=== PATIENT | female | born 1995 | race Caucasian/White ===

== ENCOUNTER 2023-04-23 14:54 | Outpatient (CLI) | payer OTHER, SELFPAY ==
--- NOTE | ~2023-04-23 | XR_ITS ---
EXAMINATION: XR sacroiliac joints min 3V INDICATION: Dorsalgia, unspecified TECHNIQUE: Three views of the sacroiliac joints are obtained. COMPARISON: None available FINDINGS: Bone alignment is normal. There is no fracture. No abnormal sclerosis or erosion of the sac roiliac joints are identified. IMPRESSION: 1. No acute osseous abnormality. Reviewed, dictated and finalized at location L. TER TUMBLING BARREL
--- NOTE | ~2023-04-23 | XR_ITS ---
EXAMINATION: XR lumbar spine 6V w bending DATE: 04/23/2023 15:22 INDICATION: Chronic pain syndrome TECHNIQUE: Anteroposterior, lateral in neutral, flexion and extension, and bilateral oblique views of the lumbar spine, and cone-down lateral view of the lumbosacral junction were obtained. COMPARISON: None. FINDINGS: Bone alignment is normal. There is no hypermobility with flexion or extension. The vertebra l body heights are maintained. There is mild loss of intervertebral disc space height at L5-S1. There is no fracture. Surgical clips in the right upper quadrant are likely from prior cholecystectomy. Th ere is mild facet joint osteoarthritis at L5-S1. IMPRESSION: 1. Mild lumbar spondylosis without acute findings. Reviewed, dictated and finalized at location L. DIRECTOR
--- NOTE | ~2023-04-23 | XR_ITS ---
AP and lateral views of the bilateral hips Clinical history: Pain Findings: No acute fracture or dislocation is seen. Osseous alignment is anatomic. Bilateral hip and SI joint spaces are preserved. Soft tissues are unremarkable. Impression: No significant abnormality is seen. Reviewed, dictated and finalized at location M. LATOR CONSTRUCTOR Impression: No significant abnormality is seen.
== END 2023-04-23 14:55 | disposition home or self-care (01) ==
PROVIDERS: Visit Provider Anesthesiology Pain Medicine
DX: M25.551 Pain in right hip (principal); M25.552 Pain in left hip; M47.896 Other spondylosis, lumbar region
CPT/HCPCS: 72114; 72202; 73521

== ENCOUNTER 2023-05-09 10:47 | Outpatient (CLI) | payer OTHER, SELFPAY ==
--- NOTE | ~2023-05-09 | MR_ITS ---
EXAMINATION: MR lumbar spine wo con DATE: 05/09/2023 12:00 INDICATION: Dorsalgia TECHNIQUE: Magnetic resonance imaging (MRI) of the lumbar spine was performed without intravenous con trast. Sequences included sagittal T2-weighted FSE, sagittal T2-weighted FS FSE, sagittal T1-weighted FSE, and axial T2-weighted FSE. COMPARISON: None FINDINGS: For degree lumbar levocurvature. 6 mm retrolisthesis L5 on S1. There is straightening of the normal l ordosis in the mid to upper lumbar spine. Vertebral body heights are normal. T1 hyperintense hemangio ma at L3. Marrow signal is otherwise normal. Disc desiccation and mild disc height loss at L5-S1. The conus medullaris terminates at L1-L2. There is normal signal in the caudal spinal cord. Paravertebra l soft tissues are unremarkable. The following disc levels are specifically discussed: T12-L1: The disc does not extend beyond the endplate margin. There is mild right and moderate left fa cet joint osteoarthritis. There is no neural foraminal stenosis. There is no central canal stenosis. L1-L2: Disc is minimally bulging. There is mild left and mild to moderate right facet joint osteoarth ritis. There is no neural foraminal stenosis. There is no central canal stenosis. L2-L3: Disc is minimally bulging. There is moderate bilateral facet joint osteoarthritis. There is no neural foraminal stenosis. There is no central canal stenosis. L3-L4: Disc is minimally bulging. There is mild bilateral facet joint osteoarthritis. There is minima l bilateral neural foraminal stenosis. There is no central canal stenosis. L4-L5: The disc does not extend beyond the endplate margin. There is mild bilateral facet joint osteo arthritis. There is mild bilateral neural foraminal stenosis. There is no central canal stenosis. L5-S1: The disc does not extend beyond the more posterior L5 endplate margin. There is mild bilateral facet joint osteoarthritis. There is mild to moderate bilateral neural foraminal stenosis. There is no central canal stenosis. IMPRESSION: 1. Minimal to mild lumbar spondylosis. Reviewed, dictated and finalized at location A. E RACE STARTER
== END 2023-05-09 10:48 | disposition home or self-care (01) ==
PROVIDERS: PCP Nurse Practitioner; Visit Provider Anesthesiology Pain Medicine
DX: M43.06 Spondylolysis, lumbar region (principal); M47.817 Spondylosis without myelopathy or radiculopathy, lumbosacral region; M54.17 Radiculopathy, lumbosacral region; G89.4 Chronic pain syndrome
CPT/HCPCS: 72148

== ENCOUNTER 2024-01-14 01:00 | Day surgery (SDC) | payer OTHER, SELFPAY ==
[2024-01-11 14:33] VITALS: BMI 50.3
--- NOTE | 2024-01-11 14:41 | PC.NURSE ---
Report to the Outpatient Waiting Room, entrance under the green pavilion located off [facility], at time _145pm_ on date _[id number]_. Planned Procedure Time: _245pm_. Time changes happen often and if your time is changed the preop area will call you the afternoon before. - You and your visitor will be asked to self-screen and do not enter if you have any COVID symptoms. - A mask is optional within the hospital at this time. Eat breakfast and a light lunch. Nothing to eat or drink after 1245pm. Take the following medications with a SIP of water the morning of surgery: ____Take all medications DO NOT STOP ANY OF YOUR OTHER PRESCRIPTION MEDICATIONS PRIOR TO SURGERY ?EXCEPT THE FOLLOWING Medications to discontinue per physician None Date to take last dose Please no make-up, nail cape verdean, hairspray, perfume, deodorant, or body powder the day of surgery. No jewelry (including any body piercings) or valuables the day of surgery, leave them at home. Please take a shower or bath the night before, or the morning of, surgery with an antibacterial soap. Wear comfortable, loose fitting clothing. - Jewelry must be removed prior to entering the operating room. Rings and piercings that are not removed may be cut off. - The hospital will not accept responsibility for valuables. - Please leave all valuables, including medications, at home the day of surgery. If you are going home after surgery, a licensed show horse driver must drive you home. - NO public transportation without another adult if you receive anesthesia. - We recommend that an adult stay with you for 24 hours following discharge. - We also recommend that you do not drive, make important decision, drink alcoholic beverages, or take any drugs that were not prescribed by your health care provider for at least 24 hours after your discharge time. Follow any additional instructions given to you from your surgeon. If you or anyone in your household have experienced Covid symptoms in the past week, please notify your surgeon or the nurse liaison at the phone number below for possible testing. Telephone instructions given to __Hali___and asked if any additional questions and then verbalized understanding. Patient advised to call surgeon office or pre surgery nurse liaison [phone] if any additional questions.
--- NOTE | ~2024-01-14 | XR_ITS ---
EXAMINATION: XR fluoroscopy no charge DATE: 01/14/2024 14:31 INDICATION: Bilateral sacroiliac joint injections TECHNIQUE: 6 fluoroscopic images of the was were obtained during procedure performed by Dr. Lamar. Rad iologist was not present for the imaging or procedure. The amount of fluoroscopy time used during thi s procedure was 0.7 minutes. COMPARISON: None. FINDINGS IMPRESSION: Images demonstrate needle tips and injected contrast in the bilateral sacroiliac joints. See procedur e note for further detail. Reviewed, dictated and finalized at location A.
--- NOTE | 2024-01-14 10:38 | PM.HPGS ---
History of Present Illness History of Present Illness Consent: Risks, benefits, and alternatives have been discussed and questions answered. Patient agrees to proceed with procedure. Chief complaint: sacroiliitis, chronic low back pain Narrative: Hali Garcia is a 28 year old female with chronic, recalcitrant and disabling bilateral lumbosacral back pain secondary to degenerative sacroiliac joint arthropathy with failure to respond to aggressive conservative measures including PT, oral and topical analgesics, opioid and nonopioid analgesics, rest, time and activity/behavioral modification over the past 1-2 years who presents for bilateral intra-articular SI joint steroid injection under fluoroscopic guidance and with contrast control. Review of Systems Review of Systems: Patient denies any new infectious, allergic, cardiopulmonary, neurologic or constitutional symptoms or changes in activity tolerance or exercise capacity including new or progressive SOB/SALAS, peripheral edema, productive cough, dysuria, nausea/vomiting, diarrhea, weight change, fevers/chills/night sweats, new or progressive neurologic deficit, cognitive or mood changes since last seen, except as documented in the HPI. All systems reviewed & are unremarkable except as noted in HPI and below PMFSH Social History Social History Smoking packs per day: 1 Smoking cigarettes per day: 20.0 Years smoked: 16 Smoking pack-years: 16.00 Smoking status: Current every day smoker Tobacco type: cigarettes and e-cigarettes/vaping Alcohol intake: current Substance use type: marijuana Other substance usage details: every 2 or 3 months Living arrangements: alone Spiritual care concerns: No Meds Home Medications and Allergies Home Medications Medication Instructions Recorded Confirmed Type pregabalin 300 mg capsule 300 mg PO BID 30 days #60 caps 01/01/24 01/11/24 Rx atomoxetine 40 mg capsule 80 mg PO QAM 01/11/24 01/11/24 History (Strattera) benztropine 0.5 mg tablet 0.5 mg PO BID 01/11/24 01/11/24 History cetirizine 10 mg tablet (Zyrtec) 10 mg PO DAILY PRN Allergy Symptoms 01/11/24 01/11/24 History cholecalciferol (vitamin D3) 50 50 mcg PO DAILY 01/11/24 01/11/24 History mcg (2,000 unit) capsule (Vitamin D3) desvenlafaxine succinate 50 mg 50 mg PO DAILY 01/11/24 01/11/24 History tablet,extended release 24 hr ibuprofen 800 mg tablet 800 mg PO Q6H PRN Pain 01/11/24 01/11/24 History lidocaine 5 % topical patch 1 patch topical DAILY PRN Pain 01/11/24 01/11/24 History lithium carbonate 300 mg 600 mg PO BID 01/11/24 01/11/24 History tablet,extended release norethindrone 1 mg-ethinyl 1 tablet PO DAILY 01/11/24 01/11/24 History estradiol 10 mcg (24)-iron 10 mcg(2) tablet (Lo Loestrin Fe) paliperidone palmitate 156 mg/mL 156 mg IM MONTHLY 01/11/24 01/11/24 History intramuscular syringe (Invega Sustenna) prazosin 1 mg capsule 1 mg PO BID 01/11/24 01/11/24 History prazosin 2 mg capsule 2 mg PO BID 01/11/24 01/11/24 History Allergies Allergy/AdvReac Type Severity Reaction Status Date / Time Sulfa (Sulfonamide Allergy Mild Hives Verified 01/11/24 11:08 Antibiotics) escitalopram [From Lexapro] AdvReac Mild Blurry Verified 01/11/24 11:08 Vision Exam Narrative: The patient's physical exam is essentially unchanged from prior examination on 10/23/2023. Specifically, patient demonstrates normal lung capacity, tidal volume and respiratory rate without wheezes, crackles, rales or rubs. Heart rate and rhythm are regular without murmurs, gallops or rubs. No JVD. Pulses 2+ globally without increasing peripheral edema. AAOx3, NC/AT without acute distress or altered consciousness. Speech, cognition, mood and judgment at baseline and within normal limits. Const: General: cooperative Orientation/consciousness: patient oriented x3 Assessment and Plan Assessment and plan (1) Bilateral sacroiliitis:
--- NOTE | 2024-01-14 10:40 | WPDHPUPDATE1 ---
History and Physical Update Update Date/Time: 01/14/24 10:40 History and Physical has been reviewed, including an updated exam of the patient. There are NO changes in the patient's condition. Risks, benefits, and alternatives have been discussed and questions answered. Patient agrees to proceed with procedure.
--- NOTE | 2024-01-14 10:41 | W.PM.PROC2 ---
Procedure Note - Detailed Date of Procedure 01/14/24 Pre-op Diagnosis sacroiliitis, chronic low back pain Post-op Diagnosis Same Procedure Performed Bilateral Sacroiliac Joint Steroid Injection under Fluoroscopic Guidance and with Contrast Control. Surgeon Yobani Lamar MD Anesthesia Local Description of Procedure INFORMED CONSENT: Risks, benefits and alternatives to the procedure were discussed in detail with the patient who expressed explicit understanding and consent to proceed. Patient was informed verbally and in written form regarding the risks associated with the procedure including the low risk of serious infection, bleeding/bruising, allergic reaction, nerve or organ injury, paralysis, procedural site pain or discomfort, worsening pain and/or mobility, failure to treat and/or disfigurement. The patient expressed explicit understanding and consent to proceed. All materials required for the procedure were available prior to procedure start. Site and side were marked prior to procedure and confirmed in the presence of the patient. PROCEDURE IN DETAIL: The patient was brought to the procedural suite and placed in the prone position. Patient was made comfortable with use of pillows under the head/chest, hips and ankles. Skin overlying the injection site on the affected side(s) was prepared broadly with ChloraPrep applicator and draped in a sterile manner. Aseptic technique was used throughout. The right SI joint was identified in the AP view and contralateral oblique angulation with caudal tilt was utilized to optimize visualization of the inferior and medial joint line representing the posterior portion of the joint. Local anesthesia was established by infiltration with approximately 5 mL of 2% lidocaine via a 1-1/2 inch 27-gauge needle. A 22-gauge 3.5 inch Quincke spinal needle was advanced until the needle entered the inferior third of the joint space approximately 1cm cephalad from its most inferior point. In the AP view, 0.5 mL of Omnipaque 300 contrast medium was injected after negative aspiration for CSF, blood or other bodily fluid, showing appropriate intra-articular spread of contrast without evidence of intravascular, perineural or intrathecal placement. A 1.5 mL solution containing 3 mg of betamethasone in 0.5% PF bupivacaine was injected after repeat negative aspiration. Appropriate spread of the injectate was confirmed with washout of previous injected contrast. No parasthesias were elicited. Needle was removed completely intact without difficulty. The same exact procedure was repeated for all remaining levels on the contralateral side, left SI joint, modified as necessary to accommodate for the new target location with identical findings/results and no evidence of complication. Images were saved and documented in the patient chart. Patient's skin was cleansed and sterile bandage applied. The patient tolerated the procedure well. The patient was transported to the recovery area in stable condition where they were observed for an appropriate amount of time prior to discharge, without evidence of complication. The patient was instructed to avoid excessive activity for the next 48 hours, including climbing and frequent use of stairs. Showers only for 48 hours. They were instructed not to drive or operate heavy machinery for 24 hours. They are to monitor for severe headaches, fevers, chills, night sweats, erythema/swelling at the site or any other signs of infection, bleeding/bruising, bowel or bladder changes as well as new pain, weakness or numbness in the upper or lower extremity. Should they notice these changes, they are instructed to call our office immediately or report directly to the nearest Emergency Department if no answer or if after posted office hours. COMPLICATIONS: None COMMENTS: None CONTRAST WASTED: 29mL Omnipaque 300. Complications No immediate complications Condition Stable Disposition Same day [facility] Billing
[2024-01-14 13:18] VITALS: BP 111/75; PULSE 103; RESP 16; TEMP 36.2; O2SAT 100
[2024-01-14 14:09] VITALS: BP 109/69; PULSE 100; RESP 16; O2SAT 97
[2024-01-14] MEDS: BUPivacaine HCL 0.5% PF 30 ML VIAL 5 ML INFILTRATE (14:17)
[2024-01-14] MEDS: BETAMETHASONE SODIUM PHOSPHATE PF INJ 6 MG/ML VIAL INFILTRATE (14:17)
[2024-01-14 14:19] VITALS: BP 116/73; PULSE 95; RESP 16; O2SAT 97
[2024-01-14 14:23] VITALS: BP 122/81; PULSE 93; RESP 16; O2SAT 99
[2024-01-14 14:49] VITALS: BP 117/69; PULSE 99; RESP 16; O2SAT 100
== END 2024-01-14 14:52 | disposition home or self-care (01) ==
PROVIDERS: PCP Nurse Practitioner; Visit Provider Anesthesiology Pain Medicine
PROC: (CPT 64451; principal; 2024-01-14 14:15)
DX: M46.1 Sacroiliitis, not elsewhere classified (principal); F17.210 Nicotine dependence, cigarettes, uncomplicated; F12.90 Cannabis use, unspecified, uncomplicated; Z79.1 Long term (current) use of non-steroidal anti-inflammatories (NSAID); G89.29 Other chronic pain; M54.50 Low back pain, unspecified
CPT/HCPCS: 64451; 99199; Q9965

== ENCOUNTER 2024-03-04 07:38 | Day surgery (SDC) | payer OTHER, SELFPAY ==
[2024-02-22 12:24] VITALS: BMI 50.8
--- NOTE | ~2024-03-04 | XR_ITS ---
EXAMINATION: XR fluoroscopy no charge DATE: 03/04/2024 10:03 INDICATION: Lumbosacral spondylosis. TECHNIQUE: 60 intraoperative fluoroscopic views of the lumbar spine were obtained. I was not present. Fluoroscopy exposure time was 26 seconds. COMPARISON: Lumbar spine MRI 05/09/2023 FINDINGS: There is mild lumbar spondylosis. Multiple needles are seen for bilateral lumbar medial bra nch/dorsal ramus blocks at L3, L4, and L5. IMPRESSION: 1. Mild lumbar spondylosis. Reviewed, dictated and finalized at location A. IMPRESSION: 1. Mild lumbar spondylosis.
--- NOTE | 2024-03-04 06:49 | WPDHPUPDATE1 ---
History and Physical Update Update Date/Time: 03/04/24 06:49 History and Physical has been reviewed, including an updated exam of the patient. There are NO changes in the patient's condition. Risks, benefits, and alternatives have been discussed and questions answered. Patient agrees to proceed with procedure.
--- NOTE | 2024-03-04 06:50 | W.PM.PROC2 ---
Procedure Note - Detailed Date of Procedure 03/04/24 Pre-op Diagnosis Lumbosacral Spondylosis, chronic low back pain Post-op Diagnosis Same Procedure Performed Diagnostic Bilateral Lumbar Medial Branch/Dorsal Ramus Blocks at L3, L4, L5 Treating the Bilateral L4-5, L5-S1 Facet Joints Under Fluoroscopic Guidance and with Contrast Control. (4 levels blocked). Surgeon Yobani Lamar MD Education Program Coordinator None. Anesthesia Local Description of Procedure INFORMED CONSENT: Risks, benefits and alternatives to the procedure were discussed in detail with the patient who expressed explicit understanding and consent to proceed. Patient was informed verbally and in written form regarding the risks associated with the procedure including the low risk of serious infection, bleeding/bruising, allergic reaction, nerve or organ injury, paralysis, procedural site pain or discomfort, worsening pain and/or mobility, failure to treat and/or disfigurement. The patient expressed explicit understanding and consent to proceed. All materials required for the procedure were available prior to procedure start. Site and side were marked prior to procedure and confirmed in the presence of the patient. PROCEDURE IN DETAIL: The patient was brought to the procedural suite and placed in the prone position. Patient was made comfortable with use of pillows under the head/chest, hips and ankles. Skin overlying the injection site on the affected side(s) was prepared broadly with ChloraPrep applicator and draped in a sterile manner. Aseptic technique was used throughout. The endplates of the vertebral bodies at the site(s) of interest were aligned in the AP view. Ipsilateral oblique angulation was utilized to optimize visualization of the intersection between the superior articulating process and transverse process at each target site. Local anesthesia was established by infiltration with approximately 5 mL of 1% lidocaine via a 1-1/2 inch 27-gauge needle. A 22-gauge 7.0 inch Quincke spinal needle was advanced until the needle tip contacted periosteum at the target site, right L3. Lateral view was utilized to confirm the appropriate placement of the needle tip just anterior to the facet line and superior to the pedicle. In the Lateral view, 0.25 mL of Omnipaque 300 contrast medium was injected after negative aspiration for CSF, blood or other bodily fluid, showing appropriate extra-articular spread of contrast without evidence of intravascular, foraminal or intrathecal placement. A 0.5 mL solution of 0.5% PF bupivacaine was injected after negative repeat aspiration. Appropriate spread of the injectate was confirmed with washout of previously injected contrast. No parasthesias were elicited. Needle was removed completely intact without difficulty. The same exact procedure was repeated for all remaining levels on the ipsilateral side, right L4, L5 medial branches/dorsal ramus, modified as necessary to accommodate for the new target location with identical findings and results and no evidence of complication. The same exact procedure was repeated for all remaining levels on the contralateral side, left L3, L4, L5 medial branches/dorsal ramus, modified as necessary to accommodate for the new target location with identical findings and results and no evidence of complication. Images were saved and documented in the patient chart. Patient's skin was cleaned and sterile bandage applied. The patient tolerated the procedure well. The patient was transported to the recovery area in stable condition where they were observed for an appropriate amount of time prior to discharge, without evidence of complication. Patient was instructed on the appropriate completion of a pain diary over the next 12-24 hours. The patient was instructed to avoid excessive activity for the next 48 hours, including climbing and frequent use of stairs. Showers only for 48 hours. They were instructed not to drive or operate heavy machinery for 2
[2024-03-04 09:18] VITALS: BP 154/92; PULSE 100; RESP 16; TEMP 37.1; O2SAT 99
[2024-03-04 09:42] VITALS: BP 109/58; PULSE 93; RESP 16; O2SAT 96
[2024-03-04 09:48] VITALS: BP 106/58; PULSE 91; RESP 16; O2SAT 98
[2024-03-04] MEDS: LIDOCAINE HCL 1% PF INJ 5 ML VIAL 4 ML XX (09:50)
[2024-03-04] MEDS: BUPivacaine HCL 0.5% PF 30 ML VIAL INFILTRATE (09:50)
[2024-03-04 09:52] VITALS: BP 116/55; PULSE 91; RESP 16; O2SAT 98
[2024-03-04 09:57] VITALS: BP 113/64; PULSE 90; RESP 16; O2SAT 98
[2024-03-04 10:05] VITALS: BP 112/57; PULSE 90; RESP 16; O2SAT 99
== END 2024-03-04 10:23 | disposition home or self-care (01) ==
PROVIDERS: PCP Nurse Practitioner; Visit Provider Anesthesiology Pain Medicine
PROC: (CPT 64493; principal; 2024-03-04 10:00)
DX: M47.817 Spondylosis without myelopathy or radiculopathy, lumbosacral region (principal); M54.59 Other low back pain
CPT/HCPCS: 64493 ×2; 64494 ×2; 99199

== ENCOUNTER 2024-04-15 09:54 | Day surgery (SDC) | payer OTHER, SELFPAY ==
[2024-04-02 13:51] VITALS: BMI 51.5
--- NOTE | ~2024-04-15 | XR_ITS ---
EXAMINATION: XR fluoroscopy no charge DATE: 04/15/2024 11:00 CDT INDICATION: ANANDA L3, L4,L5 NERVE BLK . TECHNIQUE: 10 fluoroscopic images and 5 cine clips of the lumbar spine were obtained during bilateral L3, L4, and L5 nerve block, performed by Yobani Lamar MD. I was not present during the procedure . Fluoroscopy exposure time was 24.5 seconds. Air Kerma 36.27 mGy. COMPARISON: None FINDINGS/IMPRESSION: Fluoroscopic documentation of bilateral L3, L4, and L5 nerve block. Please refer to the operative not e for complete procedural details . Reviewed, dictated and finalized at location K.
--- NOTE | 2024-04-15 05:05 | WPDHPUPDATE1 ---
History and Physical Update Update Date/Time: 04/15/24 05:05 History and Physical has been reviewed, including an updated exam of the patient. There are NO changes in the patient's condition. Risks, benefits, and alternatives have been discussed and questions answered. Patient agrees to proceed with procedure.
--- NOTE | 2024-04-15 05:06 | P.OP_ITS ---
Procedure Note - Detailed Date of Procedure 04/15/24 Pre-op Diagnosis Lumbosacral Spondylosis, chronic low back pain Post-op Diagnosis Same Procedure Performed Diagnostic bilateral Lumbar Medial Branch/Dorsal Ramus Blocks at L3, L4, L5 Treating the bilateral L4-5, L5-S1 Facet Joints Under Fluoroscopic Guidance and with Contrast Control. ( 4 levels blocked). Surgeon Yobani Lamar MD Communications Lead None. Anesthesia Local Description of Procedure INFORMED CONSENT: Risks, benefits and alternatives to the procedure were discussed in detail with the patient who expressed explicit understanding and consent to proceed. Patient was informed verbally and in written form regarding the risks associated with the procedure including the low risk of serious infection, bleeding/bruising, allergic reaction, nerve or organ injury, paralysis, procedural site pain or discomfort, worsening pain and/or mobility, failure to treat and/or disfigurement. The patient expressed explicit understanding and consent to proceed. All materials required for the procedure were available prior to procedure start. Site and side were marked prior to procedure and confirmed in the presence of the patient. PROCEDURE IN DETAIL: The patient was brought to the procedural suite and placed in the prone position. Patient was made comfortable with use of pillows under the head/chest, hips and ankles. Skin overlying the injection site on the affected side(s) was prepared broadly with ChloraPrep applicator and draped in a sterile manner. Aseptic technique was used throughout. The endplates of the vertebral bodies at the site(s) of interest were aligned in the AP view. I psilateral oblique angulation was utilized to optimize visualization of the intersection between the superior articulating process and transverse process at each target site. Local anesthesia was established by infiltration with approximately 5 mL of 1% lidocaine via a 1-1/2 inch 27-gauge needle. A 25-gauge 5.0 inch Quincke spinal needle was advanced until the needle tip contacted periosteum at the target site, right L3. Lateral view was utilized to confirm the appropriate placement of the needle tip just anterior to the facet line and superior to the pedicle. In the Lateral view, 0.25 mL of Omnipaque 300 contrast medium was injected after negative aspiration for CSF, blood or other bodily fluid, showing appropriate extra-articular spread of contrast without evidence of intravascular, foraminal or intrathecal placement. A 0.5 mL solution of 2.0% PF lidocaine was injected after negative repeat aspiration. Appropriate spread of the injectate was confirmed with washout of previously injected contrast. No parasthesias were elicited. Needle was removed completely intact without difficulty. The same exact procedure was repeated for all remaining levels on the ipsilateral side, right L4, L5 medial branches/dorsal ramus, modified as necessary to accommodate for the new target location with identical findings and results and no evidence of complication. The same exact procedure was repeated for all remaining levels on the contralateral side, left L3, L4, L5 medial branches/dorsal ramus, modified as necessary to accommodate for the new target location with identical findings and results and no evidence of complication. Images were saved and documented in the patient chart. Patient's skin was cleaned and sterile bandage applied. The patient tolerated the procedure well. The patient was transported to the recovery area in stable condition where they were observed for an appropriate amount of time prior to discharge, without evidence of complication. Patient was instructed on the appropriate completion of a pain diary over the next 12-24 hours. The patient was instructed to avoid excessive activity for the next 48 hours, including climbing and frequent use of stairs. Showers only for 48 hours. They were instructed not to drive or operate heavy machinery for 24 hours. They are to monitor for severe headaches, fevers, chills, night sweats, erythema/swelling at the site or any other signs of infection, bleeding/bruising, bowel or bladder changes as well as new pain, weakness or numbness in the upper or lower extremity. Should they notice these changes, they are instructed to call our office immediately or report directly to the nearest Emergency Department if no answer or if after posted office hours. COMPLICATIONS: None COMMENTS: None CONTRAST WASTED: 28.5mL Omnipaque 300. Complications No immediate complications Condition Stable Disposition Same day [facility] Billing Surgery - Charge Forward: Surgery Billing
[2024-04-15 10:58] VITALS: BMI 54.8
[2024-04-15 11:02] VITALS: BP 139/76; PULSE 88; RESP 20; TEMP 36; O2SAT 99
[2024-04-15 11:10] VITALS: BP 141/60; PULSE 81; RESP 14; O2SAT 94
[2024-04-15 11:17] VITALS: BP 141/60; PULSE 82; RESP 12; O2SAT 97
[2024-04-15] MEDS: LIDOCAINE HCL 2% PF INJ 5 ML VIAL 3 ML INFILTRATE (11:21)
[2024-04-15 11:22] VITALS: BP 147/77; PULSE 80; RESP 16; O2SAT 97
[2024-04-15] MEDS: LIDOCAINE HCL 1% PF INJ 5 ML VIAL 3 ML XX (11:23)
== END 2024-04-15 11:38 | disposition home or self-care (01) ==
PROVIDERS: PCP Nurse Practitioner; Visit Provider Anesthesiology Pain Medicine
PROC: (CPT 64493; principal; 2024-04-15 11:15)
DX: M47.817 Spondylosis without myelopathy or radiculopathy, lumbosacral region (principal); M54.59 Other low back pain
CPT/HCPCS: 64493 ×2; 64494 ×2; 99199

== ENCOUNTER → 2024-07-01 00:57 | Day surgery (SDC) | payer OTHER, SELFPAY ==
[2024-06-23 14:54] VITALS: BMI 54.9
--- NOTE | 2024-06-23 14:55 | PC.NURSE ---
Addendum entered by Byron Enamorado RN 06/24/24 12:24: Called patient and informed she was to eat or drink nothing after midnight except water with medications day of surgery. Original Note: Report to the Outpatient Waiting Room, entrance under the green pavilion located off [facility], at time _1030_ on date _[id number]_. Planned Procedure Time: _1230_.? Time changes happen often and if your time is changed the preop area will call you the afternoon before. - You and your visitor will be asked to self-screen and do not enter if you have any COVID symptoms. Please call surgeon if you need to reschedule. - A mask is optional within the hospital at this time. Patients may have clear liquids (water, carbonated beverages, clear teas, apple juice) until 3 hours prior to surgery with a maximum of 20 ounces. - No food from midnight until time of surgery and no smoking. This includes no chewing gum, candy or mints. Take only the following medications with a SIP of water on the morning of surgery: __Benztropine, Dezvenlafaxine, Lo Lestrin Fe, [place], Aripiprazole, and if needed Lorazepam. DO NOT STOP ANY OF YOUR OTHER PRESCRIPTION MEDICATIONS PRIOR TO SURGERY EXCEPT THE FOLLOWING Medications to discontinue per physician Please check with Dr Lamar's office if Ok to continue taking Ibuprofen. Date to take last dose Please no make-up, nail [place], hairspray, perfume, deodorant, or body powder the day of surgery.? No jewelry (including any body piercings) or valuables the day of surgery, leave them at home.? Please take a shower or bath the night before, or the morning of, surgery with an antibacterial soap.? Wear comfortable, loose fitting clothing.? - Jewelry must be removed prior to entering the operating room.? Rings and piercings that are not removed may be cut off. - The hospital will not accept responsibility for valuables.? - Please leave all valuables, including medications, at home the day of surgery. If you are going home after surgery, a licensed taxi truck driver must drive you home.? - NO public transportation without another adult if you receive anesthesia. - We recommend that an adult stay with you for 24 hours following discharge. - We also recommend that you do not drive, make important decision, drink alcoholic beverages, or take any drugs that were not prescribed by your health care provider for at least 24 hours after your discharge time. Follow any additional instructions given to you from your surgeon. Telephone instructions given to __Qamarte_and asked if any additional questions and then verbalized understanding. Patient advised to call surgeon office or pre surgery nurse liaison [phone] if any additional questions.
--- NOTE | 2024-07-01 06:40 | PM.HPGS ---
History of Present Illness History of Present Illness Consent: Risks, benefits, and alternatives have been discussed and questions answered. Patient agrees to proceed with procedure. Chief complaint: lumbosacral spondylosis, chronic low back pain Narrative: Hali Garcia is a 29 year old female with chronic, recalcitrant and disabling bilateral lumbosacral back pain secondary to degenerative spondylosis with failure to respond to aggressive conservative measures including PT, oral and topical analgesics, opioid and nonopioid analgesics, rest, time and activity/behavioral modification over the past 1-2 years but with concordant in response to a series of 2 diagnostic/prognostic medial branch blocks and a prior RFA with 80% relief for 6 months or longer, who presents for thermal radiofrequency ablation of the bilateral L3, L4, L5 medial branches/dorsal ramus addressing the bilateral L4-5, L5-S1 facet joints under fluoroscopic guidance. Review of Systems Review of Systems: Patient denies any new infectious, allergic, cardiopulmonary, neurologic or constitutional symptoms or changes in activity tolerance or exercise capacity including new or progressive SOB/SALAS, peripheral edema, productive cough, dysuria, nausea/vomiting, diarrhea, weight change, fevers/chills/night sweats, new or progressive neurologic deficit, cognitive or mood changes since last seen, except as documented in the HPI. All systems reviewed & are unremarkable except as noted in HPI and below PMFSH Past Medical History Medical History Asthma Surgical History Surgical History History of cholecystectomy History of tonsillectomy Social History Social History Smoking packs per day: 1 Smoking cigarettes per day: 20.0 Years smoked: 15 Smoking pack-years: 15.00 Smoking status: Current every day smoker Tobacco type: cigarettes Alcohol intake: never Substance use: never Substance use type: marijuana Other substance usage details: small amounts for sleep as needed. Do You Feel Safe in your Home?: Yes Lack of Transportation: No Lack of Food: Sometimes True Current Housing: I Have Housing Concerned About Future Housing: No Difficulty Paying Gas/Electric Bills: YES Difficulty Paying for Meds: No Currently Unemployed: YES Education: High School Diploma/GED Difficulty w/ Childcare or Family Care: No Living arrangements: alone Spiritual care concerns: No Meds Home Medications and Allergies Home Medications ?Medication ?Instructions ?Recorded ?Confirmed ?Type benztropine 0.5 mg tablet 0.5 mg PO BID 01/11/24 06/23/24 History cetirizine 10 mg tablet (Zyrtec) 10 mg PO DAILY PRN Allergy Symptoms 01/11/24 06/23/24 History cholecalciferol (vitamin D3) 50 50 mcg PO DAILY 01/11/24 06/23/24 History mcg (2,000 unit) capsule (Vitamin D3) desvenlafaxine succinate 50 mg 50 mg PO DAILY 01/11/24 06/23/24 History tablet,extended release 24 hr ibuprofen 800 mg tablet 800 mg PO Q6H PRN Pain 01/11/24 06/23/24 History lidocaine 5 % topical patch 1 patch topical DAILY PRN Pain 01/11/24 06/23/24 History lithium carbonate 300 mg 600 mg PO BID 01/11/24 06/23/24 History tablet,extended release norethindrone 1 mg-ethinyl 1 tablet PO DAILY 01/11/24 06/23/24 History estradiol 10 mcg (24)-iron 10 mcg(2) tablet (Lo Loestrin Fe) prazosin 2 mg capsule 2 mg PO BID 01/11/24 06/23/24 History aripiprazole 10 mg tablet 10 mg PO DAILY 02/22/24 06/23/24 History paliperidone 9 mg tablet,extended 9 mg PO HS 02/22/24 06/23/24 History release 24 hr (Invega) lisdexamfetamine 30 mg capsule 30 mg PO DAILY 03/04/24 06/23/24 History (Vyvanse) pregabalin 300 mg capsule 300 mg PO BID 30 days #60 caps 04/04/24 06/23/24 Rx lisdexamfetamine 20 mg capsule 20 mg PO DAILY 06/23/24 06/23/24 History (Vyvanse) lorazepam 0.5 mg tablet (Ativan) 0.5 mg PO BID PRN anxiety 06/23/24 06/23/24 History prazosin 5 mg capsule 5 mg PO Q12H 06/23/24 06/23/24 History Allergies Allergy/AdvReac Type Severity Reaction Status Date / Time Sulfa (Sulfonamide Allergy Mild Hives Verified 06/23/24 14:44 Antibiotics) lactose Allergy Unknown Diarrhea Verified 06/23/24 14:44 escitalopram (From Lexapro) AdvReac Mild Blurry Verified 06/23/24 14:44 Vision Exam Narrative: The patient's physical exam is essentially unchanged from prior examination on 04/28/2024. Specifically, patient demonstrates normal lung capacity, tidal volume and respiratory rate without wheezes, crackles, rales or rubs. Heart rate and rhythm are regular without murmurs, gallops or rubs. No JVD. Pulses 2+ globally without increasing peripheral edema. AAOx3 with no evidence of confusion, intoxication or altered mental state, NC/AT without acute distress or altered consciousness. Speech, cognition, mood, insight and judgment at baseline and within normal limits. Assessment and Plan Assessment and plan (1) Lumbosacral spondylosis: Code(s): M47.817 - Spondylosis without myelopathy or radiculopathy, lumbosacral region Status: Acute (2) Chronic pain associated with significant psychosocial dysfunction: Code(s): G89.4 - Chronic pain syndrome Status: Acute (3) Dorsalgia: Code(s): M54.9 - Dorsalgia, unspecified Status: Acute Plan proceed as planned with thermal radiofrequency ablation of the bilateral L3, L4, L5 medial branch/ dorsal rami Addressing the bilateral L4-5, L5-S1 facet joints under fluoroscopic guidance.
--- NOTE | 2024-07-01 06:43 | WPDHPUPDATE1 ---
History and Physical Update Update Date/Time: 07/01/24 06:43 History and Physical has been reviewed, including an updated exam of the patient. There are NO changes in the patient's condition. Risks, benefits, and alternatives have been discussed and questions answered. Patient agrees to proceed with procedure.
--- NOTE | 2024-07-01 06:44 | P.OP_ITS ---
Procedure Note - Detailed Date of Procedure 07/01/24 Pre-op Diagnosis lumbosacral spondylosis, chronic low back pain Post-op Diagnosis Same Procedure Performed Thermal Radiofrequency Ablation of the bilateral Lumbar Medial Branches/Dorsal Ramus at the L3, L4, L5 Levels Treating the bilateral L4-5, L5-S1 Facet Joints Under Fluoroscopic Guidance ( 4 Levels Treated). Surgeon Yobani Lamar MD Truck Rental Service Attendant None. Anesthesia Local (w/ MAC) Description of Procedure INFORMED CONSENT: Risks, benefits and alternatives to the procedure were discussed in detail with the patient who expressed explicit understanding and consent to proceed. Patient was informed verbally and in written form regarding the risks associated with the procedure including the low risk of serious infection, bleeding/bruising, allergic reaction, nerve or organ injury, paralysis, procedural site pain or discomfort, worsening pain and/or mobility, failure to treat and/or disfigurement. The patient expressed explicit understanding and consent to proceed. All materials required for the procedure were available prior to procedure start. Site and side were marked prior to procedure and confirmed in the presence of the patient. PROCEDURE IN DETAIL: The patient was brought to the procedural suite and placed in the prone position. Patient was made comfortable with use of pillows under the head/chest, hips and ankles. ASA standard monitors were applied and used throughout the procedure. Skin overlying the injection site on the affected side(s) was prepared broadly with ChloraPrep applicator and draped in a sterile manner. Aseptic technique was used throughout. The endplates of the vertebral bodies at the site(s) of interest were aligned in the AP view. Ipsilateral oblique angulation was utilized to optimize visualization of the intersection between the superior articulating process and transverse process at each target site. Local anesthesia was established by infiltration with approximately 5 mL of 1% lidocaine via a 1-1/2 inch 27-gauge needle divided over each site treated. A 16-gauge 150mm [employer] RF needle with curved 10mm active tip was advanced in the AP view until the needle tip contacted the periosteum at the target site, the right L3 medial branch. Lateral view was utilized to adjust and confirm the appropriate placement of the needle tip just anterior to the facet line, superior to the pedicle and posterior to the foramen. Grounding electrode was in place and functioning. The appropriately-sized RF cannula was inserted into the RF needle and motor stimulation was performed with no subjective or objective evidence of recruited muscle activity with stimulation up to 2.0 volts at a frequency of 2Hz. 1.5 mL of 2.0% PF lidocaine was injected after negative aspiration. After a 90s pause, lesioning was performed to 90 degrees centigrade for 90s ensuring lack of symptoms in the extremity throughout. Needle was rotated 180 degrees and lesioning repeated in a similar manner. Patient tolerated this well. No parasthesias were elicited. Needle was removed completely intact without difficulty. The same procedure was repeated for all intended levels/ structures on the ipsilateral side, right L4, L5 medial branch/dorsal ramus with identical methodology, modified to compensate for new location, with similar results and no evidence of complication. The same exact procedure was repeated for all remaining levels on the contralate ral side, left L3, L4, L5 medial branches/dorsal ramus, modified as necessary to accommodate for the new target location with identical findings/results and no evidence of complication. Images were saved and documented in the patient chart. Patient's skin was cleansed and sterile bandage applied. The patient tolerated the procedure well. The patient was transported to the recovery area in stable condition where they were observed for an appropriate amount of time prior to discharge, without evidence of complication. The patient was instructed to avoid excessive activity for the next 48 hours, including climbing and frequent use of stairs. Showers only for 48 hours. They were instructed not to drive or operate heavy machinery for 24 hours. They are to monitor for severe headaches, fevers, chills, night sweats, erythema/swelling at the site or any other signs of infection, bleeding/bruising, bowel or bladder changes as well as new pain, weakness or numbness in the upper or lower extrem ity. Should they notice these changes, they are instructed to call our office immediately or report directly to the nearest Emergency Department if no answer or if after posted office hours. COMPLICATIONS: None COMMENTS: None Complications No immediate complications Condition Stable Disposition PACU [facility] Billing Surgery - Charge Forward: Surgery Billing
[2024-07-01 12:30] VITALS: BP 118/87; PULSE 88; RESP 16; TEMP 37.1; O2SAT 100
[2024-07-01] MEDS: LACTATED RINGERS 1,000 ML 30 ML IV CONT (12:30)
[2024-07-01 13:29] LABS: Lithium 0.5 mmol/L (0.6-1.2)
--- NOTE | 2024-07-01 13:36 | WPDANESEPPF ---
Anes - Initial Pre Proc Eval Procedure: Operation Date: 07/01/24 13:30 Proposed Procedures p Thermal Radiofrequency Ablation Bilateral L3, L4, L5, Medial Branches/ Dorsal Rami Supplying Bilateral L4-5, L5-S1, Facet Joints Under Fluoroscopic Guidance - Yobani Lamar MD Date/Time: 07/01/24 13:36 Surgeon: Yobani Lamar MD Pre Op Diagnosis: lumbosacral spondylosis, chronic low back pain Patient Data Age: 29 Gender: F Height: 1.68 m Weight: 154.5 kg Allergies Allergy/AdvReac Type Severity Reaction Status Date / Time Sulfa (Sulfonamide Allergy Mild Hives Verified 06/23/24 14:44 Antibiotics) lactose Allergy Unknown Diarrhea Verified 06/23/24 14:44 escitalopram (From Lexapro) AdvReac Mild Blurry Verified 06/23/24 14:44 Vision Home Medications ?Medication ?Instructions ?Recorded ?Confirmed ?Type benztropine 0.5 mg tablet 0.5 mg PO BID 01/11/24 06/23/24 History cetirizine 10 mg tablet (Zyrtec) 10 mg PO DAILY PRN Allergy Symptoms 01/11/24 06/23/24 History cholecalciferol (vitamin D3) 50 50 mcg PO DAILY 01/11/24 06/23/24 History mcg (2,000 unit) capsule (Vitamin D3) desvenlafaxine succinate 50 mg 50 mg PO DAILY 01/11/24 06/23/24 History tablet,extended release 24 hr ibuprofen 800 mg tablet 800 mg PO Q6H PRN Pain 01/11/24 06/23/24 History lidocaine 5 % topical patch 1 patch topical DAILY PRN Pain 01/11/24 06/23/24 History lithium carbonate 300 mg 600 mg PO BID 01/11/24 06/23/24 History tablet,extended release norethindrone 1 mg-ethinyl 1 tablet PO DAILY 01/11/24 06/23/24 History estradiol 10 mcg (24)-iron 10 mcg(2) tablet (Lo Loestrin Fe) prazosin 2 mg capsule 2 mg PO BID 01/11/24 06/23/24 History aripiprazole 10 mg tablet 10 mg PO DAILY 02/22/24 06/23/24 History paliperidone 9 mg tablet,extended 9 mg PO HS 02/22/24 06/23/24 History release 24 hr (Invega) lisdexamfetamine 30 mg capsule 30 mg PO DAILY 03/04/24 06/23/24 History (Vyvanse) pregabalin 300 mg capsule 300 mg PO BID 30 days #60 caps 04/04/24 06/23/24 Rx lisdexamfetamine 20 mg capsule 20 mg PO DAILY 06/23/24 06/23/24 History (Vyvanse) lorazepam 0.5 mg tablet (Ativan) 0.5 mg PO BID PRN anxiety 06/23/24 06/23/24 History prazosin 5 mg capsule 5 mg PO Q12H 06/23/24 06/23/24 History Laboratory Tests 07/01/24 12:52 [place] 0.5 L mmol/L (0.6-1.2) Results Review: All pre-operative results and documents have been reviewed as part of the pre-operative evaluation. [facility] Past Medical History Medical History Asthma Surgical History Surgical History History of cholecystectomy History of tonsillectomy Social History Social History Smoking packs per day: 1 Smoking cigarettes per day: 20.0 Years smoked: 15 Smoking pack-years: 15.00 Smoking status: Current every day smoker Tobacco type: cigarettes Alcohol intake: never Substance use: never Substance use type: marijuana Other substance usage details: small amounts for sleep as needed. Do You Feel Safe in your Home?: Yes Lack of Transportation: No Lack of Food: Sometimes True Current Housing: I Have Housing Concerned About Future Housing: No Difficulty Paying Gas/Electric Bills: YES Difficulty Paying for Meds: No Currently Unemployed: YES Education: High School Diploma/GED Difficulty w/ Childcare or Family Care: No Living arrangements: alone Spiritual care concerns: No Anes - Eval Final PreProcedure Day of Procedure 07/01/24 13:36 Patient weight: normal Heart: regular rate and rhythm Lungs: clear to auscultation Neurological: alert and oriented Last oral intake: >/= 8 hours Emergent: no Anesthetic plan: proceed Results Review: All pre-operative results and documents have been reviewed as part of the pre-operative evaluation. Informed Consent: The patient's anesthetic plan and its attendant risks and benefits were discussed with the patient/family/POA. Questions were solicited and answers provided to the satisfaction of the patient/family/POA.
[2024-07-01 14:29] LABS: BEDSIDEPREGUCG Negative (Negative)
--- OUTSIDE RECORDS SUMMARY | 2024-07-08 04:32 | XMS_ITS | Clinical Summary ---
Author Organization [facility] Address [address] [place] [address] Care Team Providers Care Cold Press Loader Name Role Phone Unavailable Primary Care Provider Unavailabl e Source Comments [facility],non-owned Affiliates and Associated Physician Practices is amultiple site organization consisting of ambulatory clinics and hospital sitesin [place], [place], [place] and [place]. This disclosure is being madepursuant to the Care Everywhere program and may not contain all information available regarding this patient. Last updated 18.[facility] Allergies Active Allergy Reactions Criticality Noted Date Comments Sulfamethoxazole W-Trimethoprim Unknown 12/17 Escitalopram Unknown 01/04/2022 Sulfa Drugs Unknown 01/04/2022 Medications * Be aware that medications may not be up to date on this document. Alwaysverify current medications with the patient. Medication Sig Dispensed Refills Start Date End Date Status FLUoxetine (PROZAC) 20 MG capsuleIndications: Depression,Major Depressive Disorder,TRD Take 1 (one) capsule by mouth once daily Reasons: Depression, Major Depressive Disorder, TRD 30 capsule 1 01/12/2022 Active OLANZapine (ZYPREXA) 2.5 MG tabletIndications:M ixed Bipolar Affective Disorder,Brief Psychotic Disorder Take 1 (one) tablet by mouth at bedtime Reasons: MIXED BIPOLAR AFFECTIVE DISORDER, Brief Psychotic Disorder 30 tablet 1 01/11/2022 Active nicotine polacrilex (NICORETTE) 2 MG gumIndications:Americo nidia Dependence Take 1 (one) Each by mouth every 2 hours as needed for Smoking Cessation Reasons: Nicotine Addiction 20 Each 01/11/2022 Active nicotine polacrilex (NICORETTE) 2 MG gumIndications:Americo nidia Dependence Take 1 (one) Each by mouth as needed for Smoking Cessation - Gum should be slowly chewed until a peppery taste emerges, then parked between cheek and gum to facilitate nicotine absorption. - Avoid eating or drinking for 15 minutes before and during chewing gum. 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 Patient declined 01/04/2022 Q2: How many drinks containi ng alcohol do you have on a typical day when you are drinking? Patient declined 01/04/2022 Q3: How often do you have si x or more drinks on one occasion? Patient declined 01/04/2022 Sex and Gender Information Value Date Recorded Sex Assigned at Not on file Gender Identity Not on file Sexual Orientation Not on file Last Filed Vital Signs Vital Sign Reading Time Taken Comments Blood Pressure 137/85 01/12/2022 7:06 AM CDT Pulse 91 01/12/2022 7:06 AM CDT Temperature 37 ??C (98.6 ??F) 01/12/2022 7:06 AM CDT Respiratory Rate 18 01/12/2022 7:06 AM CDT Oxygen Saturation 98% 01/12/2022 7:06 AM CDT Inhaled Oxygen Concentration - - Weight 134.3 kg (296 lb) 01/04/2022 6:20 PM CDT Height 167.6 cm (5' 6 ) 01/04/2022 6:20 PM CDT Body Mass Index 47.78 01/04/2022 6:20 PM CDT Plan of Treatment Health Maintenance Due Date Last Done Comments PAP SMEAR 1993 HIV SCREENING 02/08/2008 HEPATITIS C SCREENING 02/03/2011 DTAP/TDAP/TD VACCINES (1 - Tdap) 02/08/2012 HEPATITIS B VACCINE (1 of 3 - 19+ 3-dose series) 02/08/2012 PNEUMOCOCCAL VACCINE (1 of 2 - PCV) 02/08/2012 COVID-19 VACCINE (1 - 2023-2 5 season) 2024 INFLUENZA VACCINE (#1) 2024 DEPRESSION SCREENING 06/18/2024 ZOSTER VACCINE (1 of 2) 2043 HIB VACCINE Aged Out No longer eligi ble based on patient's age to complete this topic HPV VACCINE Aged Out No longer eligi ble based on patient's age to complete this topic MENINGOCOCCAL (Group B) VACCINE Aged Out No longer eligible based on patient's age to complete this topic MENINGOCOCCAL VACCINE Aged Out No buster alma delia eligible based on patient's age to complete this topic Advance Directives * Full Code (Latest Code Status on File) Date Activated Date Inactivated Comments 01/04/2022 6:21 PM 01/12/2022 9:45 AM
--- OUTSIDE RECORDS SUMMARY | 2024-07-08 04:32 | XMS_ITS | Continuity of Care Document ---
Author Name [facility] Organization [facility] Care Team Providers Care Cost Analyst Name Role Phone [facility] Unavailable Unavailable Social History Combined list of available smoking, tobacco, and other social history from Department of Defense and Veterans Affairs facilities. Social History Type Response Date Comment Sourc e This section is an empty social history section. [facility]
--- OUTSIDE RECORDS SUMMARY | 2024-07-08 04:33 | XMS_ITS | Encounter Summary ---
Author Organization [facility] Address [address] [place] [address] Care Team Providers Care Master Esthetician Name Role Phone Unavailable Primary Care Provider Unavailabl e Reason for Visit * Reason Comments Future Appointment referral rcvd: 3rd a ttempt to contact pt Encounter Details Date Type Department Care Team (Late st Contact Info) Description 06/19/2018 Telephone [facility] - [address] [place] [id number] Chantel Zee Future Appointment (referral rcvd: 3rd attempt to contact pt) Social History Tobacco Use Types Packs/Day Years Used Date Smoking Tobacco: Never Assessed Sex and Gender Information Value Date Recorded Sex Assigned at Not on file Gender Identity Not on file Sexual Orientation Not on file documented as of this encounter Miscellaneous Notes * Telephone Encounter - Chantel Zee - 06/19/2018 9:01 AM CST Referral rcvd & scanned: 3rd attempt to contact pt w/no response. Contacted referring provider to advise. NIA REFRIGERATION TECHNICIAN documented in this encounter Plan of Treatment Not on file documented as of this encounter Visit Diagnoses Not on filedocumented in this encounter
--- OUTSIDE RECORDS SUMMARY | 2024-07-08 04:33 | XMS_ITS | Encounter Summary ---
Author Organization [facility] Address [address] [place] [address] Care Team Providers Care Compliance Vice President Name Role Phone Unavailable Primary Care Provider Unavailabl e Reason for Visit * Reason Onset Date Comments Psychiatric Problem 01/04/2022 Encounter Details Date Type Department Care Team (Late st Contact Info) Description 01/04/2022 Telephone [facility] [address] [place] [address] Kathryn Worrell Psychiatric Problem Social History Tobacco Use Types Packs/Day Years Used Date Smoking Tobacco: Every Day Cigarettes 1.5 10 Smokeless Tobacco: Never Alcohol Use Standard Drinks/Week Comments Not Currently [...] on file documented as of this encounter Progress Notes * Marie Charles RN - 01/04/2022 1:49 PM CDT Central Intake Note: Informants: Received a call from Kathryn @ [employer]. 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 No Time and date: 01/04/22 1404 Admitting physician: Dr. Sy Hospital / Unit: [facility] Room: 105-1 Phone # for nurse report: [phone] Patient's current location: [facility] in [place] ED Guardian/POA name/relationship, if applicable (Parent /DFS/DJO/Foster): none Guardian/POA contact #: none Admission status: Patient voluntary? Yes Patient Involuntary: No If Yes, was the patient's Rights Read: No What Time did the Involuntary started No Who read & Filled Out the paperwork? No Was this a [address] Order: No Did the patient need to be SASSED [phone] RIN #? (18,19, and 20 yr. olds with Medicaid) No PRESENTING PROBLEM: The patient is a 26 year old female presenting to the Emergency Department via POV with a complaintof SI and psychosis. The precipitating event is medications not working. Per [employer] from [facility]: patient called her grandmother stating she can't deal with her mental health symptoms and has a plan to kill herself by overdose. Has a history of 4 suicide attempts and self injurious behaviors by c utting and burning herself. Has been hospitalized at [facility] twice in the past 6 months and was at [facility] last year. UDS was positive for meth and THC. Covid is negative. SUICIDAL SCREEN: (SI, Plan, Intent, Past Attempts, Self-injury, Unsafe Behaviors, history of suicide threats, history of running away) Describe: SI plan to overdose When did the symptoms start? Past week HOMICIDAL SCREEN: (HI, Plan, Intent, Aggressive Ideation or Behaviors, history of Assaultive Behavior, Past History) Describe: threatening family SYMPTOMS OF PSYCHOSIS: auditory and visual hallucinations PSYCHIATRIC TREATMENT HISTORY: Have you had any prior Psychiatric Admissions?: Yes Do you have any current Providers: Dr. Bach ROSEGLEN Medications: Intellectual disability/autism/DD: No IQ (60 and above) Infected/Isolation Patient? No Last date/type Patient Affect: labile Orientation ( Alert & Oriented X4 Self-Care: Decrease ADL's No Need assistance w/ ADL's? No History of Falls? No Problems ambulating? No Adaptive or Medical devices No Breathing problems/oxygen No Sleep ( # of hours) not sleeping Cognitive: (Alert, oriented, paranoid, hallucinations, delusions, suspicious, flight of ideas, obsessions, insight deficit, confusion, loose associations, blocking, racing thoughts, ideas of reference, grandiosity, flashbacks, impaired memory, poor concentration, ruminating): Describe Behavior: cooperative Appearance: ( dishelved, body odor, non kept, groomed) unknown Has the patient been aggressive while in the Emergency Department, home, alf? No SUBSTANCE ABUSE: What is the current Substance Abuse: Meth and THC Past History of Substance Abuse: unknown Recent Vitals Signs Last Lab Values ( Urine drug screen, BAL, , and routine labs) Labs faxed? Yes Patient has been medically cleared Yes By what physician? Dr. Razo [facility] Referral Source Completed: Yes DISPOSITION: Called and discussed case with Dr. Sy (Psychiatrist) who agrees that patient meetscriteria for inpatient behavioral health services. Pt accepted Dr Sy(Psychiatrist) . Patient noy admitted to the care of Dr. Sy (Psychiatrist). documented in this encounter Plan of Treatment Not on file documented as of this encounter Visit Diagnoses Not on filedocumented in this encounter
--- OUTSIDE RECORDS SUMMARY | 2024-07-08 04:33 | XMS_ITS | Encounter Summary ---
Author Organization [facility] Address [address] [place] [address] Phone Care Team Providers Care Social Work Faculty Member Name Role Phone Eulalio Hillman MD Unavailable [phone] Akilah Fox ORACLE ENGINEER, COAL GRADER Primary Care Provider Reason for Visit * Reason Comments Anxiety Encounter Details Date Type Department Care Team (Late st Contact Info) Description 06/26/2022 11:56 AM RECORD PRESS TENDER - 06/26/2022 1:00 PM RECORD PRESS TENDER Emergency [facility] Emergency [address] [place] [id number] Irene Hackett, ORACLE ENGINEER, COAL GRADER [address] [place] [address] Discharge Disposition: LWBS Social History Tobacco Use Types Packs/Day Years Used Date Smoking Tobacco: Every Day Cigarettes 1 7 Smokeless Tobacco: Never Alcohol Use Standard Drinks/Week Comments Yes 0 (1 standard drink = 0.6 oz pur e alcohol) social Comments No Sex and Gender Information Value Date Recorded Sex Assigned at Not on file Legal Sex Female 9:48 PM CDT Gender Identity Not on file Sexual Orientation Not on file COVID-19 Exposure Response Date Recorded In the last 10 days, have yo u been in contact with someone who was confirmed or suspected to have Coronavirus/COVID-19? No / Unsure 06/26/2022 11:53 AM RECORD PRESS TENDER documented as of this encounter Last Filed Vital Signs Vital Sign Reading Time Taken Comments Blood Pressure 145/75 06/26/2022 11:54 AM RECORD PRESS TENDER Pulse 89 06/26/2022 11:54 AM RECORD PRESS TENDER Temperature 36.9 ??C (98.5 ??F) 06/26/2022 11:[address] Respiratory Rate 20 06/26/2022 11:54 AM RECORD PRESS TENDER Oxygen Saturation 99% 06/26/2022 11:54 AM RECORD PRESS TENDER Inhaled Oxygen Concentration - - Weight 136.1 kg (300 lb) 06/26/2022 11:54 AM RECORD PRESS TENDER Height 167.6 cm (5' 6 ) 06/26/2022 11:54 AM RECORD PRESS TENDER Body Mass Index 48.42 06/26/2022 11:54 AM RECORD PRESS TENDER documented in this encounter Medications at Time of Discharge cyclobenzaprine (FLEXERIL) 5 MG Tablet Take 1 Tablet by mouth 3 times daily. 15 Tablet 10/10/2021 FLUoxetine (PROZAC) 10 MG Capsule Take 10 mg by mouth daily. gabapentin (NEURONTIN) 400 MG Capsule Take 400 mg by mouth 3 times daily. HYDROcodone-aceta minophen (NORCO) 5-325 MG Tablet Take 1-2 Tabs by mouth every 4 hours as needed for Moderate or more severe pain. 20 Tab 10/19/2018 hydrOXYzine Pamoate (VISTARIL PO) Take 50 mg by mouth as needed. lamoTRIgine (LAMICTAL) 25 MG Tablet Take 25 mg by mouth 2 times daily. 25 mg in the morning, 50 mg in the evening meloxicam (MOBIC) 15 MG Tablet Take 15 mg by mouth daily. 08/26/2021 methylPREDNISolon e (MEDROL DOSPACK) 4 MG Tablet Therapy Pack See product package insert for dosing schedule 21 Tablet 10/10/2021 pregabalin (Lyrica) 150 MG Capsule Take 150 mg by mouth 3 times daily. 08/30/2017 traZODone (DESYREL) 100 MG Tablet Take 1 Tab by mouth nightly. 30 Tab 09/25/2018 ziprasidone (GEODON) 20 MG Capsule Take 20 mg by mouth 2 times daily (with meals). zolpidem (AMBIEN) 10 MG Tablet Take 10 mg by mouth nightly as needed. documented as of this encounter ED Notes * Jamila Porras RN - 06/26/2022 12:59 PM CST Attempted to call pt back a room x 3 without response; LWBS. RD PRESS TENDER RD PRESS TENDER * Rosina Rodriguez RN - 06/26/2022 11:50 AM CST Patient to triage with c/o tactile hallucinations and panic. States she knows it's a panic attack, and reports hallucinations are due to her bipolar and schizoaffective disorders. States they're just really bad today. States her meds aren't helping. RD PRESS TENDER documented in this encounter Plan of Treatment Not on file documented as of this encounter Visit Diagnoses Not on filedocumented in this encounter Care Teams Social Work Faculty Member Relationship Specialty Start Date End Date Akilah Fox APRN, COAL GRADER [address] [place] [address] PCP - General Advanced Practice Nurse 09/16/21 Eulalio Hillman MD [address] [place] [address] [place] [address] Psychiatrist Psychiatry 11/28/18 documented as of this encounter
--- OUTSIDE RECORDS SUMMARY | 2024-07-08 04:33 | XMS_ITS | Encounter Summary ---
Author Organization [facility] Address [address] [place] [address] Phone Care Team Providers Care Professional Skateboarder Name Role Phone Eulalio Hillman MD Unavailable Akilah Fox APRN, BELLMAN Primary Care Provider Reason for Visit * Reason Comments Back Pain Encounter Details Date Type Department Care Team (Late st Contact Info) Description 10/10/2021 2:10 PM CDT - 10/10/2021 4:35 PM CDT Emergency [facility] Emergency [address] [place] [id number] Tessie Pacheco, PAC [address] [place] [address] Chronic lumbar pain Discharge Disposition: Discharged to home or Selfcare Social History Tobacco Use Types Packs/Day Years [...] suspected to have Coronavirus/COVID-19? No / Unsure 10/10/2021 2:08 PM CDT documented as of this encounter Last Filed Vital Signs Vital Sign Reading Time Taken Comments Blood Pressure 116/80 10/10/2021 4:34 PM CDT Pulse 85 10/10/2021 4:34 PM CDT Temperature 36.6 ??C (97.9 ??F) 10/10/2021 2:08 PM CD T Respiratory Rate 17 10/10/2021 4:34 PM CDT Oxygen Saturation 99% 10/10/2021 4:34 PM CDT Inhaled Oxygen Concentration - - Weight 149.7 kg (330 lb) 10/10/2021 2:08 PM CDT Height 167.6 cm (5' 6 ) 10/10/2021 2:08 PM CDT Body Mass Index 53.26 10/10/2021 2:08 PM CDT documented in this encounter Discharge Instructions * Discharge Instructions* Tessie Pacheco PAC - 10/10/2021 4:19 PM CDT Please follow up with your pain management physician. Return for reevaluation if your symptoms change or worsen. * Attachments The following attachments cannot be sent through Care Everywhere. * Chronic Back Pain (Kiswahili) documented in this encounter Medications at Time [...] as of this encounter ED Notes * María Tamayo RN - 10/10/2021 4:35 PM CDT Patient discharged. Discharge instructions and patient educational material reviewed with patient; questions and concerns addressed; patient verbalizes understanding, using teach back. Patient was given 2 prescriptions. Patient was informed no drinking alcohol, driving or operating heavy machinery while taking narcotics or muscle relaxants. Patient ambulatory with steady gait; no distress noted. * Tessie Pacheco, EPIFANIO - 10/10/2021 2:46 PM CDT Chief Complaint Patient presents with ??? Back Pain HPI Hali Garcia is a 26 y.o. female who presents due to chronic low back pain. She states she has been having pain for years. Her pain worsened in June and became even more worse the past few days. She states it is painful to sit down. She reports improvement in pain when she lays down. She has had chronic numbness to her L thigh. She states the pain radiates down bilateral legs to her posterior thighs. She has also had urinary frequency. She sees pain management and states she isscheduled to get injections next month. She is taking lyrica, tylenol, and ibuprofen without reliefof symptoms. No current facility-administered medications for this encounter. Current Outpatient Medications Medication Sig Dispense Refill ??? cyclobenzaprine (FLEXERIL) 5 MG Tablet Take 1 Tablet by mouth 3 times daily. 15 Tablet 0 ??? FLUoxetine (PROZAC) 10 MG Capsule Take 10 mg by mouth daily. ??? gabapentin (NEURONTIN) 400 MG Capsule Take 400 mg by mouth 3 times daily. ??? HYDROcodone-acetaminophen (NORCO) 5-325 MG Tablet Take 1-2 Tabs by mouth every 4 hours as needed for Moderate or more severe pain. (Patient not taking: Reported on 11/28/2018) 20 Tab 0 ??? hydrOXYzine Pamoate (VISTARIL PO) Take 50 mg by mouth as needed. ??? lamoTRIgine (LAMICTAL) 25 MG Tablet Take 25 mg by mouth 2 times daily. 25 mg in the morning, 50mg in the evening ??? meloxicam (MOBIC) 15 MG Tablet Take 15 mg by mouth daily. ??? methylPREDNISolone (MEDROL DOSPACK) 4 MG Tablet Therapy Pack See product package insert for dosing schedule 21 Tablet 0 ??? pregabalin (Lyrica) 150 MG Capsule Take 150 mg by mouth 3 times daily. ??? traZODone (DESYREL) 100 MG Tablet Take 1 Tab by mouth nightly. (Patient not taking: Reported on11/28/2018) 30 Tab 0 ??? ziprasidone (GEODON) 20 MG Capsule Take 20 mg by mouth 2 times daily (with meals). ??? zolpidem (AMBIEN) 10 MG Tablet Take 10 mg by mouth nightly as needed. Allergies Allergen Reactions ??? Sulfa Antibiotics Rash and Hives Reaction: Hives, ??? Bactrim [Sulfamethoxazole-Trimethoprim] Rash ??? Escitalopram Other (see Comments) Mood swings, agitation Other reaction(s): AGITATION, Other (See comments) Light trails Past Medical History Positives Diagnosis Date ??? Anxiety ??? Anxiety ??? Asthma ??? Bipolar 1 disorder (HCC) ??? Borderline personality disorder (HCC) ??? Depression ??? Fibromyalgia ??? Schizoaffective disorder (HCC) Past Surgical History: Procedure Laterality Date ??? LAP,CHOLECYSTECTOMY ??? TONSILLECTOMY Social History Socioeconomic History ??? Marital status: Single Spouse name: Not on file ??? Number of children: Not on file ??? Years of education: Not on file ??? Highest education level: Not on file Occupational History ??? Not on file Tobacco Use ??? Smoking status: Current Every Day Smoker Packs/day: 1.00 Years: 7.00 Pack years: 7.00 Types: Cigarettes ??? Smokeless tobacco: Never Used Vaping Use ??? Vaping Use: Every day Substance and Sexual Activity ??? Alcohol use: Yes Comment: social ??? Drug use: Not Currently Comment: has medical card, opiate use ??? Sexual activity: Not on file Other Topics Concern ??? Not on file Social History Narrative ??? Not on file BP 109/71 Pulse 99 Temp 97.9 ??F (36.6 ??C) (Tympanic) Resp 20 Ht 5' 6 (1.676 m) Wt 330lb (149.7 kg) LMP 09/16/2021 (Exact Date) SpO2 100% BMI 53.26 kg/m?? Review of Systems Constitutional: Negative for chills and fever. HENT: Negative for congestion, ear pain, rhinorrhea and sore throat. Eyes: Negative for discharge. Respiratory: Negative for cough, chest tightness, shortness of breath and wheezing. Cardiovascular: Negative for chest pain and palpitations. Gastrointestinal: Negative for abdominal pain, diarrhea, nausea and vomiting. Genitourinary: Positive for frequency. Negative for difficulty urinating and menstrual problem. Musculoskeletal: Positive for back pain. Negative for arthralgias and myalgias. Skin: Negative for rash and wound. Neurological: Negative for dizziness, syncope and headaches. All other systems reviewed and are negative. Physical Exam Vitals and nursing note reviewed. Constitutional: General: She is not in acute distress. Appearance: She is well-developed. She is not diaphoretic. HENT: Head: Normocephalic and atraumatic. Right Ear: External ear normal. Left Ear: External ear normal. Eyes: Conjunctiva/sclera: Conjunctivae normal. Pupils: Pupils are equal, round, and reactive to light. Neck: Trachea: No tracheal deviation. Cardiovascular: Rate and Rhythm: Normal rate and regular rhythm. Heart sounds: Normal heart sounds. No murmur heard. Pulmonary: Effort: Pulmonary effort is normal. No respiratory distress. Breath sounds: Normal breath sounds. No wheezing or rales. Abdominal: General: Bowel sounds are normal. There is no distension. Palpations: Abdomen is soft. Tenderness: There is no abdominal tenderness. There is no guarding or rebound. Musculoskeletal: General: Tenderness (to lower lumbar spine ) present. Normal range of motion. Cervical back: Normal range of motion. Skin: General: Skin is warm and dry. Neurological: Mental Status: She is alert and oriented to person, place, and time. Cranial Nerves: No cranial nerve deficit. Labs Reviewed URINALYSIS REFLEX IF INDICATED BY ABNORMAL RESULTS - Abnormal; Notable for the following components: Result Value WBC ESTERASE 25 /uL (*) WBC (Urine) 6-10 (*) All other components within normal limits CULTURE, URINE POCT URINE HCG () XR LUMBAR SPINE 2 OR 3 VIEWS Final Result IMPRESSION: 1. No acute radiographic abnormality of the lumbar spine. URINALYSIS REFLEX IF INDICATED BY ABNORMAL RESULTS Final Result Procedures Imaging Results XR LUMBAR SPINE 2 OR 3 VIEWS (Final result) Result time 10/10/21 15:53:26 Final result by Moiz Ceballos MD (10/10/21 15:53:26) Impression: IMPRESSION: 1. No acute radiographic abnormality of the lumbar spine. Narrative: EXAM DESCRIPTION: XR LUMBAR SPINE 2 OR 3 VIEWS REASON FOR STUDY: Chronic low back pain worsening past few months. No known injury. TECHNIQUE: AP, lateral, and L5-S1 radiographic views acquired of the lumbar spine. COMPARISON: None available FINDINGS: SEGMENTATION: Normal. No transitional anatomy. ALIGNMENT: Normal. VERTEBRAE: Well-maintained height. No fracture or worrisome bone lesion. DISCS: Well-maintained disc heights. OTHER: Surgical clips in the right upper abdomen. The partially included ribs and pelvis are intact. THIS IS AN ELECTRONICALLY VERIFIED FINAL REPORT 10/10/2021 3:50 PM - Electronically signed by Moiz Ceballos M.D. LB: SONIA Report ID: [id number] Reading Location: [place] [address] Labs Reviewed URINALYSIS REFLEX IF INDICATED BY ABNORMAL RESULTS - Abnormal; Notable for the following components: Result Value WBC ESTERASE 25 /uL (*) WBC (Urine) 6-10 (*) All other components within normal limits CULTURE, URINE POCT URINE HCG () MDM Coding Clinical Impression 1. Chronic lumbar pain Patient was given toradol and norflex with improvement in symptoms. She was prescribed a medrol dose osman and flexeril for home. Encouraged close f/u with her pmd and pain management and to return forreevaluation if sx change or worsen. Cosigned by Jose F Kumar MD at 10/11/2021 5:43 PM CDT * Gardenia Malcolm, RN - 10/10/2021 2:08 PM CDT Pt ambulatory to triage with c/o back pain that radiates into bilateral legs. Reports she's supposed to see pain management, but hasn't gotten around to it yet. Denies any other complaints. documented in this encounter Plan of Treatment Not on file documented as of this encounter Procedures Procedure Name Priority Date/Time Associated Diagnosis Comments XR LUMBAR SPINE 2 OR 3 VIEWS STAT 10/10/2021 3:44 PM CDT URINALYSIS REFLEX IF INDICATED BY ABNORMAL RESULTS STAT 10/10/2021 2:55 PM CDT CULTURE, URINE STAT 10/10/2021 2:55 PM CDT POCT URINE HCG () STAT 10/10/2021 2:55 PM CDT documented in this encounter Results * XR LUMBAR SPINE 2 OR 3 VIEWS (10/10/2021 3:44 PM CDT) Anatomical Region Laterality Modality Spine, L-spine N/A Digital Radiogra phy 10/10/2021 3:50 PM CDT Impressions 10/10/2021 3:53 PM CDT IMPRESSION: ?? 1. ?? No acute radiographic abnormality of the lumbar spine. Narrative 10/10/2021 3:53 PM CDT EXAM DESCRIPTION: ?? XR LUMBAR SPINE 2 OR 3 VIEWS REASON FOR STUDY: ?? Chronic low back pain worsening past few months. No known injury. TECHNIQUE: ?? AP, lateral, and L5-S1 ??radiographic views acquired of the lumbar spine. COMPARISON: ?? None available FINDINGS: SEGMENTATION: ?? Normal. ??No transitional anatomy. ALIGNMENT: ?? Normal. VERTEBRAE: ?? Well-maintained height. ??No fracture or worrisome bone lesion. ?? DISCS: ?? Well-maintained disc heights. OTHER: ?? Surgical clips in the right upper abdomen. ??The partially included ribs and pelvis are intact. THIS IS AN ELECTRONICALLY VERIFIED FINAL REPORT 10/10/2021 3:50 PM - Electronically signed by ??Moiz Ceballos M.D. LB: LB D: ??10/10/2021 3:50 PM T: ??10/10/2021 3:50 PM Report ID: [id number] Reading Location: ??[id number] Procedure Note Moiz Ceballos MD - 10/10/2021 EXAM DESCRIPTION: XR LUMBAR SPINE 2 OR 3 VIEWS REASON FOR STUDY: Chronic low back pain worsening past few months. No known injury. TECHNIQUE: AP, lateral, and L5-S1 radiographic views acquired of the lumbar spine. COMPARISON: None available FINDINGS: SEGMENTATION: Normal. No transitional anatomy. ALIGNMENT: Normal. VERTEBRAE: Well-maintained height. No fracture or worrisome bone lesion. DISCS: Well-maintained disc heights. OTHER: Surgical clips in the right upper abdomen. The partially included ribs and pelvis are intact. THIS IS AN ELECTRONICALLY VERIFIED FINAL REPORT 10/10/2021 3:50 PM - Electronically signed by Moiz Ceballos M.D. LB: LB Report ID: [id number] Reading Location: [id number] IMPRESSION: 1. No acute radiographic abnormality of the lumbar spine. us Tessie Palacios Page PAC IMG DIAGNOSTIC ORDERABLES Fi nal Result * Culture, Urine (10/10/2021 2:55 PM CDT) CULTURE RESULTS MIXED GROWTH OF ONE OR MORE DISTAL URETHRAL CONTAMINANTS 10/11/2021 7:39 PM CDT [facility] Urine URINE SPECIMEN COLLECTION, CLEAN CATCH / Unknown Non-Phlebotomy Collection / Unknown 10/10/2021 2:55 PM CDT 10/10/2021 3:20 PM CDT us Tessie Palacios Page PAC MICROBIOLOGY - GENERAL ORDER SHONDA Final Result [facility] [address] [place] [address], [place] * (ABNORMAL) URINALYSIS REFLEX IF INDICATED BY ABNORMAL RESULTS (10/10/2021 2:55 PM CDT) SPECIFIC GRAVITY 1.010 1.003 - 1.030 10/10/2021 3:50 PM CDT [facility] URINE PH 6.0 5.0 - 9.0 10/10/2021 3:50 PM CDT [facility] WBC ESTERASE 25 /uL(A) Negative 10/10/2021 3:50 PM CDT [facility] NITRITE Negative Negative 10/10/2021 3:50 PM CDT [facility] PROTEIN, RANDOM URINE Negative Negative 10/10/2021 3:50 PM CDT [facility] URINE GLUCOSE, QUAL Negative Negative 10/10/2021 3:50 PM CDT [facility] URINE KETONES Negative Negative 10/10/2021 3:50 PM CDT [facility] UROBILINOGEN Normal Normal mg/dL 10/10/2021 3:50 PM CDT [facility] URINE BLOOD Negative Negative tad/ul 10/10/2021 3:50 PM CDT [facility] URINALYSIS COLOR Yellow 10/11/19 3:50 PM CDT [facility] URINALYSIS CLARITY Slightly Cloudy 10/10/2021 3:50 PM CDT [facility] WBC (Urine) 6-10(A) Negative, 0-5 /hpf 10/10/2021 3:50 PM CDT [facility] URINE RBC'S 0-2 Negative, 0-2 /hpf 10/10/2021 3:50 PM CDT [facility] EPITHELIAL CELLS Negative /lpf 10/11/19 3:50 PM CDT [facility] BACTERIA, URINE Negative Negative /hpf 10/10/2021 3:50 PM CDT [facility] Urine URINE SPECIMEN COLLECTION, CLEAN CATCH / Unknown Non-Phlebotomy Collection / Unknown 10/10/2021 2:55 PM CDT 10/10/2021 3:20 PM CDT Tessie Palacios Page PAC URINE ORDERABLES Final Resul t [facility] [address] [place] [address] * POCT Urine HCG () (10/10/2021 2:55 PM CDT) POC URINE Negative POC URINE CONTROL Plasterer Apprentice Pass Urine 10/10/2021 2:55 PM CDT Tessie Palacios Page PAC POINT OF CARE TESTING (RIVKA Delcid) Final Result documented in this encounter Visit Diagnoses Diagnosis Chronic lumbar pain- Primary Lumbago documented in this encounter Administered Medications Inactive Administered Medications - up to 3 most recent administrations Medication Order MAR Action Action Date Dose Rate Site ketorolac (TORADOL) injection 60 mg 60 mg, Intramuscular, ONCE, 1 dose, On Sun10/10/21 at 1500 Given 10/10/2021 2:59 PM CDT 60 mg Right Deltoid orphenadrine (NORFLEX) injection 60 mg 60 mg, Intramuscular, ONCE, 1 dose, On Sun10/10/21 at 1500, Contact provider if able to take enteral medications for conversion to enteral alternative. For IV administration, administer medication over 5 minutes and have the patient in a supine position. Given 10/10/2021 2:58 PM CDT 60 mg Left Deltoid documented in this encounter Active and Recently Administered Medications Times are shown in CDT. Scheduled Medication Order 10/08/2021 10/09/2021 10/10/2021 ketorolac (TORADOL) injection 60 mg (COMPLETED) 60 mg, Intramuscular, ONCE, 1 dose, On Sun10/10/21 at 1500 1459 (Given - Provid er: Martha Balderrama RN) orphenadrine (NORFLEX) injection 60 mg (COMPLETED) 60 mg, Intramuscular, ONCE, 1 dose, On Sun10/10/21 at 1500, Contact provider if able to take enteral medications for conversion to enteral alternative. For IV administration, administer medication over 5 minutes and have the patient in a supine position. 1458 (Given - Provid er: Martha Balderrama RN) documented in this encounter Care Teams Professional Skateboarder Relationship Specialty Start Date End Date Akilah Fox APRN, BELLMAN [address] [place] [address] PCP - General Advanced Practice Nurse 09/16/21 Eulalio Hillman MD [address] [place] [address] [address] [place] [address] Psychiatrist Psychiatry 11/28/18 documented as of this encounter
--- OUTSIDE RECORDS SUMMARY | 2024-07-08 04:33 | XMS_ITS | Referral Summary ---
Author Organization [facility] Address [address] [place] [address] Care Team Providers Care As400 Programmer Name Role Phone Unavailable Primary Care Provider Unavailabl e Source Comments [facility],non-owned Affiliates and Associated Physician Practices is amultiple site organization consisting of ambulatory clinics and hospital sitesin [place], [place], [place]. This disclosure is being madepursuant to the Care Everywhere program and may not contain all information available regarding this patient. Last updated 18.[facility] Allergies Active Allergy Reactions Criticality Noted Date [...] 01/04/2022 Overview (01/04/2022): pt takes clondine 0.1mg [id number] stated she took all routine medications before [...] Mass Index 47.78 01/04/2022 6:20 PM CDT Functional Status Functional Status Response Date of Assess ment Is person deaf or have serious hearing difficult y? No 01/12/2022 Is person blind or have serious difficulty seein g? No 01/12/2022 Does person have serious dif ficulty walking/climbing stairs? No 01/12/2022 Does person have difficulty dressing/bathing? No 01/12/2022 Does person have difficulty doing errands alone? No 01/12/2022 Cognitive Status Response Date of Assessm ent Does person have difficulty concentrating/remembering/making decisions? Yes 01/12/2022 Plan of Treatment Not on file Advance Directives * Full Code (Latest Code Status on File) Date Activated Date Inactivated Comments 01/04/2022 6:21 PM 01/12/2022 9:45 AM
--- OUTSIDE RECORDS SUMMARY | 2024-07-08 04:33 | XMS_ITS | Encounter Summary ---
Author Organization [employer] [facility] [employer] Care Team Providers Care Pivot End Polisher Name Role Phone Eulalio Hillman MD Unavailable [phone] Akilah Fox APRN, CNP Primary Care Provider Encounter Details Date Type Department Care Team (Latest Contact Info) Description 06/26/2022 Travel Social History Tobacco Use Types Packs/Day Years [...] Coronavirus/COVID-19? No / Unsure 06/26/2022 11:53 AM BEATER LEAD documented as of this encounter Plan of Treatment Not on file documented as of this encounter Visit Diagnoses Not on filedocumented in this encounter Care Teams Pivot End Polisher Relationship Specialty Start Date End Date Akilah Fox APRN, CNP [address] [place], [place] [id number] PCP - General Advanced Practice Nurse 09/16/21 Eulalio Hillman MD [address] [place] [address] [address] [place], [place] [id number] Psychiatrist Psychiatry 11/28/18 documented as of this encounter
--- OUTSIDE RECORDS SUMMARY | 2024-07-08 04:33 | XMS_ITS | Encounter Summary ---
Author Organization [facility] Care Team Providers Care Kettle Cleaner Name Role Phone Eulalio Hillman MD Unavailable [phone] Provider, None Primary Care Provider Unavailabl e Encounter Details Date Type Department Care Team (Latest Contact Info) Description 06/09/2020 Travel Social History Tobacco Use Types Packs/Day [...] Exposure Response Date Recorded In the last month, have you been in contact with someone who was confirmed or suspected to have Coronavirus / COVID-19? No / Unsure 06/09/2020 2:02 PM TELETYPEWRITER INSTALLER documented as of this encounter Plan of Treatment Not on file documented as of this encounter Visit Diagnoses Not on filedocumented in this encounter Care Teams Kettle Cleaner Relationship Specialty Start Date End Date Provider, None [place] PCP - General 06/09/20 09/15/21 Eulalio Hillman MD [address] [place] [address] Psychiatrist Psychiatry 11/28/18 documented as of this encounter
--- OUTSIDE RECORDS SUMMARY | 2024-07-08 04:33 | XMS_ITS | Encounter Summary ---
Author Organization [employer] Care Team Providers Care Inbound Sales Manager Name Role Phone Eulalio Hillman MD Unavailable [phone] Jc Garcia APRN, REPAIRER RESISTANCE WELDING MACHINES Primary Care Provid er Encounter Details Date Type Department Care Team (Latest Contact Info) Description 03/17/2024 Travel Social History Tobacco Use Types Packs/Day [...] on file documented as of this encounter Plan of Treatment Not on file documented as of this encounter Visit Diagnoses Not on filedocumented in this encounter Additional Health Concerns Infection Onset Date Last Indicated Resolved Time COVID - 19 03/17/2024 03/17/2024 03/17/2024 1:49 PM CDT documented as of this encounter Care Teams Inbound Sales Manager Relationship Specialty Start Date End Date Jc Garcia APRN, REPAIRER RESISTANCE WELDING MACHINES [address] [place] [address] PCP - General Advanced Practice Nurse 03/17/24 Eulalio Hillman MD [address] [place] [address] Psychiatrist Psychiatry 11/28/18 documented as of this encounter
--- OUTSIDE RECORDS SUMMARY | 2024-07-08 04:33 | XMS_ITS | Encounter Summary ---
Author Organization [facility] Care Team Providers Care Clinical Informatics Educator Name Role Phone Eulalio Hillman MD Unavailable [phone] Akilah Fox APRN, CNP Primary Care Provider Encounter Details Date Type Department Care Team (Latest Contact Info) Description 10/10/2021 Travel Social History Tobacco Use Types Packs/Day [...] PM CDT documented as of this encounter Plan of Treatment Not on file documented as of this encounter Visit Diagnoses Not on filedocumented in this encounter Care Teams Clinical Informatics Educator Relationship Specialty Start Date End Date Akilah Fox APRN, CNP [address] [place], [place] [id number] PCP - General Advanced Practice Nurse 09/16/21 Eulalio Hillman MD [address] [place] [address] [address] [place] [address] Psychiatrist Psychiatry 11/28/18 documented as of this encounter
--- OUTSIDE RECORDS SUMMARY | 2024-07-08 04:33 | XMS_ITS | Encounter Summary ---
Author Organization [facility] Address [address] [place] [address]. [place] [address] [place] [address] Care Team Providers Care Carding Utility Tender Name Role Phone None, Provider Primary Care Provider Unavaila ble Reason for Visit * Reason Comments Shortness Of Breath Encounter Details Date Type Department Care Team (Late st Contact Info) Description 02/01/2022 11:38 AM CDT - 02/01/2022 4:51 PM CDT Emergency [facility] Emergency [address] [place] [address] Irais Butler, [employer] SCHOOL [employer]IVER [address] [place] [address] Shortness Of Breath Discharge Disposition: Home or Self Care (Routine Discharge) Social History Tobacco Use Types Packs/Day Years Used Date Smoking Tobacco: Never Assessed Comments No Sex and Gender Information Value Date Recorded Sex Assigned at Not on file Legal Sex Female 11:06 AM CDT Gender Identity Not on file Sexual Orientation Not on file COVID-19 Exposure Response Date Recorded In the last 10 days, have meghna u been in contact with someone who was confirmed or suspected to have Coronavirus/COVID-19? No / Unsure 02/01/2022 11:08 AM CDT documented as of this encounter Last Filed Vital Signs Vital Sign Reading Time Taken Comments Blood Pressure 130/101 02/01/2022 1:39 PM CDT Pulse 70 02/01/2022 1:39 PM CDT Temperature 36.9 ??C (98.4 ??F) 02/01/2022 1 1:12 AM CDT Respiratory Rate 20 02/01/2022 1:39 PM CDT Oxygen Saturation 97% 02/01/2022 1:39 PM CDT Inhaled Oxygen Concentration - - Weight 134.9 kg (297 lb 6.4 oz) 022 11:12 AM CDT Height 167.6 cm (5' 6 ) 02/01/2022 11:1 2 AM CDT Body Mass Index 48 02/01/2022 11:12 AM CDT documented in this encounter Discharge Instructions * Discharge Instructions* Irais Butler APRN - 02/01/2022 3:52 PM CDT [facility] [place]: [phone] ext [phone] [facility] [address], [place] [facility] [address] [facility] [address] [facility] [address] [facility] * Attachments The following attachments cannot be sent through Care Everywhere. * Anxiety Discharge Instructions, Adult (Tunisian) * Tips to Help You Evangeline in Uncertain Times (Tunisian) documented in this encounter Medications at Time of Discharge atomoxetine (STRATTERA) 40 MG capsule 01/23/2022 cloNIDine (CATAPRES) 0.1 MG tablet 01/23/2022 cyclobenzaprine (FLEXERIL) 10 MG tablet Take 5-10 mg by mouth 2 (two) times daily as needed. 10/05/2021 cyclobenzaprine (FLEXERIL) 5 MG tablet Take 5 mg by mouth 3 (three) times daily. 10/10/2021 diclofenac EC (VOLTAREN) 75 MG tablet TAKE 1 TABLET BY MOUTH DIRECTED TWICE DAILY NEEDED 01/23/2022 FLUoxetine (PROZAC) 20 MG capsule Take 20 mg by mouth daily. 01/11/2022 levonorgestrel-et hinyl estradiol (AVIANE) 0.1-20 MG-MCG tablet daily. 06/25/2021 meloxicam (MOBIC) 15 MG tablet Take 15 mg by mouth daily. 09/22/2021 mirtazapine (REMERON) 30 MG tablet 01/23/2022 OXcarbazepine (TRILEPTAL) 300 MG tablet Take 300 mg by mouth 2 (two) times daily. 01/24/2022 pregabalin (LYRICA) 75 MG capsule Take 75 mg by mouth 2 (two) times daily. 01/23/2022 documented as of this encounter ED Notes * Kimberli Navarrete RN - 02/01/2022 4:38 PM CDT This RN spoke with TYSON fisher who is Dr. Bach's ([facility] primary doctor) nurse. Medication list is upto date for the patient as the patient requested to be done for her to be accepted into the [facility]. Pt has been given her medication list in her discharge papers to hand to the [facility] when she gets to that location. Mother of the patient is to speak with the patient about places to stay for the night as she was already given a list of homeless shelters to stay if she can not find a place to reside for the night until she can meet with [facility] in the morning. Pt given discharge papers and information sheet. * Irais Butler, ALEKSANDR - 02/01/2022 3:48 PM CDT Chief Complaint Chief Complaint Patient presents with ??? Shortness Of Breath History of Present Illness Hali Garcia is a 26-year-old female presenting to the ER via EMS from [facility] with complaints of feeling anxious, lightheadedness and pain with deep inspiration. Patient states she is here based upon the recommendation of her Rober caser for mental health evaluation while she is waiting to get into a the [facility] program. Patient states he shortness of breath, and chest pain is brought on with anxiety, does not occur with activity or at rest. She denies any radiation of the pain to her arms, neck, or back. No cardiac history, no history of blood clots. She denies any fever, chills, cough, shortness of breath, body aches, nausea, vomiting, diarrhea, dysuria, hematuria Medical History ALLERGIES: Allergies Allergen Reactions ??? Sulfa Antibiotics Rash MEDICATIONS: Prior to Admission medications Medication Sig Start Date End Date Taking? Authorizing Provider levonorgestrel-ethinyl estradiol (AVIANE) 0.1-20 MG-MCG tablet daily. 06/25/21 Yes Doc Abstract atomoxetine (STRATTERA) 40 MG capsule 01/23/22 Doc Abstract cloNIDine (CATAPRES) 0.1 MG tablet 01/23/22 Doc Abstract cyclobenzaprine (FLEXERIL) 10 MG tablet Take 5-10 mg by mouth 2 (two) times daily as needed. 10/05/21 Doc Abstract cyclobenzaprine (FLEXERIL) 5 MG tablet Take 5 mg by mouth 3 (three) times daily. 10/10/21 Doc Abstract diclofenac EC (VOLTAREN) 75 MG tablet TAKE 1 TABLET BY MOUTH DIRECTED TWICE DAILY NEEDED 01/23/22 Doc Abstract FLUoxetine (PROZAC) 20 MG capsule Take 20 mg by mouth daily. 01/11/22 Doc Abstract meloxicam (MOBIC) 15 MG tablet Take 15 mg by mouth daily. 09/22/21 Doc Abstract mirtazapine (REMERON) 30 MG tablet 01/23/22 Doc Abstract OXcarbazepine (TRILEPTAL) 300 MG tablet Take 300 mg by mouth 2 (two) times daily. 01/24/22 Doc Abstract pregabalin (LYRICA) 75 MG capsule Take 75 mg by mouth 2 (two) times daily. 01/23/22 Doc Abstract PAST MEDICAL HISTORY: No past medical history on file. PAST SURGICAL HISTORY: No past surgical history on file. FAMILY HISTORY: No family history on file. SOCIAL HISTORY: Review of Systems Review of Systems A 12 point review of systems was performed, all negative except as noted in the HPI Physical Exam Filed Vitals: 02/01/22 1112 02/01/22 1339 BP: 116/62 (!) 130/101 Pulse: 93 70 Resp: 22 20 Temp: 98.4 ??F (36.9 ??C) TempSrc: Oral SpO2: 98% 97% Weight: 134.9 kg (297 lb 6.4 oz) Height: 5' 6 (1.676 m) Physical Exam Vitals and nursing note reviewed. Constitutional: General: She is not in acute distress. Appearance: Normal appearance. She is not ill-appearing, toxic-appearing or diaphoretic. HENT: Head: Normocephalic. Nose: Nose normal. No congestion or rhinorrhea. Mouth/Throat: Mouth: Mucous membranes are moist. Pharynx: No oropharyngeal exudate or posterior oropharyngeal erythema. Eyes: Extraocular Movements: Extraocular movements intact. Conjunctiva/sclera: Conjunctivae normal. Pupils: Pupils are equal, round, and reactive to light. Neck: Vascular: No carotid bruit. Cardiovascular: Rate and Rhythm: Normal rate and regular rhythm. Pulses: Normal pulses. Radial pulses are 2+ on the right side and 2+ on the left side. Dorsalis pedis pulses are 2+ on the right side and 2+ on the left side. Heart sounds: Normal heart sounds, S1 normal and S2 normal. No murmur heard. No friction rub. No gallop. Pulmonary: Effort: Pulmonary effort is normal. No respiratory distress. Breath sounds: Normal breath sounds. No stridor. No wheezing, rhonchi or rales. Chest: Chest wall: No tenderness. Abdominal: General: There is no distension. Palpations: Abdomen is soft. There is no mass. Tenderness: There is no abdominal tenderness. There is no right CVA tenderness, left CVA tenderness, guarding or rebound. Hernia: No hernia is present. Musculoskeletal: General: No swelling or deformity. Normal range of motion. Cervical back: Normal range of motion and neck supple. No rigidity or tenderness. Right lower leg: No edema. Left lower leg: No edema. Lymphadenopathy: Cervical: No cervical adenopathy. Skin: General: Skin is warm and dry. Capillary Refill: Capillary refill takes less than 2 seconds. Coloration: Skin is not jaundiced or pale. Findings: No erythema or rash. Neurological: General: No focal deficit present. Mental Status: She is alert and oriented to person, place, and time. Psychiatric: Mood and Affect: Mood is anxious. Thought Content: Thought content is not paranoid or delusional. Thought content does not include homicidal or suicidal ideation. Thought content does not include homicidal or suicidal plan. Cognition and Memory: Cognition and memory normal. Judgment: Judgment normal. Diagnostic Studies / Procedures ELECTROCARDIOGRAMS: No results found for this visit on 02/01/22. LABORATORY STUDIES: Results for orders placed or performed during the hospital encounter of 02/01/22 CBC W/DIFF AUTOMATED Result Value Ref Range WBC 7.9 4.0 - 10.8 x10'3/uL RBC 4.52 4.10 - 5.40 x10'6/uL HGB 13.3 12.0 - 16.0 G/DL HCT 41.5 36.0 - 47.0 % MCV 91.8 78.0 - 100.0 FL MCH 29.4 27.0 - 31.0 PG MCHC 32.0 (L) 33.0 - 36.0 G/DL RDW 14.1 11.5 - 14.5 % PLT 307 150 - 350 x10'3/uL MPV 10.6 (H) 7.4 - 10.4 FL ABS. NEUTROPHILS 5.87 1.60 - 8.30 x10'3/uL ABS. LYMPHOCYTES 1.28 0.80 - 4.70 x10'3/uL ABS. MONOCYTES 0.57 0.00 - 1.50 x10'3/uL ABS. EOSINOPHILS 0.13 0.00 - 0.40 x10'3/uL ABS. BASOPHILS 0.04 0.00 - 0.20 x10'3/uL ABS. IMMATURE GRANULOCYTES 0.04 (H) 0.00 - 0.03 x10'3/uL ABS. NUCLEATED RBC'S 0.00 0.0 x10'3/uL BASIC METABOLIC PANEL Result Value Ref Range SODIUM 136 136 - 145 MMOL/L POTASSIUM 4.9 3.5 - 5.1 MMOL/L CHLORIDE S/P/B 105 98 - 107 MMOL/L CO2 23.7 21.0 - 32.0 MMOL/L GLUCOSE 97 74 - 106 MG/DL BUN 11 7 - 18 MG/DL CREATININE S/P/B 0.75 0.55 - 1.02 MG/DL CALCIUM 8.9 8.5 - 10.1 MG/DL ANION GAP 7.3 5.0 - 15.0 MMOL/L OSMOLALITY (CALC) 281 MOSM/KG GFR ESTIMATE >90 >90 ML/MIN/1.73 M2 GFR NOTES GFR REFERENCES: HEPATIC FUNCTION PANEL Result Value Ref Range BILIRUBIN TOTAL S/P/B 0.5 0.2 - 1.0 MG/DL BILIRUBIN DIRECT S/P/B 0.1 0.0 - 0.2 MG/DL ALKALINE PHOSPHATASE S/P/B 98 37 - 98 U/L AST 27 15 - 37 U/L ALT 54 13 - 56 U/L TOTAL PROTEIN S/P/B 6.7 6.4 - 8.2 G/DL ALBUMIN S/P/B 3.2 (L) 3.4 - 5.0 G/DL LIPASE Result Value Ref Range LIPASE 66 (L) 73 - 393 UNITS/L HCG QUANT (SERUM)-CHORIONIC GONADOTROPIN Result Value Ref Range HCG, QUANTITATIVE <1 MIU/ML URINALYSIS Result Value Ref Range COLOR (U) YELLOW TRANSPARENCY SLIGHTLY CLOUDY Specific [place] (U) 1.015 1.002 - 1.035 U PH 5.5 5 - 8 PROTEIN (U) NEGATIVE NEGATIVE URINE GLUCOSE NEGATIVE NEGATIVE MG/DL U KETONES NEGATIVE NEGATIVE BILIRUBIN (U) NEGATIVE NEGATIVE BLOOD NEGATIVE NEGATIVE NITRITES NEGATIVE NEGATIVE UROBILINOGEN NORMAL 0 - 1 EU/DL LEUKOCYTE ESTERASE 2+ (A) NEGATIVE RBC/HPF 2 0 - 3 /HPF WBC/HPF 12 (H) 0 - 6 /HPF BACTERIA (URINE) PRESENT /HPF SQUAMOUS EPITHELIALS 8 DRUG SCREEN RAPID Result Value Ref Range PHENCYCLIDINE PCP (U) NEGATIVE NEGATIVE BENZODIAZEPINES SCREEN (U) NEGATIVE NEGATIVE COCAINE METABOLITES (U) NEGATIVE NEGATIVE AMPHETAMINE (U) NEGATIVE NEGATIVE CANNABINOIDS SCREEN (U) (A) NEGATIVE POSITIVE SCREEN RESULT, IF CONFIRMATION DESIRED PLEASE CONTACT LAB WITHIN ONE WEEK. OPIATE SCREEN (U) NEGATIVE NEGATIVE BARBITURATES SCREEN (U) NEGATIVE NEGATIVE URINE TOX COMMENT Unconfirmed screening results are to be used only for medical purposes. CUTOFF CONCENTRATION Cut-off Concentration for a positive result ETHANOL Result Value Ref Range Alcohol ZERO 0 G/DL CULTURE URINE Specimen: URINE, VOIDED Result Value Ref Range Spec. Description URINE VOIDED Special Requests: NO SPECIAL REQUEST Culture Result: FEW CONTAMINANTS IMAGING STUDIES No orders to display ED Course / Medical Decision Making MDM Number of Diagnoses or Management Options Anxiety: new and requires workup Homelessness: new and requires workup Amount and/or Complexity of Data Reviewed Clinical lab tests: ordered and reviewed Tests in the radiology section of CPT??: ordered and reviewed Obtain history from someone other than the patient: yes (Mother, Rober caser) ED Course as of 02/26/22 0809 SunFeb 01, 2022 1209 LEUKOCYTE ESTERASE(!): 2+ [AP] 1210 WBC/HPF(!): 12 [AP] 1210 BACTERIA (URINE): PRESENT [AP] 1215 HCG, QUANTITATIVE: <1 [AP] 1230 CANNABINOIDS SCREEN (U)(!): POSITIVE SCREEN RESULT, IF CONFIRMATION DESIRED PLEASE CONTACT LAB WITHIN ONE WEEK. [AP] 1550 Patient denies any suicidal or homicidal ideations. Screened for PRT. Patient states that if she has to say that she is thinking of killing herself in order to be admitted, then I want to kill myself then I asked her again if he was being serious, she said, well no, but if that's what I have to say [AP] 1610 Discussed resources available with patient for mental health. Discussed with patient that [facility] walk-in is only open until 4:00, suggested she go to the long-term and then go to [facility] when they open tomorrow. Patient began crying hysterically saying that she can't go stay at [facility]term. [AP] 1640 Alcohol: ZERO [AP] 1650 Spoke with patient's mother and caser. Mother knows Hali is being discharged from this ED as there is no medical/psych reason to keep her here at this time. Discussed Hali will be in the waiting room pending transportation arrangement. Mother and Hali verbalized understanding. I provided definitive care for this patient. Discussed all results and incidental findings with patient. Supportive measures discussed. Signs and symptoms to monitor for, reasons to return the emergency department, discharge, and follow-up instructions given to the patient. Patient verbalized unders tanding, denies further questions, and agrees with plan. Vital signs normal at discharge, cosigner will be Dr. Lane [AP] ED Course User Index [AP] Irais Butler APRN Clinical Impression Anxiety (Primary) Homelessness Disposition: Discharge Irais uBtler APRN 02/26/22 0810 [address] by Rickie Lane MD at 02/28/2022 6:23 AM CDT * Radha Kern NP - 02/01/2022 11:10 AM CDT Medical Screening Exam Patient: Hali Garcia : 1995 Encounter Date: 02/01/2022 Chief Complaint: Chief Complaint Patient presents with ??? Shortness Of Breath History of Present Illness: HPI 26 year old female who presents to the ER with complaints of feeling anxious, lightheadedness and pain with deep inspiration. Vitals: Filed Vitals: 02/01/22 1112 BP: 116/62 Pulse: 93 Resp: 22 Temp: 98.4 ??F (36.9 ??C) TempSrc: Oral SpO2: 98% Weight: 134.9 kg (297 lb 6.4 oz) Height: 5' 6 (1.676 m) Brief Physical Exam: Generalized Appearance: No apparent distress. Skin: Warm and dry. Head: Normocephalic. Chest and Respiratory: Airway patent. Breath sounds equal. Lungs clear with auscultation. Cardiovascular: Regular rate and rhythm. Neurologic: Alert and oriented x 3. Mental Status: Normal affect. Hali Garcia was assessed while in the waiting room. Appropriate orders were entered based on assessment pending placement in ED room. Radha Kern NP 02/01/2022 11:14 AM Radha Kern NP 02/01/22 1114 Cosigned by Carlos Doherty MD at 02/01/2022 2:40 PM CDT * Shaunna Shirley RN - 02/01/2022 11:07 AM CDT Pt arrives per ems with c/o lightheaded and anxious. Pt states that she is from [facility] and that she also feels like she isn't able to take a deep breath. documented in this encounter Plan of Treatment Not on file documented as of this encounter Procedures Procedure Name Priority Date/Time Associated Diagnosis Comments ETHANOL STAT 02/01/2022 3:26 PM CDT BASIC METABOLIC PANEL STAT 02/01/2022 12:07 PM CDT HEPATIC FUNCTION PANEL STAT 02/01/2022 12:07 PM CDT HCG QUANT (SERUM)-CHORIONIC GONADOTROPIN STAT 02/01/2022 12:07 PM CDT CBC W/DIFF AUTOMATED STAT 02/01/2022 12:07 PM CDT LIPASE STAT 02/01/2022 12:07 PM CDT DRUG SCREEN RAPID Nurse Collected Priority 02/01/2022 11:47 AM CDT HC URINALYSIS AUTO W/MICRO Nurse Collected Priority 02/01/2022 11:41 AM CDT URINE BACTERIA CULTURE Nurse Collected Priority 02/01/2022 11:41 AM CDT documented in this encounter Results * ETHANOL (02/01/2022 3:26 PM CDT) Pathologist [facility] ALCOHOL S/P/B ZERO 0 G/DL 02/01/2022 4:[address] [facility] 02/01/2022 3:26 PM CDT us Irais Butelr AFTER S[employer] DRIVER LABORATORY Final R esult [facility] [address] [place] [address], [id number] * HCG QUANT (SERUM)-CHORIONIC GONADOTROPIN (02/01/2022 12:07 PM CDT) Pathologist [facility] HCG QUANTITATIVE <1 MIU/ML 02/02/20 1:[address] [facility] Comment: <5 IS NEGATIVE 5-25 IS BORDERLINE >25 IS POSITIVE ASSAY PERFORMED BY CHEMILUMINESCENCE METHODOLOGY USING SIEMENS DIMENSION VISTA REAGENT. PATIENT RESULTS DETERMINED BY ASSAYS USING DIFFERENT MANUFACTURERS FOR METHODS MAY NOT BE COMPARABLE. 02/01/2022 12:0 7 PM CDT Radha Kern DOWNSTAIRS MAID LABORATORY Final R esult Performing Organization Address [facility] de Phone Number [facility] [address] [place] [address], [place] [phone] [id number] * (ABNORMAL) LIPASE (02/01/2022 12:07 PM CDT) LIPASE 66(L) 73 - 393 UNITS/L 02/01/2022 1:[address] [facility] 02/01/2022 12:0 7 PM CDT Radha Kern DOWNSTA[employer] MAID LABORATORY Final R esult Performing Organization Address [facility] de Phone Number [facility] [address] [place] [address], [place] [phone] [id number] * (ABNORMAL) HEPATIC FUNCTION PANEL (02/01/2022 12:07 PM CDT) BILIRUBIN TOTAL S/P/B 0.5 0.2 - 1.0 MG/DL 02/01/2022 1:[address] [facility] BILIRUBIN DIRECT S/P/B 0.1 0.0 - 0.2 MG/DL 02/01/2022 1:[address] [facility] ALKALINE PHOSPHATASE S/P/B 98 37 - 98 U/L 02/01/2022 1:[address] [facility] AST 27 15 - 37 U/L 02/01/2022 1:[address] [facility] ALT 54 13 - 56 U/L 02/01/2022 1:[address] [facility] TOTAL PROTEIN S/P/B 6.7 6.4 - 8.2 G/DL 02/01/2022 1:[address] [facility] ALBUMIN S/P/B 3.2(L) 3.4 - 5.0 G/DL 02/01/2022 1:[address] [facility] 02/01/2022 12:0 7 PM CDT Radha Kern NP LABORATORY Final R esult [facility] [address] [place] [address], [id number] * BASIC METABOLIC PANEL (02/01/2022 12:07 PM CDT) SODIUM S/P/B 136 136 - 145 MMOL/L 02/01/2022 1:[address] [facility] POTASSIUM S/P/B 4.9 3.5 - 5.1 MMOL/L 02/01/2022 1:[address] [facility] CHLORIDE S/P/B 105 98 - 107 MMOL/L 02/01/2022 1:[address] [facility] CO2 23.7 21.0 - 32.0 MMOL/L 02/01/2022 1:[address] [facility] GLUCOSE 97 74 - 106 MG/DL 02/01/2022 1:[address] [facility] BUN 11 7 - 18 MG/DL 02/01/2022 1:[address] [facility] CREATININE S/P/B 0.75 0.55 - 1.02 MG/DL 02/01/2022 1:[address] [facility] CALCIUM S/P/B 8.9 8.5 - 10.1 MG/DL 02/01/2022 1:[address] [facility] ANION GAP 7.3 5.0 - 15.0 MMOL/L 02/01/2022 1:[address] [facility] OSMOLALITY (CALC) 281 MOSM/KG 022 1:[address] [facility] Comment:REFERENCE RANGE NOT ESTABLISHED GFR ESTIMATE >90 >90 ML/MIN/1. 73 M2 02/01/2022 1:[address] [facility] GFR NOTES GFR REFERENCE S: 02/01/2022 1:[address] [facility] Comment: THE ESTIMATED GFR IS CALCULATED USING THE 2020 CKD-EPI EQUATION. THE FOLLOWING CATEGORIES FOR GRADING RENAL FUNCTION ARE RECOMMENDED BY THE INTERNATIONAL SOCIETY OF NEPHROLOGY (KDIGO 2012 CLINICAL PRACTICE GUIDELINE). G1,NORMAL OR HIGH: >89 ml/min/1.73 m2 G2,MILDLY DECREASED: 60-89 ml/min/1.73 m2 G3A,MILDLY TO MODERATELY DECREASED: 45-59 ml/min/1.73 m2 G3B,MODERATELY TO SEVERELY DECREASED: 30-44 ml/min/1.73 m2 G4,SEVERELY DECREASED: 15-29 ml/min/1.73 m2 G5,KIDNEY FAILURE: <15 ml/min/1.73 m2 02/01/2022 12:0 7 PM CDT Radha Kern NP LABORATORY Final R esult [facility] [address] [place] [address], [id number] * (ABNORMAL) CBC W/DIFF AUTOMATED (02/01/2022 12:07 PM CDT) WBC 7.9 4.0 - 10.8 x10'3/uL 02/01/2022 12:[address] [facility] RBC 4.52 4.10 - 5.40 x10'6/uL 02/01/2022 12:[address] [facility] HGB 13.3 12.0 - 16.0 G/DL 02/01/2022 12:[address] [facility] HCT 41.5 36.0 - 47.0 % 02/01/2022 12:[address] [facility] MCV 91.8 78.0 - 100.0 FL 02/01/2022 12:[address] [facility] MCH 29.4 27.0 - 31.0 PG 02/01/2022 12:[address] [facility] MCHC 32.0(L) 33.0 - 36.0 G/DL 02/01/2022 12:[address] [facility] RDW 14.1 11.5 - 14.5 % 02/01/2022 12:[address] [facility] PLT 307 150 - 350 x10'3/uL 02/01/2022 12:[address] [facility] MPV 10.6(H) 7.4 - 10.4 FL 02/01/2022 12:[address] [facility] ABS. NEUTROPHILS 5.87 1.60 - 8.30 x10'3/uL 02/01/2022 12:[address] [facility] ABS. LYMPHOCYTES 1.28 0.80 - 4.70 x10'3/uL 02/01/2022 12:[address] [facility] ABS. MONOCYTES 0.57 0.00 - 1.50 x10'3/uL 02/01/2022 12:[address] [facility] ABS. EOSINOPHILS 0.13 0.00 - 0.40 x10'3/uL 02/01/2022 12:[address] [facility] ABS. BASOPHILS 0.04 0.00 - 0.20 x10'3/uL 02/01/2022 12:[address] [facility] ABS. IMMATURE GRANULOCYTES 0.04(H) 0.00 - 0.03 x10'3/uL 02/01/2022 12:[address] [facility] ABS. NUCLEATED RBC'S 0.00 0.0 x10'3/uL 02/01/2022 12:[address] [facility] 02/01/2022 12:0 7 PM CDT Radha Kern DOWNSTAIRS MAID LABORATORY Final R esult [facility] [address] [place] [address], [id number] * (ABNORMAL) DRUG SCREEN RAPID (02/01/2022 11:47 AM CDT) Pathologist [facility] PHENCYCLIDINE PCP (U) NEGATIVE NEGATIVE 02/01/2022 4:[address] [facility] BENZODIAZEPINES SCREEN (U) NEGATIVE NEGATIVE 02/01/2022 4:[address] [facility] COCAINE METABOLITES (U) NEGATIVE NEGATIVE 02/01/2022 4:[address] [facility] AMPHETAMINE (U) NEGATIVE NEGATIVE 4:[address] [facility] CANNABINOIDS SCREEN (U) POSITIVE SCREEN RESULT, IF CONFIRMATION DESIRED PLEASE CONTACT LAB WITHIN ONE WEEK. (A) NEGATIVE 02/01/2022 4:[address] [facility] OPIATE SCREEN (U) NEGATIVE NEGATIVE 022 4:[address] [facility] BARBITURATES SCREEN (U) NEGATIVE NEGATIVE 02/01/2022 4:[address] [facility] URINE TOX COMMENT Unconfirmed screening results are to be used only for medical purposes. 02/01/2022 3:[address] [facility] CUTOFF CONCENTRATION (U) Cut-off Concentration for a positive result 02/01/2022 3:[address] [facility] Comment: Phencyclidine ? 25 ng/mL Benzodiazepines ? 200 ng/mL Cocaine ? 300 ng/mL Amphetamine ? 1000 ng/mL Cannabinoids ?50 ng/mL Opiates ? 300 ng/mL Barbiturates ?200 ng/mL URINE SPECIMEN / Unknown 02/01/2022 11:47 AM CDT Irais Butler APRN URINE ORDERABLES Final Result Performing Organization Address [facility] de Phone Number [facility] [address] [place] [address], [id number] * CULTURE URINE (02/01/2022 11:41 AM CDT) SPEC DESCRIPTION URINE VOIDED 02/01/2022 11:[address] [facility] SPECIAL REQUESTS NO SPECIAL REQUEST 02/01/2022 11:[address] [facility] CULTURE RESULT FEW CONTAMINANTS 01/16 10:[address] [facility] URINE SPECIMEN FROM URETHRA / Unknown 02/01/2022 11:41 AM CDT 02/01/2022 11:49 AM CDT Radha Kern NP MICROBIOLOGY - GENERAL ORDERABLES Final Result Performing Organization Address [facility] de Phone Number [facility] [address] [place] [address], [id number] * (ABNORMAL) URINALYSIS (02/01/2022 11:41 AM CDT) COLOR (U) YELLOW 02/01/2022 11:[address] [facility] TRANSPARENCY SLIGHTLY CLOUDY 02/01/2022 11:[address] [facility] SPECIFIC GRAVITY (U) 1.015 1.002 - 1.035 02/01/2022 11:[address] [facility] U PH 5.5 5 - 8 02/01/2022 11:[address] [facility] PROTEIN (U) NEGATIVE NEGATIVE 02/01/2022 11:[address] [facility] URINE GLUCOSE NEGATIVE NEGATIVE MG/DL 02/01/2022 11:[address] [facility] KETONES MG/DL (U) NEGATIVE NEGATIVE 02/01/2022 11:[address] [facility] BILIRUBIN (U) NEGATIVE NEGATIVE 02/01/2022 11:[address] [facility] BLOOD (U) NEGATIVE NEGATIVE 02/01/2022 11:[address] [facility] NITRITES NEGATIVE NEGATIVE 02/01/2022 11:[address] [facility] UROBILINOGEN NORMAL 0 - 1 EU/DL 02/01/2022 11:[address] [facility] LEUKOCYTES (U) 2+(A) NEGATIVE 02/01/2022 11:[address] [facility] RBC/HPF 2 0 - 3 /HPF 02/01/2022 11:[address] [facility] WBC/HPF 12(H) 0 - 6 /HPF 02/01/2022 11:[address] [facility] BACTERIA (U) PRESENT /HPF 02/01/2022 11:[address] [facility] SQUAMOUS EPITHELIALS 8 02/01/2022 11:[address] [facility] URINE SPECIMEN FROM URETHRA / Unknown 02/01/2022 11:41 AM CDT Radha Kern NP URINE ORDERABLES Final Result [facility] [address] [place] [address], [id number] documented in this encounter Visit Diagnoses Diagnosis Anxiety- Primary Anxiety state, unspecified Homelessness Lack of housing documented in this encounter Administered Medications Inactive Administered Medications - up to 3 most recent administrations Medication Order MAR Action Action Date Dose Rate Site diazePAM (VALIUM) injection 5 mg 5 mg, Intravenous, Once, 1 dose, On Sun02/01/22 at 1315, Maximum rate 5 mg/min in adults. Given 02/01/2022 1:40 PM CDT 5 mg normal saline 0.9 % flush 3-10 mL 3-10 mL, Intravenous, Every 8 hours, First dose on Sun02/01/22 at 1315, Until Discontinued Given 02/01/2022 1:37 PM CDT 10 mLs normal saline 0.9 % flush 3-10 mL 3-10 mL, Intravenous, As needed, Line care, Starting on Sun02/01/22 at 1312, Until Sun02/01/22 at 1851 sodium chloride 0.9% bolus infusion 1,000 mL 1,000 mL, Intravenous, Administer over 60 Minutes, Once, 1 dose, On Sun02/01/22 at 1315 New Bag 02/01/2022 1:37 PM CDT 1,000 mLs documented in this encounter Active and Recently Administered Medications Times are shown in CDT. Scheduled Medication Order 01/30/2022 01/31/2022 02/01/2022 diazePAM (VALIUM) injection 5 mg (COMPLETED) 5 mg, Intravenous, Once, 1 dose, On Sun02/01/22 at 1315, Maximum rate 5 mg/min in adults. 1340 (Given - Provid er: More Adorno RN) normal saline 0.9 % flush 3-10 mL 3-10 mL, Intravenous, Every 8 hours, First dose on Sun02/01/22 at 1315, Until Discontinued 1337 (Given - Provid er: More Adorno RN) sodium chloride 0.9% bolus infusion 1,000 mL (COMPLETED) 1,000 mL, Intravenous, Administer over 60 Minutes, Once, 1 dose, On Sun02/01/22 at 1315 1337 (New Bag - Prov ider: More Adorno RN)[id number] (Infusion Stop Time - Provider: Kimberli Navarrete RN) PRN Medication Order 01/30/2022 01/31/2022 02/01/2022 normal saline 0.9 % flush 3-10 mL 3-10 mL, Intravenous, As needed, Line care, Starting on Sun02/01/22 at 1312, Until Sun02/01/22 at 1851 documented in this encounter Care Teams Carding Utility Tender Relationship Specialty Start Date End Date None, Provider, PCP - General 02/01/22 documented as of this encounter
--- OUTSIDE RECORDS SUMMARY | 2024-07-08 04:33 | XMS_ITS | Encounter Summary ---
Author Organization [facility] Address [address] [place] [address] Phone Care Team Providers Care Metal Weather Stripper Name Role Phone Eulalio Hillman MD Unavailable [phone] Jc Garcia APRN, NEWSPAPER PUBLISHER Primary Care Provid er Reason for Visit * Reason Comments Cough Encounter Details Date Type Department Care Team (Late st Contact Info) Description 03/17/2024 12:54 PM CDT - 03/17/2024 2:30 PM CDT Emergency [facility] Emergency [address] [place] [id number] Irene Hackett, [place] MACHINE OPERATOR, NEWSPAPER PUBLISHER [address] [place] [address] Acute viral bronchitis Discharge Disposition: Discharged to home or Selfcare [...] on file documented as of this encounter Last Filed Vital Signs Vital Sign Reading Time Taken Comments Blood Pressure 135/75 03/17/2024 2:27 PM CDT Pulse 95 03/17/2024 2:27 PM CDT Temperature 36.3 ??C (97.4 ??F) 03/17/2024 12:52 PM C DT Respiratory Rate 17 03/17/2024 2:27 PM CDT Oxygen Saturation 100% 03/17/2024 2:27 PM CDT Inhaled Oxygen Concentration - - Weight 149.7 kg (330 lb) 03/17/2024 12:52 PM CDT Height 167.6 cm (5' 6 ) 03/17/2024 12:52 PM CDT Body Mass Index 53.26 03/17/2024 12:52 PM CDT documented in this encounter Discharge Instructions * Discharge Instructions* Irene Hackett APRN, CNP - 03/17/2024 2:20 PM CDT Rest and push fluids. Return to ED with difficulty breathing or shortness of breath. Please follow-up with primary care physician. documented in this encounter Medications at Time of Discharge albuterol 108 (90 Base) MCG/ACT Aerosol SolutionIndicatio ns:Asthma take 2 Puffs by inhalation every 6 hours as needed for Wheezing. Indications: Asthma 8 g 03/17/2024 cyclobenzaprine (FLEXERIL) 5 MG Tablet Take 1 Tablet by mouth 3 times daily as needed for Muscle spasms. 15 Tablet 10/06/2022 cyclobenzaprine (FLEXERIL) 5 MG Tablet Take 1 [...] Take 50 mg by mouth as needed. ketorolac (TORADOL) 10 MG Tablet Take 1 Tablet by mouth every 6 hours as needed for Mild or more severe pain. 15 Tablet 10/06/2022 lamoTRIgine (LAMICTAL) 25 MG Tablet Take 25 mg by mouth 2 times daily. 25 mg in the morning, 50 mg in the evening meloxicam (MOBIC) 15 MG Tablet Take 15 mg by mouth daily. 08/26/2021 methylPREDNISolon e (MEDROL DOSPACK) 4 MG Tablet Therapy Pack See product package insert for dosing schedule 21 Tablet 10/10/2021 ondansetron (ZOFRAN-ODT) 4 MG TABLET DISPERSIBLE Take 1 Tablet by mouth every 8 hours as needed for Nausea - 1st line. 10 Tablet 04/22/2023 pregabalin (Lyrica) 150 MG Capsule Take 150 mg by mouth 3 times daily. 08/30/2017 traZODone (DESYREL) 100 MG Tablet Take 1 Tab by mouth nightly. 30 Tab 09/25/2018 ziprasidone (GEODON) 20 MG Capsule Take 20 mg by mouth 2 times daily (with meals). zolpidem (AMBIEN) 10 MG Tablet Take 10 mg by mouth nightly as needed. predniSONE (DELTASONE) 50 MG TabletIndications :Asthma Take 1 Tablet by mouth daily for 5 days. Indications: Asthma 5 Tablet 03/18/2024 4 documented as of this encounter ED Notes * Belen Boyd RN - 03/17/2024 2:29 PM CDT Patient discharged. Discharge instructions and patient educational material reviewed with patient; questions and concerns addressed; patient verbalizes understanding, using teach back. Patient was given 2 prescriptions. Patient was informed no drinking alcohol, driving or operating heavy machinery while taking narcotics or muscle relaxants. Patient discharged per ambulatory mode with self as responsible democrat. * Belen Boyd RN - 03/17/2024 1:52 PM CDT Pt medicated per provider orders. Pt educated on intended effects and side effects of medication and verbalized understanding, able to provide teach back of education. * Irene Hackett APRN, NEWSPAPER PUBLISHER - 03/17/2024 1:39 PM CDT Chief Complaint Patient presents with Cough Hali Garcia is a 29 y.o. female who presents to the ED c/o cough and congestion that hasbeen ongoing since yesterday. Patient reports nasal and chest congestion. States that she has had afrequent productive cough with green sputum. She states that she will have coughing fits caused herto become short breath. She denies chest pain. Patient denies known fevers, sweats, chills. States that she has a history of asthma and has been using her home inhaler and nebulizer treatments with some relief. She is unsure of any known sick contacts. Past Medical History Positives No date: Anxiety No date: Anxiety No date: Asthma No date: Bipolar 1 disorder (HCC) No date: Borderline personality disorder ([facility]) No date: Depression No date: Fibromyalgia No date: Schizoaffective disorder ([facility]) No current facility-administered medications for this encounter. Current Outpatient Medications Medication Sig Dispense Refill albuterol 108 (90 Base) MCG/ACT Aerosol Solution take 2 Puffs by inhalation every 6 hours as neededfor Wheezing. Indications: Asthma 8 g 0 cyclobenzaprine (FLEXERIL) 5 MG Tablet Take 1 Tablet by mouth 3 times daily as needed for Muscle spasms. 15 Tablet 0 cyclobenzaprine (FLEXERIL) 5 MG Tablet Take 1 Tablet by mouth 3 times daily. 15 Tablet 0 FLUoxetine (PROZAC) 10 MG Capsule Take 10 mg by mouth daily. gabapentin (NEURONTIN) 400 MG Capsule Take 400 mg by mouth 3 times daily. HYDROcodone-acetaminophen (NORCO) 5-325 MG Tablet Take 1-2 Tabs by mouth every 4 hours as needed for Moderate or more severe pain. (Patient not taking: Reported on 11/28/2018) 20 Tab 0 hydrOXYzine Pamoate (VISTARIL PO) Take 50 mg by mouth as needed. ketorolac (TORADOL) 10 MG Tablet Take 1 Tablet by mouth every 6 hours as needed for Mild or more severe pain. 15 Tablet 0 lamoTRIgine (LAMICTAL) 25 MG Tablet Take 25 mg by mouth 2 times daily. 25 mg in the morning, 50 mg in the evening meloxicam (MOBIC) 15 MG Tablet Take 15 mg by mouth daily. methylPREDNISolone (MEDROL DOSPACK) 4 MG Tablet Therapy Pack See product package insert for dosing schedule 21 Tablet 0 ondansetron (ZOFRAN-ODT) 4 MG TABLET DISPERSIBLE Take 1 Tablet by mouth every 8 hours as needed forNausea - 1st line. 10 Tablet 0 [START ON 03/18/2024] predniSONE (DELTASONE) 50 MG Tablet Take 1 Tablet by mouth daily for 5 days. Indications: Asthma 5 Tablet 0 pregabalin (Lyrica) 150 MG Capsule Take 150 mg by mouth 3 times daily. traZODone (DESYREL) 100 MG Tablet Take 1 Tab by mouth nightly. (Patient not taking: Reported on 11/28/2018) 30 Tab 0 ziprasidone (GEODON) 20 MG Capsule Take 20 mg by mouth 2 times daily (with meals). zolpidem (AMBIEN) 10 MG Tablet Take 10 mg by mouth nightly as needed. Allergies Allergen Reactions Sulfa Antibiotics Rash and Hives Reaction: Hives, Bactrim [Sulfamethoxazole-Trimethoprim] Rash Escitalopram Other (see Comments) Mood swings, agitation Other reaction(s): AGITATION, Other (See comments) Light trails Past Medical History Positives Diagnosis Date Anxiety Anxiety Asthma Bipolar 1 disorder (HCC) Borderline personality disorder (HCC) Depression Fibromyalgia Schizoaffective disorder (HCC) Past Surgical History: Procedure Laterality Date LAP,CHOLECYSTECTOMY TONSILLECTOMY Social History Socioeconomic History Marital status: Single Spouse name: Not on file Number of children: Not on file Years of education: Not on file Highest education level: Not on file Occupational History Not on file Tobacco Use Smoking status: Every Day Current packs/day: 1.00 Average packs/day: 1 pack/day for 7.0 years (7.0 ttl pk-yrs) Types: Cigarettes Smokeless tobacco: Never Vaping Use Vaping status: Every Day Substance and Sexual Activity Alcohol use: Yes Comment: social Drug use: Yes Types: Marijuana Sexual activity: Not on file Other Topics Concern Not on file Social History Narrative Not on file Social Determinants of Health Financial Resource Needs: Not on file Food Insecurity Needs: Not on file Transportation Needs: Not on file Physical Activity: Not on file Stress: Not on file Social Integration: Not on file Intimate Partner Violence: Not on file Housing Stability: Not on file BP 136/74 Pulse 93 Temp 97.4 ??F (36.3 ??C) (Tympanic) Resp 16 Ht 5' 6 (1.676 m) Wt 330 lb (149.7 kg) LMP 12/18/2022 (Approximate) SpO2 100% BMI 53.26 kg/m?? Review of Systems Constitutional: Negative for chills and fever. HENT: Positive for congestion and rhinorrhea. Negative for ear pain and sore throat. Eyes: Negative for discharge. Respiratory: Positive for cough and shortness of breath. Negative for chest tightness and wheezing. Cardiovascular: Negative for chest pain and palpitations. Gastrointestinal: Negative for abdominal pain, diarrhea, nausea and vomiting. Genitourinary: Negative for difficulty urinating and menstrual problem. Musculoskeletal: Negative for arthralgias and myalgias. Skin: Negative for rash and wound. Neurological: Negative for dizziness, syncope, weakness, numbness and headaches. All other systems reviewed and are negative. Physical Exam Vitals and nursing note reviewed. Constitutional: General: She is not in acute distress. Appearance: She is well-developed. She is not diaphoretic. HENT: Head: Normocephalic and atraumatic. Right Ear: External ear normal. Left Ear: External ear normal. Nose: Congestion present. Eyes: Conjunctiva/sclera: Conjunctivae normal. Pupils: Pupils are equal, round, and reactive to light. Neck: Trachea: No tracheal deviation. Cardiovascular: Rate and Rhythm: Normal rate and regular rhythm. Pulses: Normal pulses. Heart sounds: Normal heart sounds. No murmur heard. Pulmonary: Effort: Pulmonary effort is normal. No respiratory distress. Breath sounds: Normal breath sounds. No wheezing or rales. Abdominal: General: Bowel sounds are normal. There is no distension. Palpations: Abdomen is soft. Tenderness: There is no abdominal tenderness. There is no guarding or rebound. Musculoskeletal: General: Normal range of motion. Cervical back: Normal range of motion. Skin: General: Skin is warm and dry. Capillary Refill: Capillary refill takes less than 2 seconds. Neurological: Mental Status: She is alert and oriented to person, place, and time. Cranial Nerves: No cranial nerve deficit. Procedures Recent Results (from the past 24 hour(s)) RSV,SARS-COV-2,INFLUENZA A&B BY PCR Specimen: Nasopharyngeal; Swab Result Value Ref Range FLU A Negative Negative, Error FLU B Negative Negative RESP SYNC VIRUS Negative Negative SARSCOV2 NOT DETECTED (Reference Range for this test is Not Detected) Imaging Results XR CHEST 2 VIEWS (Final result) Result time 03/17/24 13:39:41 Final result by René Lincoln MD (03/17/24 13:39:41) Impression: IMPRESSION: No acute cardiopulmonary findings. Narrative: EXAM DESCRIPTION: XR CHEST 2 VIEWS REASON FOR STUDY: cough fever, congestion x 2 days TECHNIQUE: 2 radiographic view(s) of the chest. COMPARISON: 04/22/2023 FINDINGS: LUNGS: No consolidation or pulmonary edema is seen. No pleural effusion or pneumothorax identified. HEART/MEDIASTINUM: Normal cardiomediastinal contours and heart size. LINES/TUBES: None. BONES: No acute osseous abnormality. THIS IS AN ELECTRONICALLY VERIFIED FINAL REPORT 03/17/2024 1:37 PM - Electronically signed by René Lincoln M.D. MZ: MZ Report ID: [id number] Reading Location: [place] [address] Labs Reviewed RSV,SARS-COV-2,INFLUENZA A&B BY PCR - Normal Narrative: This test has not been FDA cleared or approved; the test has been authorized by FDA under an Emergency Use Authorization (EUA) for use by laboratories certified under the CLIA that meet the requirements to perform moderate, high or waived complexity tests. Authorized Fact Sheets about this test for providers and patients are available at: https://www.fda. gov/medical-devices/poxumzleo-upjujabuub-wzwbqls-devices/tzrxtfrkv-uza-dhyhojiku tions XR CHEST 2 VIEWS Final Result IMPRESSION: No acute cardiopulmonary findings. Medical Decision Making Amount and/or Complexity of Data Reviewed External Data Reviewed: labs and radiology. Labs: ordered. Radiology: ordered. Clinical Impression 1. Acute viral bronchitis Disposition: Discharge Chest x-ray is unremarkable. COVID, flu, RSV are negative. Lungs clear to auscultation, no tachypnea, no distress. Patient has been advised if she becomes short of breath again to immediately return to the ED. she displays understanding and is alert and oriented. Patient's symptoms and exam consistent with viral bronchitis likely exacerbating patient's asthma. The patient remained stable throughout their ED stay. My clinical impression was discussed with thepatient/family. Labs and radiology results were reviewed with them. I gave them the opportunity to ask questions, and addressed them as completely as possible given the information available at present. The therapeutic plan was discussed, advised to take medications as instructed, instructions weregiven and the importance of primary care follow up was stressed and encouraged. The patient/family voiced understanding of the plan, indications to return, and the need for follow up. Cosigned by Armond Hart MD at 03/17/2024 3:21 PM CDT * Belen Boyd RN - 03/17/2024 1:18 PM CDT Patient presents to ED room 11-1. No change in patients condition since being seen in triage. See triage note. Assessment as noted. Call light within reach. Will continue to monitor. * Beatriz Arias RN - 03/17/2024 12:53 PM CDT Pt arrives to triage with mother complaining of a cough and congestion that has been going on sinceyesterday. Pt reports her cough has been productive with thick green mucus and is causing her to have some SOB. Pt has a history of asthma and has been using her home inhaler and neb treatments with some relief. documented in this encounter Miscellaneous Notes * Patient[employer] Patient Instructions - Irene Hackett APRN, CNP - 03/17/2024 2:20 PM CDT Images from the original note were not included. Patient Education Table of Contents Acute Bronchitis, Adult To view videos and all your education online visit, [email or web address] or scan this QR code with your smartphone. Access to this content will in one year. Acute Bronchitis, Adult Acute bronchitis is when air tubes in the lungs (bronchi) suddenly get swollen. The condition can make it hard for you to breathe. In adults, acute bronchitis usually goes away within 2 weeks. A cough caused by bronchitis may last up to 3 weeks. Smoking, allergies, and asthma can make the conditionworse. What are the causes? Germs that cause cold and flu (viruses). The most common cause of this condition is the virus that causes the common cold. Bacteria. Substances that bother (irritate) the lungs, including: ? Smoke from cigarettes and other types of tobacco. ? Dust and pollen. ? Fumes from chemicals, gases, or burned fuel. ? Indoor or outdoor air pollution. What increases the risk? A weak body's defense system. This is also called the immune system. Any condition that affects your lungs and breathing, such as asthma. What are the signs or symptoms? A cough. Coughing up clear, yellow, or green mucus. Making high-pitched whistling sounds when you breathe, most often when you breathe out (wheezing). Runny or stuffy nose. Having too much mucus in your lungs (chest congestion). Shortness of breath. Body aches. A sore throat. How is this treated? Acute bronchitis may go away over time without treatment. Your doctor may tell you to: Drink more fluids. This will help thin your mucus so it is easier to cough up. Use a device that gets medicine into your lungs (inhaler). Use a vaporizer or a humidifier. These are machines that add water to the air. This helps with coughing and poor breathing. Take a medicine that thins mucus and helps clear it from your lungs. Take a medicine that prevents or stops coughing. It is not common to take an antibiotic medicine for this condition. Follow these instructions at home: Take jwny-hnj-ghzxrlf and prescription medicines only as told by your doctor. Use an inhaler, vaporizer, or humidifier as told by your doctor. Take two teaspoons (10 mL) of honey at bedtime. This helps lessen your coughing at night. Drink enough fluid to keep your pee (urine) pale yellow. Do not smoke or use any products that contain nicotine or tobacco. If you need help quitting, ask your doctor. Get a lot of rest. Return to your normal activities when your doctor says that it is safe. Keep all follow-up visits. How is this prevented? Wash your hands often with soap and water for at least 20 seconds. If you cannot use soap and water, use hand project management engineer. Avoid contact with people who have cold symptoms. Try not to touch your mouth, nose, or eyes with your hands. Avoid breathing in smoke or chemical fumes. Make sure to get the flu shot every year. Contact a doctor if: Your symptoms do not get better in 2 weeks. You have trouble coughing up the mucus. Your cough keeps you awake at night. You have a fever. Get help right away if: You cough up blood. You have chest pain. You have very bad shortness of breath. You faint or keep feeling like you are going to faint. You have a very bad headache. Your fever or chills get worse. These symptoms may be an emergency. Get help right away. Call your local emergency services (911 int [place] Do not wait to see if the symptoms will go away. Do not drive yourself to the hospital. Summary Acute bronchitis is when air tubes in the lungs (bronchi) suddenly get swollen. In adults, acute bronchitis usually goes away within 2 weeks. Drink more fluids. This will help thin your mucus so it is easier to cough up. Take dpim-qio-blqcdfw and prescription medicines only as told by your doctor. Contact a doctor if your symptoms do not improve after 2 weeks of treatment. This information is not intended to replace advice given to you by your health care provider. Make sure you discuss any questions you have with your health care provider. Document Released: 2008-11-20 Document Updated: 2021-10-05 Document Reviewed: 2021-10-05 [employer] Patient Education ? 2023 [employer]. documented in this encounter Plan of Treatment Not on file documented as of this encounter Procedures Procedure Name Priority Date/Time Associated Diagnosis Comments XR CHEST 2 VIEWS STAT 03/17/2024 1:12 PM CDT RSV,SARS-COV-2,INFL UENZA A&B BY PCR STAT 03/17/2024 12:55 PM CDT documented in this encounter Results * XR CHEST 2 VIEWS (03/17/2024 1:12 PM CDT) Anatomical Region Laterality Modality Chest N/A Digital Radiogra phy 03/17/2024 1:37 PM CDT Impressions 03/17/2024 1:39 PM CDT IMPRESSION: No acute cardiopulmonary findings. Narrative 03/17/2024 1:39 PM CDT EXAM DESCRIPTION: XR CHEST 2 VIEWS REASON FOR STUDY: cough fever, congestion x 2 days ?? TECHNIQUE: 2 ??radiographic view(s) of the chest. COMPARISON: 04/22/2023 FINDINGS: LUNGS: ??No consolidation or pulmonary edema is seen. ??No pleural effusion or pneumothorax identified. ?? HEART/MEDIASTINUM: ??Normal cardiomediastinal contours and heart size. LINES/TUBES: ??None. BONES: ??No acute osseous abnormality. THIS IS AN ELECTRONICALLY VERIFIED FINAL REPORT 03/17/2024 1:37 PM - Electronically signed by ??René Lincoln M.D. MZ: MZ D: ??03/17/2024 1:37 PM T: ??03/17/2024 1:37 PM Report ID: [id number] Reading Location: ??[id number] Procedure Note René Lincoln MD - 03/17/2024 EXAM DESCRIPTION: XR CHEST 2 VIEWS REASON FOR STUDY: cough fever, congestion x 2 days TECHNIQUE: 2 radiographic view(s) of the chest. COMPARISON: 04/22/2023 FINDINGS: LUNGS: No consolidation or pulmonary edema is seen. No pleural effusion or pneumothorax identified. HEART/MEDIASTINUM: Normal cardiomediastinal contours and heart size. LINES/TUBES: None. BONES: No acute osseous abnormality. THIS IS AN ELECTRONICALLY VERIFIED FINAL REPORT 03/17/2024 1:37 PM - Electronically signed by René Lincoln M.D. MZ: MZ Report ID: [id number] Reading Location: [id number] IMPRESSION: No acute cardiopulmonary findings. Irene Hackett APRN, [place] [facility] ORDERA BLES Final Result * RSV,SARS-COV-2,INFLUENZA A&B BY PCR (03/17/2024 12:55 PM CDT) FLU A Negative Negative, Error 03/17/2024 1:49 PM CDT [facility] FLU B Negative Negative 03/17/2024 1:49 PM CDT [facility] RESP SYNC VIRUS Negative Negative 1:49 PM CDT [facility] SARSCOV2 NOT DETECTED (Reference Range for this test is Not Detected) 03/17/2024 1:49 PM CDT [facility] Comment:This test was perfor med by a [employer] PCR Method. Swab NASOPHARYNGEAL SWAB / Unknown Non-Phlebotomy Collection / Unknown 03/17/2024 12:55 PM CDT 03/17/2024 1:03 PM CDT Narrative [facility] - 03/17/2024 1:49 PM CDT This test has not been FDA cleared or approved; the test has been authorized by FDA under an Emergency Use Authorization (EUA) for use by laboratories certified under the CLIA that meet the requirements to perform moderate, high or waived complexity tests. Authorized Fact Sheets about this test for providers and patients are available at: https://www.fda.gov/medical-devices/ebymetdia-dibtbakrkw-cfomonj-devices/emergen -us e-authorizations Irene Hackett APRN, CNP MICROBIOLOGY - GENERA L ORDERABLES Final Result [facility] [address] [place] [address] documented in this encounter Visit Diagnoses Diagnosis Acute viral bronchitis- Primary Acute bronchitis documented in this encounter Administered Medications Inactive Administered Medications - up to 3 most recent administrations Medication Order MAR Action Action Date Dose Rate Site predniSONE (DELTASONE) tablet 40 mg 40 mg, Oral, ONCE, 1 dose, On 03/17/24 at 1400 Given 03/17/2024 1:51 PM CDT 40 mg documented in this encounter Active and Recently Administered Medications Times are shown in CDT. Scheduled Medication Order 03/15/2024 03/16/2024 03/17/2024 predniSONE (DELTASONE) tablet 40 mg (COMPLETED) 40 mg, Oral, ONCE, 1 dose, On 03/17/24 at 1400 1351 (Given - Provid er: Belen Boyd RN) documented in this encounter Additional Health Concerns Infection Onset Date Last Indicated Resolved Time COVID - 19 03/17/2024 03/17/2024 03/17/2024 1:49 PM CDT documented as of this encounter Care Teams Metal Weather Stripper Relationship Specialty Start Date End Date Jc Garcia APRN, NEWSPAPER PUBLISHER [address] [facility] [place] [address] PCP - General Advanced Practice Nurse 03/17/24 Eulalio Hillman MD [address] [place] [address] [place] [address] Psychiatrist Psychiatry 11/28/18 documented as of this encounter
--- OUTSIDE RECORDS SUMMARY | 2024-07-08 04:33 | XMS_ITS | Encounter Summary ---
Author Organization [facility] Address [address] [place] [address] Phone Care Team Providers Care Pneumatic Tube Operator Name Role Phone Eulalio Hillman MD Unavailable [phone] Akilah Fox APRN, HOSIERY KNITTER Primary Care Provider Reason for Visit * Reason Comments Back Pain Encounter Details Date Type Department Care Team (Late st Contact Info) Description 10/06/2022 3:46 PM CDT - 10/06/2022 5:57 PM CDT Emergency [facility] Emergency [address] [place] [id number] Tessie Pacheco, PAC [address] [place] [address] Acute exacerbation of chronic low back pain Discharge Disposition: Discharged to home or Selfcare Social History Tobacco Use Types Packs/Day Years Used Date Smoking Tobacco: Every Day Cigarettes 1 7 Smokeless Tobacco: Never Tobacco Cessation:Ready to Q uit: Not Asked; Counseling Given: Not Answered Alcohol Use Standard Drinks/Week Comments Yes 0 [...] suspected to have Coronavirus/COVID-19? No / Unsure 10/06/2022 3:40 PM CDT documented as of this encounter Last Filed Vital Signs Vital Sign Reading Time Taken Comments Blood Pressure 153/68 10/06/2022 3:42 PM CDT Pulse 106 10/06/2022 3:42 PM CDT Temperature 36.7 ??C (98 ??F) 10/06/2022 3:42 PM CDT Respiratory Rate 18 10/06/2022 3:42 PM CDT Oxygen Saturation 98% 10/06/2022 3:42 PM CDT Inhaled Oxygen Concentration - - Weight 130.6 kg (288 lb) 10/06/2022 3:42 PM CDT Height 167.6 cm (5' 6 ) 10/06/2022 3:42 PM CDT Body Mass Index 46.48 10/06/2022 3:42 PM CDT documented in this encounter Discharge Instructions * Discharge Instructions* Tessie Pacheco PAC - 10/06/2022 5:40 PM CDT Please follow up with your primary care provider. Push clear fluids and decrease caffeine. Return for reevaluation if your symptoms change or worsen. * Attachments The following attachments cannot be sent through Care Everywhere. * Chronic Back Pain (Sinhala) documented in this encounter Medications at Time [...] as of this encounter ED Notes * Rosina Rodriguez RN - 10/06/2022 5:56 PM CDT Patient refused discharge vitals; patient discharged. Discharge instructions and patient educational material reviewed with patient; questions and concerns addressed; patient verbalizes understanding, using teach back. Patient was given two prescriptions. Patient was informed no drinking alcohol, driving or operating heavy machinery while taking narcotics or muscle relaxants. Patient discharged per ambulatory mode with mother as responsible green party. * Tessie Pacheco PAC - 10/06/2022 4:39 PM CDT Chief Complaint Patient presents with ??? Back Pain HPI Hali Garcia is a 27 y.o. female who presents due to low back pain which has been offand on for months but has has gotten worse the past few days. Patient reports that the pain radiated to her R groin intermittently but denies any current pain. Patient has also had some urinary frequency and urgency. She reports a hx of a herniated lumbar disc. She denies any bowel/bladder incontine nce, numbness, vomiting, diarrhea, or a fever. PMH includes asthma, fibromyalgia, schizoaffective disorder, borderline personality disorder, anxiety. She is a smoker. Her provider is Akilah Fox. No current facility-administered medications for this encounter. Current Outpatient Medications Medication Sig Dispense Refill ??? cyclobenzaprine (FLEXERIL) 5 MG Tablet Take 1 Tablet by mouth 3 times daily as needed for Muscle spasms. 15 Tablet 0 ??? cyclobenzaprine (FLEXERIL) 5 MG Tablet Take [...] 50 mg by mouth as needed. ??? ketorolac (TORADOL) 10 MG Tablet Take 1 Tablet by mouth every 6 hours as needed for Mild or more severe pain. 15 Tablet 0 ??? lamoTRIgine (LAMICTAL) 25 MG Tablet Take [...] on file Tobacco Use ??? Smoking status: Every Day Packs/day: 1.00 Years: 7.00 Pack years: 7.00 Types: Cigarettes ??? Smokeless tobacco: Never Vaping Use ??? Vaping Use: Every day Substance and Sexual Activity ??? Alcohol use: Yes Comment: social ??? Drug use: Yes Types: Marijuana ??? Sexual activity: Not on file Other Topics Concern ??? Not on file Social History Narrative ??? Not on file BP 153/68 Pulse 106 Temp 98 ??F (36.7 ??C) (Tympanic) Resp 18 Ht 5' 6 (1.676 m) Wt 288 lb (130.6 kg) LMP 06/23/2022 (Approximate) SpO2 98% BMI 46.48 kg/m?? Review of Systems Constitutional: Negative for chills and fever. HENT: Negative for congestion, ear pain and sore throat. Eyes: Negative for pain and discharge. Respiratory: Negative for cough, chest tightness and shortness of breath. Cardiovascular: Negative for chest pain, palpitations and leg swelling. Gastrointestinal: Negative for abdominal distention, abdominal pain, blood in stool, constipation, diarrhea, nausea and vomiting. Genitourinary: Positive for frequency and urgency. Negative for dysuria and vaginal discharge. Musculoskeletal: Positive for back pain. Negative for arthralgias. Skin: Negative for color change and rash. Neurological: Negative for dizziness, weakness, light-headedness and headaches. Psychiatric/Behavioral: Negative for suicidal ideas. All other systems reviewed and are negative. [...] no guarding or rebound. Musculoskeletal: General: Tenderness (lumbar spine ) present. Normal range of motion. Cervical back: Normal range of motion. Skin: General: Skin is warm and dry. Neurological: Mental Status: She is alert and oriented to person, place, and time. Cranial Nerves: No cranial nerve deficit. Labs Reviewed URINALYSIS REFLEX IF INDICATED BY ABNORMAL RESULTS - Abnormal; Notable for the following components: Result Value PROTEIN, RANDOM URINE 15 mg/dL (*) All other components within normal limits POCT URINE HCG () URINALYSIS REFLEX IF INDICATED BY ABNORMAL RESULTS Final Result Procedures Imaging Results None Labs Reviewed URINALYSIS REFLEX IF INDICATED BY ABNORMAL RESULTS - Abnormal; Notable for the following components: Result Value PROTEIN, RANDOM URINE 15 mg/dL (*) All other components within normal limits POCT URINE HCG () MDM Clinical Impression 1. Acute exacerbation of chronic low back pain Disposition: Discharged Patient was given toradol and norflex while in the ED. She was prescribed toradol and flexeril for home. Encouraged close f/u with her pmd and to return for reevaluation if sx change or worsen. Patient expressed understanding and agreement to the tx plan. Cosigned by Jose F Kumar MD at 10/12/2022 4:08 PM CDT * Beatriz Arias RN - 10/06/2022 4:39 PM CDT Pt resting in bed with mother at bedside. Pt denies needing anything at this time. Call light remains within reach. * Beatriz Arias RN - 10/06/2022 4:36 PM CDT Pt medicated per provider orders. Pt educated on intended effects and side effects of medication and verbalized understanding, able to provide teach back of education. * Beatrzi Arias RN - 10/06/2022 3:43 PM CDT Pt arrives to triage complaining of lower back pain that sometimes radiates into her right groin, but is not today. Pt also reports urinary frequency and urgency. Pt states she has a herniate disc inher back and has been trying to get into a pain clinic with no success. documented in this encounter Plan of Treatment Not on file documented as of this encounter Procedures Procedure Name Priority Date/Time Associated Diagnosis Comments URINALYSIS REFLEX IF INDICATED BY ABNORMAL RESULTS STAT 10/06/2022 4:20 PM CDT POCT URINE HCG () STAT 10/06/2022 4:19 PM CDT documented in this encounter Results * (ABNORMAL) URINALYSIS REFLEX IF INDICATED BY ABNORMAL RESULTS (10/06/2022 4:20 PM CDT) SPECIFIC GRAVITY 1.015 1.003 - 1.030 10/06/2022 4:43 PM CDT [facility] URINE PH 6.5 5.0 - 9.0 10/06/2022 4:43 PM CDT [facility] WBC ESTERASE Negative Negative 10/06/2022 4:43 PM CDT [facility] NITRITE Negative Negative 10/06/2022 4:43 PM CDT [facility] PROTEIN, RANDOM URINE 15 mg/dL(A) Negative 10/06/2022 4:43 PM CDT [facility] URINE GLUCOSE, QUAL Negative Negative 10/06/2022 4:43 PM CDT [facility] URINE KETONES Negative Negative 10/06/2022 4:43 PM CDT [facility] UROBILINOGEN Normal Normal mg/dL 10/06/2022 4:43 PM CDT [facility] URINE BLOOD Negative Negative tad/ul 10/06/2022 4:43 PM CDT [facility] URINALYSIS COLOR Yellow 10/07/19 4:43 PM CDT [facility] URINALYSIS CLARITY Clear 10/06/2022 4:43 PM CDT [facility] Urine URINE SPECIMEN COLLECTION, CLEAN CATCH / Unknown Non-Phlebotomy Collection / Unknown 10/06/2022 4:20 PM CDT 10/06/2022 4:32 PM CDT Tessie Palacios Page PAC URINE ORDERABLES Final Resul t [facility] [address] [place] [address] * POCT Urine HCG () (10/06/2022 4:19 PM CDT) POC URINE Negative POC URINE CONTROL Squeezer Operator Pass Urine 10/06/2022 4:19 PM CDT Tessie Palacios Page PAC POINT OF CARE TESTING (MANUA L) Final Result documented in this encounter Visit Diagnoses Diagnosis Acute exacerbation of chronic low back pain- Primary documented in this encounter Administered Medications Inactive Administered Medications - up to 3 most recent administrations Medication Order MAR Action Action Date Dose Rate Site ketorolac (TORADOL) injection 60 mg 60 mg, Intramuscular, ONCE, 1 dose, On Sun10/06/22 at 1700 Given 10/06/2022 4:37 PM CDT 60 mg Right Deltoid orphenadrine (NORFLEX) injection 60 mg 60 mg, Intramuscular, Once, 1 dose, On Sun10/06/22 at 1700, Contact provider if able to take enteral medications for conversion to enteral alternative. For IV administration, administer medication over 5 minutes and have the patient in a supine position. Given 10/06/2022 4:37 PM CDT 60 mg Right Ventrogluteal documented in this encounter Active and Recently Administered Medications Times are shown in CDT. Scheduled Medication Order 10/04/2022 10/05/2022 10/06/2022 ketorolac (TORADOL) injection 60 mg (COMPLETED) 60 mg, Intramuscular, ONCE, 1 dose, On Sun10/06/22 at 1700 1637 (Given - Provid er: Beatriz Arias RN) orphenadrine (NORFLEX) injection 60 mg (COMPLETED) 60 mg, Intramuscular, Once, 1 dose, On Sun10/06/22 at 1700, Contact provider if able to take enteral medications for conversion to enteral alternative. For IV administration, administer medication over 5 minutes and have the patient in a supine position. 1637 (Given - Provid er: Beatriz Arias RN) documented in this encounter Care Teams Pneumatic Tube Operator Relationship Specialty Start Date End Date Akilah Fox APRN, HOSIERY KNITTER [address] [place] [address] PCP - General Advanced Practice Nurse 09/16/21 Eulalio Hillman MD [address] [place] [address] [address]RI[address] [place] [address] Psychiatrist Psychiatry 11/28/18 documented as of this encounter
--- OUTSIDE RECORDS SUMMARY | 2024-07-08 04:33 | XMS_ITS | Encounter Summary ---
Author Organization [facility] Care Team Providers Care Nut Former Name Role Phone Eulalio Hillman MD Unavailable [phone] Provider, Unknown Primary Care Provider Unavaila ble Encounter Details Date Type Department Care Team (Latest Contact Info) Description 04/22/2023 Travel Social History Tobacco Use Types Packs/Day [...] suspected to have Coronavirus/COVID-19? No / Unsure 04/22/2023 3:46 PM TRAUMA DOCTOR documented as of this encounter Plan of Treatment Not on file documented as of this encounter Visit Diagnoses Not on filedocumented in this encounter Care Teams Nut Former Relationship Specialty Start Date End Date Provider, Unknown UNKNOWN PCP - General 04/22/23 03/16/24 Eulalio Hillman MD [address] [facility] [address] [place] [address] Psychiatrist Psychiatry 11/28/18 documented as of this encounter
--- OUTSIDE RECORDS SUMMARY | 2024-07-08 04:33 | XMS_ITS | Encounter Summary ---
Author Organization [facility] Address [address] [place] [address] Phone Care Team Providers Care Insole Channeler Name Role Phone Eulalio Hillman MD Unavailable [phone] Provider, Unknown Primary Care Provider Unavaila ble Reason for Visit * Reason Comments Flank Pain Encounter Details Date Type Department Care Team (Late st Contact Info) Description 04/22/2023 3:39 PM COMPUTER SOFTWARE ENGINEER - 04/22/2023 6:42 PM COMPUTER SOFTWARE ENGINEER Emergency [facility] Emergency [address] [place] [address] Tessie Pacheco, PAC [address] [place] [address] Urinary tract infection Discharge Disposition: Discharged to home or Selfcare [...] Coronavirus/COVID-19? No / Unsure 04/22/2023 3:46 PM COMPUTER SOFTWARE ENGINEER documented as of this encounter Last Filed Vital Signs Vital Sign Reading Time Taken Comments Blood Pressure 151/86 04/22/2023 3:46 PM COMPUTER SOFTWARE ENGINEER Pulse 80 04/22/2023 3:46 PM COMPUTER SOFTWARE ENGINEER Temperature 36 ??C (96.8 ??F) 04/22/2023 3:46 PM COMPUTER SOFTWARE ENGINEER Respiratory Rate 17 04/22/2023 3:46 PM COMPUTER SOFTWARE ENGINEER Oxygen Saturation 100% 04/22/2023 3:46 PM COMPUTER SOFTWARE ENGINEER Inhaled Oxygen Concentration - - Weight 124.7 kg (275 lb) 04/22/2023 3:46 PM COMPUTER SOFTWARE ENGINEER Height 167.6 cm (5' 6 ) 04/22/2023 3:46 PM COMPUTER SOFTWARE ENGINEER Body Mass Index 44.39 04/22/2023 3:46 PM COMPUTER SOFTWARE ENGINEER documented in this encounter Discharge Instructions * Discharge Instructions* Tessie Pacheco PAC - 04/22/2023 6:18 PM COMPUTER SOFTWARE ENGINEER Please push fluids and avoid caffeine. Follow up with your primary care provider. Return for reevaluation if your symptoms change or worsen. UTER SOFTWARE ENGINEER * Attachments The following attachments cannot be sent through Care Everywhere. * Urinary Tract Infection Adult (Tamazight) documented in this encounter Medications at Time [...] 10 mg by mouth nightly as needed. nitrofurantoin, monohydrate-macro crystal, (Macrobid) 100 MG CapsuleIndication s:urinary tract infection Take 1 Capsule by mouth 2 times daily for 7 days. Indications: urinary tract infection 14 Capsule 04/22/2023 3 documented as of this encounter ED Notes * Nelson Gusman RN - 04/22/2023 6:42 PM CST explained purpose and common side effects of medications ordered. she understands to complete antibiotic as directed. no new questions or c/o's. pt ambulatory out of er with steady gait after eating dinner tray. UTER SOFTWARE ENGINEER * Nelson Gusman RN - 04/22/2023 5:53 PM CST pt tolerated ct well. she is aware of time frame for results. she states her nausea and pain have improved. tv turned on per request. no new questions. UTER SOFTWARE ENGINEER * Nelson Gusman RN - 04/22/2023 5:10 PM CST pt reports hx cholecystectomy. her pain worsens with abd palpation. estimated time frame on test results. UTER SOFTWARE ENGINEER * Page, Tessie Suzanne, PAC - 04/22/2023 4:48 PM CST Chief Complaint Patient presents with ??? Flank Pain HPI Hali Garcia is a 28 y.o. female who presents from home due to bilateral upper abdominal pain which started yesterday. She states she has also felt nauseous and had a few episodes of diarrhea. She denies any vomiting, blood in her stool, dysuria, or a fever. She has been taking tylenol and naprosyn without relief. Patient is a smoker. PMH includes asthma, fibromyalgia, schizoaffective disorder, borderline personality disorder. She is a smoker. No current facility-administered medications for this encounter. [...] for dosing schedule 21 Tablet 0 ??? nitrofurantoin, monohydrate-macrocrystal, (Macrobid) 100 MG Capsule Take 1 Capsule by mouth 2 times daily for 7 days. Indications: urinary tract infection 14 Capsule 0 ??? ondansetron (ZOFRAN-ODT) 4 MG TABLET DISPERSIBLE Take 1 Tablet by mouth every 8 hours as neededfor Nausea - 1st line. 10 Tablet 0 ??? pregabalin (Lyrica) 150 MG [...] History Narrative ??? Not on file BP 151/86 Pulse 80 Temp 96.8 ??F (36 ??C) (Tympanic) Resp 17 Ht 5' 6 (1.676 m) Wt 275 lb(124.7 kg) LMP 12/18/2022 (Approximate) SpO2 100% BMI 44.39 kg/m?? Review of Systems Constitutional: Negative for chills and fever. HENT: Negative for congestion, ear pain, rhinorrhea and sore throat. Eyes: Negative for discharge. Respiratory: Negative for cough, chest tightness, shortness of breath and wheezing. Cardiovascular: Negative for chest pain and palpitations. Gastrointestinal: Positive for abdominal pain and nausea. Negative for diarrhea and vomiting. Genitourinary: Negative for difficulty urinating [...] Palpations: Abdomen is soft. Tenderness: There is abdominal tenderness (mild tenderness across upper abdomen ). There is no guarding or rebound. Musculoskeletal: General: Normal range of motion. Cervical back: Normal range of motion. Skin: General: Skin is warm and dry. Neurological: Mental Status: She is alert and oriented to person, place, and time. Cranial Nerves: No cranial nerve deficit. Labs Reviewed CMP (COMPREHENSIVE METABOLIC PANEL) - Abnormal; Notable for the following components: Result Value GLUCOSE 105 (*) BUN/CREATININE RATIO 10 (*) All other components within normal limits URINALYSIS REFLEX IF INDICATED BY ABNORMAL RESULTS - Abnormal; Notable for the following components: WBC ESTERASE 100 /uL (*) WBC (Urine) 21-50 (*) BACTERIA, URINE Few (*) All other components within normal limits CBC WITH AUTO DIFFERENTIAL - Abnormal; Notable for the following components: WBC 13.71 (*) LYMPHOCYTES 15.1 (*) ABSOLUTE NEUTROPHILS 10.01 (*) ABSOLUTE MONOCYTES 1.16 (*) All other components within normal limits LIPASE - Normal CULTURE, URINE COMPLETE BLOOD COUNT (CBC) WITH DIFF Narrative: The following orders were created for panel order CBC with Diff [id number]. Procedure Abnormality Status --------- ------ CBC with Auto Differential[[id number]] Abnormal Final result Please view results for these tests on the individual orders. EXTRA TUBES Narrative: The following orders were created for panel order Extra Tubes. Procedure Abnormality Status --------- ------ Blue Top Tube[[id number]] Final result Gold Top Tube[[id number]] Final result Please view results for these tests on the individual orders. POCT URINE HCG () BLUE TOP TUBE GOLD TOP TUBE CT ABDOMEN PELVIS W/ CONTRAST Final Result IMPRESSION: No bowel inflammation or other abnormality identified to account for patient presentation. Cholecystectomy. XR CHEST 2 VIEWS Final Result IMPRESSION: No acute cardiopulmonary abnormality. URINALYSIS REFLEX IF INDICATED BY ABNORMAL RESULTS Final Result CMP (Comprehensive Metabolic Panel) Final Result CBC with Diff [id number] Final Result Lipase [id number] Final Result Extra Tubes Final Result Procedures Recent Results (from the past 24 hour(s)) CMP (Comprehensive Metabolic Panel) Result Value Ref Range SODIUM 140 136 - 145 mmol/L POTASSIUM 3.5 3.5 - 5.1 mmol/L CHLORIDE 105 98 - 107 mmol/L CO2, VENOUS 24 22 - 30 mmol/L ANION GAP 14.5 <18.0 mmol/L GLUCOSE 105 (H) 70 - 99 mg/dL BUN 8 5 - 18 mg/dL CREATININE, BLOOD 0.79 0.60 - 1.00 mg/dL BUN/CREATININE RATIO 10 (L) 12 - 20 ratio TOTAL PROTEIN 7.0 6.3 - 8.2 g/dL ALBUMIN 4.0 3.5 - 5.0 g/dL A/G RATIO 1.3 1.0 - 2.2 CALCIUM 9.4 8.7 - 10.5 mg/dL T BILI 0.3 0.2 - 1.2 mg/dL SGOT (AST) 12 5 - 34 U/L SGPT (ALT) 14 0 - 55 U/L ALKALINE PHOSPHATASE 75 40 - 150 U/L GFR, ESTIMATED >60 >=60 GFR, EST. >60 >=60 GFR, EST. NONAFRICAN >60 >=60 Lipase [id number] Result Value Ref Range LIPASE 20 8 - 78 U/L CBC with Auto Differential Result Value Ref Range WBC 13.71 (H) 4.00 - 12.00 10(3)/mcL RBC 4.33 3.80 - 5.30 10(6)/mcL HEMOGLOBIN (HGB) 12.3 12.0 - 15.8 g/dL HEMATOCRIT (HCT) 39.1 36.0 - 47.0 % MCV 90.3 82.0 - 96.0 fL MCH 28.4 26.0 - 34.0 pg MCHC 31.5 31.0 - 36.0 g/dL PLATELET COUNT 351 140 - 440 10(3)/mcL RDW 12.7 11.8 - 15.5 % MPV 10.1 9.7 - 12.4 fL NEUTROPHILS 73.0 47.0 - 73.0 % LYMPHOCYTES 15.1 (L) 18.0 - 42.0 % MONOCYTES 8.5 4.0 - 12.0 % EOSINOPHILS 2.9 0.0 - 5.0 % BASOPHILS 0.5 0.0 - 1.0 % ABSOLUTE NEUTROPHILS 10.01 (H) 1.60 - 7.70 10(3)/mcL ABSOLUTE LYMPHOCYTES 2.07 1.30 - 3.20 10(3)/mcL ABSOLUTE MONOCYTES 1.16 (H) 0.20 - 1.00 10(3)/mcL ABSOLUTE EOSINOPHIL 0.40 0.00 - 0.40 10(3)/mcL ABSOLUTE BASOPHILS 0.07 0.00 - 0.10 10(3)/mcL NRBC PER 100 WBC 0 URINALYSIS REFLEX IF INDICATED BY ABNORMAL RESULTS Result Value Ref Range SPECIFIC GRAVITY 1.020 1.003 - 1.030 URINE PH 8.0 5.0 - 9.0 WBC ESTERASE 100 /uL (A) Negative NITRITE Negative Negative PROTEIN, RANDOM URINE Negative Negative URINE GLUCOSE, QUAL Negative Negative URINE KETONES Negative Negative UROBILINOGEN Normal Normal mg/dL URINE BLOOD Negative Negative tad/ul URINALYSIS COLOR Yellow URINALYSIS CLARITY Slightly Cloudy WBC (Urine) 21-50 (A) Negative, 0-5 /hpf URINE RBC'S 0-2 Negative, 0-2 /hpf EPITHELIAL CELLS Small amount /lpf BACTERIA, URINE Few (A) Negative /hpf POCT Urine HCG () Result Value Ref Range POC URINE Negative POC URINE CONTROL Mechanic Welder Truck Driver Pass Imaging Results CT ABDOMEN PELVIS W/ CONTRAST (Final result) Result time 04/22/23 17:58:59 Final result by Abebe Rodríguez MD (04/22/23 17:58:59) Impression: IMPRESSION: No bowel inflammation or other abnormality identified to account for patient presentation. Cholecystectomy. Narrative: EXAM DESCRIPTION: CT ABDOMEN PELVIS W/ CONTRAST REASON FOR STUDY: c/o flank pain that starts under upper abdomen and radiates to her back that has been ongoing for the past two days. pt states she also been having diarrhea x 2 days. no hx of surgery TECHNIQUE: CT scan of the abdomen and pelvis performed with intravenous and without oral contrast using helical scanning technique with dynamic intravenous contrast injection. Reconstructed coronal and sagittal MPR images reviewed. All images stored on PACS. Automated exposure control was used as a dose optimization technique for this examination. CONTRAST TYPE/DOSE: 100mL of IOPAMIDOL 76 % IV SOLN injected via Intravenous COMPARISON: None REFERENCE: Per ACR white paper recommendations, unless otherwise specified no follow-up imaging is recommended for incidental renal and adrenal lesions per consensus recommendations based on imaging criteria. Further lab evaluation could be pursued based on clinical findings. FINDINGS: LOWER CHEST: Lung bases are clear. Heart size normal. No effusion. LIVER/BILIARY: Liver unremarkable. Biliary tree normal in caliber. GALLBLADDER: Absent. SPLEEN: Normal. PANCREAS: Normal. ADRENAL GLANDS: Normal. KIDNEYS/URINARY TRACT: Unremarkable kidneys and ureters. Bladder collapsed. GI: Stomach and small bowel appear normal. Colon and appendix unremarkable. OTHER ABDOMINAL/PELVIS: Major vascular structures are grossly patent and normal in caliber. No enlarged lymph node or free fluid. Pelvic structures unremarkable. MSK: Normal. BODY WALL: Unremarkable. THIS IS AN ELECTRONICALLY VERIFIED FINAL REPORT 04/22/2023 5:56 PM - Electronically signed by Abebe Rodríguez M.D. AR: EFRAIN Report ID: [id number] Reading Location: [place] [address] XR CHEST 2 VIEWS (Final result) Result time 04/22/23 17:37:52 Final result by Live Huff MD (04/22/23 17:37:52) Impression: IMPRESSION: No acute cardiopulmonary abnormality. Narrative: EXAM DESCRIPTION: XR CHEST 2 VIEWS REASON FOR STUDY: Leukocytosis TECHNIQUE: 2 radiographic view(s) of the chest. COMPARISON: None available FINDINGS: LUNGS: No focal opacity, pleural effusion, or pneumothorax. HEART/MEDIASTINUM: Cardiac silhouette normal in size. Mediastinal and hilar contours appear normal. LINES/TUBES: None. BONES: No acute osseous abnormality. THIS IS AN ELECTRONICALLY VERIFIED FINAL REPORT 04/22/2023 5:35 PM - Electronically signed by Live Huff M.D. MM: MM Report ID: [id number] Reading Location: [id number] XR ABDOMINAL SERIES WITH CHEST VIEW (Canceled) MDM Clinical Impression 1. Urinary tract infection Disposition: Discharged Patient was started on macrobid for a UTI. She was also given zofran. Encouraged close f/u with herpmd an to return for reevaluation if sx change or worsen. Patient expressed understanding and agreement to the tx plan. Cosigned by Fei Kerr MD at 04/27/2023 5:59 PM COMPUTER SOFTWARE ENGINEER UTER SOFTWARE ENGINEER UTER SOFTWARE ENGINEER * Charlie Grant RN - 04/22/2023 4:26 PM CST Pt medicated per ERP. Pt educated on intended effects of medication and verbalized understanding. Will re-evaluate shortly. UTER SOFTWARE ENGINEER * Charlie Grant RN - 04/22/2023 3:58 PM CST Pt states that she has been rotating tylenol and ibuprofen with no relief. UTER SOFTWARE ENGINEER * Charlie Grant RN - 04/22/2023 3:48 PM CST Pt to triage with c/o flank pain that starts under upper abdomen and radiates to her back that has been ongoing for the past two days. States nausea without emesis and diarrhea x 2 days. UTER SOFTWARE ENGINEER documented in this encounter Plan of Treatment Not on file documented as of this encounter Procedures Procedure Name Priority Date/Time Associated Diagnosis Comments CT ABDOMEN PELVIS W/ CONTRAST Stat with Interpretation 04/22/2023 5:49 PM COMPUTER SOFTWARE ENGINEER XR CHEST 2 VIEWS STAT 04/22/2023 5:16 PM COMPUTER SOFTWARE ENGINEER POCT URINE HCG () STAT 04/22/2023 4:45 PM COMPUTER SOFTWARE ENGINEER URINALYSIS REFLEX IF INDICATED BY ABNORMAL RESULTS STAT 04/22/2023 4:44 PM COMPUTER SOFTWARE ENGINEER CULTURE, URINE STAT 04/22/2023 4:44 PM COMPUTER SOFTWARE ENGINEER EXTRA TUBES STAT 04/22/2023 3:55 PM COMPUTER SOFTWARE ENGINEER GOLD TOP TUBE STAT 04/22/2023 3:55 PM COMPUTER SOFTWARE ENGINEER BLUE TOP TUBE STAT 04/22/2023 3:55 PM COMPUTER SOFTWARE ENGINEER CBC WITH AUTO DIFFERENTIAL STAT 04/22/2023 3:55 PM COMPUTER SOFTWARE ENGINEER LIPASE STAT 04/22/2023 3:55 PM COMPUTER SOFTWARE ENGINEER CMP (COMPREHENSIVE METABOLIC PANEL) STAT 04/22/2023 3:55 PM COMPUTER SOFTWARE ENGINEER COMPLETE BLOOD COUNT (CBC) WITH DIFF STAT 04/22/2023 3:55 PM COMPUTER SOFTWARE ENGINEER documented in this encounter Results * CT ABDOMEN PELVIS W/ CONTRAST (04/22/2023 5:49 PM COMPUTER SOFTWARE ENGINEER) Anatomical Region Laterality Modality Abdomen N/A Computed Tomogra phy 04/22/2023 5:56 PM COMPUTER SOFTWARE ENGINEER Impressions 04/22/2023 5:58 PM COMPUTER SOFTWARE ENGINEER IMPRESSION: No bowel inflammation or other abnormality identified to account for patient presentation. ??Cholecystectomy. ?? Narrative 04/22/2023 5:58 PM COMPUTER SOFTWARE ENGINEER EXAM DESCRIPTION: ?? CT ABDOMEN PELVIS W/ CONTRAST REASON FOR STUDY: ?? c/o flank pain that starts under upper abdomen and radiates to her back that has been ongoing for the past two days. pt states she also been having diarrhea x 2 days. no hx of surgery ?? TECHNIQUE: CT scan of the abdomen and pelvis performed with intravenous and ??without ??oral contrast using helical scanning technique with dynamic intravenous contrast injection. Reconstructed coronal and sagittal MPR images reviewed. All images stored on PACS. Automated exposure control was used as a dose optimization technique for this examination. CONTRAST TYPE/DOSE: ?? 100mL of IOPAMIDOL 76 % IV SOLN ??injected via ?? Intravenous COMPARISON: ?? None REFERENCE: Per ACR white paper recommendations, unless otherwise specified no follow-up imaging is recommended for incidental renal and adrenal lesions per consensus recommendations based on imaging criteria. Further lab evaluation could be pursued based on clinical findings. FINDINGS: ??LOWER CHEST: ??Lung bases are clear. ??Heart size normal. ?? No effusion. LIVER/BILIARY: ??Liver unremarkable. ?? Biliary tree normal in caliber. GALLBLADDER: ??Absent. SPLEEN: ??Normal. PANCREAS: ??Normal. ADRENAL GLANDS: ??Normal. KIDNEYS/URINARY TRACT: ??Unremarkable kidneys and ureters. ??Bladder collapsed. ?? GI: ??Stomach and small bowel appear normal. ??Colon and appendix unremarkable. ?? OTHER ABDOMINAL/PELVIS: ??Major vascular structures are grossly patent and normal in caliber. ??No enlarged lymph node or free fluid. Pelvic structures unremarkable. MSK: ??Normal. ?? BODY WALL: ??Unremarkable. ?? THIS IS AN ELECTRONICALLY VERIFIED FINAL REPORT 04/22/2023 5:56 PM - Electronically signed by ??Abebe Rodríguez M.D. AR: EFRAIN D: ??04/22/2023 5:56 PM T: ??04/22/2023 5:56 PM Report ID: [id number] Reading Location: ??[id number] Procedure Note Abebe Rodríguez MD - 04/22/2023 EXAM DESCRIPTION: CT ABDOMEN PELVIS W/ CONTRAST REASON FOR STUDY: c/o flank pain that starts under upper abdomen and radiates to her back that has been ongoing for the past two days. pt states she also been having diarrhea x 2 days. no hx of surgery TECHNIQUE: CT scan of the abdomen and pelvis performed with intravenous and without oral contrast using helical scanning technique with dynamic intravenous contrast injection. Reconstructed coronal and sagittal MPR images reviewed. All images stored on PACS. Automated exposure control was used as a dose optimization technique for this examination. CONTRAST TYPE/DOSE: 100mL of IOPAMIDOL 76 % IV SOLN injected via Intravenous COMPARISON: None REFERENCE: Per ACR white paper recommendations, unless otherwise specified no follow-up imaging is recommended for incidental renal and adrenal lesions per consensus recommendations based on imaging criteria. Further lab evaluation could be pursued based on clinical findings. FINDINGS: LOWER CHEST: Lung bases are clear. Heart size normal. No effusion. LIVER/BILIARY: Liver unremarkable. Biliary tree normal in caliber. GALLBLADDER: Absent. SPLEEN: Normal. PANCREAS: Normal. ADRENAL GLANDS: Normal. KIDNEYS/URINARY TRACT: Unremarkable kidneys and ureters. Bladder collapsed. GI: Stomach and small bowel appear normal. Colon and appendix unremarkable. OTHER ABDOMINAL/PELVIS: Major vascular structures are grossly patent and normal in caliber. No enlarged lymph node or free fluid. Pelvic structures unremarkable. MSK: Normal. BODY WALL: Unremarkable. THIS IS AN ELECTRONICALLY VERIFIED FINAL REPORT 04/22/2023 5:56 PM - Electronically signed by Abebe Rodríguez M.D. AR: EFRAIN Report ID: [id number] Reading Location: [id number] IMPRESSION: No bowel inflammation or other abnormality identified to account for patient presentation. Cholecystectomy. us Tessie [place] Page PAC IMG CT ORDERABLES Final Resu lt * XR CHEST 2 VIEWS (04/22/2023 5:16 PM COMPUTER SOFTWARE ENGINEER) Anatomical Region Laterality Modality Chest N/A Digital Radiogra phy 04/22/2023 5:35 PM COMPUTER SOFTWARE ENGINEER Impressions 04/22/2023 5:37 PM COMPUTER SOFTWARE ENGINEER IMPRESSION: No acute cardiopulmonary abnormality. Narrative 04/22/2023 5:37 PM COMPUTER SOFTWARE ENGINEER EXAM DESCRIPTION: XR CHEST 2 VIEWS REASON FOR STUDY: Leukocytosis TECHNIQUE: 2 ??radiographic view(s) of the chest. COMPARISON: None available FINDINGS: LUNGS: ??No focal opacity, pleural effusion, or pneumothorax. ?? HEART/MEDIASTINUM: ??Cardiac silhouette normal in size. Mediastinal and hilar contours appear normal. LINES/TUBES: ??None. BONES: ??No acute osseous abnormality. THIS IS AN ELECTRONICALLY VERIFIED FINAL REPORT 04/22/2023 5:35 PM - Electronically signed by ??Live Huff M.D. MM: MM D: ??04/22/2023 5:35 PM T: ??04/22/2023 5:35 PM Report ID: [id number] Reading Location: ??[id number] Procedure Note Live Huff MD - 04/22/2023 EXAM DESCRIPTION: XR CHEST 2 VIEWS REASON FOR STUDY: Leukocytosis TECHNIQUE: 2 radiographic view(s) of the chest. COMPARISON: None available FINDINGS: LUNGS: No focal opacity, pleural effusion, or pneumothorax. HEART/MEDIASTINUM: Cardiac silhouette normal in size. Mediastinal and hilar contours appear normal. LINES/TUBES: None. BONES: No acute osseous abnormality. THIS IS AN ELECTRONICALLY VERIFIED FINAL REPORT 04/22/2023 5:35 PM - Electronically signed by Live Huff M.D. MM: MM Report ID: [id number] Reading Location: [id number] IMPRESSION: No acute cardiopulmonary abnormality. us Tessie [place]ac[place] Page PAC IMG DIAGNOSTIC ORDERABLES Fi nal Result * POCT Urine HCG () (04/22/2023 4:45 PM COMPUTER SOFTWARE ENGINEER) POC URINE Negative POC URINE CONTROL Mechanic Welder Truck Driver Pass Urine 04/22/2023 4:45 PM COMPUTER SOFTWARE ENGINEER us Tessie Suzanne Page PAC POINT OF CARE TESTING (RIVKA Delcid) Final Result * Culture, Urine (04/22/2023 4:44 PM COMPUTER SOFTWARE ENGINEER) CULTURE RESULTS 12,000 CFU/ML Staphylococcus Coagulase Negative not Staphylococcus saprophyticus 04/24/2023 12:28 PM COMPUTER SOFTWARE ENGINEER [facility] Comment:NO FURTHER WORKUP PE RFORMED Urine URINE SPECIMEN COLLECTION, CLEAN CATCH / Unknown Non-Phlebotomy Collection / Unknown 04/22/2023 4:44 PM COMPUTER SOFTWARE ENGINEER 04/22/2023 4:44 PM COMPUTER SOFTWARE ENGINEER us Tessie Pacheco PAC MICROBIOLOGY - GENERAL ORDER SHONDA Final Result [facility] [address] [place] [address], [place] * (ABNORMAL) URINALYSIS REFLEX IF INDICATED BY ABNORMAL RESULTS (04/22/2023 4:44 PM COMPUTER SOFTWARE ENGINEER) SPECIFIC GRAVITY 1.020 1.003 - 1.030 04/22/2023 5:01 PM COMPUTER SOFTWARE ENGINEER [facility] URINE PH 8.0 5.0 - 9.0 04/22/2023 5:01 PM COMPUTER SOFTWARE ENGINEER [facility] WBC ESTERASE 100 /uL(A) Negative 04/22/2023 5:01 PM COMPUTER SOFTWARE ENGINEER [facility] NITRITE Negative Negative 04/22/2023 5:01 PM COMPUTER SOFTWARE ENGINEER [facility] PROTEIN, RANDOM URINE Negative Negative 04/22/2023 5:01 PM COMPUTER SOFTWARE ENGINEER [facility] URINE GLUCOSE, QUAL Negative Negative 04/22/2023 5:01 PM COMPUTER SOFTWARE ENGINEER [facility] URINE KETONES Negative Negative 04/22/2023 5:01 PM COMPUTER SOFTWARE ENGINEER [facility] UROBILINOGEN Normal Normal mg/dL 04/22/2023 5:01 PM COMPUTER SOFTWARE ENGINEER [facility] URINE BLOOD Negative Negative tad/ul 04/22/2023 5:01 PM COMPUTER SOFTWARE ENGINEER [facility] URINALYSIS COLOR Yellow 04/22/20 5:01 PM COMPUTER SOFTWARE ENGINEER [facility] URINALYSIS CLARITY Slightly Cloudy 04/22/2023 5:01 PM COMPUTER SOFTWARE ENGINEER [facility] WBC (Urine) 21-50(A) Negative, 0-5 /hpf 04/22/2023 5:01 PM COMPUTER SOFTWARE ENGINEER [facility] URINE RBC'S 0-2 Negative, 0-2 /hpf 04/22/2023 5:01 PM COMPUTER SOFTWARE ENGINEER [facility] EPITHELIAL CELLS Small amount /lpf 2022 5:01 PM COMPUTER SOFTWARE ENGINEER [facility] BACTERIA, URINE Few(A) Negative /hpf 04/22/2023 5:01 PM COMPUTER SOFTWARE ENGINEER [facility] Urine URINE SPECIMEN COLLECTION, CLEAN CATCH / Unknown Non-Phlebotomy Collection / Unknown 04/22/2023 4:44 PM COMPUTER SOFTWARE ENGINEER 04/22/2023 4:44 PM COMPUTER SOFTWARE ENGINEER us Tessie Pacheco PAC URINE ORDERABLES Final Resul t Performing Organization Address [facility] Co de Phone Number [facility] [address] [place] [address] * Gold Top Tube (04/22/2023 3:55 PM COMPUTER SOFTWARE ENGINEER) Blood No Phlebotomy Charged / Unknown 04/22/2023 3:55 PM COMPUTER SOFTWARE ENGINEER 04/22/2023 4:33 PM COMPUTER SOFTWARE ENGINEER Tessie Pacheco PAC CHEMISTRY ORDERABLES Final R esult Performing Organization Address [facility] Co de Phone Number [facility] [address] [place] [address] * Blue Top Tube (04/22/2023 3:55 PM COMPUTER SOFTWARE ENGINEER) Blood No Phlebotomy Charged / Unknown 04/22/2023 3:55 PM COMPUTER SOFTWARE ENGINEER 04/22/2023 4:33 PM COMPUTER SOFTWARE ENGINEER us Tessie Pacheco PAC HEMATOLOGY ORDERABLES Final Result Performing Organization Address [place]/[facility] Co de Phone Number [facility] [address] [place] [address] * (ABNORMAL) CBC with Auto Differential (04/22/2023 3:55 PM COMPUTER SOFTWARE ENGINEER) [facility] Signature WBC 13.71(H) 4.00 - 12.00 10(3)/mcL 04/22/2023 4:36 PM [facility] RBC 4.33 3.80 - 5.30 10(6)/mcL 04/22/2023 4:36 PM [facility] LAB HEMOGLOBIN (HGB) 12.3 12.0 - 15.8 g/dL 04/22/2023 4:36 PM [facility] HEMATOCRIT (HCT) 39.1 36.0 - 47.0 % 04/22/2023 4:36 PM [facility] MCV 90.3 82.0 - 96.0 fL 04/22/2023 4:36 PM [facility] MCH 28.4 26.0 - 34.0 pg 04/22/2023 4:36 PM [facility] MCHC 31.5 31.0 - 36.0 g/dL 04/22/2023 4:36 PM [facility] PLATELET COUNT 351 140 - 440 10(3)/mcL 04/22/2023 4:36 PM [facility] RDW 12.7 11.8 - 15.5 % 04/22/2023 4:36 PM [facility] MPV 10.1 9.7 - 12.4 fL 04/22/2023 4:36 PM [facility] NEUTROPHILS 73.0 47.0 - 73.0 % 04/22/2023 4:36 PM [facility] LYMPHOCYTES 15.1(L) 18.0 - 42.0 % 04/22/2023 4:36 PM [facility] MONOCYTES 8.5 4.0 - 12.0 % 04/22/2023 4:36 PM [facility] EOSINOPHILS 2.9 0.0 - 5.0 % 04/22/2023 4:36 PM COMPUTER SOFTWARE ENGINEER [facility] BASOPHILS 0.5 0.0 - 1.0 % 04/22/2023 4:36 PM COMPUTER SOFTWARE ENGINEER [facility] ABSOLUTE NEUTROPHILS 10.01(H) 1.60 - 7.70 10(3)/[facility] 04/22/2023 4:36 PM COMPUTER SOFTWARE ENGINEER [facility] ABSOLUTE LYMPHOCYTES 2.07 1.30 - 3.20 10(3)/[facility] 04/22/2023 4:36 PM COMPUTER SOFTWARE ENGINEER [facility] ABSOLUTE MONOCYTES 1.16(H) 0.20 - 1.00 10(3)/[facility] 04/22/2023 4:36 PM COMPUTER SOFTWARE ENGINEER [facility] ABSOLUTE EOSINOPHIL 0.40 0.00 - 0.40 10(3)/[facility] 04/22/2023 4:36 PM COMPUTER SOFTWARE ENGINEER [facility] ABSOLUTE BASOPHILS 0.07 0.00 - 0.10 10(3)/[facility] 04/22/2023 4:36 PM COMPUTER SOFTWARE ENGINEER [facility] NRBC PER 100 WBC 0 04/22/20 23 4:36 PM COMPUTER SOFTWARE ENGINE[employer] [facility] Blood Venipuncture / Unknown 04/22/2023 3:55 PM COMPUTER SOFTWARE ENGINEER 04/22/2023 4:34 PM COMPUTER SOFTWARE ENGINEER Tessie Palacios Page PAC HEMATOLOGY ORDERABLES Final Result Performing Organization Address City/[facility]/ZIP Co de Phone Number [facility] [address] [place] [address] * Lipase [id number] (04/22/2023 3:55 PM COMPUTER SOFTWARE ENGINEER) LIPASE 20 8 - 78 U/L 04/22/2023 4:55 PM COMPUTER SOFTWARE ENGINEER [facility] Blood Venipuncture / Unknown 04/22/2023 3:55 PM COMPUTER SOFTWARE ENGINEER 04/22/2023 4:34 PM COMPUTER SOFTWARE ENGINEER Tessie Palacios Page PAC CHEMISTRY ORDERABLES Final R esult [facility] [address] [place] [address] * (ABNORMAL) CMP (Comprehensive Metabolic Panel) (04/22/2023 3:55 PM COMPUTER SOFTWARE ENGINEER) SODIUM 140 136 - 145 mmol/L 04/22/2023 4:55 PM COMPUTER SOFTWARE ENGINEER [facility] POTASSIUM 3.5 3.5 - 5.1 mmol/L 04/22/2023 4:55 PM COMPUTER SOFTWARE ENGINEER [facility] CHLORIDE 105 98 - 107 mmol/L 04/22/2023 4:55 PM [facility] CO2, VENOUS 24 22 - 30 mmol/L 04/22/2023 4:55 PM [facility] ANION GAP 14.5 <18.0 mmol/L 04/22/2023 4:55 PM [facility] GLUCOSE 105(H) 70 - 99 mg/dL 04/22/2023 4:55 PM [facility] BUN 8 5 - 18 mg/dL 04/22/2023 4:55 PM [facility] CREATININE, BLOOD 0.79 0.60 - 1.00 mg/dL 04/22/2023 4:55 PM [facility] BUN/CREATININE RATIO 10(L) 12 - 20 ratio 04/22/2023 4:55 PM [facility] TOTAL PROTEIN 7.0 6.3 - 8.2 g/dL 04/22/2023 4:55 PM [facility] ALBUMIN 4.0 3.5 - 5.0 g/dL 04/22/2023 4:55 PM [facility] A/G RATIO 1.3 1.0 - 2.2 04/22/2023 4:55 PM [facility] CALCIUM 9.4 8.7 - 10.5 mg/dL 04/22/2023 4:55 PM [facility] T BILI 0.3 0.2 - 1.2 mg/dL 04/22/2023 4:55 PM [facility] SGOT (AST) 12 5 - 34 U/L 04/22/2023 4:55 PM COMPUTER SOFTWARE ENGINEER [facility] SGPT (ALT) 14 0 - 55 U/L 04/22/2023 4:55 PM COMPUTER SOFTWARE ENGINEER [facility] ALKALINE PHOSPHATASE 75 40 - 150 U/L 04/22/2023 4:55 PM COMPUTER SOFTWARE ENGINEER [facility] GFR, ESTIMATED >60 >=60 04/22/2023 4:55 PM COMPUTER SOFTWARE ENGINEER [facility] Comment: Creatinine Clearance is the preferred criteria for selecting drug dose adjustments in renally impaired patients. ??The GFR is provided as additional pertinent clinical information. GFR is reported in mL/min/1.73 sq m. Calculation based on the Chronic Kidney Disease Epidemiology Collaboration (CKD- EPI) equation refit without adjustment for race. GFR, EST. >60 >=60 023 4:55 PM COMPUTER SOFTWARE ENGINEER [facility] GFR, EST. NONAFRICAN >60 >=60 04/22/2023 4:55 PM COMPUTER SOFTWARE ENGINEER [facility] Blood Venipuncture / Unknown 04/22/2023 3:55 PM COMPUTER SOFTWARE ENGINEER 04/22/2023 4:34 PM COMPUTER SOFTWARE ENGINEER Tessie Palacios Page PAC CHEMISTRY ORDERABLES Final R esult [facility] [address] [place] [address] documented in this encounter Visit Diagnoses Diagnosis Urinary tract infection- Primary Urinary tract infection, site not specified documented in this encounter Administered Medications Inactive Administered Medications - up to 3 most recent administrations Medication Order MAR Action Action Date Dose Rate Site famotidine (PF) (PEPCID) injection 20 mg 20 mg, Intravenous, ONCE, 1 dose, On 04/22/23 at 1630, Indications: Symptomatic Gastroesophageal Reflux DiseaseIndications:Symptomatic Gastroesophageal Reflux Disease Given 04/22/2023 4:25 PM COMPUTER SOFTWARE ENGINEER 20 mg iopamidol (ISOVUE-370) 76 % injection 100 mL 100 mL, Intravenous, ONCE, 1 dose, On 04/22/23 at 1730 Given 04/22/2023 5:47 PM COMPUTER SOFTWARE ENGINEER 100 mL ketorolac (TORADOL) injection 30 mg 30 mg, Intravenous, ONCE, 1 dose, On 04/22/23 at 1630 Given 04/22/2023 4:25 PM COMPUTER SOFTWARE ENGINEER 30 mg documented in this encounter Active and Recently Administered Medications Due to Daylight Saving Time, this section may contain times in both CDT and COMPUTER SOFTWARE ENGINEER. Scheduled Medication Order 04/20/2023 04/21/2023 04/22/2023 famotidine (PF) (PEPCID) injection 20 mg (COMPLETED) 20 mg, Intravenous, ONCE, 1 dose, On 04/22/23 at 1630, Indications: Symptomatic Gastroesophageal Reflux Disease 1625 (Given - Provid er: Charlie Grant RN) iopamidol (ISOVUE-370) 76 % injection 100 mL (COMPLETED) 100 mL, Intravenous, ONCE, 1 dose, On 04/22/23 at 1730 1747 (Given - Provid er: JOAQUÍN Kuhn) ketorolac (TORADOL) injection 30 mg (COMPLETED) 30 mg, Intravenous, ONCE, 1 dose, On 04/22/23 at 1630 1625 (Given - Provid er: Charlie Grant RN) documented in this encounter Care Teams Insole Channeler Relationship Specialty Start Date End Date Provider, Unknown UNKNOWN PCP - General 04/22/23 03/16/24 Eulalio Hillman MD [address] [place] [address] [address] [place] [address] Psychiatrist Psychiatry 11/28/18 documented as of this encounter
--- OUTSIDE RECORDS SUMMARY | 2024-07-08 04:33 | XMS_ITS | Encounter Summary ---
Author Organization [facility] Care Team Providers Care Touring Production Manager Name Role Phone Eulalio Hillman MD Unavailable [phone] Akilah Fox APRN, CNP Primary Care Provider Encounter Details Date Type Department Care Team (Latest Contact Info) Description 09/16/2021 Travel Social History Tobacco Use Types Packs/Day [...] suspected to have Coronavirus/COVID-19? No / Unsure 09/16/2021 12:55 PM CDT documented as of this encounter Plan of Treatment Not on file documented as of this encounter Visit Diagnoses Not on filedocumented in this encounter Care Teams Touring Production Manager Relationship Specialty Start Date End Date Akilah Fox APRN, CNP [address] [place], [place] [id number] PCP - General Advanced Practice Nurse 09/16/21 Eulalio Hillman MD [address] [place] [address] [address] [place] [address] Psychiatrist Psychiatry 11/28/18 documented as of this encounter
--- OUTSIDE RECORDS SUMMARY | 2024-07-08 04:33 | XMS_ITS | Encounter Summary ---
Author Organization [facility] Address [facility] [facility] [place] [address] [place] [address] Care Team Providers Care Speech Therapy Director Name Role Phone None, Provider Primary Care Provider Unavaila ble Encounter Details Date Type Department Care Team (Latest Contact Info) Description 02/01/2022 Travel Social History Tobacco Use Types Packs/Day [...] AM CDT documented as of this encounter Plan of Treatment Not on file documented as of this encounter Visit Diagnoses Not on filedocumented in this encounter Care Teams Speech Therapy Director Relationship Specialty Start Date End Date None, Provider, PCP - General 02/01/22 documented as of this encounter
--- OUTSIDE RECORDS SUMMARY | 2024-07-08 04:33 | XMS_ITS | Encounter Summary ---
Author Organization [facility] Address [address] [place] [address] Phone Care Team Providers Care Poolroom/Poolhall Manager Name Role Phone Eulalio Hillman MD Unavailable [phone] Akilah Fox APRN, CNP Primary Care Provider Reason for Visit * Reason Comments Psychiatric Evaluation Encounter Details Date Type Department Care Team (Late st Contact Info) Description 01/01/2023 3:48 PM CDT - 01/01/2023 7:09 PM CDT Emergency [facility] Emergency [address] [place] [id number] Kenji Arroyo MD [address] [place] [address] Borderline personality disorder (HCC) Discharge Disposition: Discharged to home or Selfcare [...] suspected to have Coronavirus/COVID-19? No / Unsure 01/01/2023 3:55 PM CDT documented as of this encounter Last Filed Vital Signs Vital Sign Reading Time Taken Comments Blood Pressure 131/86 01/01/2023 7:00 PM CDT Pulse 80 01/01/2023 7:00 PM CDT Temperature 37.1 ??C (98.7 ??F) 01/01/2023 3:56 PM CD T Respiratory Rate 18 01/01/2023 7:00 PM CDT Oxygen Saturation 99% 01/01/2023 7:00 PM CDT Inhaled Oxygen Concentration - - Weight 125.4 kg (276 lb 7.3 oz) 01/01/2023 3:56 PM CDT Height 167.6 cm (5' 6 ) 01/01/2023 3:56 PM CDT Body Mass Index 44.62 01/01/2023 3:56 PM CDT documented in this encounter Discharge Instructions * Discharge Instructions* Kenji Arroyo MD - 01/01/2023 6:57 PM CDT Your lithium test will be available tomorrow. Your psychiatrist should be able to have access to see that * Attachments The following attachments cannot be sent through Care Everywhere. * Managing Bipolar Disorder (British) documented in this encounter Medications at Time [...] as of this encounter ED Notes * Rafael Dyson RN - 01/01/2023 7:09 PM CDT Patient discharged. Discharge instructions and patient educational material reviewed with patient; questions and concerns addressed; patient verbalizes understanding, using teach back. Patient was given 0 prescriptions. Patient discharged per ambulatory mode with self as responsible green party. * Pollo Pineda RN - 01/01/2023 5:26 PM CDT Patient is resting in room with call light at bedside. Patient informed about wait time and verbalizes understanding. Patient denies needs at this time and verbalizes understanding that RN will complete hourly rounding. * Kenji Arroyo MD - 01/01/2023 4:37 PM CDT Chief Complaint Patient presents with ??? Psychiatric Evaluation Hali Garcia is a 27 y.o. female who presents to the emergency department complaining of getting into an argument with her mother. Patient states that she has schizophrenia. She often exhibits auditory, visual and tactile hallucinations. States when she gets tactile hallucinations she gets agitated. Today she was having them in her mom was trying to talk with her. Patient states she wasvery agitated so she got into an argument with her mother. Patient states that she sees human and humidified type figures. The tactile hallucinations are mostly in itching type sensation. Patient states the auditory hallucinations are the voices of the people. Sometimes they tell her to kill herself but ???I have no intention of doing that ???. The patient was no homicidal ideations. Patient states she would like to be admitted for re- evaluation of her medicines so she could be watched while they are change. States she does have a psychiatrist at [facility]. She sees that person again in about 2 weeks. They have recently increased some of her medicines. She feels like it is not providing adequate relief. Past medical history: Illnesses: Schizophrenia, bipolar type 2 and borderline personality disorder Medications: See list Allergies: Lexapro Social History: Tobacco: Daily smoker Alcohol: Nondrinker Marijuana: Occasional marijuana Drugs: Occasional use of methamphetamine. Last use was a few days ago. Patient reports smoking it. The patient reports this makes her agitation worse This chart was created using a voice recognition program. There maybe grammatical and/or syntax errors that are unintentional. No current facility-administered medications for this encounter. [...] History Narrative ??? Not on file BP 131/86 Pulse 86 Temp 98.7 ??F (37.1 ??C) (Tympanic) Resp 18 Ht 5' 6 (1.676 m) Wt 276 lb 7.3 oz (125.4 kg) LMP 12/18/2022 (Approximate) SpO2 96% BMI 44.62 kg/m?? Review of Systems Constitutional: Negative for activity change, appetite change, chills, diaphoresis, fatigue and fever. HENT: Negative for dental problem, rhinorrhea and sore throat. Eyes: Negative for visual disturbance. Respiratory: Negative for cough, chest tightness, shortness of breath and wheezing. Cardiovascular: Negative for chest pain, palpitations and leg swelling. Gastrointestinal: Negative for abdominal pain, constipation, diarrhea, nausea and vomiting. Genitourinary: Negative for difficulty urinating, flank pain, hematuria and urgency. Musculoskeletal: Negative for arthralgias, back pain, myalgias, neck pain and neck stiffness. Skin: Negative for color change and rash. Allergic/Immunologic: Negative for food allergies. Neurological: Negative for dizziness, syncope, weakness, light-headedness, numbness and headaches. Psychiatric/Behavioral: Positive for hallucinations. Negative for self-injury, sleep disturbance and suicidal ideas. All other systems reviewed and are negative. Physical Exam Vitals and nursing note reviewed. Constitutional: General: She is not in acute distress. Appearance: She is well-developed. She is obese. She is not diaphoretic. HENT: Head: Normocephalic and atraumatic. Right Ear: External ear normal. Left Ear: External ear normal. Nose: Nose normal. Mouth/Throat: Mouth: Mucous membranes are moist. Pharynx: No oropharyngeal exudate. Eyes: General: Right eye: No discharge. Left eye: No discharge. Conjunctiva/sclera: Conjunctivae normal. Pupils: Pupils are equal, round, and reactive to light. Neck: Thyroid: No thyromegaly. Vascular: No JVD. Trachea: No tracheal deviation. Cardiovascular: Rate and Rhythm: Normal rate and regular rhythm. Heart sounds: Normal heart sounds. No murmur heard. Pulmonary: Effort: Pulmonary effort is normal. No respiratory distress. Breath sounds: Normal breath sounds. No wheezing or rales. Chest: Chest wall: No tenderness. Abdominal: General: Bowel sounds are normal. There is no distension. Palpations: Abdomen is soft. There is no mass. Tenderness: There is no abdominal tenderness. There is no guarding or rebound. Musculoskeletal: General: No tenderness. Normal range of motion. Cervical back: Normal range of motion and neck supple. Lymphadenopathy: Cervical: No cervical adenopathy. Skin: General: Skin is warm and dry. Capillary Refill: Capillary refill takes less than 2 seconds. Coloration: Skin is not pale. Findings: No erythema or rash. Neurological: Mental Status: She is alert and oriented to person, place, and time. Cranial Nerves: No cranial nerve deficit. Motor: No abnormal muscle tone. Coordination: Coordination normal. Deep Tendon Reflexes: Reflexes are normal and symmetric. Psychiatric: Mood and Affect: Mood normal. Behavior: Behavior normal. Judgment: Judgment normal. Comments: Patient with auditory, visual and tactile hallucinations. This is at her baseline according to the patient. She is not suicidal or homicidal. Procedures Imaging Results None Labs Reviewed CMP (COMPREHENSIVE METABOLIC PANEL) - Abnormal; Notable for the following components: Result Value SODIUM 133 (*) GLUCOSE 107 (*) CREATININE, BLOOD 0.55 (*) BUN/CREATININE RATIO 27 (*) All other components within normal limits URINALYSIS REFLEX IF INDICATED BY ABNORMAL RESULTS - Abnormal; Notable for the following components: WBC ESTERASE 25 /ul (*) PROTEIN, RANDOM URINE 15 mg/dL (*) URINE BLOOD 250 /uL (*) WBC (Urine) 51-150 (*) URINE RBC'S 21-50 (*) BACTERIA, URINE Moderate (*) All other components within normal limits CBC WITH AUTO DIFFERENTIAL - Abnormal; Notable for the following components: HEMOGLOBIN (HGB) 11.2 (*) HEMATOCRIT (HCT) 35.3 (*) ABSOLUTE NEUTROPHILS 7.87 (*) ABSOLUTE EOSINOPHIL 0.52 (*) All other components within normal limits CULTURE, URINE COMPLETE BLOOD COUNT (CBC) WITH DIFF Narrative: The following orders were created for panel order CBC w/ Diff. Procedure Abnormality Status --------- ------ CBC with Auto Differential[[id number]] Abnormal Final result Please view results for these tests on the individual orders. LITHIUM POCT URINE HCG () MDM Impression: Patient presents with hallucinations concerning for exacerbation of her bipolar or schizoaffective disorder. Patient's history of long-term standing psychiatric illness with no homicidal or suicidal ideations at the present time has impacted care and subsequent medical decision making. In the workup of these potential diagnoses I considered but did not pursue infection due to signs and symptoms on exam and initial findings not consistent with these disease processes. Tests were independently reviewed and interpreted and imaging independently visualized and interpreted. This is notable for negative workup although lithium is still pending. It is a send out lab. Results should be available tomorrow I considered escalation of care including observation versus admission but not warranted due to stability of condition and lack of suicide or homicidal ideations. Patient was not a danger to self or others at the present time. Plan for discharge to home. Discussed the case with patient. I will prescribe follow up with her psychiatrist tomorrow even if by phone.. Reasons to return to the emergency room were discussed. Clinical Impression 1. Bipolar 2 disorder (HCC) 2. Schizoaffective disorder (HCC) 3. Borderline personality disorder (HCC) Disposition: Discharged The patient remained stable throughout their ED stay. My clinical impression was discussed with thepatient/caregiver. Any labs and radiology results were reviewed. Questions were addressed as completely as possible given the information available at present. The therapeutic plan was discussed, inst ructions were given and the importance of primary care follow up was stressed and encouraged. The patient/caregiver voiced understanding of the plan, indications to return, and the need for follow up. Reasons to return to the E.D. were discussed. New Medications: New Prescriptions No medications on file I have advised the patient to follow-up with: Akilah Fox, ALEKSANDR, WEB MARKETING ANALYST [address] [facility] [id number] Call in 1 day Dispostion: Discharge * Pollo Pineda RN - 01/01/2023 3:53 PM CDT PT to ER room 12 via [facility] w/c/o needing a psyciatric eval by mother. Pt states that she has schizophrenia but takes meds as prescribed along with an injectable antipsychotic. Pt denies SI or HI,pt alert and oriented x 4 with respirations that are even and unlabored documented in this encounter Plan of Treatment Not on file documented as of this encounter Procedures Procedure Name Priority Date/Time Associated Diagnosis Comments LITHIUM STAT 01/01/2023 5:49 PM CDT POCT URINE HCG () STAT 01/01/2023 5:39 PM CDT CBC WITH AUTO DIFFERENTIAL STAT 01/01/2023 5:15 PM CDT CMP (COMPREHENSIVE METABOLIC PANEL) STAT 01/01/2023 5:15 PM CDT COMPLETE BLOOD COUNT (CBC) WITH DIFF STAT 01/01/2023 5:15 PM CDT URINALYSIS REFLEX IF INDICATED BY ABNORMAL RESULTS STAT 01/01/2023 4:55 PM CDT CULTURE, URINE STAT 01/01/2023 4:55 PM CDT documented in this encounter Results * [place] (01/01/2023 5:49 PM CDT) LITHIUM 0.6 0.6 - 1.2 mmol/L 01/01/2023 9:18 PM CDT [facility] Comment:Resulted from [facility]. Blood Venipuncture / Unknown 01/01/2023 5:49 PM CDT 01/01/2023 6:00 PM CDT us Kenji Arroyo MD CHEMISTRY ORDERABLES Final Resu lt [facility] [address] [place] [address] * POCT Urine HCG () (01/01/2023 5:39 PM CDT) POC URINE Negative POC URINE CONTROL Director Of Revenue Cycle Management Pass Urine 01/01/2023 5:39 PM CDT us Kenji Arroyo MD POINT OF CARE TESTING (MANUAL) Final Result * (ABNORMAL) CBC with Auto Differential (01/01/2023 5:15 PM CDT) WBC 11.31 4.00 - 12.00 10(3)/mcL 01/01/2023 5:18 PM CDT [facility] RBC 3.85 3.80 - 5.30 10(6)/mcL 01/01/2023 5:18 PM CDT [facility] HEMOGLOBIN (HGB) 11.2(L) 12.0 - 15.8 g/dL 01/01/2023 5:18 PM CDT [facility] HEMATOCRIT (HCT) 35.3(L) 36.0 - 47.0 % 01/01/2023 5:18 PM CDT [facility] MCV 91.7 82.0 - 96.0 fL 01/01/2023 5:18 PM CDT [facility] MCH 29.1 26.0 - 34.0 pg 01/01/2023 5:18 PM CDT [facility] MCHC 31.7 31.0 - 36.0 g/dL 01/01/2023 5:18 PM CDT [facility] PLATELET COUNT 357 140 - 440 10(3)/mcL 01/01/2023 5:18 PM CDT [facility] RDW 13.2 11.8 - 15.5 % 01/01/2023 5:18 PM CDT [facility] MPV 9.9 9.7 - 12.4 fL 01/01/2023 5:18 PM CDT [facility] NEUTROPHILS 69.6 47.0 - 73.0 % 01/01/2023 5:18 PM CDT [facility] LYMPHOCYTES 18.7 18.0 - 42.0 % 01/01/2023 5:18 PM CDT [facility] MONOCYTES 6.3 4.0 - 12.0 % 01/01/2023 5:18 PM CDT [facility] EOSINOPHILS 4.6 0.0 - 5.0 % 01/01/2023 5:18 PM CDT [facility] BASOPHILS 0.8 0.0 - 1.0 % 01/01/2023 5:18 PM CDT [facility] ABSOLUTE NEUTROPHILS 7.87(H) 1.60 - 7.70 10(3)/mcL 01/01/2023 5:18 PM CDT [facility] ABSOLUTE LYMPHOCYTES 2.12 1.30 - 3.20 10(3)/[facility] 01/01/2023 5:18 PM CDT [facility] ABSOLUTE MONOCYTES 0.71 0.20 - 1.00 10(3)/[facility] 01/01/2023 5:18 PM CDT [facility] ABSOLUTE EOSINOPHIL 0.52(H) 0.00 - 0.40 10(3)/[facility] 01/01/2023 5:18 PM CDT [facility] ABSOLUTE BASOPHILS 0.09 0.00 - 0.10 10(3)/[facility] 01/01/2023 5:18 PM CDT [facility] NRBC PER 100 WBC 0 01/02/20 5:18 PM CDT [facility] Blood Venipuncture / Unknown 01/01/2023 5:15 PM CDT 01/01/2023 5:15 PM CDT us Kenji Arroyo MD HEMATOLOGY ORDERABLES Final Res ult [facility] [address] [place] [address] * (ABNORMAL) CMP (01/01/2023 5:15 PM CDT) SODIUM 133(L) 136 - 144 mmol/L 01/01/2023 5:44 PM CDT [facility] POTASSIUM 4.0 3.5 - 5.1 mmol/L 01/01/2023 5:44 PM CDT [facility] CHLORIDE 102 100 - 110 mmol/L 01/01/2023 5:44 PM CDT [facility] CO2, VENOUS 25 22 - 32 mmol/L 01/01/2023 5:44 PM CDT [facility] ANION GAP 10.0 8.0 - 20.0 mmol/L 01/01/2023 5:44 PM CDT [facility] GLUCOSE 107(H) 70 - 99 mg/dL 01/01/2023 5:44 PM CDT [facility] BUN 15 6 - 20 mg/dL 01/01/2023 5:44 PM T [facility] CREATININE, BLOOD 0.55(L) 0.60 - 1.10 mg/dL 01/01/2023 5:44 PM T [facility] BUN/CREATININE RATIO 27(H) 12 - 20 ratio 01/01/2023 5:44 PM [facility] TOTAL PROTEIN 6.4 6.0 - 8.3 g/dL 01/01/2023 5:44 PM T [facility] ALBUMIN 3.7 3.5 - 5.0 g/dL 01/01/2023 5:44 PM [facility] Comment: The colormetric methods used for the determination of Albumin may lead to falsely elevated test results in patients suffering from renal failure or insufficiency due to interference with other proteins. A/G RATIO 1.4 1.0 - 2.0 01/01/2023 5:44 PM T [facility] CALCIUM 9.1 8.7 - 10.5 mg/dL 01/01/2023 5:44 PM T [facility] T BILI 0.2 0.2 - 1.2 mg/dL 01/01/2023 5:44 PM CDT [facility] SGOT (AST) 15 <=32 U/L 01/01/2023 5:44 PM T [facility] SGPT (ALT) 19 <=41 U/L 01/01/2023 5:44 PM CDT [facility] ALKALINE PHOSPHATASE 83 35 - 105 U/L 01/01/2023 5:44 PM T [facility] GFR, ESTIMATED >60 >=60 01/01/2023 5:44 PM CDT [facility] Comment: Creatinine Clearance is the preferred criteria for selecting drug dose adjustments in renally impaired patients. ??The GFR is provided as additional pertinent clinical information. GFR is reported in mL/min/1.73 sq m. Calculation based on the Chronic Kidney Disease Epidemiology Collaboration (CKD- EPI) equation refit without adjustment for race. GFR, EST. >60 >=60 023 5:44 PM CDT [facility] GFR, EST. NONAFRICAN >60 >=60 01/01/2023 5:44 PM CDT [facility] Blood Venipuncture / Unknown 01/01/2023 5:15 PM CDT 01/01/2023 5:15 PM CDT Kenji Arroyo MD CHEMISTRY ORDERABLES Final Resu lt [facility] [address] [place] [address] * Culture, Urine (01/01/2023 4:55 PM CDT) [facility] CULTURE RESULTS MIXED GROWTH OF ONE OR MORE DISTAL URETHRAL CONTAMINANTS 01/03/2023 10:43 AM CDT [facility] Urine URINE SPECIMEN COLLECTION, CLEAN CATCH / Unknown Non-Phlebotomy Collection / Unknown 01/01/2023 4:55 PM CDT 01/01/2023 5:02 PM CDT Kenji Arroyo MD MICROBIOLOGY - GENERAL ORDERABL ES Final Result Performing Organization Address City/[facility]/ZIP Co de Phone Number [facility] [address] [place] [address], * (ABNORMAL) URINALYSIS REFLEX IF INDICATED BY ABNORMAL RESULTS (01/01/2023 4:55 PM CDT) SPECIFIC GRAVITY 1.015 1.003 - 1.030 01/01/2023 5:21 PM CDT [facility] URINE PH 7.0 5.0 - 9.0 01/01/2023 5:21 PM CDT [facility] WBC ESTERASE 25 /ul(A) Negative 01/01/2023 5:21 PM CDT [facility] NITRITE Negative Negative 01/01/2023 5:21 PM CDT [facility] PROTEIN, RANDOM URINE 15 mg/dL(A) Negative 01/01/2023 5:21 PM CDT [facility] URINE GLUCOSE, QUAL Negative Negative 01/01/2023 5:21 PM CDT [facility] URINE KETONES Negative Negative 01/01/2023 5:21 PM CDT [facility] UROBILINOGEN Normal Normal mg/dL 01/01/2023 5:21 PM CDT [facility] URINE BLOOD 250 /uL(A) Negative tad/ul 01/01/2023 5:21 PM CDT [facility] URINALYSIS COLOR Yellow 01/02/20 5:21 PM CDT [facility] URINALYSIS CLARITY Slightly Cloudy 01/01/2023 5:21 PM CDT [facility] WBC (Urine) 51-150(A) Negative, 0-5 /hpf 01/01/2023 5:21 PM CDT [facility] URINE RBC'S 21-50(A) Negative, 0-2 /hpf 01/01/2023 5:21 PM CDT [facility] EPITHELIAL CELLS Moderate amount /lpf 01/01/2023 5:21 PM CDT [facility] BACTERIA, URINE Moderate(A) Negative /hpf 01/01/2023 5:21 PM CDT [facility] Urine URINE SPECIMEN COLLECTION, CLEAN CATCH / Unknown Non-Phlebotomy Collection / Unknown 01/01/2023 4:55 PM CDT 01/01/2023 5:02 PM CDT Kenji Arroyo MD URINE ORDERABLES Final Result [facility] [address] [place] [address] documented in this encounter Visit Diagnoses Diagnosis Bipolar 2 disorder (HCC)- Primary Other bipolar disorders Schizoaffective disorder (HCC) Schizoaffective disorder, unspecified condition Borderline personality disorder (HCC) Borderline personality disorder documented in this encounter Administered Medications Inactive Administered Medications - up to 3 most recent administrations Medication Order MAR Action Action Date Dose Rate Site clonazePAM (KlonoPIN) tablet 0.5 mg 0.5 mg, Oral, ONCE, 1 dose, On 01/01/23 at 1830 Given 01/01/2023 6:25 PM CDT 0.5 mg documented in this encounter Active and Recently Administered Medications Times are shown in CDT. Scheduled Medication Order 12/30/2022 12/31/2022 01/01/2023 clonazePAM (KlonoPIN) tablet 0.5 mg (COMPLETED) 0.5 mg, Oral, ONCE, 1 dose, On Sun01/01/23 at 1830 1825 (Given - Provid er: Pollo Pineda RN) documented in this encounter Care Teams Poolroom/Poolhall Manager Relationship Specialty Start Date End Date Akilah Fox APRN, WEB MARKETING ANALYST [address] [place] [address] PCP - General Advanced Practice Nurse 09/16/21 Eulalio Hillman MD [address] [place] [address] [address] [place] [address] Psychiatrist Psychiatry 11/28/18 documented as of this encounter
--- OUTSIDE RECORDS SUMMARY | 2024-07-08 04:33 | XMS_ITS | Patient Health Summary ---
Author Organization [facility] Address [address] [place] [address] Care Team Providers Care Credit Control Assistant Name Role Phone Unavailable Primary Care Provider Unavailabl e Note from [facility],non-owned Affiliates and Associated Physician Practices is amultiple site organization consisting of ambulatory clinics and hospital sitesin [place], [place], [place] and [place]. This disclosure is being madepursuant to the Care Everywhere program and may not contain all information available regarding this patient. Last updated 18.[facility] Allergies * Sulfamethoxazole W-Trimethoprim(Unknown) * Escitalopram(Unknown) * Sulfa Drugs(Unknown) Medications * Be aware that medications may not be up to date on this document. Alwaysverify current medications with the patient. * FLUoxetine (PROZAC) 20 MG capsule(Started 01/12/2022) Take 1 (one) capsule by mouth once daily Reasons: Depression, Major Depressive Disorder, TRD 1 refill by 01/11/2023 * OLANZapine (ZYPREXA) 2.5 MG tablet(Started 01/11/2022) Take 1 (one) tablet by mouth at bedtime Reasons: MIXED BIPOLAR AFFECTIVE DISORDER, Brief Psychotic Disorder 1 refill by 01/11/2023 * nicotine polacrilex (NICORETTE) 2 MG gum(Started 01/11/2022) Take 1 (one) Each by mouth every 2 hours as needed for Smoking Cessation Reasons: Nicotine Addiction * nicotine polacrilex (NICORETTE) 2 MG gum(Started 01/11/2022) Take 1 (one) Each by mouth as needed for Smoking Cessation - Gum should be slowly chewed until a peppery taste emerges, then parked between cheek and gum to facilitate nicotine absorption. - Avoid eating or drinking for 15 minutes before and during chewing gum. 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 Essential (primary) hypertension 01/04/2022 Social History Tobacco Use Types Packs/Day Years [...] Mass Index 47.78 01/04/2022 6:20 PM CDT Procedures * TSH(Performed 01/06/2022) * HEMOGLOBIN A1C(Performed 01/06/2022) * LIPID PROFILE(Performed 01/06/2022) Results * HEMOGLOBIN A1C (01/06/2022 6:25 AM CDT) Hemoglobin A1c 5.5 4.2 - 5.6 % 01/06/2022 7:01 AM CDT [facility] Estimated Average Glucose 111 mg/dL 01/06/2022 7:01 AM CDT [facility] Blood BLOOD SPECIMEN / Unknown Lab Venipuncture / Unknown 01/06/2022 6:25 AM CDT 01/06/2022 6:32 AM CDT Narrative [facility] - 01/06/2022 7:01 AM CDT HbA1c Interpretation: Normal: < 5.7% Pre-diabetes: 5.7-6.4% Diabetes: Equal to or greater than 6.5% Test results diagnostic of diabetes should be repeated for confirmation. Treatment target values recommended by ADA and other clinical organizations should be used to evaluate metabolic control in patients. This test should not replace glucose testing for patients with Type 1 diabetes, pediatric patients, or women. ??Falsely low HbA1c results may be observed in patients with clinical conditions that shorten erythrocyte life span or decrease mean erythrocyte age such as the presence of unstable hemoglobin variants, elevated hemoglobin F level or other causes of hemolytic anemia. ??HbA1c may not accurately reflect glycemic control when clinical conditions that affect erythrocyte survival are present. ??Severe Iron deficiency anemia may yield falsely high results. ??Hemoglobin A1c assay should not be used to diagnose or monitor diabetes in patients with malignancy, recent blood transfusion, chronic kidney or liver disease. ?? This method may yield falsely low results when hemoglobin (HbF) exceeds 5% in the specimen. The [employer] assay for the measurement of HbA1c is a National Glycohemoglobin Standardization Program (NGSP) certified method. Bala Vazquez [employer]-EQUIPMENT OPERATOR [facility] - CHEMISTRY ORDERABLES Performing Organization Address City/State/[facility] Co de Phone Number [facility] [address] * TSH (01/06/2022 6:25 AM CDT) Pathologist [facility] TSH 1.270 0.35 - 4.94 uIU/mL 01/09/2022 6:42 AM CDT [facility] Blood BLOOD SPECIMEN / Unknown Lab Venipuncture / Unknown 01/06/2022 6:25 AM CDT 01/06/2022 6:32 AM CDT Eileen Carter [employer] WORK[employer]-EQUIPMENT OPERATOR [facility] - CHEMISTRY ORDERABLES [facility] [address] * LIPID PROFILE (01/06/2022 6:25 AM CDT) [facility] Cholesterol 132 <200 mg/dL 01/06/2022 7:07 AM CDT [facility] Triglycerides 120 <150 mg/dL 01/06/2022 7:07 AM CDT [facility] HDL Cholesterol 41 >40 mg/dL 2 7:07 AM CDT [facility] Chol HDL Ratio 3.2 1.0 - 6.0 01/06/2022 7:07 AM CDT [facility] LDL Calculated 67 65 - 130 mg/dL 01/06/2022 7:07 AM CDT [facility] VLDL Calculated 24 <=30 mg/dL 2 7:07 AM CDT [facility] Blood BLOOD SPECIMEN / Unknown Lab Venipuncture / Unknown 01/06/2022 6:25 AM CDT 01/06/2022 6:32 AM CDT Narrative [facility] - 01/06/2022 7:07 AM CDT Lipid Profile Comment: CHOLESTEROL LEVEL..................CLINICAL INTERPRETATION LESS THAN 200 MG/DL..............................DESIRABLE 200-239 MG/DL..............................BORDERLINE HIGH GREATER THAN 240 MG/DL................................HIGH LDL-CHOLESTEROL LEVEL..............CLINICAL INTERPRETATION LESS THAN 100 MG/DL................................OPTIMAL 100-129 MG/DL.................................NEAR OPTIMAL GREATER THAN 160 MG/DL...........................HIGH RISK HDL RISK LEVEL GREATER THEN 60 MG/DL............................DECREASED 40-60 MG/DL........................................AVERAGE LESS THAN 40 MG/DL...............................INCREASED TRIGLYCERIDE LEVEL..................CLINICAL INTERPRETATION LESS THAN 150 MG/DL...............................DESIRABLE 150-199 MG/DL...............................BORDERLINE HIGH 200-499 MG/DL..........................................HIGH GREATER THAN 500..................................VERY HIGH THE NATIONAL CHOLESTEROL EDUCATION PROGRAM HAS SET THE ABOVE GUIDELINES (REFERANCE VALUES) FOR CHOLESTEROL AND HDL. RISK ASSOCIATED WITH CHOLESTEROL/HDL RATIOS RISK....................MALE RATIO.............FEMALE RATIO 1/2 AVERAGE.................<3.4.......................<3.3 LOW RISK.................... 4.0 ...................... 3.8 AVERAGE..................... 5.0 ...................... 4.5 2X AVERAGE.................. 9.5 ...................... 7.0 3X AVERAGE...................>23........................>11 Bala Vazquez [employer] WORKER-EQUIPMENT OPERATOR [facility] - CHEMISTRY ORDERABLES Performing Organization Address City/State/[facility] Co de Phone Number [facility] [address] [place], [place] [address]
--- OUTSIDE RECORDS SUMMARY | 2024-07-08 04:33 | XMS_ITS | Encounter Summary ---
Author Organization [employer] Care Team Providers Care Food Safety Specialist Name Role Phone Eulalio Hillman MD Unavailable [phone] Akilah Fox APRN, CNP Primary Care Provider Encounter Details Date Type Department Care Team (Latest Contact Info) Description 01/01/2023 Travel Social History Tobacco Use Types Packs/Day [...] on filedocumented in this encounter Care Teams Food Safety Specialist Relationship Specialty Start Date End Date Akilah Fox APRN, CNP [address] [place], [place] [phone] PCP - General Advanced Practice Nurse 09/16/21 uElalio Hillman MD [address] [place] [address] [address] [place] [address] Psychiatrist Psychiatry 11/28/18 documented as of this encounter
--- OUTSIDE RECORDS SUMMARY | 2024-07-08 04:33 | XMS_ITS | Encounter Summary ---
Author Organization [facility] Address [address] [place] [address] Phone Care Team Providers Care Asbestos Removal Worker Name Role Phone Eulalio Hillman MD Unavailable [phone] Akilah Fox APRN, CNP Primary Care Provider Reason for Visit * Reason Comments Hallucinations Encounter Details Date Type Department Care Team (Late st Contact Info) Description 01/03/2022 8:51 PM CDT - 01/04/2022 4:49 PM CDT Emergency [facility] Emergency [address] [place] [address] Vaginal bleeding Discharge Disposition: Dis/Trans to Psych Hosp/Psych Unit Social History Tobacco Use Types Packs/Day Years [...] suspected to have Coronavirus/COVID-19? No / Unsure 01/03/2022 8:47 PM CDT documented as of this encounter Last Filed Vital Signs Vital Sign Reading Time Taken Comments Blood Pressure 120/57 01/04/2022 6:33 AM CDT Pulse 92 01/04/2022 6:33 AM CDT Temperature 36.6 ??C (97.8 ??F) 01/03/2022 8:47 PM CD T Respiratory Rate 20 01/04/2022 6:33 AM CDT Oxygen Saturation 94% 01/04/2022 6:33 AM CDT Inhaled Oxygen Concentration - - Weight 136.1 kg (300 lb) 01/03/2022 8:47 PM CDT Height 167.6 cm (5' 6 ) 01/03/2022 8:47 PM CDT Body Mass Index 48.42 01/03/2022 8:47 PM CDT documented in this encounter Medications at Time [...] as of this encounter ED Notes * Nayeli Mcgee RN - 01/04/2022 4:41 PM CDT Patient [facility] in [place] via stretcher/EMS. Report given to EMS, patient belonging sent with patient. No unsafe behaviors noted. * Nayeli Mcgee RN - 01/04/2022 4:00 PM CDT Patient is resting in room with call light at bedside. Patient informed about wait time and verbalizes understanding. Patient denies needs at this time and verbalizes understanding that RN will complete hourly rounding. * Nayeli Mcgee RN - 01/04/2022 3:00 PM CDT Patient report called to Pat at [facility] in [place]. Transportation arranged via [facility]. * Jessica Alcantara RN - 01/04/2022 2:38 PM CDT Spoke with [facility] and they will be here around 1600 today for transport. * Viviane Solano - 01/04/2022 2:34 PM CDT [facility] WILL BE HERE FOR TRANSPORT AT 1900 * Nayeli Mcgee RN - 01/04/2022 12:40 PM CDT Report received from TYSON Lopez. * Jessica Alcantara RN - 01/04/2022 12:40 PM CDT Report given to TYSON [place]. * Jessica Alcantara RN - 01/04/2022 12:18 PM CDT Patient given lunch tray. * Jessica Alcantara RN - 01/04/2022 11:45 AM CDT Patient's facesheet faxed to intake at [facility]. Lunch tray also ordered for patient. * Jessica Alcantara RN - 01/04/2022 10:35 AM CDT Patient sleeping on stretcher. Respirations even and unlabored. Patient remains on 1:1 observation. * Jessica Alcantara RN - 01/04/2022 9:39 AM CDT Patient's chart faxed to intake at [facility]. * Jessica Alcantara RN - 01/04/2022 8:28 AM CDT Breakfast tray ordered for patient. * Jessica Alcantara RN - 01/04/2022 8:20 AM CDT Patient resting on stretcher. Patient calm and cooperative. Patient remains on 1:1 observation. * Jessica Alcantara RN - 01/04/2022 7:21 AM CDT Jabari at bedside for IMMANUEL screening. * Jessica Alcantara RN - 01/04/2022 7:08 AM CDT Patien medicated per provider orders. Patient educated on intended effects and side effects of medication and verbalized understanding, able to provide teach back of education. * Jessica Alcantara RN - 01/04/2022 7:00 AM CDT Received report from TYSON Daniel. Patient sleeping on stretcher. Respirations even and unlabored.Mother at bedside. Patient on 1:1 observation. * María Lyons RN - 01/04/2022 6:00 AM CDT ? Pt resting quietly on cart. Sleeping at intervals, easily arousable. Cooperative.Denies C/O at present. Bathroom and nutrition offered. Continuous??1:1??visualization. ?? * María Lyons RN - 01/04/2022 5:29 AM CDT Initiating IMMANUEL screen at this time * María Lyons RN - 01/04/2022 5:00 AM CDT ?? Pt resting quietly on cart. Sleeping at intervals, easily arousable. Cooperative.Denies C/O at present. Bathroom and nutrition offered. Continuous??1:1??visualization. * María Lyons RN - 01/04/2022 5:00 AM CDT ? Pt resting quietly on cart. Sleeping at intervals, easily arousable. Cooperative.Denies C/O at present. Bathroom and nutrition offered. Continuous??1:1??visualization. ?? * María Lyons RN - 01/04/2022 4:00 AM CDT ?? Pt resting quietly on cart. Sleeping at intervals, easily arousable. Cooperative.Denies C/O at present. Bathroom and nutrition offered. Continuous??1:1??visualization. * María Lyons RN - 01/04/2022 3:00 AM CDT ?? Pt resting quietly on cart. Sleeping at intervals, easily arousable. Cooperative.Denies C/O at present. Bathroom and nutrition offered. Continuous??1:1??visualization. * María Lyons RN - 01/04/2022 2:00 AM CDT ?? Pt resting quietly on cart. Sleeping at intervals, easily arousable. Cooperative.Denies C/O at present. Bathroom and nutrition offered. Continuous??1:1??visualization. * María Lyons RN - 01/04/2022 1:00 AM CDT ?? Pt resting quietly on cart. Sleeping at intervals, easily arousable. Cooperative.Denies C/O at present. Bathroom and nutrition offered. Continuous??1:1??visualization. * María Lyons RN - 01/04/2022 12:00 AM CDT Pt resting quietly on cart. Sleeping at intervals, easily arousable. Cooperative.Denies C/O at present. Bathroom and nutrition offered. Continuous 1:1 visualization. * María Lyons RN - 01/03/2022 11:00 PM CDT Pt resting quietly on cart. Sleeping at intervals, easily arousable. Cooperative.Denies C/O at present. Bathroom and nutrition offered. Continuous 1:1 visualization. * María Lyons RN - 01/03/2022 10:00 PM CDT Pt resting quietly on cart. Sleeping at intervals, easily arousable. Cooperative.Denies C/O at present. Bathroom and nutrition offered. Continuous 1:1 visualization. * Maci Jaimes RN - 01/03/2022 9:13 PM CDT Restriction Of Rights I have directly observed, and/or obtained history from patient who directly observed, the followingbehaviors exhibited by the patient. Auditory and visual hallucinations. Because of these behaviors, I have ordered the restriction of rights to include (LIST ALL) Searching of the patient's personal property or removing belongings. I have explained the restriction of right to the patient, ensured completion of the Notice Regarding Restriction of Rights of Individual Form, and given the form to Patient and Family. * Maci Jaimes RN - 01/03/2022 9:13 PM CDT Patient placed in room made safe. Suicide safety protocol initiated. 1:1 observation started. * Bryon Roman MD - 01/03/2022 9:10 PM CDT Chief Complaint Patient presents with ??? Hallucinations Hali Garcia is a 26 y.o. female who presents to the ED c/o auditory and visual hallucinations for 2 months. Patient is present with grandmother who is primary historian. Patient is requesting placement in a psychiatric facility as she believes she is over medicated. Patient has a psychiatrist, Dr. Bach at [facility] who she saw 5 days ago and was told she needs admission but they could not facilitate an admission. GM states multiple psychotropic medications have been tried in the past 2 months and concerned for polypharmacy. Patient was taken [place] over December 19 weekend in [facility] at admission but was turned away. [facility] Patient states she hears voices intermittently. No command hallucinations. Patient also sees shadows moving when they shouldn't be. Patient denies SI/HI but states increasingly confusion and anxiety. Patient is also endorsing vaginal bleeding and feeling bloated. LMP 2 weeks ago. No urinary sxs. Past Medical History Positives No date: Anxiety No date: Anxiety No date: Asthma No date: Bipolar 1 disorder (HCC) No date: Borderline personality disorder (HCC) No date: Depression No date: Fibromyalgia No date: Schizoaffective disorder (HCC) No current facility-administered medications for this encounter. [...] History Narrative ??? Not on file BP 139/81 Pulse 108 Temp 97.8 ??F (36.6 ??C) (Temporal) Resp 16 Ht 5' 6 (1.676 m) Wt 300lb (136.1 kg) LMP 12/20/2021 (Approximate) SpO2 98% BMI 48.42 kg/m?? Review of Systems Constitutional: Negative for chills, fatigue and fever. HENT: Negative for congestion and sore throat. Respiratory: Negative for cough, chest tightness, shortness of breath and wheezing. Cardiovascular: Negative for chest pain and palpitations. Gastrointestinal: Negative for abdominal pain, constipation, diarrhea, nausea and vomiting. Genitourinary: Positive for vaginal bleeding. Negative for dysuria, frequency and hematuria. Musculoskeletal: Negative for arthralgias, back pain and myalgias. Skin: Negative for color change and wound. Neurological: Negative for dizziness, light-headedness and headaches. Psychiatric/Behavioral: Positive for hallucinations. Negative for self-injury and suicidal ideas. The patient is nervous/anxious. The patient is not hyperactive. All other systems reviewed and are negative. Physical Exam Vitals and nursing note reviewed. Constitutional: General: She is not in acute distress. Appearance: She is well-developed. She is morbidly obese. She is not diaphoretic. HENT: Head: Normocephalic and atraumatic. Eyes: Pupils: Pupils are equal, round, and reactive to light. Neck: Thyroid: No thyromegaly. Cardiovascular: Rate and Rhythm: Normal rate and regular rhythm. Heart sounds: Normal heart sounds. No murmur heard. Pulmonary: Effort: Pulmonary effort is normal. No respiratory distress. Breath sounds: Normal breath sounds. No wheezing, rhonchi or rales. Chest: Chest wall: No tenderness. Abdominal: General: Bowel sounds are normal. There is no distension. Palpations: Abdomen is soft. There is no mass. Tenderness: There is no abdominal tenderness. There is no guarding or rebound. Musculoskeletal: General: No tenderness. Normal range of motion. Cervical back: Normal range of motion and neck supple. Skin: General: Skin is warm and dry. Coloration: Skin is not pale. Findings: No erythema or rash. Neurological: Mental Status: She is alert and oriented to person, place, and time. Cranial Nerves: No cranial nerve deficit. Psychiatric: Attention and Perception: She perceives auditory and visual hallucinations. Mood and Affect: Mood is anxious and depressed. Affect is tearful. Speech: She is noncommunicative. Behavior: Behavior is withdrawn. Thought Content: Thought content does not include homicidal or suicidal ideation. Thought content does not include homicidal or suicidal plan. Procedures Imaging Results XR ABDOMEN KUB FLAT PLATE (No Result on File) Labs Reviewed CMP (COMPREHENSIVE METABOLIC PANEL) - Abnormal; Notable for the following components: Result Value CO2, VENOUS 21 (*) ALKALINE PHOSPHATASE 133 (*) All other components within normal limits ACETAMINOPHEN (TYLENOL) - Abnormal; Notable for the following components: ACETAMINOPHEN <6 (*) All other components within normal limits CBC WITH AUTO DIFFERENTIAL - Abnormal; Notable for the following components: NEUTROPHILS 74.8 (*) LYMPHOCYTES 16.5 (*) ABSOLUTE NEUTROPHILS 8.87 (*) All other components within normal limits SARS-COV-2 BY MOLECULAR - Normal Narrative: This test has been authorized by the FDA under an Emergency Use Authorization (EUA) only. Negative results should be treated as presumptive and, if inconsistent with clinical signs and symptoms or necessary for patient management, the patient should be tested with an alternative molecularassay. Negative results do not preclude SARS-CoV-2 infection or any other respiratory pathogen. Additional information for Clinicians can be found at: https://www.fda.gov/media/013548/download Additional information for Patients can be found at: https://www.fda.gov/media/958662/download THYROID STIMULATING HORMONE (TSH) - Normal ETHYL ALCOHOL (ETHANOL) - Normal SALICYLATE LEVEL - Normal MAGNESIUM (MG) - Normal COMPLETE BLOOD COUNT (CBC) WITH DIFF Narrative: The following orders were created for panel order Complete Blood Count (CBC) WITH Diff. Procedure Abnormality Status --------- ------ CBC with Auto Differential[[id number]] Abnormal Final result Please view results for these tests on the individual orders. URINE DRUG SCREEN URINALYSIS REFLEX IF INDICATED BY ABNORMAL RESULTS POCT URINE HCG () ECG Report Time: 2131 Rhythm: sinus tachycardia Rate: 101 Interpretation: normal axis, normal intervals with good R wave progression, no acute ST changes or elevations. MDM Coding Clinical Impression 1. Auditory hallucinations 2. Visual hallucinations 3. Vaginal bleeding Patient is medically cleared for short term psychiatric placement. H and H stable. Patient care endorsed to [facility], Dr. Roman at time of ED shift end with labs pending. Patient's labs have come back with patient positive for methamphetamines and cannabinoids. She alsohad urinary tract infection. She will be given Levaquin 500 mg PO with this. Patient medically cleare for transfer and admission to a psychiatric facility. The patient remained stable throughout their ED [...] return, and the need for follow up. * Pollo Pineda RN - 01/03/2022 8:45 PM CDT Pt to ER triage w/c/o bloating, vaginal bleeding and feeling disoriented x 2 months. Pt denies recent injury or Hx of problem. Pt alert and oriented x 4 with respirations that are even and unlabored. documented in this encounter Miscellaneous Notes * Restraint / Restriction of Rights - Dylon Razo PAC - 01/03/2022 9:22 PM CDT Violent Restraints and/or Face to Face documented in this encounter Plan of Treatment Not on file documented as of this encounter Procedures Procedure Name Priority Date/Time Associated Diagnosis Comments URINALYSIS REFLEX IF INDICATED BY ABNORMAL RESULTS STAT 01/04/2022 3:59 AM CDT CULTURE, URINE STAT 01/04/2022 3:59 AM CDT URINE DRUG SCREEN STAT 01/04/2022 3:5 9 AM CDT POCT URINE HCG () STAT 01/04/2022 3:49 AM CDT XR ABDOMEN KUB FLAT PLATE STAT 01/04/2022 12:32 AM CDT SARS-COV-2 BY MOLECULAR STAT 01/03/2022 9:58 PM CDT CBC WITH AUTO DIFFERENTIAL STAT 01/03/2022 9:33 PM CDT ACETAMINOPHEN (TYLENOL) STAT 01/03/2022 9:33 PM CDT THYROID STIMULATING HORMONE (TSH) STAT 01/03/2022 9:33 PM CDT SALICYLATE LEVEL STAT 01/03/2022 9:33 PM CDT MAGNESIUM (MG) STAT 01/03/2022 9:33 PM CDT ETHYL ALCOHOL (ETHANOL) STAT 01/03/2022 9:33 PM CDT CMP (COMPREHENSIVE METABOLIC PANEL) STAT 01/03/2022 9:33 PM CDT COMPLETE BLOOD COUNT (CBC) WITH DIFF STAT 01/03/2022 9:33 PM CDT EKG 12 LEAD STAT 01/03/2022 9:32 PM CDT documented in this encounter Results * Culture, Urine (01/04/2022 3:59 AM CDT) Pathologist [facility] CULTURE RESULTS MIXED GROWTH OF ONE OR MORE DISTAL URETHRAL CONTAMINANTS 01/05/2022 11:35 AM CDT [facility] Urine URINE SPECIMEN COLLECTION, CLEAN CATCH / Unknown Non-Phlebotomy Collection / Unknown 01/04/2022 3:59 AM CDT 01/04/2022 4:05 AM CDT us Dylon Razo PAC MICROBIOLOGY - GENER AL ORDERABLES Final Result [facility] [address] [place] [address], * (ABNORMAL) Urinalysis Reflex if Indicated by Abnormal Results (01/04/2022 3:59 AM CDT) [facility] SPECIFIC GRAVITY 1.025 1.003 - 1.030 01/04/2022 4:28 AM CDT [facility] URINE PH 6.0 5.0 - 9.0 01/04/2022 4:28 AM CDT [facility] WBC ESTERASE 25 /ul(A) Negative 01/04/2022 4:28 AM CDT [facility] NITRITE Negative Negative 01/04/2022 4:28 AM CDT [facility] PROTEIN, RANDOM URINE 15 mg/dL(A) Negative 01/04/2022 4:28 AM CDT [facility] URINE GLUCOSE, QUAL Negative Negative 01/04/2022 4:28 AM CDT [facility] URINE KETONES 150 mg/dL(A) Negative 4:28 AM CDT [facility] UROBILINOGEN 4 mg/dL(A) Normal mg/dL 01/04/2022 4:28 AM CDT [facility] URINE BLOOD 150 /uL(A) Negative tad/ul 01/04/2022 4:28 AM CDT [facility] URINALYSIS COLOR Yellow 01/05/20 4:28 AM CDT [facility] URINALYSIS CLARITY Slightly Cloudy 01/04/2022 4:28 AM CDT [facility] WBC (Urine) 21-50(A) Negative, 0-5 /hpf 01/04/2022 4:28 AM CDT [facility] URINE RBC'S 6-10(A) Negative, 0-2 /hpf 01/04/2022 4:28 AM CDT [facility] EPITHELIAL CELLS Large amount squamous /lpf 01/04/2022 4:28 AM CDT [facility] BACTERIA, URINE Moderate(A) Negative /hpf 01/04/2022 4:28 AM CDT [facility] Urine URINE SPECIMEN COLLECTION, CLEAN CATCH / Unknown Non-Phlebotomy Collection / Unknown 01/04/2022 3:59 AM CDT 01/04/2022 4:05 AM CDT Dylon Razo PAC URINE ORDERABLES Fin al Result [facility] [address] [place] [address] * (ABNORMAL) Urine Drug Screen (01/04/2022 3:59 AM CDT) UR AMPHETAMINE DETECTED(A) NON DETECTED 01/04/2022 4:29 AM CDT [facility] Comment: FOR MEDICAL USE ONLY. CUTOFF CONCENTRATION FOR DETECTED RESULT: AMPHETAMINE: ??500 NG/ML UR BENZODIAZEPINES NON DETECTED NON DETECTED 01/04/2022 4:29 AM CDT [facility] Comment: FOR MEDICAL USE ONLY. CUTOFF CONCENTRATION FOR DETECTED RESULT: BENZODIAZAPINE: ??100 NG/ML UR COCAINE METABOLITE NON DETECTED NON DETECTED 01/04/2022 4:29 AM CDT [facility] Comment: FOR MEDICAL USE ONLY. CUTOFF CONCENTRATION FOR DETECTED RESULT: COCAINE: ??300 NG/ML UR OPIATES NON DETECTED NON DETECTED 01/04/2022 4:29 AM CDT [facility] Comment: FOR MEDICAL USE ONLY. CUTOFF CONCENTRATION FOR DETECTED RESULT: OPIATES: ? 300 NG/ML UR PHENCYCLIDINE NON DETECTED NON DETECTED 01/04/2022 4:29 AM CDT [facility] Comment: FOR MEDICAL USE ONLY. CUTOFF CONCENTRATION FOR DETECTED RESULT: PCP: ? 25 NG/ML UR CANNABINOID DETECTED(A) NON DETECTED 01/04/2022 4:29 AM CDT [facility] Comment: FOR MEDICAL USE ONLY. CUTOFF CONCENTRATION FOR DETECTED RESULT: THC (MARIJUANA): 50 NG/ML UR TRICYCLIC ANTIDEPRESS SCREEN NON DETECTED NON DETECTED 01/04/2022 4:29 AM CDT [facility] Comment: FOR MEDICAL USE ONLY. CUTOFF CONCENTRATION FOR DETECTED RESULT: TCA: ??300 NG/ML UR BARBITURATE NON DETECTED NON DETECTED 01/04/2022 4:29 AM CDT [facility] Comment: FOR MEDICAL USE ONLY. CUTOFF CONCENTRATION FOR DETECTED RESULT: BARBITUATES: ? 200 NG/ML Urine Non-Phlebotomy Collection / Unknown 01/04/2022 3:59 AM CDT 01/04/2022 4:05 AM CDT Dylon Razo PAC URINE ORDERABLES Fin al Result [facility] [address] [place] [address] * POCT Urine HCG () (01/04/2022 3:49 AM CDT) POC URINE Negative POC URINE CONTROL Professional Security Officer Pass Urine 01/04/2022 3:49 AM CDT Dylon Razo PAC POINT OF CARE TESTIN G (MANUAL) Final Result * XR ABDOMEN KUB FLAT PLATE (01/04/2022 12:32 AM CDT) Anatomical Region Laterality Modality Abdomen N/A Digital Radiogra phy 01/04/2022 1:41 AM CDT Impressions 01/04/2022 1:44 AM CDT IMPRESSION: ?? No acute finding. Narrative 01/04/2022 1:44 AM CDT EXAM DESCRIPTION: ?? XR ABDOMEN KUB FLAT PLATE REASON FOR STUDY: ?? /c/o bloating, vaginal bleeding and feeling disoriented x 2 months. Pt denies recent injury or Hx of problem. TECHNIQUE: Single radiographic view of the abdomen acquired. COMPARISON: ?? 09/16/2021 FINDINGS: BOWEL GAS PATTERN: ?? Scattered non-dilated small bowel loops. Nonobstructive pattern. SOFT TISSUES: ?? No significant abnormal calcifications. BONES: ?? No significant abnormality. OTHER: ?? Cholecystectomy clips. THIS IS AN ELECTRONICALLY VERIFIED FINAL REPORT 01/04/2022 1:41 AM - Electronically signed by ??Marcos Santoro M.D. RW: KIM D: ??01/04/2022 1:41 AM T: ??01/04/2022 1:41 AM Report ID: [id number] Reading Location: ??[id number] Procedure Note Marcos Santoro MD - 01/04/2022 EXAM DESCRIPTION: XR ABDOMEN KUB FLAT PLATE REASON FOR STUDY: /c/o bloating, vaginal bleeding and feeling disoriented x 2 months. Pt denies recent injury or Hx of problem. TECHNIQUE: Single radiographic view of the abdomen acquired. COMPARISON: 09/16/2021 FINDINGS: BOWEL GAS PATTERN: Scattered non-dilated small bowel loops. Nonobstructive pattern. SOFT TISSUES: No significant abnormal calcifications. BONES: No significant abnormality. OTHER: Cholecystectomy clips. THIS IS AN ELECTRONICALLY VERIFIED FINAL REPORT 01/04/2022 1:41 AM - Electronically signed by Marcos Santoro M.D. RW: KIM Report ID: [id number] Reading Location: [id number] IMPRESSION: No acute finding. Dylon Ramirez Danni [facility] IMG DIAGNOSTIC ORDER SHONDA Final Result * SARS-COV-2 BY MOLECULAR (01/03/2022 9:58 PM CDT) SARSCOV2 NOT DETECTED (Referenc e Range for this test is Not Detected) [facility] ID NOW 01/03/2022 10:16 PM CDT [facility] Comment:This test was perfor med by a MOLECULAR, NON-PCR method Other NASAL STRUCTURE / Unknown Non-Phlebotomy Collection / Unknown 01/03/2022 9:58 PM CDT 01/03/2022 9:58 PM CDT Narrative [facility] - 01/03/2022 10:16 PM CDT This test has been authorized by the FDA under an Emergency Use Authorization (EUA) only. Negative results should be treated as presumptive and, if inconsistent with clinical signs and symptoms or necessary for patient management, the patient should be tested with an alternative molecular assay. Negative results do not preclude SARS-CoV-2 infection or any other respiratory pathogen. Additional information for Clinicians can be found at: https://www.fda.gov/media/407456/download Additional information for Patients can be found at: https://www.fda.gov/media/800952/download Dylon Razo PAC MICROBIOLOGY - GENER AL ORDERABLES Final Result [facility] [address] [place] [address] * MAGNESIUM (MG) (01/03/2022 9:33 PM CDT) Pathologist [facility] MAGNESIUM 1.9 1.8 - 2.5 mg/dL 01/03/2022 10:32 PM CDT [facility] Blood Venipuncture / Unknown 01/03/2022 9:33 PM CDT 01/03/2022 9:57 PM CDT Dylon Razo PAC CHEMISTRY ORDERABLES Final Result Performing Organization Address City/[facility]/ZIP Co de Phone Number [facility] [address] [place] [address] * (ABNORMAL) Acetaminophen (Tylenol) (01/03/2022 9:33 PM CDT) ACETAMINOPHEN <6(L) 10 - 30 mcg/mL 01/03/2022 10:32 PM CDT [facility] Blood Venipuncture / Unknown 01/03/2022 9:33 PM CDT 01/03/2022 9:57 PM CDT us Dylon Razo PAC CHEMISTRY ORDERABLES Final Result [facility] [address] [place] [address] * Salicylate Level (01/03/2022 9:33 PM CDT) SALICYLATE <0.4 0.3 - 30.0 mg/dL 01/03/2022 10:32 PM CDT [facility] Blood Venipuncture / Unknown 01/03/2022 9:33 PM CDT 01/03/2022 9:57 PM CDT us Dylon Razo PAC CHEMISTRY ORDERABLES Final Result Performing Organization Address City/[facility]/ZIP Co de Phone Number [facility] [address] [place] [address] * Ethyl Alcohol (Ethanol) (01/03/2022 9:33 PM CDT) ETHANOL 10 <=11 mg/dL 01/03/2022 10:32 PM CDT [facility] Blood Venipuncture / Unknown 01/03/2022 9:33 PM CDT 01/03/2022 9:57 PM CDT Dylon Razo PAC CHEMISTRY ORDERABLES Final Result [facility] [address] [place] [address] * Thyroid Stimulating Hormone (TSH) (01/03/2022 9:33 PM CDT) TSH 1.750 0.270 - 4.200 mIU/L 01/03/2022 10:32 PM CDT [facility] Blood Venipuncture / Unknown 01/03/2022 9:33 PM CDT 01/03/2022 9:57 PM CDT us Dylon Razo PAC CHEMISTRY ORDERABLES Final Result [facility] [address] [place] [address] * (ABNORMAL) CMP (Comprehensive Metabolic Panel) (01/03/2022 9:33 PM CDT) Pathologist [facility] SODIUM 136 136 - 144 mmol/L 01/03/2022 10:32 PM CDT [facility] POTASSIUM 3.5 3.5 - 5.1 mmol/L 01/03/2022 10:32 PM CDT [facility] CHLORIDE 101 100 - 110 mmol/L 01/03/2022 10:32 PM CDT [facility] CO2, VENOUS 21(L) 22 - 32 mmol/L 01/03/2022 10:32 PM CDT [facility] ANION GAP 17.5 8.0 - 20.0 mmol/L 01/03/2022 10:32 PM CDT [facility] GLUCOSE 92 70 - 99 mg/dL 01/03/2022 10:32 PM CDT [facility] BUN 11 6 - 20 mg/dL 01/03/2022 10:32 PM CDT [facility] CREATININE, BLOOD 0.64 0.60 - 1.10 mg/dL 01/03/2022 10:32 PM CDT [facility] BUN/CREATININE RATIO 17 12 - 20 ratio 01/03/2022 10:32 PM CDT [facility] TOTAL PROTEIN 7.2 6.0 - 8.3 g/dL 01/03/2022 10:32 PM CDT [facility] ALBUMIN 4.0 3.5 - 5.2 g/dL 01/03/2022 10:32 PM CDT [facility] Comment: The colormetric methods used for the determination of Albumin may lead to falsely elevated test results in patients suffering from renal failure or insufficiency due to interference with other proteins. A/G RATIO 1.3 1.0 - 2.0 01/03/2022 10:32 PM CDT [facility] CALCIUM 9.5 8.9 - 10.3 mg/dL 01/03/2022 10:32 PM CDT [facility] T BILI 0.4 <=1.2 mg/dL 01/03/2022 10:32 PM CDT [facility] SGOT (AST) 19 <=32 U/L 01/03/2022 10:32 PM CDT [facility] SGPT (ALT) 38 <=41 U/L 01/03/2022 10:32 PM CDT [facility] ALKALINE PHOSPHATASE 133(H) 35 - 105 U/L 01/03/2022 10:32 PM CDT [facility] GFR, EST. NONAFRICAN >60 >=60 01/03/2022 10:32 PM CDT [facility] GFR, EST. >60 >=60 022 10:32 PM CDT [facility] Comment: Creatinine Clearance is the preferred criteria for selecting drug dose adjustments in renally impaired patients. ??The GFR is provided as additional pertinent clinical information. GFR is reported in mL/min/1.73 sq m. Blood Venipuncture / Unknown 01/03/2022 9:33 PM CDT 01/03/2022 9:57 PM CDT Dylon Razo PAC CHEMISTRY ORDERABLES Final Result [facility] [address] [place] [address] * (ABNORMAL) CBC with Auto Differential (01/03/2022 9:33 PM CDT) [facility] Signature WBC 11.86 4.00 - 12.00 10(3)/mcL 01/03/2022 10:05 PM CDT [facility] RBC 4.67 3.80 - 5.30 10(6)/[facility] 01/03/2022 10:05 PM CDT [facility] HEMOGLOBIN (HGB) 13.4 12.0 - 15.8 g/dL 01/03/2022 10:05 PM CDT [facility] HEMATOCRIT (HCT) 42.2 36.0 - 47.0 % 01/03/2022 10:05 PM CDT [facility] MCV 90.4 82.0 - 96.0 fL 01/03/2022 10:05 PM CDT [facility] MCH 28.7 26.0 - 34.0 pg 01/03/2022 10:05 PM CDT [facility] MCHC 31.8 31.0 - 36.0 g/dL 01/03/2022 10:05 PM CDT [facility] PLATELET COUNT 389 140 - 440 10(3)/[facility] 01/03/2022 10:05 PM CDT [facility] RDW 13.2 11.8 - 15.5 % 01/03/2022 10:05 PM CDT [facility] MPV 10.4 9.7 - 12.4 fL 01/03/2022 10:05 PM CDT [facility] NEUTROPHILS 74.8(H) 47.0 - 73.0 % 01/03/2022 10:05 PM CDT [facility] LYMPHOCYTES 16.5(L) 18.0 - 42.0 % 01/03/2022 10:05 PM CDT [facility] MONOCYTES 6.5 4.0 - 12.0 % 01/03/2022 10:05 PM CDT [facility] EOSINOPHILS 1.5 0.0 - 5.0 % 01/03/2022 10:05 PM CDT [facility] BASOPHILS 0.7 0.0 - 1.0 % 01/03/2022 10:05 PM CDT [facility] ABSOLUTE NEUTROPHILS 8.87(H) 1.60 - 7.70 10(3)/[facility] 01/03/2022 10:05 PM CDT [facility] ABSOLUTE LYMPHOCYTES 1.96 1.30 - 3.20 10(3)/[facility] 01/03/2022 10:05 PM CDT [facility] ABSOLUTE MONOCYTES 0.77 0.20 - 1.00 10(3)/[facility] 01/03/2022 10:05 PM CDT [facility] ABSOLUTE EOSINOPHIL 0.18 0.00 - 0.40 10(3)/[facility] 01/03/2022 10:05 PM CDT [facility] ABSOLUTE BASOPHILS 0.08 0.00 - 0.10 10(3)/[facility] 01/03/2022 10:05 PM CDT [facility] NRBC PER 100 WBC 0 01/04/20 10:05 PM CDT [facility] Blood Venipuncture / Unknown 01/03/2022 9:33 PM CDT 01/03/2022 9:57 PM CDT us Dylon Razo PAC HEMATOLOGY ORDERABLE S Final Result [facility] [address] [place] [address] * EKG 12 LEAD (01/03/2022 9:32 PM CDT) Ventricular Rate BPM EXTERNAL EKG Atrial Rate BPM EXTERNAL EKG P-R Interval 100 ms EXTERNAL EKG QRS Duration 90 ms EXTERNAL EKG Q-T Duration 338 ms EXTERNAL EKG QTC CALCULATION 439 ms EXTERNAL EKG P [place] 62 degrees EXTERNAL EKG R [place] 20 degrees EXTERNAL EKG T [place] 22 degrees EXTERNAL EKG 01/03/2022 9:32 PM CDT Impressions EXTERNAL EKG - 01/05/2022 2:14 PM CDT Sinus tachycardia with aberrantly conducted supraventricular complexes Short IN interval ST junctional depression is nonspecific Comparison Summary: Descriptive differences only Summary: Borderline ECG Compared with:05/14/2019 9:36 AM; 11/07/2018 7:46 AM Confirmed by Jamar Mosley [id number] on 01/05/2022 2:14:27 PM Narrative Procedure Note Dimitri Sierra MD - 01/05/2022 IMPRESSION: Sinus tachycardia with aberrantly conducted supraventricular complexes Short IN interval ST junctional depression is nonspecific Comparison Summary: Descriptive differences only Summary: Borderline ECG Compared with:05/14/2019 9:36 AM; 11/07/2018 7:46 AM Confirmed by Jamar Mosley [id number] on 01/05/2022 2:14:27 PM Dylon Razo PAC IMG ECG ORDERABLES F inal Result EXTERNAL EKG documented in this encounter Visit Diagnoses Diagnosis Auditory hallucinations- Primary Hallucinations Visual hallucinations Psychophysical visual disturbances Vaginal bleeding Other specified noninflammatory disorder of vagina Urinary tract infection Urinary tract infection, site not specified documented in this encounter Administered Medications Inactive Administered Medications - up to 3 most recent administrations Medication Order MAR Action Action Date Dose Rate Site levoFLOXacin (LEVAQUIN) tablet 500 mg 500 mg, Oral, DAILY, 3 doses, First dose on Sun01/04/22 at 0900, Last dose on Sun01/06/22 at 0900, Indications: Urinary Tract Infection, cystitisIndications:Urinary Tract Infection,cystitis Given 01/04/2022 7:07 AM CDT 500 mg documented in this encounter Active and Recently Administered Medications Times are shown in CDT. Scheduled Medication Order 01/02/2022 01/03/2022 01/04/2022 levoFLOXacin (LEVAQUIN) tablet 500 mg 500 mg, Oral, DAILY, 3 doses, First dose on Sun01/04/22 at 0900, Last dose on Sun01/06/22 at 0900, Indications: Urinary Tract Infection, cystitis 0707 (Given - Provid er: Jessica F McManis, RN)0900 (Not Given - Provider: Jessica Alcantara RN - Reason: Other - see comment - Comment: Patient was given dose at 0707 today) documented in this encounter Care Teams Asbestos Removal Worker Relationship Specialty Start Date End Date Akilah Fox APRN, FEED MILL TENDER [address] [place] [address] PCP - General Advanced Practice Nurse 09/16/21 Eulalio Hillman MD [address] [place] [address] [address] [place] [address] Psychiatrist Psychiatry 11/28/18 documented as of this encounter
--- OUTSIDE RECORDS SUMMARY | 2024-07-08 04:33 | XMS_ITS | Encounter Summary ---
Author Organization [facility] Address [address] [facility] [place] [address] Care Team Providers Care Safety Deposit Supervisor Name Role Phone Unavailable Primary Care Provider Unavailabl e Reason for Visit * Reason Comments Future Appointment referral rcvd- 1st a ttempt to call pt Encounter Details Date Type Department Care Team (Late st Contact Info) Description 06/04/2018 Telephone [facility] - GI [address] [place] [address] [phone] Chantel Zee Future Appointment (referral rcvd- 1st attempt to call pt ) Social History Tobacco Use Types Packs/Day Years Used Date Smoking Tobacco: Never Assessed Sex and Gender Information Value Date Recorded Sex Assigned at Not on file Gender Identity Not on file Sexual Orientation Not on file documented as of this encounter Miscellaneous Notes * Telephone Encounter - Chantel Zee - 06/04/2018 2:36 PM CST Referral rcvd- 1st attempt to contact pt to schedule appt with GI specialist. Records scanned LE DEVELOPMENT MANAGER documented in this encounter Plan of Treatment Not on file documented as of this encounter Visit Diagnoses Not on filedocumented in this encounter
--- OUTSIDE RECORDS SUMMARY | 2024-07-08 04:33 | XMS_ITS | Encounter Summary ---
Author Organization [facility] Address [facility] [facility] [place] [address] [place] [address] Care Team Providers Care Hand Chain Maker Name Role Phone None, Provider Primary Care Provider Unavaila ble Encounter Details Date Type Department Care Team (Latest Contact Info) Description 02/03/2022 Travel Social History Tobacco Use Types Packs/Day [...] suspected to have Coronavirus/COVID-19? No / Unsure 02/03/2022 3:05 PM CDT documented as of this encounter Plan of Treatment Not on file documented as of this encounter Visit Diagnoses Not on filedocumented in this encounter Care Teams Hand Chain Maker Relationship Specialty Start Date End Date None, Provider, PCP - General 02/01/22 documented as of this encounter
--- OUTSIDE RECORDS SUMMARY | 2024-07-08 04:33 | XMS_ITS | Clinical Summary ---
Author Organization [facility] Address [address] [place] [address] Phone Care Team Providers Care Director Of Market Analysis Name Role Phone Eulalio Hillman MD Unavailable [phone] Jc Garcia APRN, ASSEMBLER INSTALLER STRUCTURES Primary Care Provid er Allergies Active Allergy Reactions Criticality Noted Date Comments Sulfamethoxazole-Trimet hoprim Rash 11/07/2018 Escitalopram Other (see Comments) Low 03/23/2017 Mood swings, agitation Other reaction(s): AGITATION, Other (See comments) Light trails Sulfa Antibiotics Rash,Hives Medium 11/22/2015 Reaction: Hives, Medications hydrOXYzine Pamoate (VISTARIL PO) Take 50 mg by mouth as needed. Active traZODone (DESYREL) 100 MG Tablet Take 1 Tab by mouth nightly. 30 Tab 9 Active Additional Information Patient not taking.Reported on 11/28/2018 HYDROcodone-acet aminophen (NORCO) 5-325 MG Tablet Take 1-2 Tabs by mouth every 4 hours as needed for Moderate or more severe pain. 20 Tab 9 Active Additional Information Patient not taking.Reported on 11/28/2018 ziprasidone (GEODON) 20 MG Capsule Take 20 mg by mouth 2 times daily (with meals). Active gabapentin (NEURONTIN) 400 MG Capsule Take 400 mg by mouth 3 times daily. Active lamoTRIgine (LAMICTAL) 25 MG Tablet Take 25 mg by mouth 2 times daily. 25 mg in the morning, 50 mg in the evening Active FLUoxetine (PROZAC) 10 MG Capsule Take 10 mg by mouth daily. Active zolpidem (AMBIEN) 10 MG Tablet Take 10 mg by mouth nightly as needed. Active meloxicam (MOBIC) 15 MG Tablet Take 15 mg by mouth daily. 2 Active pregabalin (Lyrica) 150 MG Capsule Take 150 mg by mouth 3 times daily. 8 Active cyclobenzaprine (FLEXERIL) 5 MG Tablet Take 1 Tablet by mouth 3 times daily. 15 Tablet 2 Active methylPREDNISolo ne (MEDROL DOSPACK) 4 MG Tablet Therapy Pack See product package insert for dosing schedule 21 Tablet 2 Active cyclobenzaprine (FLEXERIL) 5 MG Tablet Take 1 Tablet by mouth 3 times daily as needed for Muscle spasms. 15 Tablet 3 Active ketorolac (TORADOL) 10 MG Tablet Take 1 Tablet by mouth every 6 hours as needed for Mild or more severe pain. 15 Tablet 3 Active ondansetron (ZOFRAN-ODT) 4 MG TABLET DISPERSIBLE Take 1 Tablet by mouth every 8 hours as needed for Nausea - 1st line. 10 Tablet 3 Active albuterol 108 (90 Base) MCG/ACT Aerosol SolutionIndicati ons:Asthma take 2 Puffs by inhalation every 6 hours as needed for Wheezing. 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 Impacted third molar tooth 11/28/2018 Social History Tobacco Use Types Packs/Day Years [...] Mass Index 53.26 03/17/2024 12:52 PM CDT Plan of Treatment Health Maintenance Due Date Last Done Comments Hepatitis C Virus (HCV) Screening 1993 Pneumococcal Immunization Combined (1 of 2 - PCV) 02/08/2012 Pap Smear 2014 Cervical Cancer Screening (CCS) 2023 HPV/Cotest 2023 Influenza Immunization (#1) 02/17/202406/19, 03/05/2018, 05/07/2017, Additional history exists SARS-COV-2 Immunization ( - season) 2024 03/14/2021 Respiratory Syncytial Virus (RSV) Immunization (Adult) (1 - 1-dose 75+ series) 02/08/2068 Hepatitis B Immunization Completed 994, 1993, 1993 DTaP/Tdap/Td Immunization Discontinued 2008, 11/24/1997, 05/29/1994, Additional history exists TdaP Immunization Completed 02/18/2009 Human Papillomavirus (HPV) Immunization Discontinued 08/19/2009, 04/22/2009, 02/18/2009 Meningococcal Immunization (ACWY) Aged Out No longer eligible based on patient's age to complete this topic Rotavirus Immunization Aged Out No lo nger eligible based on patient's age to complete this topic Insurance MEDICAID [employer] Care Teams Director Of Market Analysis Relationship Specialty Start Date End Date Jc Garcia, HEAD OF RESEARCH & INSIGHTS, ASSEMBLER INSTALLER STRUCTURES [address] [place] [address] PCP - General Advanced Practice Nurse 03/17/24 Eulalio Hillman MD [address] [place] [address] Psychiatrist Psychiatry 11/28/18
--- OUTSIDE RECORDS SUMMARY | 2024-07-08 04:33 | XMS_ITS | Encounter Summary ---
Author Organization [facility] Address [address] [place] [address] Phone Care Team Providers Care Environmental Health Inspector Name Role Phone Eulalio Hillman MD Unavailable [phone] Akilah Fox APRN, CNP Primary Care Provider Reason for Visit * Reason Comments Pain Encounter Details Date Type Department Care Team (Late st Contact Info) Description 09/16/2021 1:01 PM CDT - 09/16/2021 3:11 PM CDT Emergency [facility] [address] [place] [address] Hip pain Discharge Disposition: Discharged to home or [...] In the last 10 days, have yo jed been in contact with someone who was confirmed or suspected to have Coronavirus/COVID-19? No / Unsure 09/16/2021 12:55 PM CDT documented as of this encounter Last Filed Vital Signs Vital Sign Reading Time Taken Comments Blood Pressure 144/82 09/16/2021 3:09 PM CDT Pulse 92 09/16/2021 3:09 PM CDT Temperature 36.6 ??C (97.9 ??F) 09/16/2021 12:56 PM C DT Respiratory Rate 18 09/16/2021 12:56 PM CDT Oxygen Saturation 97% 09/16/2021 3:09 PM CDT Inhaled Oxygen Concentration - - Weight 145.2 kg (320 lb) 09/16/2021 12:56 PM CDT Height 167.6 cm (5' 6 ) 09/16/2021 12:56 PM CDT Body Mass Index 51.65 09/16/2021 12:56 PM CDT documented in this encounter Discharge Instructions * Attachments The following attachments cannot be sent through Care Everywhere. * Urinary Tract Infection Adult [id number] (Mauritian) documented in this encounter Medications at Time of Discharge FLUoxetine (PROZAC) 10 MG Capsule Take 10 mg by mouth daily. gabapentin (NEURONTIN) 400 MG Capsule Take 400 mg by mouth 3 times daily. HYDROcodone-acet aminophen (NORCO) 5-325 MG Tablet Take [...] Take 15 mg by mouth daily. 08/26/2021 pregabalin (Lyrica) 150 MG Capsule Take 150 mg by mouth 3 times daily. 08/30/2017 traZODone (DESYREL) 100 MG Tablet Take 1 Tab by mouth nightly. 30 Tab 09/25/2018 ziprasidone (GEODON) 20 MG Capsule Take 20 mg by mouth 2 times daily (with meals). zolpidem (AMBIEN) 10 MG Tablet Take 10 mg by mouth nightly as needed. nitrofurantoin, macrocrystal-mon ohydrate, (Macrobid) 100 MG Capsule Take 1 Capsule by mouth 2 times daily for 7 days. 14 Capsule 09/16/2021 09/23/2021 documented as of this encounter ED Notes * Cathleen Last, RN - 09/16/2021 3:10 PM CDT Patient discharged. Discharge instructions and patient educational material reviewed with patient; questions and concerns addressed; patient verbalizes understanding, using teach back. Patient was given 1 prescription. Patient discharged ambulatory with steady gait to exit with no distress noted * Cathleen Last RN - 09/16/2021 1:57 PM CDT Resting on stretcher with no distress noted * Dylon Razo, EPIFANIO - 09/16/2021 1:52 PM CDT Chief Complaint Patient presents with ??? Pain Hali Garcia is a 26 y.o. female who presents to the ED c/o bilateral hip and right knee pain x 3 days. No injury reported. Patient states pain is worse with weight bearing. Described as a sharp/burning sensation. Patient sees pain management and told to take mobic and tylenol which she had already done. Past Medical History Positives No date: Anxiety No date: Anxiety No date: Asthma No date: Bipolar 1 disorder (HCC) No date: Borderline personality disorder (HCC) No date: Depression No date: Fibromyalgia No date: Schizoaffective disorder (HCC) No current facility-administered medications for this encounter. Current Outpatient Medications Medication Sig Dispense Refill ??? FLUoxetine (PROZAC) 10 MG Capsule Take [...] Take 15 mg by mouth daily. ??? nitrofurantoin, macrocrystal-monohydrate, (Macrobid) 100 MG Capsule Take 1 Capsule by mouth 2 times daily for 7 days. 14 Capsule 0 ??? pregabalin (Lyrica) 150 MG Capsule [...] History Narrative ??? Not on file BP 130/90 Pulse 102 Temp 97.9 ??F (36.6 ??C) (Temporal) Resp 18 Ht 5' 6 (1.676 m) Wt 320lb (145.2 kg) LMP 09/16/2021 (Exact Date) SpO2 96% BMI 51.65 kg/m?? Review of Systems Constitutional: Negative for chills, fatigue and fever. HENT: Negative for congestion and sore throat. Respiratory: Negative for cough, chest tightness, shortness of breath and wheezing. Cardiovascular: Negative for chest pain and palpitations. Gastrointestinal: Negative for abdominal pain, constipation, diarrhea, nausea and vomiting. Genitourinary: Negative for dysuria, frequency, hematuria and urgency. Musculoskeletal: Positive for arthralgias (bilatearl hip, right knee). Skin: Negative for color change and wound. Neurological: Negative for dizziness, light-headedness and headaches. All other systems reviewed and [...] There is no guarding or rebound. Musculoskeletal: Cervical back: Normal range of motion and neck supple. Right hip: Tenderness present. No deformity. Decreased range of motion. Left hip: Tenderness present. No deformity. Decreased range of motion. Right knee: Bony tenderness present. Tenderness present over the patellar tendon. Skin: General: Skin is warm and dry. Coloration: Skin is not pale. Findings: No erythema or rash. Neurological: Mental Status: She is alert and oriented to person, place, and time. Cranial Nerves: No cranial nerve deficit. Psychiatric: Behavior: Behavior normal. XR KNEE 1 OR 2 VIEWS RIGHT Final Result IMPRESSION: No acute osseous abnormality. XR HIP 2 VIEWS BILATERAL WITH AP PELVIS Final Result IMPRESSION: 1. No fracture. 2. Mild ossific prominence of the lateral femoral head neck junction and a deep acetabulum bilaterally. These findings may predispose the patient to impingement. URINALYSIS REFLEX IF INDICATED BY ABNORMAL RESULTS Final Result Procedures Imaging Results XR KNEE 1 OR 2 VIEWS RIGHT (Final result) Result time 09/16/21 14:48:29 Final result by James Dyson MD (09/16/21 14:48:29) Impression: IMPRESSION: No acute osseous abnormality. Narrative: EXAM DESCRIPTION: XR KNEE 1 OR 2 VIEWS RIGHT REASON FOR STUDY: right knee pain without injury for 3 days after going up steps TECHNIQUE: 2 radiographic views acquired of the right knee. COMPARISON: No prior. FINDINGS: BONES/JOINTS: No acute fracture, malalignment or osseous abnormalities. Joint spaces are maintained. SOFT TISSUES: Unremarkable. OTHER: No other significant finding. THIS IS AN ELECTRONICALLY VERIFIED FINAL REPORT 09/16/2021 2:45 PM - Electronically signed by James Dyson M.D. MJ: MELISSA Report ID: [id number] Reading Location: [place] [address] XR HIP 2 VIEWS BILATERAL WITH AP PELVIS (Final result) Result time 09/16/21 14:52:02 Procedure changed from XR HIP 1 VIEW ANANDA W PELVIS (3 VIEWS) Final result by James Dyson MD (09/16/21 14:52:02) Impression: IMPRESSION: 1. No fracture. 2. Mild ossific prominence of the lateral femoral head neck junction and a deep acetabulum bilaterally. These findings may predispose the patient to impingement. Narrative: EXAM DESCRIPTION: XR HIP 2 VIEWS BILATERAL WITH AP PELVIS REASON FOR STUDY: pain without injury for 3 days after going up steps TECHNIQUE: 2 views of the left hip and right hip with AP pelvis. COMPARISON: No prior. FINDINGS: RIGHT HIP: No fracture dislocation. Deep acetabulum. Mild ossific prominence lateral femoral head neck junction. LEFT HIP: No fracture or dislocation. Deep acetabulum. Mild ossific prominence lateral femoral head neck junction. PELVIS: No fracture. Sacroiliac joints appear intact. SOFT TISSUES: Unremarkable. OTHER: No other significant finding. THIS IS AN ELECTRONICALLY VERIFIED FINAL REPORT 09/16/2021 2:49 PM - Electronically signed by James Dyson M.D. MJ: MELISSA Report ID: [id number] Reading Location: [id number] XR HIP 1 VIEW ANANDA W PELVIS (3 VIEWS) (Canceled) Labs Reviewed URINALYSIS REFLEX IF INDICATED BY ABNORMAL RESULTS - Abnormal; Notable for the following components: Result Value WBC ESTERASE 100 /uL (*) PROTEIN, RANDOM URINE 30 mg/dL (*) URINE BLOOD 250 /uL (*) WBC (Urine) 11-20 (*) URINE RBC'S 21-50 (*) BACTERIA, URINE Moderate (*) All other components within normal limits CULTURE, URINE POCT URINE HCG () MDM Coding Clinical Impression 1. Acute cystitis with hematuria 2. Hip pain 3. Right knee pain Reviewed labs and imaging with patient. macrobid for UTI. PCP follow up in 2-3 days. Return to ED for worsening sxs. The patient remained stable throughout their ED [...] the need for follow up. Cosigned by Ej Dunbar MD at 09/16/2021 5:54 PM CDT * Sheryl Marshall, RN - 09/16/2021 12:59 PM CDT Patient to triage via wheelchair with c/o right knee pain and left hip pain that increased the past3-4 days. Patient denies any recent injury. Patient called pain management today and was told she could increase her meloxicam and take tylenol. Patient states she is getting no relief. documented in this encounter Plan of Treatment Not on file documented as of this encounter Procedures Procedure Name Priority Date/Time Associated Diagnosis Comments XR KNEE 1 OR 2 VIEWS RIGHT STAT 09/16/2021 2:26 PM CDT XR HIP 2 VIEWS BILATERAL WITH AP PELVIS STAT 09/16/2021 2:25 PM CDT URINALYSIS REFLEX IF INDICATED BY ABNORMAL RESULTS STAT 09/16/2021 2:06 PM CDT CULTURE, URINE STAT 09/16/2021 2:06 PM CDT POCT URINE HCG () STAT 09/16/2021 2:01 PM CDT documented in this encounter Results * XR KNEE 1 OR 2 VIEWS RIGHT (09/16/2021 2:26 PM CDT) Anatomical Region Laterality Modality LOWER EXTREMITY, knee Right Digital Ra diography 09/16/2021 2:45 PM CDT Impressions 09/16/2021 2:48 PM CDT IMPRESSION: ?? No acute osseous abnormality. Narrative 09/16/2021 2:48 PM CDT EXAM DESCRIPTION: ?XR KNEE 1 OR 2 VIEWS RIGHT REASON FOR STUDY: ?? right knee pain without injury for 3 days after going up steps TECHNIQUE: ?? 2 ??radiographic views acquired of the right knee. COMPARISON: ?? No prior. FINDINGS: BONES/JOINTS: ?? No acute fracture, malalignment or osseous abnormalities. ?? Joint spaces are maintained. SOFT TISSUES: ?? Unremarkable. OTHER: ?? No other significant finding. THIS IS AN ELECTRONICALLY VERIFIED FINAL REPORT 09/16/2021 2:45 PM - Electronically signed by ??James Dyson M.D. MJ: MELISSA D: ??09/16/2021 2:45 PM T: ??09/16/2021 2:45 PM Report ID: [id number] Reading Location: ??[id number] Procedure Note James Dyson MD - 09/16/2021 EXAM DESCRIPTION: XR KNEE 1 OR 2 VIEWS RIGHT REASON FOR STUDY: right knee pain without injury for 3 days after going up steps TECHNIQUE: 2 radiographic views acquired of the right knee. COMPARISON: No prior. FINDINGS: BONES/JOINTS: No acute fracture, malalignment or osseous abnormalities. Joint spaces are maintained. SOFT TISSUES: Unremarkable. OTHER: No other significant finding. THIS IS AN ELECTRONICALLY VERIFIED FINAL REPORT 09/16/2021 2:45 PM - Electronically signed by James Dyson M.D. MJ: MELISSA Report ID: [id number] Reading Location: [id number] IMPRESSION: No acute osseous abnormality. Dylon Razo [facility] IMG DIAGNOSTIC ORDER SHONDA Final Result * XR HIP 2 VIEWS BILATERAL WITH AP PELVIS (09/16/2021 2:25 PM CDT) Anatomical Region Laterality Modality LOWER EXTREMITY, hip, Pelvis Bilateral Dig ital Radiography 09/16/2021 2:49 PM CDT Impressions 09/16/2021 2:52 PM CDT IMPRESSION: ?? 1. ?? No fracture. 2. ?? Mild ossific prominence of the lateral femoral head neck junction and a deep acetabulum bilaterally. ??These findings may predispose the patient to impingement. Narrative 09/16/2021 2:52 PM CDT EXAM DESCRIPTION: ?? XR HIP 2 VIEWS BILATERAL WITH AP PELVIS REASON FOR STUDY: ?? pain without injury for 3 days after going up steps TECHNIQUE: ?? 2 ??views of the left hip and right hip with AP pelvis. COMPARISON: ?? No prior. FINDINGS: RIGHT HIP: ?? No fracture dislocation. ??Deep acetabulum. ?? Mild ossific prominence lateral femoral head neck junction. ?? LEFT HIP: ?? No fracture or dislocation. ??Deep acetabulum. ?Mild ossific prominence lateral femoral head neck junction. PELVIS: ?? No fracture. ?? Sacroiliac joints appear intact. SOFT TISSUES: ?? Unremarkable. OTHER: ?? No other significant finding. THIS IS AN ELECTRONICALLY VERIFIED FINAL REPORT 09/16/2021 2:49 PM - Electronically signed by ??James TORRES: MELISSA D: ??09/16/2021 2:49 PM T: ??09/16/2021 2:49 PM Report ID: [id number] Reading Location: ??[id number] Procedure Note James Dyson MD - 09/16/2021 EXAM DESCRIPTION: XR HIP 2 VIEWS BILATERAL WITH AP PELVIS REASON FOR STUDY: pain without injury for 3 days after going up steps TECHNIQUE: 2 views of the left hip and right hip with AP pelvis. COMPARISON: No prior. FINDINGS: RIGHT HIP: No fracture dislocation. Deep acetabulum. Mild ossific prominence lateral femoral head neck junction. LEFT HIP: No fracture or dislocation. Deep acetabulum. Mild ossific prominence lateral femoral head neck junction. PELVIS: No fracture. Sacroiliac joints appear intact. SOFT TISSUES: Unremarkable. OTHER: No other significant finding. THIS IS AN ELECTRONICALLY VERIFIED FINAL REPORT 09/16/2021 2:49 PM - Electronically signed by James TORRES: MELISSA Report ID: [id number] Reading Location: [id number] IMPRESSION: 1. No fracture. 2. Mild ossific prominence of the lateral femoral head neck junction and a deep acetabulum bilaterally. These findings may predispose the patient to impingement. Dylon James Razo [facility] IMG DIAGNOSTIC ORDER SHONDA Final Result * Culture, Urine (09/16/2021 2:06 PM CDT) CULTURE RESULTS MIXED GROWTH OF ONE OR MORE DISTAL URETHRAL CONTAMINANTS 09/18/2021 6:53 AM CDT [facility] Urine URINE / Unknown Non-Phlebotomy Collection / Unknown 09/16/2021 2:06 PM CDT 09/16/2021 2:26 PM CDT us Dylon Razo PAC MICROBIOLOGY - GENER AL ORDERABLES Final Result [facility] [address] [place] [address], [place] * (ABNORMAL) URINALYSIS REFLEX IF INDICATED BY ABNORMAL RESULTS (09/16/2021 2:06 PM CDT) SPECIFIC GRAVITY 1.005 1.003 - 1.030 09/16/2021 2:38 PM CDT [facility] URINE PH 6.5 5.0 - 9.0 09/16/2021 2:38 PM CDT [facility] WBC ESTERASE 100 /uL(A) Negative 09/16/2021 2:38 PM CDT [facility] NITRITE Negative Negative 09/16/2021 2:38 PM CDT [facility] PROTEIN, RANDOM URINE 30 mg/dL(A) Negative 09/16/2021 2:38 PM CDT [facility] URINE GLUCOSE, QUAL Negative Negative 09/16/2021 2:38 PM CDT [facility] URINE KETONES Negative Negative 09/16/2021 2:38 PM CDT [facility] UROBILINOGEN Normal Normal mg/dL 09/16/2021 2:38 PM CDT [facility] URINE BLOOD 250 /uL(A) Negative tad/ul 09/16/2021 2:38 PM CDT [facility] URINALYSIS COLOR Yellow 09/17/19 2:38 PM CDT [facility] URINALYSIS CLARITY Slightly Cloudy 09/16/2021 2:38 PM CDT [facility] WBC (Urine) 11-20(A) Negative, 0-5 /hpf 09/16/2021 2:38 PM CDT [facility] URINE RBC'S 21-50(A) Negative, 0-2 /hpf 09/16/2021 2:38 PM CDT [facility] EPITHELIAL CELLS Small amount /lpf 2021 2:38 PM CDT [facility] BACTERIA, URINE Moderate(A) Negative /hpf 09/16/2021 2:38 PM CDT [facility] Urine URINE / Unknown Non-Phlebotomy Collection / Unknown 09/16/2021 2:06 PM CDT 09/16/2021 2:26 PM CDT us Dylon Razo PAC URINE ORDERABLES Fin al Result [facility] [address] [place] [address] * POCT Urine HCG () (09/16/2021 2:01 PM CDT) POC URINE Negative POC URINE CONTROL [facility] Urine 09/16/2021 2:01 PM CDT us Dylon Razo PAC POINT OF CARE TESTIN G (MANUAL) Final Result documented in this encounter Visit Diagnoses Diagnosis Acute cystitis with hematuria- Primary Acute cystitis Hip pain Pain in joint, pelvic region and thigh Right knee pain Pain in joint, lower leg documented in this encounter Care Teams Environmental Health Inspector Relationship Specialty Start Date End Date Akilah Fox, COMMERCIAL CREDIT OFFICER, [employer] [address] [place] [address] PCP - General Advanced Practice Nurse 09/16/21 Eulalio Hillman MD [address] [place] [address] [place] [address] Psychiatrist Psychiatry 11/28/18 documented as of this encounter
--- OUTSIDE RECORDS SUMMARY | 2024-07-08 04:33 | XMS_ITS | Encounter Summary ---
Author Organization [facility] Care Team Providers Care Analysis Consultant Name Role Phone Eulalio Hillman MD Unavailable [phone] Akilah Fox APRN, CNP Primary Care Provider Encounter Details Date Type Department Care Team (Latest Contact Info) Description 01/03/2022 Travel Social History Tobacco Use Types Packs/Day [...] on filedocumented in this encounter Care Teams Analysis Consultant Relationship Specialty Start Date End Date Akilah Fox APRN, CNP [address] [place], [place] [id number] PCP - General Advanced Practice Nurse 09/16/21 Eulalio Hillman MD [address] [place] [address] [address] [place] [address] Psychiatrist Psychiatry 11/28/18 documented as of this encounter
--- OUTSIDE RECORDS SUMMARY | 2024-07-08 04:33 | XMS_ITS | Encounter Summary ---
Author Organization [facility] Care Team Providers Care Boring Machine Set Up Operator Name Role Phone Eulalio Hillman MD Unavailable [phone] Akilah Fox APRN, CNP Primary Care Provider Encounter Details Date Type Department Care Team (Latest Contact Info) Description 10/06/2022 Travel Social History Tobacco Use Types Packs/Day [...] on filedocumented in this encounter Care Teams Boring Machine Set Up Operator Relationship Specialty Start Date End Date Akilah Fox APRN, CNP [address] [place], [place] [id number] PCP - General Advanced Practice Nurse 09/16/21 Eulalio Hillman MD [address] [place] [address] [address] [place] [address] Psychiatrist Psychiatry 11/28/18 documented as of this encounter
--- OUTSIDE RECORDS SUMMARY | 2024-07-08 04:33 | XMS_ITS | Clinical Summary ---
Author Organization [facility] Address [facility] [place] [address] [place] [address] Care Team Providers Care Utility Porter Name Role Phone None, Provider MD Primary Care Provider Unavaila ble Allergies Active Allergy Reactions Criticality Noted Date Comments Sulfa Antibiotics Rash Low 02/01/2022 Medications OXcarbazepine (TRILEPTAL) 300 MG tablet Take 300 mg by mouth 2 (two) times daily. 01/24/2022 Active pregabalin (LYRICA) 75 MG capsule Take 75 mg by mouth 2 (two) times daily. 01/23/2022 Active mirtazapine (REMERON) 30 MG tablet 01/23/2022 Active meloxicam (MOBIC) 15 MG tablet Take 15 mg by mouth daily. 09/22/2021 Active levonorgestrel- ethinyl estradiol (AVIANE) 0.1-20 MG-MCG tablet daily. 06/25/2021 Activ e FLUoxetine (PROZAC) 20 MG capsule Take 20 mg by mouth daily. 01/11/2022 Active diclofenac EC (VOLTAREN) 75 MG tablet TAKE 1 TABLET BY MOUTH DIRECTED TWICE DAILY NEEDED 01/23/2022 Active atomoxetine (STRATTERA) 40 MG capsule 01/23/2022 Active cyclobenzaprine (FLEXERIL) 5 MG tablet Take 5 mg by mouth 3 (three) times daily. 10/10/2021 Active cyclobenzaprine (FLEXERIL) 10 MG tablet Take 5-10 mg by mouth 2 (two) times daily as needed. 10/05/2021 Active cloNIDine (CATAPRES) 0.1 MG tablet 01/23/2022 Active Social History Tobacco Use Types Packs/Day Years Used Date Smoking Tobacco: Never Assessed Comments No Sex and Gender Information Value Date Recorded Sex Assigned at Not on file Legal Sex Female 11:06 AM CDT Gender Identity Not on file Sexual Orientation Not on file Last Filed Vital Signs Vital Sign Reading Time Taken Comments Blood Pressure 115/77 02/03/2022 3:14 PM CDT Pulse 116 02/03/2022 3:14 PM CDT Temperature 37 ??C (98.6 ??F) 02/03/2022 3:14 PM CDT Respiratory Rate 18 02/03/2022 3:14 PM CDT Oxygen Saturation 100% 02/03/2022 3:14 PM CDT Inhaled Oxygen Concentration - - Weight 134.7 kg (297 lb) 02/03/2022 3:14 PM CDT Height 167.6 cm (5' 6 ) 02/03/2022 3:14 PM CDT Body Mass Index 47.94 02/03/2022 3:14 PM CDT Plan of Treatment Health Maintenance Due Date Last Done Comments Cervical Cancer Screening Pap Smear (Age 30 to 64) Every 3 Years 1993 Annual Physical 02/08/1996 Hepatitis C 2011 DTaP, Tdap and Td Vaccines (7 - Td or Tdap) 02/18/2019 02/18/2009, 11/24/1997, 05/29/1994, Additional history exists Cervical Cancer Screening Pap with HPV Testing (Age 30 to 64) Every 5 Years 2023 Cervical Cancer Screening with HPV 2023 COVID-19 Vaccine ( season) 2024 03/14/2021 Influenza Adult (#1) 2024 07/07/2020, 03/05/2018, 05/07/2017, Additional history exists Hepatitis B Vaccines Completed 05/29/1994, 1993, 1993 Meningococcal Vaccine Aged Out 02/18/2009 No buster alma delia eligible based on patient's age to complete this topic HPV Vaccines Completed 08/19/2009, 10/2008, 02/18/2009 Pneumococcal Vaccine: Pediatrics (0 to 5 Years) and At-Risk Patients (6 to 64 Years) Aged Out No longer eligible based on patient's age to complete this topic RSV Immunizations Under 20 Months Aged Out No longer eligible based on patient's age to complete this topic Insurance [employer] Care Teams Utility Porter Relationship Specialty Start Date End Date None, Provider, PCP - General 02/01/22
--- OUTSIDE RECORDS SUMMARY | 2024-07-08 04:33 | XMS_ITS | Encounter Summary ---
Author Organization [facility] Address [address] [place] [address] Phone Care Team Providers Care Chief Of Staff Doctor Name Role Phone Eulalio Hillman MD Unavailable [phone] Provider, None Primary Care Provider Unavailabl e Reason for Referral * Consult, Test & Initiate Treatment (Routine) - Closed Specialty Diagnoses / Procedures Referred By Estephania reis Referred To Contact Behavioral Health Diagnoses Schizoaffective disorder (HCC) Pt self reported Dx of Bipolar and Schizoaffective DO and Borderline PD upon ED visit. [facility] [address] [place] [phone] Phone: tel: fax: [facility] - Behavioral Health Navigator [address] [phone] Phone: tel: fax: Referral ID Status Reason Start Date Expiration Date Visits Re quested Visits Authorized [id number] Closed 06/09/2020 1 1 Scheduling Instructions Hali is being referred for mental health follow up. See below for Hali's current medications, allergies and problem list. Please contact patient for scheduling questions or concerns. CURRENT MEDS: No current facility-administered medications for this encounter. Current Outpatient Medications: ? ? FLUoxetine (PROZAC) 10 MG Capsule, Take 10 mg by mouth daily., Disp: , Rfl: ? ? gabapentin (Neurontin) 400 MG Capsule, Take 1 Cap by mouth 4 times daily for 30 days., Disp: 120 Cap, Rfl: 0 ? ? gabapentin (NEURONTIN) 400 MG Capsule, Take 400 mg by mouth 3 times daily., Disp: , Rfl: ? ? HYDROcodone-acetaminophen (NORCO) 5-325 MG Tablet, Take 1-2 Tabs by mouth every 4 hours as needed for Moderate or more severe pain. (Patient not taking: Reported on 11/28/2018), Disp: 20 Tab, Rfl: 0 ? ? hydrOXYzine Pamoate (VISTARIL PO), Take 50 mg by mouth as needed., Disp: , Rfl: ? ? lamoTRIgine (LAMICTAL) 25 MG Tablet, Take 25 mg by mouth 2 times daily. 25 mg in the morning, 50 mg in the evening, Disp: , Rfl: ? ? traZODone (DESYREL) 100 MG Tablet, Take 1 Tab by mouth nightly. (Patient not taking: Reported on 11/28/2018), Disp: 30 Tab, Rfl: 0 ? ? ziprasidone (GEODON) 20 MG Capsule, Take 20 mg by mouth 2 times daily (with meals)., Disp: , Rfl: ? ? zolpidem (AMBIEN) 10 MG Tablet, Take 10 mg by mouth nightly as needed., Disp: , Rfl: ALLERGIES: -- Sulfa Antibiotics -- Rash and Hives -- Reaction: Hives, -- Bactrim [Sulfamethoxazole-Trimethoprim] -- Rash -- Escitalopram -- Other (see Comments) -- Mood swings, agitation Other reaction(s): AGITATION, Other (See comments)Light trails PROBLEM LIST: Patient Active Problem List: Persistent hypersomnia Snoring DNS (deviated nasal septum) Malocclusion of teeth Mandibular retrognathism Impacted third molar tooth K KILN BURNER Reason for Visit * Reason Comments Medication Refill Encounter Details Date Type Department Care Team (Late st Contact Info) Description 06/09/2020 2:04 PM BRICK KILN BURNER - 06/09/2020 2:45 PM BRICK KILN BURNER Emergency [facility] Emergency [address] [place] [id number] Tessie Pacheco, PAC [address] [place] [address] Encounter for medication refill Discharge Disposition: Discharged to home or Selfcare [...] COVID-19? No / Unsure 06/09/2020 2:02 PM BRICK KILN BURNER documented as of this encounter Last Filed Vital Signs Vital Sign Reading Time Taken Comments Blood Pressure 151/82 06/09/2020 2:03 PM BRICK KILN BURNER Pulse 91 06/09/2020 2:03 PM BRICK KILN BURNER Temperature 36.6 ??C (97.9 ??F) 06/09/2020 2:01 PM CS T Respiratory Rate 23 06/09/2020 2:03 PM BRICK KILN BURNER Oxygen Saturation 98% 06/09/2020 2:03 PM BRICK KILN BURNER Inhaled Oxygen Concentration - - Weight 113.4 kg (250 lb) 06/09/2020 2:03 PM BRICK KILN BURNER Height 167.6 cm (5' 6 ) 06/09/2020 2:03 PM BRICK KILN BURNER Body Mass Index 40.35 06/09/2020 2:03 PM BRICK KILN BURNER documented in this encounter Discharge Instructions * Discharge Instructions* Tessie Pacheco PAC - 06/09/2020 2:41 PM BRICK KILN BURNER Please follow up with a psychiatrist as soon as possible. Also establish care with a primary physician. K KILN BURNER documented in this encounter Medications at Time [...] the morning, 50 mg in the evening pregabalin (Lyrica) 150 MG Capsule Take 150 mg by mouth 3 times daily. 08/30/2017 traZODone (DESYREL) 100 MG Tablet Take 1 Tab by mouth nightly. 30 Tab 09/25/2018 ziprasidone (GEODON) 20 MG Capsule Take 20 mg by mouth 2 times daily (with meals). zolpidem (AMBIEN) 10 MG Tablet Take 10 mg by mouth nightly as needed. gabapentin (Neurontin) 400 MG Capsule Take 1 Cap by mouth 4 times daily for 30 days. 120 Cap 06/09/2020 07/09/2020 documented as of this encounter ED Notes * Demi Kraus RN - 06/09/2020 2:44 PM CST Patient discharged. Discharge instructions and patient educational material reviewed with patient; questions and concerns addressed; patient verbalizes understanding, using teach back. Patient was given 1 prescriptions. Patient ambulated with a steady gait upon exiting. K KILN BURNER * Radha Robin RN - 06/09/2020 2:36 PM CST Tessie Pacheco to bedside. No change since triage. K KILN BURNER * Tessie Pacheco, EPIFANIO - 06/09/2020 2:35 PM CST Chief Complaint Patient presents with ??? Medication Refill HPI Hali Garcia is a 25 y.o. female who presents requesting a refill on her neurontin 400 mg qid. She states that she has been out of her medication for about 2 weeks. She reports that shemoved here from [place] recently and is requesting help with a psychiatry referral. She denies any suicidal or homicidal ideations. She states she is diagnosed with bipolar schizoaffective disorder and borderline personality disorder. She usually takes lithium, abilify, remeron, and neurontin on a regular basis. She feels safe at home. No current facility-administered medications for this encounter. Current Outpatient Medications Medication Sig Dispense Refill ??? FLUoxetine (PROZAC) 10 MG Capsule Take 10 mg by mouth daily. ??? gabapentin (Neurontin) 400 MG Capsule Take 1 Cap by mouth 4 times daily for 30 days. 120 Cap 0 ??? gabapentin (NEURONTIN) 400 MG Capsule Take [...] the morning, 50mg in the evening ??? traZODone (DESYREL) 100 MG Tablet Take [...] file Occupational History ??? Not on file Social Needs ??? Financial resource strain: Not on file ??? Food insecurity Worry: Not on file Inability: Not on file ??? Transportation needs Medical: Not on file Non-medical: Not on file Tobacco Use ??? Smoking status: Current Every Day Smoker Packs/day: 1.00 Years: 7.00 Pack years: 7.00 Types: Cigarettes ??? Smokeless tobacco: Never Used Substance and Sexual Activity ??? Alcohol use: Yes Comment: social ??? Drug use: Yes Types: Marijuana Comment: has medical card, opiate use ??? Sexual activity: Not on file Lifestyle ??? Physical activity Days per week: Not on file Minutes per session: Not on file ??? Stress: Not on file Relationships ??? Social connections Talks on phone: Not on file Gets together: Not on file Attends baptism service: Not on file Active member of club or organization: Not on file Attends meetings of clubs or organizations: Not on file Relationship status: Not on file ??? Intimate partner violence Fear of current or ex partner: Not on file Emotionally abused: Not on file Physically abused: Not on file Forced sexual activity: Not on file Other Topics Concern ??? Not on file Social History Narrative ??? Not on file BP 151/82 Pulse 91 Temp 97.9 ??F (36.6 ??C) (Tympanic) Resp 23 Ht 5' 6 (1.676 m) Wt 250 lb (113.4 kg) LMP 05/22/2020 SpO2 98% BMI 40.35 kg/m?? Review of Systems Constitutional: Negative for chills and fever. HENT: Negative for congestion, ear pain and sore throat. Eyes: Negative for pain and discharge. Respiratory: Negative for cough, chest tightness and shortness of breath. Cardiovascular: Negative for chest pain, palpitations and leg swelling. Gastrointestinal: Negative for abdominal distention, abdominal pain, blood in stool, constipation, diarrhea, nausea and vomiting. Genitourinary: Negative for dysuria, frequency and vaginal discharge. Musculoskeletal: Negative for arthralgias and back pain. Skin: Negative for color change and rash. Neurological: Negative for dizziness, weakness, light-headedness and headaches. Psychiatric/Behavioral: Negative for suicidal ideas. All other systems reviewed and are negative. Physical Exam Vitals signs and nursing note reviewed. Constitutional: General: She is not in acute distress. Appearance: She is well-developed. She is not diaphoretic. HENT: Head: Normocephalic and atraumatic. Right Ear: External ear normal. Left Ear: External ear normal. Eyes: Conjunctiva/sclera: Conjunctivae normal. Pupils: Pupils are equal, round, and reactive to light. Neck: Musculoskeletal: Normal range of motion. Trachea: No tracheal deviation. Cardiovascular: Rate and Rhythm: Normal rate and regular rhythm. Heart sounds: Normal heart sounds. No murmur. Pulmonary: Effort: Pulmonary effort is normal. No respiratory distress. Breath sounds: Normal breath sounds. No wheezing or rales. Abdominal: General: Bowel sounds are normal. There is no distension. Palpations: Abdomen is soft. Tenderness: There is no abdominal tenderness. There is no guarding or rebound. Musculoskeletal: Normal range of motion. Skin: General: Skin is warm and dry. Neurological: Mental Status: She is alert and oriented to person, place, and time. Cranial Nerves: No cranial nerve deficit. Procedures Imaging Results None [facility] Coding Clinical Impression 1. Encounter for medication refill 2. Schizoaffective disorder (HCC) A mental health referral was made. Patient's neurontin was refilled. Encouraged her to establish care with a primary physician. She understands to seek medical attention if she has any worsening symptoms or the development of SI/HI. Cosigned by Oren Rodarte MD at 06/09/2020 5:31 PM BRICK KILN BURNER K KILN BURNER K KILN BURNER Associated attestation - Oren Rodarte MD - 06/09/2020 5:31 PM BRICK KILN BURNER I have reviewed the mid-level provider's documentation and agree with the assessment and plan. * Gardenia Malcolm, RN - 06/09/2020 2:02 PM CST PT ambulatory to triage with needing her Gabapentin prescription refilled. States she doesn't currently having a psychiatrist due to just moving back from [place]. Denies any other complaints. DeniesSI/HI. No signs of distress noted. K KILN BURNER documented in this encounter Plan of Treatment Scheduled Referrals Name Type Priority Associated Diagnoses Orde r Schedule MENTAL HEALTH REFERRAL Outpatient Referral Routine Schizoaffective disorder (HCC) Expected: 06/09/2020, Expires: 09/07/2020 documented as of this encounter Visit Diagnoses Diagnosis Encounter for medication refill- Primary Issue of repeat prescriptions Schizoaffective disorder (HCC) Schizoaffective disorder, unspecified condition documented in this encounter Care Teams Chief Of Staff Doctor Relationship Specialty Start Date End Date Provider, None [place] PCP - General 06/09/20 09/15/21 Eulalio Hillman MD [address] [place] [address] Psychiatrist Psychiatry 11/28/18 documented as of this encounter
--- OUTSIDE RECORDS SUMMARY | 2024-07-08 04:33 | XMS_ITS | Encounter Summary ---
Author Organization [facility] Address [address] [place] [address] Phone Care Team Providers Care Fan Runner Name Role Phone Eulalio Hillman MD Unavailable [phone] Provider, None Primary Care Provider Unavailabl e Encounter Details Date Type Department Care Team ([facility] st Contact Info) Description 06/16/2020 Telephone [facility] - Behavioral Health Navigator - Sarath [address] [place] [phone] [facility] [place] Social History Tobacco Use Types Packs/Day Years [...] COVID-19? No / Unsure 06/09/2020 2:02 PM COIL WINDER HAND documented as of this encounter Miscellaneous Notes * Telephone Encounter - Sylvia Moreland - 06/16/2020 1:00 PM CST Attempted to call Hali twice, first time the call was answered but no one would speak, the second time the call was rejected. Navigator unable to leave a message. Navigator will call another date/time to follow up with [facility] referral and offer [employer] WINDER HAND documented in this encounter Plan of Treatment Not on file documented as of this encounter Visit Diagnoses Not on filedocumented in this encounter Care Teams Fan Runner Relationship Specialty Start Date End Date Provider, None [place] PCP - General 06/09/20 09/15/21 Eulalio Hillman MD [address] [place] [address] Psychiatrist Psychiatry 11/28/18 documented as of this encounter
--- OUTSIDE RECORDS SUMMARY | 2024-07-08 04:33 | XMS_ITS | Encounter Summary ---
Author Organization [facility] Address [address] [place] [address] Care Team Providers Care Power Line Installer And Repairer Name Role Phone Unavailable Primary Care Provider Unavailabl e Reason for Visit * Reason Comments Future Appointment #2 attempt to sched appt. Encounter Details Date Type Department Care Team (Late st Contact Info) Description 06/12/2018 Telephone [facility] - [address] [phone] Chantel Zee Future Appointment (#2 attempt to sched appt.) Social History Tobacco Use Types Packs/Day Years Used Date Smoking Tobacco: Never Assessed Sex and Gender Information Value Date Recorded Sex Assigned at Not on file Gender Identity Not on file Sexual Orientation Not on file documented as of this encounter Miscellaneous Notes * Telephone Encounter - Chantel Zee - 06/12/2018 2:59 PM CST 2nd attempt to contact pt to schedule appt, from referral regarding rectal pain. Will make 3rd attempt and if still no response will contact referring provider. [employer] documented in this encounter Plan of Treatment Not on file documented as of this encounter Visit Diagnoses Not on filedocumented in this encounter
--- OUTSIDE RECORDS SUMMARY | 2024-07-08 04:33 | XMS_ITS | Encounter Summary ---
Author Organization [facility] Address [address] [place] [address]. [place] [address] [place] [address] Care Team Providers Care Aging Box Hand Name Role Phone None, Provider Primary Care Provider Unavaila ble Reason for Visit * Reason Comments Anxiety Suicidal Ideation Encounter Details Date Type Department Care Team (Late st Contact Info) Description 02/03/2022 5:54 PM CDT - 02/03/2022 11:00 PM CDT Emergency [facility] Emergency [address] [place] [address] Rosina Ramírez, ROOFER [address] [place] [id number] Anxiety; Suicidal Ideation Discharge Disposition: Home or Self Care (Routine [...] Mass Index 47.94 02/03/2022 3:14 PM CDT documented in this encounter Discharge Instructions * Attachments The following attachments cannot be sent through Care Everywhere. * Suicide Prevention (Surinamese) documented in this encounter Medications at Time [...] daily. 01/23/2022 documented as of this encounter Progress Notes * Lee Ann Peraltapard - 02/03/2022 11:00 PM CDT Billing Information Staff ID: [id number] Client ID: [id number] Program: [id number] Service Type: 17 Activity: 10F Recipient: 1 02/03/2022 Start time:1999 End Time: 2099 Total Time: 1.00 Client Time: 0.75 Demographic Information Hali Garcia [address] [facility] [id number] 1995 female [id number] Single Not of / Origin Extended Emergency Contact Information Primary Emergency Contact: Aparna Garcia Mobile Relation: Mother Preferred language: Surinamese Stna needed? No Guardian: self Are there any dependents in the individual's care or responsibility: no Income Source: none Medical Coverage: [facility] Presenting Problem: Project Scheduler called to ED to screen 26 y/o female who presents ambulatory with c/o anxiety and SI. Pt was last seen yesterday in ED for anxiety regarding her homelessness as well as SOB. Pt made conditional suicidal threats when finding out she would be d/c. She reportedly told staff I want to kill myself then when told about d/c and then when asked if she had true intent, she reported well no, but if that's what I have to say. Pt was d/c with resources for [facility] Today, pt reports she is feeling worse than yesterday. She does endorse SI upon arrival to triage this time. She denies following up with [facility] today as recommended per her d/c yesterday. She reports increased feelings of sadness as well as anxiety about her current living situation. She denies any plan or intent and reports she has been having passive wishes intermittently. She denies AVH aswell as HI. She reports she does not know what she needs, but would like help. Project Scheduler expressed importance of getting connected with outpt resources for pt and she is not currently doing any therapy and reports she is not compliant with medications. Pt expressed understanding. When d/c was brought up by field underwriter, pt began to question field underwriter and ask what she needs to do in orderto get admitted. Project Scheduler explained pt does not meet criteria for admission right now and needs to get connected with outpt resources. Pt then saying, well I feel like If I go back to where I was staying I really will kill myself. She becomes upset but remains cooperative. Project Scheduler explains that pt was initially only endorsing intermittent passive wishes and fully denied any plans or intent pr eviously. Pt only brought up feelings of intent when d/c was discussed. This also aligns with pt's presentation yesterday which further supports the likelihood that pt's statements are for secondary gain. Pt stalls with field underwriter for a lengthy amount of time. Project Scheduler repeats explanation of admission criteria and the reasoning behind pt being d/c. Pt would express understanding and then moments later ask why she cannot be admitted Mental Health History: Pt has been admitted multiple times in the past. Her most recent admits wereto [facility] twice this year. She is reportedly prescribed Abilify per a previous note, however when asked, pt states she is unsure. She does not currently do any outpt treatment. She did recently stay at the crisis center. Substance Use/Dependency: Denies Review of Physical Status/Medical needs: Medically clear per ED staff Medication List: No current facility-administered medications for this encounter. Current Outpatient Medications: ??? atomoxetine (STRATTERA) 40 MG capsule, , Disp: , Rfl: ??? cloNIDine (CATAPRES) 0.1 MG tablet, , Disp: , Rfl: ??? cyclobenzaprine (FLEXERIL) 10 MG tablet, Take 5-10 mg by mouth 2 (two) times daily as needed., Disp: , Rfl: ??? cyclobenzaprine (FLEXERIL) 5 MG tablet, Take 5 mg by mouth 3 (three) times daily., Disp: , Rfl: ??? diclofenac EC (VOLTAREN) 75 MG tablet, TAKE 1 TABLET BY MOUTH DIRECTED TWICE DAILY NEEDED, Disp: , Rfl: ??? FLUoxetine (PROZAC) 20 MG capsule, Take 20 mg by mouth daily., Disp: , Rfl: ??? levonorgestrel-ethinyl estradiol (AVIANE) 0.1-20 MG-MCG tablet, daily., Disp: , Rfl: ??? meloxicam (MOBIC) 15 MG tablet, Take 15 mg by mouth daily., Disp: , Rfl: ??? mirtazapine (REMERON) 30 MG tablet, , Disp: , Rfl: ??? OXcarbazepine (TRILEPTAL) 300 MG tablet, Take 300 mg by mouth 2 (two) times daily., Disp: , Rfl: ??? pregabalin (LYRICA) 75 MG capsule, Take 75 mg by mouth 2 (two) times daily., Disp: , Rfl: Personal History/Current Status: Pt is currently homeless and does not have a source of income. Shereports she has been staying at a hotel. She reports her mom as good support, but she lives in [place]. Pt reports other supports of family and friends. She reports no complaints with her ADL's and is able to self care. No legal issues Assets/Strengths: cooperative Mental Status: Affect/Mood Affect/Mood Range: Blunted/flat Affect/Mood Display: Calm Mood: Anxious, Sad Thought Content Delusions: No delusions Hallucinations: None Ambivalence: No (Comment) Behavior Eye Contact: Fair Exhibited Behavior: Guarded Intellectual Functions Concentration: Impaired Insight: Impaired Judgement: Impaired Language and Speech Speech Content: Appropriate Brief Physical Assessment Orientation Level: Oriented X4 Memory Impairment: None Level of Consciousness: Alert Gait/Movement: Steady, Coordinated Motor Activity: [place] of movement General Appearance: Equal to stated age Comments on Additional Observations and Significant Findings: Pt calm and cooperative for screen. She seems to be stalling often when asked certain questions as she will not respond for quite some time and then ask field underwriter to repeat the question. She keeps her answers very minimal. Does not appear to be responding to any internal stimuli Level of Violence Risk: Pt scores MOD per the CSSRS due to the fact that she endorses a previous ODattempt however is unsure when this happened or what she took. She reports it did require medical attention. She initially presents only with c/o passive SI but denied intent or plan. When finding out she could not be admitted, then pt began to endorse intent, however still no plan. Pt does not have access to guns. No SIB. No hx of violence towards others Level of Dangerousness/Violence to Self: MOD Level of Dangerousness/Violence to Others:LOW Diagnostic Conclusions Primary Diagnosis: F33.9 MDD Unspecified Secondary Diagnosis: Medical Diagnosis: GAF: 35 Plan of Care Treatment Plan/Disposition: Pt chart review Screen pt Staff with ED - agreeable to d/c Safety plan completed and resources provided Pt d/c back to hotel - cab provided documented in this encounter ED Notes * Rosina Ramírez NP - 02/03/2022 6:00 PM CDT ED NOTE Chief Complaint Chief Complaint Patient presents with ??? Anxiety ??? Suicidal Ideation History of Present Illness Hali Garcia, a 26-year-old female, presents to ED with complaints of suicidal ideation. Patient says that she would like to take an unknown substance to kill herself. Patient says she recently became homeless and that has been an increased stressor in her life. Patient denies homicidal ideation. Patient was seen in our facility on 02/01/22 for the same complaint. Medical History ALLERGIES: Allergies Allergen Reactions ??? Sulfa Antibiotics Rash MEDICATIONS: Prior to Admission medications Medication Sig Start Date End Date Taking? Authorizing Provider atomoxetine (STRATTERA) 40 MG capsule 01/23/22 Doc [...] mg by mouth daily. 01/11/22 Doc Abstract levonorgestrel-ethinyl estradiol (AVIANE) 0.1-20 MG-MCG tablet daily. 06/25/21 Doc Abstract meloxicam (MOBIC) 15 MG tablet [...] HISTORY: Review of Systems Review of Systems Psychiatric/Behavioral: Positive for behavioral problems and suicidal ideas. All other systems reviewed and are negative. Physical Exam Filed Vitals: 02/03/22 1514 BP: 115/77 Pulse: 116 Resp: 18 Temp: 98.6 ??F (37 ??C) TempSrc: Oral SpO2: 100% Weight: 134.7 kg (297 lb) Height: 5' 6 (1.676 m) Physical Exam Constitutional: Appearance: Normal appearance. HENT: Mouth/Throat: Mouth: Mucous membranes are moist. Eyes: Extraocular Movements: Extraocular movements intact. Cardiovascular: Rate and Rhythm: Normal rate and regular rhythm. Pulses: Normal pulses. Heart sounds: Normal heart sounds. Pulmonary: Effort: Pulmonary effort is normal. Breath sounds: Normal breath sounds. Abdominal: General: Abdomen is flat. Palpations: Abdomen is soft. Musculoskeletal: General: Normal range of motion. Cervical back: Normal range of motion and neck supple. Skin: General: Skin is warm and dry. Capillary Refill: Capillary refill takes less than 2 seconds. Neurological: Mental Status: She is alert. Psychiatric: Mood and Affect: Mood is anxious. Affect is tearful. Diagnostic Studies / Procedures ELECTROCARDIOGRAMS: No results found for this visit on 02/03/22. LABORATORY STUDIES: Results for orders placed or performed during the hospital encounter of 02/03/22 CBC W/DIFF AUTOMATED Result Value Ref Range WBC 11.8 (H) 4.0 - 10.8 x10'3/uL RBC 4.74 4.10 - 5.40 x10'6/uL HGB 14.0 12.0 - 16.0 G/DL HCT 43.0 36.0 - 47.0 % MCV 90.7 78.0 - 100.0 FL MCH 29.5 27.0 - 31.0 PG MCHC 32.6 (L) 33.0 - 36.0 G/DL RDW 14.3 11.5 - 14.5 % PLT 337 150 - 350 x10'3/uL MPV 10.5 (H) 7.4 - 10.4 FL ABS. NEUTROPHILS 8.66 (H) 1.60 - 8.30 x10'3/uL ABS. LYMPHOCYTES 2.06 0.80 - 4.70 x10'3/uL ABS. MONOCYTES 0.85 0.00 - 1.50 x10'3/uL ABS. EOSINOPHILS 0.10 0.00 - 0.40 x10'3/uL ABS. BASOPHILS 0.05 0.00 - 0.20 x10'3/uL ABS. IMMATURE GRANULOCYTES 0.07 (H) 0.00 - 0.03 x10'3/uL ABS. NUCLEATED RBC'S 0.00 0.0 x10'3/uL BASIC METABOLIC PANEL Result Value Ref Range SODIUM 136 136 - 145 MMOL/L POTASSIUM 3.8 3.5 - 5.1 MMOL/L CHLORIDE S/P/B 107 98 - 107 MMOL/L CO2 20.6 (L) 21.0 - 32.0 MMOL/L GLUCOSE 88 74 - 106 MG/DL BUN 13 7 - 18 MG/DL CREATININE S/P/B 0.78 0.55 - 1.02 MG/DL CALCIUM 9.2 8.5 - 10.1 MG/DL ANION GAP 8.4 5.0 - 15.0 MMOL/L OSMOLALITY (CALC) 282 MOSM/KG GFR ESTIMATE >90 >90 ML/MIN/1.73 M2 GFR NOTES GFR REFERENCES: HEPATIC FUNCTION PANEL Result Value Ref Range BILIRUBIN TOTAL S/P/B 0.5 0.2 - 1.0 MG/DL BILIRUBIN DIRECT S/P/B 0.3 (H) 0.0 - 0.2 MG/DL ALKALINE PHOSPHATASE S/P/B 107 (H) 37 - 98 U/L AST 41 (H) 15 - 37 U/L ALT 70 (H) 13 - 56 U/L TOTAL PROTEIN S/P/B 7.8 6.4 - 8.2 G/DL ALBUMIN S/P/B 3.6 3.4 - 5.0 G/DL ETHANOL Result Value Ref Range Alcohol ZERO 0 G/DL ACETAMINOPHEN Result Value Ref Range Acetaminophen <2.0 (L) 10.0 - 30.0 MCG/ML SALICYLATE Result Value Ref Range Salicylates 2.2 (L) 2.8 - 20.0 MG/DL HCG QUANT (SERUM)-CHORIONIC GONADOTROPIN Result Value Ref Range HCG, QUANTITATIVE <1 MIU/ML DRUG SCREEN RAPID Result Value Ref Range [...] CONCENTRATION Cut-off Concentration for a positive result URINALYSIS Result Value Ref Range COLOR (U) YELLOW TRANSPARENCY SLIGHTLY CLOUDY Specific [place] (U) 1.023 1.002 - 1.035 U PH 5.5 5 - 8 PROTEIN (U) 30 (A) NEGATIVE URINE GLUCOSE NEGATIVE NEGATIVE MG/DL U KET[place] 10 (A) NEGATIVE BILIRUBIN (U) NEGATIVE NEGATIVE BLOOD 1+ (A) NEGATIVE NITRITES NEGATIVE NEGATIVE UROBILINOGEN NORMAL 0 - 1 EU/DL LEUKOCYTE ESTERASE 2+ (A) NEGATIVE RBC/HPF 3 0 - 3 /HPF WBC/HPF 20 (H) 0 - 6 /HPF BACTERIA (URINE) PRESENT /HPF SQUAMOUS EPITHELIALS 13 IMAGING STUDIES No orders to display ED Course / Medical Decision Making MDM Number of Diagnoses or Management Options Suicidal ideation: minor Amount and/or Complexity of Data Reviewed Clinical lab tests: ordered and reviewed Patient Progress Patient progress: stable ED Course as of 02/03/222043Feb 03, 20221929 Urine as noted above. We will await urine culture. [RW] 1941 PRT contacted to evaluate patient. [RW] 2019 PRT evaluated the patient at this time. She says she will do a safety plan with patient and then discharge home. [RW] ED Course User Index [RW] Rosina Ramírez NP Medications - No data to display Clinical Impression None Disposition: Data Unavailable Current Discharge Medication List Follow-up: No follow-up provider specified. ROSINA RAMÍREZ NP 02/03/2022 Rosina Ramírez NP 02/03/222044 Rosina Ramírez NP 02/03/222046 Cosigned by Barbie Helton MD at 02/05/2022 5:14 PM CDT Associated attestation - Barbie Helton MD - 02/05/2022 5:14 PM CDT I am signing this chart for administrative reasons. I did not directly see this patient nor was I involved in the patient's care. * Rosina Ramírez NP - 02/03/2022 3:44 PM CDT Patient: Hali Garcia : 1995 Encounter Date: 02/03/2022 Chief Complaint: Chief Complaint Patient presents with ??? Anxiety ??? Suicidal Ideation History of Present Illness: Hali presents to triage with complaint of anxiety due to recently becoming homeless. Patient says she is suicidal with a plan as well. Patient has been seen multiple times in our facility for the same complaint. Patient is tearful at triage. Review of Systems: Review of Systems Vitals: Filed Vitals: 02/03/22 1514 BP: 115/77 Pulse: 116 Resp: 18 Temp: 98.6 ??F (37 ??C) TempSrc: Oral SpO2: 100% Weight: 134.7 kg (297 lb) Height: 5' 6 (1.676 m) ALLERGIES: Allergies Allergen Reactions ??? Sulfa Antibiotics Rash MEDICATIONS: Prior to Admission medications Medication Sig Start Date End Date Taking? Authorizing Provider atomoxetine (STRATTERA) 40 MG capsule 01/23/22 Doc [...] mg by mouth daily. 01/11/22 Doc Abstract levonorgestrel-ethinyl estradiol (AVIANE) 0.1-20 MG-MCG tablet daily. 06/25/21 Doc Abstract meloxicam (MOBIC) 15 MG tablet [...] No family history on file. SOCIAL HISTORY: Brief Physical Exam: Physical Exam Cardiovascular: Rate and Rhythm: Normal rate and regular rhythm. Pulses: Normal pulses. Heart sounds: Normal heart sounds. Neurological: Mental Status: She is alert and oriented to person, place, and time. Psychiatric: Attention and Perception: Attention normal. Mood and Affect: Mood is anxious. Affect is tearful. Speech: Speech normal. Behavior: Behavior normal. Hali Garcia was assessed while in the waiting room. Appropriate orders were entered based on assessment pending placement in ED room. No orders of the defined types were placed in this encounter. Cosigner will be Dr. Danie RAMÍREZ NP 02/03/2022 3:44 PM Rosina Ramírez NP 02/03/22 1627 Cosigned by Barbie Helton MD at 02/03/2022 4:55 PM CDT Associated attestation - Barbie Helton MD - 02/03/2022 4:55 PM CDT I am signing this chart for administrative reasons. I did not directly see this patient nor was I involved in the patient's care. * Daniel Dominguez RN - 02/03/2022 3:37 PM CDT Pt to ED triage window to ask about the wait and when told it could be a couple more hours, pt saysshe is having suicidal thoughts and would overdose on an unknown medication. Pt says she does not have the means to end her life but does want to do it. Charge Nurse Shala made aware. * Gwen Monroy RN - 02/03/2022 3:05 PM CDT Pt arrives to triage per ems. Pt here with anxiety and is recently homeless. Pt Has discharge instructions and is supposed to follow [facility] with [facility]. Pt states she has not done that documented in this encounter Plan of Treatment Not on file documented as of this encounter Procedures Procedure Name Priority Date/Time Associated Diagnosis Comments URINE BACTERIA CULTURE Nurse Collected Priority 02/03/2022 6:57 PM CDT BASIC METABOLIC PANEL STAT 02/03/2022 6:10 PM CDT HEPATIC FUNCTION PANEL STAT 02/03/2022 6:10 PM CDT HCG QUANT (SERUM)-CHORIONIC GONADOTROPIN STAT 02/03/2022 6:10 PM CDT CBC W/DIFF AUTOMATED STAT 02/03/2022 6:10 PM CDT SALICYLATE STAT 02/03/2022 6:10 PM CDT ETHANOL STAT 02/03/2022 6:10 PM CDT ACETAMINOPHEN STAT 02/03/2022 6:10 PM CDT DRUG SCREEN RAPID Nurse Collected Priority 02/03/2022 5:35 PM CDT HC URINALYSIS AUTO W/MICRO Nurse Collected Priority 02/03/2022 5:35 PM CDT documented in this encounter Results * CULTURE URINE (02/03/2022 6:57 PM CDT) SPEC DESCRIPTION URINE CLEAN CATCH 02/03/2022 6:55 PM CDT [facility] SPECIAL REQUESTS NO SPECIAL REQUEST 02/03/2022 6:55 PM CDT [facility] CULTURE RESULT FEW CONTAMINANTS 01/17 10:45 AM CDT [facility] CULTURE RESULT >25,000 TO 50,000 CFU/mL BETA STREPTOCOCCUS GROUP B UNABLE TO ISOLATE FOR SENSITIVITY TESTING. 02/06/2022 10:45 AM CDT [facility] CULTURE RESULT BETA STREPTOCOCCUS GROUP B WAS IDENTIFIED AMONG THE FEW CONTAMINANTS . ALTHOUGH FINDINGS ARE CONSISTENT WITH CONTAMINATION, PRESENCE OF BETA STREPTOCOCCUS GROUP B IN A PATIENT OF CHILD BEARING AGE COULD BE POTENTIALLY CLINICALLY SIGNIFICANT. SUSCEPTIBILITIES WERE PERFORMED. 02/06/2022 10:45 AM CDT [facility] URINE SPECIMEN OBTAINED BY CLEAN CATCH PROCEDURE / Unknown 02/03/2022 6:57 PM CDT 02/03/2022 7:08 PM CDT Rosina Ramírez NP MICROBIOLOGY - GENERAL ORD ERABLES Final Result Performing Organization Address [facility] de Phone Number [facility] [address] [place] [address], [phone] * HCG QUANT (SERUM)-CHORIONIC GONADOTROPIN (02/03/2022 6:10 PM CDT) Pathologist [facility] HCG QUANTITATIVE <1 MIU/ML 02/04/20 7:06 PM CDT [facility] Comment: <5 IS NEGATIVE 5-25 IS BORDERLINE >25 IS POSITIVE ASSAY PERFORMED BY CHEMILUMINESCENCE METHODOLOGY USING SIEMENS DIMENSION [facility]ISTA REAGENT. PATIENT RESULTS DETERMINED BY ASSAYS USING DIFFERENT MANUFACTURERS FOR METHODS MAY NOT BE COMPARABLE. 02/03/2022 6:10 PM CDT Rosina Ramírez NP LABORATORY Final Resu lt Performing Organization Address [facility] de Phone Number [facility] [address] [place] [address], [phone] * (ABNORMAL) SALICYLATE (02/03/2022 6:10 PM CDT) Pathologist [facility] SALICYLATES 2.2(L) 2.8 - 20.0 MG/DL 02/03/2022 7:08 PM CDT [facility] 02/03/2022 6:10 PM CDT Rosina Delunabrook ROOFER LABORATORY Final Resu lt Performing Organization Address [facility] Co de Phone Number [facility] [address] [place] [address], [phone] * (ABNORMAL) ACETAMINOPHEN (02/03/2022 6:10 PM CDT) ACETAMINOPHEN S/P/B <2.0(L) 10.0 - 30.0 MCG/ML 02/03/2022 7:07 PM CDT [facility] 02/03/2022 6:10 PM CDT Rosina Delunabrook ROOFER LABORATORY Final Resu lt Performing Organization Address [facility] Co de Phone Number [facility] [address] [place] [address], [phone] * ETHANOL (02/03/2022 6:10 PM CDT) ALCOHOL S/P/B ZERO 0 G/DL 02/03/2022 6:47 PM CDT [facility] 02/03/2022 6:10 PM CDT [facility]FER LABORATORY Final Resu lt Performing Organization Address [facility] Co de Phone Number [facility] [address] [place] [address], [phone] * (ABNORMAL) HEPATIC FUNCTION PANEL (02/03/2022 6:10 PM CDT) BILIRUBIN TOTAL S/P/B 0.5 0.2 - 1.0 MG/DL 02/03/2022 7:06 PM CDT [facility] BILIRUBIN DIRECT S/P/B 0.3(H) 0.0 - 0.2 MG/DL 02/03/2022 7:06 PM CDT [facility] ALKALINE PHOSPHATASE S/P/B 107(H) 37 - 98 U/L 02/03/2022 7:06 PM CDT [facility] AST 41(H) 15 - 37 U/L 02/03/2022 7:06 PM CDT [facility] ALT 70(H) 13 - 56 U/L 02/03/2022 7:06 PM CDT [facility] TOTAL PROTEIN S/P/B 7.8 6.4 - 8.2 G/DL 02/03/2022 7:06 PM CDT [facility] ALBUMIN S/P/B 3.6 3.4 - 5.0 G/DL 02/03/2022 7:06 PM CDT [facility] 02/03/2022 6:10 PM CDT us Rosina Ramírez ROOFER LABORATORY Final Resu lt [facility] [address] [place] [address], [phone] * (ABNORMAL) BASIC METABOLIC PANEL (02/03/2022 6:10 PM CDT) SODIUM S/P/B 136 136 - 145 MMOL/L 02/03/2022 7:06 PM CDT [facility] POTASSIUM S/P/B 3.8 3.5 - 5.1 MMOL/L 02/03/2022 7:06 PM CDT [facility] CHLORIDE S/P/B 107 98 - 107 MMOL/L 02/03/2022 7:06 PM CDT [facility] CO2 20.6(L) 21.0 - 32.0 MMOL/L 02/03/2022 7:06 PM CDT [facility] GLUCOSE 88 74 - 106 MG/DL 02/03/2022 7:06 PM CDT [facility] BUN 13 7 - 18 MG/DL 02/03/2022 7:06 PM CDT [facility] CREATININE S/P/B 0.78 0.55 - 1.02 MG/DL 02/03/2022 7:06 PM CDT [facility] CALCIUM S/P/B 9.2 8.5 - 10.1 MG/DL 02/03/2022 7:06 PM CDT [facility] ANION GAP 8.4 5.0 - 15.0 MMOL/L 02/03/2022 7:06 PM CDT [facility] OSMOLALITY (CALC) 282 MOSM/KG 022 7:06 PM CDT [facility] Comment:REFERENCE RANGE NOT ESTABLISHED GFR ESTIMATE >90 >90 ML/MIN/1. 73 M2 02/03/2022 7:06 PM CDT [facility] GFR NOTES GFR REFERENCE S: 02/03/2022 7:06 PM T [facility] Comment: THE ESTIMATED GFR IS CALCULATED [...] ml/min/1.73 m2 G5,KIDNEY FAILURE: <15 ml/min/1.73 m2 02/03/2022 6:10 PM CDT us Rosina Ramírez ROOFER LABORATORY Final Resu lt [facility] [address] [place] [address], [phone] * (ABNORMAL) CBC W/DIFF AUTOMATED (02/03/2022 6:10 PM CDT) [facility] Signature WBC 11.8(H) 4.0 - 10.8 x10'3/uL 02/03/2022 6:29 PM CDT [facility] RBC 4.74 4.10 - 5.40 x10'6/uL 02/03/2022 6:29 PM CDT [facility] HGB 14.0 12.0 - 16.0 G/DL 02/03/2022 6:29 PM CDT [facility] HCT 43.0 36.0 - 47.0 % 02/03/2022 6:29 PM CDT [facility] MCV 90.7 78.0 - 100.0 FL 02/03/2022 6:29 PM CDT [facility] MCH 29.5 27.0 - 31.0 PG 02/03/2022 6:29 PM CDT [facility] MCHC 32.6(L) 33.0 - 36.0 G/DL 02/03/2022 6:29 PM CDT [facility] RDW 14.3 11.5 - 14.5 % 02/03/2022 6:29 PM CDT [facility] PLT 337 150 - 350 x10'3/uL 02/03/2022 6:29 PM CDT [facility] MPV 10.5(H) 7.4 - 10.4 FL 02/03/2022 6:29 PM CDT [facility] ABS. NEUTROPHILS 8.66(H) 1.60 - 8.30 x10'3/uL 02/03/2022 6:29 PM CDT [facility] ABS. LYMPHOCYTES 2.06 0.80 - 4.70 x10'3/uL 02/03/2022 6:29 PM CDT [facility] ABS. MONOCYTES 0.85 0.00 - 1.50 x10'3/uL 02/03/2022 6:29 PM CDT [facility] ABS. EOSINOPHILS 0.10 0.00 - 0.40 x10'3/uL 02/03/2022 6:29 PM CDT [facility] ABS. BASOPHILS 0.05 0.00 - 0.20 x10'3/uL 02/03/2022 6:29 PM CDT [facility] ABS. IMMATURE GRANULOCYTES 0.07(H) 0.00 - 0.03 x10'3/uL 02/03/2022 6:29 PM CDT [facility] ABS. NUCLEATED RBC'S 0.00 0.0 x10'3/uL 02/03/2022 6:29 PM CDT [facility] 02/03/2022 6:10 PM CDT us Rosina Ramírez ROOFER LABORATORY Final Resu lt [facility] [address] [place] [address], [phone] * (ABNORMAL) URINALYSIS (02/03/2022 5:35 PM CDT) COLOR (U) YELLOW 02/03/2022 6:02 PM CDT [facility] TRANSPARENCY SLIGHTLY CLOUDY 02/03/2022 6:02 PM CDT [facility] SPECIFIC GRAVITY (U) 1.023 1.002 - 1.035 02/03/2022 6:02 PM CDT [facility] U PH 5.5 5 - 8 02/03/2022 6:02 PM CDT [facility] PROTEIN (U) 30(A) NEGATIVE 02/03/2022 6:02 PM CDT [facility] [facility] URINE GLUCOSE NEGATIVE NEGATIVE MG/DL 02/03/2022 6:02 PM CDT [facility] KETONES MG/DL (U) 10(A) NEGATIVE 02/03/2022 6:02 PM CDT [facility] BILIRUBIN (U) NEGATIVE NEGATIVE 02/03/2022 6:02 PM CDT [facility] BLOOD (U) 1+(A) NEGATIVE 02/03/2022 6:02 PM CDT [facility] NITRITES NEGATIVE NEGATIVE 02/03/2022 6:02 PM CDT [facility] UROBILINOGEN NORMAL 0 - 1 EU/DL 02/03/2022 6:02 PM CDT [facility] LEUKOCYTES (U) 2+(A) NEGATIVE 02/03/2022 6:02 PM CDT [facility] RBC/HPF 3 0 - 3 /HPF 02/03/2022 6:02 PM CDT [facility] WBC/HPF 20(H) 0 - 6 /HPF 02/03/2022 6:02 PM CDT [facility] BACTERIA (U) PRESENT /HPF 02/03/2022 6:02 PM CDT [facility] SQUAMOUS EPITHELIALS 13 02/03/2022 6:02 PM CDT [facility] URINE SPECIMEN OBTAINED BY CLEAN CATCH PROCEDURE / Unknown 02/03/2022 5:35 PM CDT us Rosina Ramírez ROOFER URINE ORDERABLES Final Res ult [facility] [address] [place] [address], [phone] * (ABNORMAL) DRUG SCREEN RAPID (02/03/2022 5:35 PM CDT) PHENCYCLIDINE PCP (U) NEGATIVE NEGATIVE 02/03/2022 6:07 PM CDT [facility] BENZODIAZEPINES SCREEN (U) NEGATIVE NEGATIVE 02/03/2022 6:07 PM CDT [facility] COCAINE METABOLITES (U) NEGATIVE NEGATIVE 02/03/2022 6:07 PM CDT [facility] AMPHETAMINE (U) NEGATIVE NEGATIVE 6:07 PM CDT [facility] CANNABINOIDS SCREEN (U) POSITIVE SCREEN RESULT, IF CONFIRMATION DESIRED PLEASE CONTACT LAB WITHIN ONE WEEK. (A) NEGATIVE 02/03/2022 6:07 PM CDT [facility] OPIATE SCREEN (U) NEGATIVE NEGATIVE 022 6:07 PM CDT [facility] BARBITURATES SCREEN (U) NEGATIVE NEGATIVE 02/03/2022 6:07 PM CDT [facility] URINE TOX COMMENT Unconfirmed screening results are to be used only for medical purposes. 02/03/2022 5:35 PM CDT [facility] CUTOFF CONCENTRATION (U) Cut-off Concentration for a positive result 02/03/2022 5:35 PM CDT [facility] Comment: Phencyclidine ? 25 ng/mL Benzodiazepines ? 200 ng/mL Cocaine ? 300 ng/mL Amphetamine ? 1000 ng/mL Cannabinoids ?50 ng/mL Opiates ? 300 ng/mL Barbiturates ?200 ng/mL URINE SPECIMEN / Unknown 02/03/2022 5:35 PM CDT us Rosina Ramírez ROOFER URINE ORDERABLES Final Res ult [facility] [address] [place] [address], [id number] documented in this encounter Visit Diagnoses Diagnosis Suicidal ideation- Primary documented in this encounter Care Teams Aging Box Hand Relationship Specialty Start Date End Date None, Provider, PCP - General 02/01/22 documented as of this encounter
--- OUTSIDE RECORDS SUMMARY | 2024-07-08 04:36 | XMS_ITS ---
Author Organization [facility] Address [address] [place] [address] Care Team Providers Care Computer Forensic Specialist Name Role Phone Jc Garcia Primary Care Provider Worrell, Moy Unavailable [phone] REASON FOR VISIT 2 WK [phone] Medications Medication SIG (Take, Route, Frequency, Duration) Notes Start Date End Date Status LORazepam 0.5 MG 1 tablet Orally Once a day As needed for SEVERE anxiety Active Levothyroxine Sodium 50 MCG 1 tablet in the morning on an empty stomach Orally Once a day for 30 days 06/20/2024 Active Vyvanse 20 MG 1 capsule Orally onc e daily in the afternoon 06/20/2024 Active Wegovy 0.25 MG/0.5ML 0.5 mL Subcutaneous weekly for 30 days 06/17/2024 Active Doxycycline Hyclate 100 MG 1 capsule Ora lly Once a day for 10 day(s) 06/25/2024 Active Prazosin HCl 2 MG 1 capsule at bedtime - take with 5mg capsule for TOTAL of 7mg at bedtime Orally Once a day for 30 days Active Topiramate 50 MG 1 tablet Orally twic e daily for 30 days Active Propranolol HCl ER 80 MG 1 capsule Orall y once daily for 30 days Active Macrobid 100 MG 1 capsule with food Orally every 12 hrs for 5 day(s) 06/06/2024 Active Vitamin D (Cholecalciferol) 50 MCG (1999 UT) 1 capsule Orally Once a day Active Paliperidone ER 1.5 MG 1 tablet in the m orning Orally once daily - TOTAL 4.5mg daily for 30 days Active Paliperidone ER 3 MG 1 tablet in the awa king Orally once daily - TOTAL 4.5mg daily for 30 days Active Abilify 20 MG 1 tablet Orally Once a day for 30 days Active Allergy Relief Cetirizine 10 mg TAKE 1 TABLET BY MOUTH DAILY for 28 Active Lo Loestrin Fe 1 MG-10 MCG / 10 MCG TAKE 1 TABLET BY MOUTH DAILY for 28 Active Desvenlafaxine Succinate ER 50 mg TAKE 1 TABLET BY MOUTH DAILY for 30 days Active Pace Carbonate ER 300 MG 3 tablets Or ally twice daily for 30 days Active Lidocaine 5 % 1 patch remove after 12 hours Externally Once a day for 30 days Active Albuterol Sulfate HFA 108 (90 Base) MCG/ACT 1 puff as needed Inhalation every 4 hrs for 30 days Active Pregabalin 300 MG TAKE 1 CAPSULE BY [facility] TWICE A DAY for 30 days 10/15/2023 Active Vyvanse 60 MG 1 capsule Orally onc e daily in the morning for 30 days 07/02/2024 Active Symbicort 80-4.5 MCG/ACT 1 puff as neede d Inhalation Twice a day Active Prazosin HCl 5 MG 1 tablet Orally twic e daily for 30 days Active Cogentin 0.5 MG 1 tablet Orally twic e a day for 30 days Active Ibuprofen 800 MG 1 tablet with food o r milk as needed Orally twice a day 05/01/2023 Active Social History Tobacco Use: Social History Observation Description Date Details (start date - stop date) Current Smoker NA - NA Sex Assigned At : Social History Observation Description Sex Assigned At Female Tobacco Control (Standard) Question Answer Notes Tobacco use: Current smoker Additional Findings: Tobacco user e-cigarette Vital Signs Weight 340 lbs 06/27/2024 Height 66 in 06/27/2024 BMI 54.87 kg/m2 06/27/2024 Encounters Encounter Location Date Provider Diagnosis [address] [place] [address] 06/27/2024 Moy Worrell Schizoaffective disorder, bipolar type F25.0 ; Mood disorder F39 ; PANCHITO (generalized anxiety disorder) F41.1 ; PTSD (post-traumatic stress disorder) F43.10 ; Night terrors F51.4 ; Binge eating R63.2 ; Impaired concentration R41.840 ; Hypothyroidism E03.9 and Nicotine dependence F17.200 Assessments Encounter Date Diagnosis (ICD Code) Assessment Notes Treatment Notes Treatment Clinical Notes Section Notes 06/27/2024 Schizoaffective disorder, bipolar type (ICD-10 - F25.0) Duration (acute/chronic), stability (controlled/uncon trolled): Chronic, reported improvement with recent medication adjustments, still some room for improvement, see HPI Current medications/effic acy: Somewhat, room for improvement Previous medication trials: Abilify, Haldol- caused disassociation, Seroquel- for hallucinations but increased hallucinations, Xanax- abused medication, trazodone- ineffective. Invega (caused fuzzy feeling), Risperidone (caused issues) Current/previous therapies: Not currently in therapy, interested Examination as documented - see pertinent aspects of office visit documentation. Pertinent diagnostics: LITHIUM LEVEL, TSH AND FREE T4 COMPLETED IN 03/2024, LITHIUM WNL, THYROID FUNCTION TESTS MILDLY ABNORMAL BUT IMPROVED AT THAT TIME - RECENTLY REPEATED THYROID FUNCTION TESTS INDICATED WORSENING THYROID FUNCTION, RECENTLY STARTED ON LEVOTHYROXINE CSA completed during previous visit - UDS to be collected at follow up (patient unable to urinate during previous visit). RECOMMENDATIONS: DECREASE evening paliperidone as prescribed - educated patient/guardian on adverse effects, risks and benefits, as well as alternative treatments INCREASE aripiprazole as prescribed - educated patient/guardian on adverse effects, risks and benefits, as well as alternative treatments INCREASE lithium as prescribed to assist with mood/stability - educated patient/guardian on adverse effects, risks and benefits, as well as alternative treatments Continue/modify medications as prescribed - educated patient/guardian on adverse effects, risks and benefits, as well as alternative treatments Consume well balanced diet, preferably low in saturated fats (solid at room temperature, such as butter, margarine, Crisco, etc) and low in sodium (<2,000mg per day). Consume plenty of fruits/vegetables , healthy grains/whole grains, unsaturated/healt hy fats (liquid at room temperature, such as olive oil, sunflower seed oil, canola, vegetable, etc.). Exercise regularly - Develop an exercise routine. 30 minutes of moderate exercise (walking at a brisk pace) 5 times per week is recommended. You should work hard enough to cause a sweat but still be able to talk with others while exercising. Exercise improves overall health - improves blood pressure and blood sugar, helps control weight, reduces stress, and improves mood. Practice stress reduction techniques, such as guided imagery, journaling, aromatherapy, acupuncture/acupr essure, deep breathing, etc. Practice healthy sleep hygiene - maintain regular routine, no caffeine after 1PM, no exercise 1-2 hours prior to bedtime, keep bedroom dark and cool, no TV or electronics while in bed. Consider melatonin as needed. Consider cognitive behavioral therapy for insomnia (CBT-I). Consider/Continue therapy. Consider substance cessation therapy as needed - contact office if desiring medication assisted therapy. Manage co-morbid conditions. Continue monitoring symptoms - report persistent or worsening/concern ing symptoms to the office or go to the ER. For mental health CRISIS, please reach out to [phone] ([employer] Suicide and Crisis Lifeline), 911, go to the emergency department, or contact the [facility] Crisis Unit/Team. Follow up as scheduled in 2 weeks or sooner if necessary. Follow up with PCP and/or other specialists as advised. NEXT STEP: Consider further medication adjustments as needed. Patient agreeable to increasing aripiprazole to assist with mood and hallucinations. Agreeable to decreasing paliperidone again to assist with anxiety/restless ness after administration. Agreeable to increasing lithium slightly to assist with mood/stability. Agreeable to increasing Vyvanse to 60mg once daily to assist with attention/binge eating. Agreeable to following up in 2 weeks, sooner if necessary. - - - - - - - - - - - - - - - - - - - - - - - - - - - - - - - - - - - - - - - - - - - - - - - - - - - - - - - - - - - - - - - - - - - - - - - - - - - - - - - PERTINENT HPI DETAILS FROM PREVIOUS APPOINTMENT: Patient is presenting for 2 week follow up. Propranolol was increased during previous appointment to assist with anxiety/panic/PT SD - prazosin increased to assist with PTSD and nightmares - reports both changes have been beneficial Reports she doesn't recal having any nightmares since increase, daytime symptoms of PTSD have also resolved with increase - mother reports that patient still seems restless in her sleep, sometimes swatting at things in her sleep or clenching her fist, seemingly fighting someone else Patient reports that she has paid close attention over the last few weeks to how each medication makes her feel - reports she believes paliperidone is causing some increasing anxiety and palpitations in the evening after taking medication - wondering about decreasing palpiperidone and increasing aripiprazole (as patient tolerates aripiprazole well without adverse effects) - this provider agreeable Mood and hallucinations are otherwise pretty well managed - patient still intermittently has breakthrough anxiety/panic (about 2-3 times weekly) - mother reports previously having to take patient to ER for this, ER would administer IM Ativan which has reportedly been helpful in the past Provider discussed adding an as needed prescription of lorazepam for breakthrough anxiety/panic - mother and patient agreeable Patient was also started on low dose topiramate to assist with binge eating - taking 25mg twice daily Reports medication has been helpful in managing binge eating - still room for improvement Vyvanse was also increased to 30mg twice daily during previous visit for this - hasn't picked up/had the opportunity to start increased dose yet CSA completed today - UDS to be collected at follow up (patient unable to urinate at this time). Patient agreeable to decreasing paliperidone to assist with anxiety in the evening after administration. Agreeable to increasing aripiprazole to continue helping with mood/hallucinati ons. Agreeable to increasing evening dose of prazosin to help with possible nightmares, see above. Agreeable to increasing topiramate to 50mg twice daily to assist further with binge eating. Agreeable to starting lorazepam NEEDED for breakthrough anxiety/panic. Agreeable to following up in 3 weeks IN PERSON, sooner if necessary - will collect UDS at this time. - - - - - - - - - - - - - - - - - - - - - - - - - - - - - - - - - - - - - - - - - - - - - - - - - - - - - - - - - - - - - - - - - - - - - - - - - - - - - - - -Medications Effectiveness: Somewhat, room for improvement -Medication Adherence: Yes -Side effects: Increased daytime sleepiness with recent medication adjustments -Previous Medication Trials: Mandie Mcarthur- caused disassociation, Seroquel- for hallucinations but increased hallucinations, Xanax- abused medication, trazodone- ineffective. Invega (caused fuzzy feeling), Risperidone (caused issues) -Sleep: I've been sleeping like a rock - increased daytime sleepiness with recent medication adjustments -Nightmares/Nigh t terrors: I have not been dreaming at all, which I'm okay with. - previously reported Nightmare prior to last appointment, not occurring often, generally well controlled with current therapy -Appetite: Well controlled with recent medication adjustment -Mood: I feel a little depression, but that is normal around this time of year, subjectively better than previous taylor - previously reported It's been okay. Easier to manage. -Anxiety Rating (10/10 being the worst): 1/10 since last appointment, previously reported 2-3/10 on average, manageable - living alone, being alone sometimes increases anxiety to increase -Depression Rating (10/10 being the worst): 0-1/10 on average, manageable -Anger/Irritabil ity Rating (10/10 being the worst): 3-5/10 on average, about the same as usual since most recent medication changes -Suicidal ideation: Denies current ideation - reports intermittent fleeting ideation, no plan or intent - attempted suicide in the past, 3 attempts previously, most recent attempt in 2019 or 2019, I feel grateful now that I am alive, that I survived the bullshit I was putting myself through, previous attempts include (strangulation with belt in response to a hallucination; took a bunch of Prozac another time; scariest attempt - took a bunch of Seroquel) - previous suicide attempts occurred in response to hallucinations (command hallucinations in the past, as well as psychological torture from hallucinations) -Thoughts of Self-Harm: Denies current ideation - reports previous cutting and burning behaviors -Homicidal ideation: Denies current or previous ideation or acts -Concentration/a ttention: Improved with recent medication adjustment -Psychotic Symptoms/Behavio rs (hallucinations, delusions, paranoia, etc.): Reports previously seeing, hearing, and feelings things - seeing people with animal parts - reports still has some hallucinations (mostly tactile, sexual touching) but not nearly as frequently, couple times monthly, not distressing usually - reports she has intermittent periods where hallucinations are noticeably worse for a few days consistently, resulting from and causing increased anxiety/stress -Manic Behaviors: Continues to deny blatant manic symptoms - reports shopping addiction, blew $500 in the past few days after receiving from friend - previously arrested in 2016 for marijuana - no hypersexuality, no decreased need for sleep/increased energy, no physical altercations in the past - reports previous verbal altercations, previously described as a hot head, has previously punched wall when agitated -Obsessive/Compu lsive Behaviors: Denies -Panic/PTSD: Panic attacks not often anymore -Coping strategies: Avoid stressors, breathing exercises, take a shower (cold), splash cold water on face, coloring Goals: I want to get to the point where I have my associates degree in IT. Social Activities: Spend time with family/goes to see parents Substance Use: -Caffeine - Monster, every couple days -Nicotine - Vapes daily -Alcohol - Previously, last drink months and months ago -Marijuana - Denies current use, previously smoked a lot, last use about 1 year ago -Other Substances - Denies previous or current other substance use Medical concerns or hospitalizations : RA Therapy: Not currently seeing therapy, interested Labs: LITHIUM LEVEL, TSH AND FREE T4 COMPLETED IN 03/2024, LITHIUM WNL, THYROID FUNCTION TESTS MILDLY ABNORMAL BUT IMPROVED AT THAT TIME - RECENTLY REPEATED THYROID FUNCTION TESTS INDICATED WORSENING THYROID FUNCTION, RECENTLY STARTED ON LEVOTHYROXINE 06/27/2024 Mood disorder (ICD-10 - F39) See assessment and plan for schizoaffective disorder 06/27/2024 PANCHITO (generalized anxiety disorder) (ICD-10 - F41.1) See assessment and plan for schizoaffective disorder 06/27/2024 PTSD (post-traumatic stress disorder) (ICD-10 - F43.10) Duration (acute/chronic), stability (controlled/uncon trolled): Chronic, improved with recent medication adjustments, see HPI Current medications/effic acy: Improved with recent medication adjustments Previous medication trials: Abilify, Haldol- caused disassociation, Seroquel- for hallucinations but increased hallucinations, Xanax- abused medication, trazodone- ineffective. Invega (caused fuzzy feeling), Risperidone (caused issues) Current/previous therapies: Not currently in therapy, interested Examination as documented - see pertinent aspects of office visit documentation. Pertinent diagnostics: LITHIUM LEVEL, TSH AND FREE T4 COMPLETED IN 03/2024, LITHIUM WNL, THYROID FUNCTION TESTS MILDLY ABNORMAL BUT IMPROVED AT THAT TIME - RECENTLY REPEATED THYROID FUNCTION TESTS INDICATED WORSENING THYROID FUNCTION, RECENTLY STARTED ON LEVOTHYROXINE CSA completed during previous appointment - UDS to be collected at follow up (patient unable to urinate during previous appointment). RECOMMENDATIONS: Continue/modify other medications as prescribed - educated patient/guardian on adverse effects, risks and benefits, as well as alternative treatments Consume well balanced diet, preferably low in saturated fats (solid at room temperature, such as butter, margarine, Crisco, etc) and low in sodium (<2,000mg per day). Consume plenty of fruits/vegetables , healthy grains/whole grains, unsaturated/healt hy fats (liquid at room temperature, such as olive oil, sunflower seed oil, canola, vegetable, etc.). Exercise regularly - Develop an exercise routine. 30 minutes of moderate exercise (walking at a brisk pace) 5 times per week is recommended. You should work hard enough to cause a sweat but still be able to talk with others while exercising. Exercise improves overall health - improves blood pressure and blood sugar, helps control weight, reduces stress, and improves mood. Practice stress reduction techniques, such as guided imagery, journaling, aromatherapy, acupuncture/acupr essure, deep breathing, etc. Practice healthy sleep hygiene - maintain regular routine, no caffeine after 1PM, no exercise 1-2 hours prior to bedtime, keep bedroom dark and cool, no TV or electronics while in bed. Consider melatonin as needed. Consider cognitive behavioral therapy for insomnia (CBT-I). Consider/Continue therapy. Consider substance cessation therapy as needed - contact office if desiring medication assisted therapy. Manage co-morbid conditions. Continue monitoring symptoms - report persistent or worsening/concern ing symptoms to the office or go to the ER. For mental health CRISIS, please reach out to [phone] (National Suicide and Crisis Lifeline), 911, go to the emergency department, or contact the [facility] Crisis Unit/Team. Follow up as scheduled in 2 weeks or sooner if necessary. Follow up with PCP and/or other specialists as advised. NEXT STEP: Consider further medication adjustments as needed. 06/27/2024 Night terrors (ICD-10 - F51.4) See assessment and plan for PTSD 06/27/2024 Binge eating (ICD-10 - R63.2) Duration (acute/chronic), stability (controlled/uncon trolled): Chronic, previously well controlled on lisdexamphetamine , slightly improved with recent addition of topiramate, hasn't had the chance to start increased dose of lisdexamphetamine , see HPI Current medications/effic acy: Somewhat, room for improvement Previous medication trials: Vyvanse, topiramate Current/previous therapies: Not currently in therapy, interested Examination as documented - see pertinent aspects of office visit documentation. Pertinent diagnostics: LITHIUM LEVEL, TSH AND FREE T4 COMPLETED IN 03/2024, LITHIUM WNL, THYROID FUNCTION TESTS MILDLY ABNORMAL BUT IMPROVED AT THAT TIME - RECENTLY REPEATED THYROID FUNCTION TESTS INDICATED WORSENING THYROID FUNCTION, RECENTLY STARTED ON LEVOTHYROXINE CSA completed during previous appointmjent - UDS to be collected at follow up (patient unable to urinate during previous appointment). RECOMMENDATIONS: INCREASE Vyvanse as prescribed (switching from twice daily dosing to once daily 60mg due to insurance denial of 30mg BID) - educated patient/guardian on adverse effects, risks and benefits, as well as alternative treatments CONTINUE topiramate as prescribed - educated patient/guardian on adverse effects, risks and benefits, as well as alternative treatments CONTINUE other medications as prescribed - educated patient/guardian on adverse effects, risks and benefits, as well as alternative treatments Consume well balanced diet, preferably low in saturated fats (solid at room temperature, such as butter, margarine, Crisco, etc) and low in sodium (<2,000mg per day). Consume plenty of fruits/vegetables , healthy grains/whole grains, unsaturated/healt hy fats (liquid at room temperature, such as olive oil, sunflower seed oil, canola, vegetable, etc.). Exercise regularly - Develop an exercise routine. 30 minutes of moderate exercise (walking at a brisk pace) 5 times per week is recommended. You should work hard enough to cause a sweat but still be able to talk with others while exercising. Exercise improves overall health - improves blood pressure and blood sugar, helps control weight, reduces stress, and improves mood. Practice stress reduction techniques, such as guided imagery, journaling, aromatherapy, acupuncture/acupr essure, deep breathing, etc. Practice healthy sleep hygiene - maintain regular routine, no caffeine after 1PM, no exercise 1-2 hours prior to bedtime, keep bedroom dark and cool, no TV or electronics while in bed. Consider melatonin as needed. Consider cognitive behavioral therapy for insomnia (CBT-I). Consider/Continue therapy. Consider substance cessation therapy as needed - contact office if desiring medication assisted therapy. Manage co-morbid conditions. Continue monitoring symptoms - report persistent or worsening/concern ing symptoms to the office or go to the ER. For mental health CRISIS, please reach out to [phone] ([employer] Suicide and Crisis Lifeline), 911, go to the emergency department, or contact the [facility] Crisis Unit/Team. Follow up as scheduled in 2 weeks or sooner if necessary. Follow up with PCP and/or other specialists as advised. NEXT STEP: Consider further medication adjustments as needed. 06/27/2024 Impaired concentration (ICD-10 - R41.840) Duration (acute/chronic), stability (controlled/uncon trolled): Chronic, well controlled on current medication regimen Current medications/effic acy: Yes Previous medication trials: [place] Current/previous therapies: Not currently in therapy, interested Examination as documented - see pertinent aspects of office visit documentation. Pertinent diagnostics: LITHIUM LEVEL, TSH AND FREE T4 COMPLETED IN 03/2024, LITHIUM WNL, THYROID FUNCTION TESTS MILDLY ABNORMAL BUT IMPROVED AT THAT TIME - RECENTLY REPEATED THYROID FUNCTION TESTS INDICATED WORSENING THYROID FUNCTION, RECENTLY STARTED ON LEVOTHYROXINE RECOMMENDATIONS: CONTINUE medications as prescribed - educated patient/guardian on adverse effects, risks and benefits, as well as alternative treatments Consume well balanced diet, preferably low in saturated fats (solid at room temperature, such as butter, margarine, Crisco, etc) and low in sodium (<2,000mg per day). Consume plenty of fruits/vegetables , healthy grains/whole grains, unsaturated/healt hy fats (liquid at room temperature, such as olive oil, sunflower seed oil, canola, vegetable, etc.). Exercise regularly - Develop an exercise routine. 30 minutes of moderate exercise (walking at a brisk pace) 5 times per week is recommended. You should work hard enough to cause a sweat but still be able to talk with others while exercising. Exercise improves overall health - improves blood pressure and blood sugar, helps control weight, reduces stress, and improves mood. Practice stress reduction techniques, such as guided imagery, journaling, aromatherapy, acupuncture/acupr essure, deep breathing, etc. Practice healthy sleep hygiene - maintain regular routine, no caffeine after 1PM, no exercise 1-2 hours prior to bedtime, keep bedroom dark and cool, no TV or electronics while in bed. Consider melatonin as needed. Consider cognitive behavioral therapy for insomnia (CBT-I). Consider/Continue therapy. Consider substance cessation therapy as needed - contact office if desiring medication assisted therapy. Manage co-morbid conditions. Continue monitoring symptoms - report persistent or worsening/concern ing symptoms to the office or go to the ER. For mental health CRISIS, please reach out to [phone] ([employer] Suicide and Crisis Lifeline), 911, go to the emergency department, or contact the [facility] Crisis Unit/Team. Follow up as scheduled in 2 weeks or sooner if necessary. Follow up with PCP and/or other specialists as advised. NEXT STEP: Consider further medication adjustments as needed. 06/27/2024 Hypothyroidism (ICD-10 - E03.9) Duration (acute/chronic), stability (controlled/uncon trolled): Recent labs indicated worsening thyroid function from previous measurements, patient also previously reportedly on levothyroxine for hypothyroidism, previously discontinued by a different provider - patient agreeable to restarting levothyroxine therapy Current medications/effic acy: N/A Previous medication trials: levothyroxine Current/previous therapies: N/A Examination as documented - see pertinent aspects of office visit documentation. Pertinent diagnostics: LITHIUM LEVEL, TSH AND FREE T4 COMPLETED IN 03/2024, LITHIUM WNL, THYROID FUNCTION TESTS MILDLY ABNORMAL BUT IMPROVED AT THAT TIME - RECENTLY REPEATED THYROID FUNCTION TESTS INDICATED WORSENING THYROID FUNCTION, RECENTLY STARTED ON LEVOTHYROXINE Differential diagnoses: Suspect likely related to chronic lithium administration RECOMMENDATIONS: CONTINUE levothyroxine as recently prescribed - educated patient/guardian on adverse effects, risks and benefits, as well as alternative treatments Continue/modify other medications as prescribed - educated patient/guardian on adverse effects, risks and benefits, as well as alternative treatments Consume well balanced diet, preferably low in saturated fats (solid at room temperature, such as butter, margarine, Crisco, etc) and low in sodium (<2,000mg per day). Consume plenty of fruits/vegetables , healthy grains/whole grains, unsaturated/healt hy fats (liquid at room temperature, such as olive oil, sunflower seed oil, canola, vegetable, etc.). Exercise regularly - Develop an exercise routine. 30 minutes of moderate exercise (walking at a brisk pace) 5 times per week is recommended. You should work hard enough to cause a sweat but still be able to talk with others while exercising. Exercise improves overall health - improves blood pressure and blood sugar, helps control weight, reduces stress, and improves mood. Practice stress reduction techniques, such as guided imagery, journaling, aromatherapy, acupuncture/acupr essure, deep breathing, etc. Practice healthy sleep hygiene - maintain regular routine, no caffeine after 1PM, no exercise 1-2 hours prior to bedtime, keep bedroom dark and cool, no TV or electronics while in bed. Consider melatonin as needed. Consider cognitive behavioral therapy for insomnia (CBT-I). Consider/Continue therapy. Consider/Continue substance cessation therapy as needed - contact office if desiring medication assisted therapy. Manage co-morbid conditions. Continue monitoring symptoms - report persistent or worsening/concern ing symptoms to the office or go to the ER. For mental health CRISIS, please reach out to [phone] ([employer] Suicide and Crisis Lifeline), 911, go to the emergency department, or contact the [facility] Crisis Unit/Team. Follow up as scheduled or sooner if necessary. Follow up with PCP and/or other specialists as advised. NEXT STEP: Will plan to repeat thyroid function testing in about 2 months 06/27/2024 Nicotine dependence (ICD-10 - F17.200) 06/27/2024 Other Plan Of Treatment Medication Medication Name Sig Start Date Stop Date Notes LORazepam 0.5 MG 1 tablet Orally Once a day Prazosin HCl 2 MG 1 capsule at bedtime - take with 5mg capsule for TOTAL of 7mg at bedtime Orally Once a day for 30 days Topiramate 50 MG 1 tablet Orally twic e daily for 30 days Propranolol HCl ER 80 MG 1 capsule Orall y once daily for 30 days Paliperidone ER 1.5 MG 1 tablet in the m orning Orally once daily - TOTAL 4.5mg daily for 30 days Paliperidone ER 3 MG 1 tablet in the awa fernando Orally once daily - TOTAL 4.5mg daily for 30 days Abilify 20 MG 1 tablet Orally Once a day for 30 days Desvenlafaxine Succinate ER 50 mg TAKE 1 TABLET BY MOUTH DAILY for 30 days Pace Carbonate ER 300 MG 3 tablets Or ally twice daily for 30 days Vyvanse 60 MG 1 capsule Orally onc e daily in the morning for 30 days 07/02/2024 Prazosin HCl 5 MG 1 tablet Orally twic e daily for 30 days Cogentin 0.5 MG 1 tablet Orally twic e a day for 30 days Treatment Notes Assessment Notes Schizoaffective disorder, bipolar type Duration (acute/chronic), stability (controlled/uncontrolled): Chronic, reported improvement with recent medication adjustments, still some room for improvement, see HPI Current medications/efficacy: Somewhat, room for improvement Previous medication trials: Abilify, Haldol- caused disassociation, Seroquel- for hallucinations but increased hallucinations, Xanax- abused medication, trazodone- ineffective. Invega (caused fuzzy feeling), Risperidone (caused issues) Current/previous therapies: Not currently in therapy, interested Examination as documented - see pertinent aspects of office visit documentation. Pertinent diagnostics: LITHIUM LEVEL, TSH AND FREE T4 COMPLETED IN 03/2024, LITHIUM WNL, THYROID FUNCTION TESTS MILDLY ABNORMAL BUT IMPROVED AT THAT TIME - RECENTLY REPEATED THYROID FUNCTION TESTS INDICATED WORSENING THYROID FUNCTION, RECENTLY STARTED ON LEVOTHYROXINE CSA completed during previous visit - UDS to be collected at follow up (patient unable to urinate during previous visit). RECOMMENDATIONS: DECREASE evening paliperidone as prescribed - educated patient/guardian on adverse effects, risks and benefits, as well as alternative treatments INCREASE aripiprazole as prescribed - educated patient/guardian on adverse effects, risks and benefits, as well as alternative treatments INCREASE lithium as prescribed to assist with mood/stability - educated patient/guardian on adverse effects, risks and benefits, as well as alternative treatments Continue/modify medications as prescribed - educated patient/guardian on adverse effects, risks and benefits, as well as alternative treatments Consume well balanced diet, preferably low in saturated fats (solid at room temperature, such as butter, margarine, Crisco, etc) and low in sodium (<2,000mg per day). Consume plenty of fruits/vegetables, healthy grains/whole grains, unsaturated/healthy fats (liquid at room temperature, such as olive oil, sunflower seed oil, canola, vegetable, etc.). Exercise regularly - Develop an exercise routine. 30 minutes of moderate exercise (walking at a brisk pace) 5 times per week is recommended. You should work hard enough to cause a sweat but still be able to talk with others while exercising. Exercise improves overall health - improves blood pressure and blood sugar, helps control weight, reduces stress, and improves mood. Practice stress reduction techniques, such as guided imagery, journaling, aromatherapy, acupuncture/acupressure, deep breathing, etc. Practice healthy sleep hygiene - maintain regular routine, no caffeine after 1PM, no exercise 1-2 hours prior to bedtime, keep bedroom dark and cool, no TV or electronics while in bed. Consider melatonin as needed. Consider cognitive behavioral therapy for insomnia (CBT-I). Consider/Continue therapy. Consider substance cessation therapy as needed - contact office if desiring medication assisted therapy. Manage co-morbid conditions. Continue monitoring symptoms - report persistent or worsening/concerning symptoms to the office or go to the ER. For mental health CRISIS, please reach out to [phone] ([employer] Suicide and Crisis Lifeline), 911, go to the emergency department, or contact the [facility] Crisis Unit/Team. Follow up as scheduled in 2 weeks or sooner if necessary. Follow up with PCP and/or other specialists as advised. NEXT STEP: Consider further medication adjustments as needed. Mood disorder See assessment and p rudy for schizoaffective disorder PANCHITO (generalized anxiety disorder) See a ssessment and plan for schizoaffective disorder PTSD (post-traumatic stress disorder) Duration (acute/chronic), stability (controlled/uncontrolled): Chronic, improved with recent medication adjustments, see HPI Current medications/efficacy: Improved with recent medication adjustments Previous medication trials: Abilify, Haldol- caused disassociation, Seroquel- for hallucinations but increased hallucinations, Xanax- abused medication, trazodone- ineffective. Invega (caused fuzzy feeling), Risperidone (caused issues) Current/previous therapies: Not currently in therapy, interested Examination as documented - see pertinent aspects of office visit documentation. Pertinent diagnostics: LITHIUM LEVEL, TSH AND FREE T4 COMPLETED IN 03/2024, LITHIUM WNL, THYROID FUNCTION TESTS MILDLY ABNORMAL BUT IMPROVED AT THAT TIME - RECENTLY REPEATED THYROID FUNCTION TESTS INDICATED WORSENING THYROID FUNCTION, RECENTLY STARTED ON LEVOTHYROXINE CSA completed during previous appointment - UDS to be collected at follow up (patient unable to urinate during previous appointment). RECOMMENDATIONS: Continue/modify other medications as prescribed - educated patient/guardian on adverse effects, risks and benefits, as well as alternative treatments Consume well balanced diet, preferably low in saturated fats (solid at room temperature, such as butter, margarine, Crisco, etc) and low in sodium (<2,000mg per day). Consume plenty of fruits/vegetables, healthy grains/whole grains, unsaturated/healthy fats (liquid at room temperature, such as olive oil, sunflower seed oil, canola, vegetable, etc.). Exercise regularly - Develop an exercise routine. 30 minutes of moderate exercise (walking at a brisk pace) 5 times per week is recommended. You should work hard enough to cause a sweat but still be able to talk with others while exercising. Exercise improves overall health - improves blood pressure and blood sugar, helps control weight, reduces stress, and improves mood. Practice stress reduction techniques, such as guided imagery, journaling, aromatherapy, acupuncture/acupressure, deep breathing, etc. Practice healthy sleep hygiene - maintain regular routine, no caffeine after 1PM, no exercise 1-2 hours prior to bedtime, keep bedroom dark and cool, no TV or electronics while in bed. Consider melatonin as needed. Consider cognitive behavioral therapy for insomnia (CBT-I). Consider/Continue therapy. Consider substance cessation therapy as needed - contact office if desiring medication assisted therapy. Manage co-morbid conditions. Continue monitoring symptoms - report persistent or worsening/concerning symptoms to the office or go to the ER. For mental health CRISIS, please reach out to [phone] (National Suicide and Crisis Lifeline), 911, go to the emergency department, or contact the [facility] Crisis Unit/Team. Follow up as scheduled in 2 weeks or sooner if necessary. Follow up with PCP and/or other specialists as advised. NEXT STEP: Consider further medication adjustments as needed. Night terrors See assessment and p rudy for PTSD Binge eating Duration (acute/chronic), stability (controlled/uncontrolled): Chronic, previously well controlled on lisdexamphetamine, slightly improved with recent addition of topiramate, hasn't had the chance to start increased dose of lisdexamphetamine, see HPI Current medications/efficacy: Somewhat, room for improvement Previous medication trials: Vyvanse, topiramate Current/previous therapies: Not currently in therapy, interested Examination as documented - see pertinent aspects of office visit documentation. Pertinent diagnostics: LITHIUM LEVEL, TSH AND FREE T4 COMPLETED IN 03/2024, LITHIUM WNL, THYROID FUNCTION TESTS MILDLY ABNORMAL BUT IMPROVED AT THAT TIME - RECENTLY REPEATED THYROID FUNCTION TESTS INDICATED WORSENING THYROID FUNCTION, RECENTLY STARTED ON LEVOTHYROXINE CSA completed during previous appointmjent - UDS to be collected at follow up (patient unable to urinate during previous appointment). RECOMMENDATIONS: INCREASE Vyvanse as prescribed (switching from twice daily dosing to once daily 60mg due to insurance denial of 30mg BID) - educated patient/guardian on adverse effects, risks and benefits, as well as alternative treatments CONTINUE topiramate as prescribed - educated patient/guardian on adverse effects, risks and benefits, as well as alternative treatments CONTINUE other medications as prescribed - educated patient/guardian on adverse effects, risks and benefits, as well as alternative treatments Consume well balanced diet, preferably low in saturated fats (solid at room temperature, such as butter, margarine, Crisco, etc) and low in sodium (<2,000mg per day). Consume plenty of fruits/vegetables, healthy grains/whole grains, unsaturated/healthy fats (liquid at room temperature, such as olive oil, sunflower seed oil, canola, vegetable, etc.). Exercise regularly - Develop an exercise routine. 30 minutes of moderate exercise (walking at a brisk pace) 5 times per week is recommended. You should work hard enough to cause a sweat but still be able to talk with others while exercising. Exercise improves overall health - improves blood pressure and blood sugar, helps control weight, reduces stress, and improves mood. Practice stress reduction techniques, such as guided imagery, journaling, aromatherapy, acupuncture/acupressure, deep breathing, etc. Practice healthy sleep hygiene - maintain regular routine, no caffeine after 1PM, no exercise 1-2 hours prior to bedtime, keep bedroom dark and cool, no TV or electronics while in bed. Consider melatonin as needed. Consider cognitive behavioral therapy for insomnia (CBT-I). Consider/Continue therapy. Consider substance cessation therapy as needed - contact office if desiring medication assisted therapy. Manage co-morbid conditions. Continue monitoring symptoms - report persistent or worsening/concerning symptoms to the office or go to the ER. For mental health CRISIS, please reach out to [phone] (National Suicide and Crisis Lifeline), 911, go to the emergency department, or contact the [facility] Crisis Unit/Team. Follow up as scheduled in 2 weeks or sooner if necessary. Follow up with PCP and/or other specialists as advised. NEXT STEP: Consider further medication adjustments as needed. Impaired concentration Duration (acute/chronic), stability (controlled/uncontrolled): Chronic, well controlled on current medication regimen Current medications/efficacy: Yes Previous medication trials: [place] Current/previous therapies: Not currently in therapy, interested Examination as documented - see pertinent aspects of office visit documentation. Pertinent diagnostics: LITHIUM LEVEL, TSH AND FREE T4 COMPLETED IN 03/2024, LITHIUM WNL, THYROID FUNCTION TESTS MILDLY ABNORMAL BUT IMPROVED AT THAT TIME - RECENTLY REPEATED THYROID FUNCTION TESTS INDICATED WORSENING THYROID FUNCTION, RECENTLY STARTED ON LEVOTHYROXINE RECOMMENDATIONS: CONTINUE medications as prescribed - educated patient/guardian on adverse effects, risks and benefits, as well as alternative treatments Consume well balanced diet, preferably low in saturated fats (solid at room temperature, such as butter, margarine, Crisco, etc) and low in sodium (<2,000mg per day). Consume plenty of fruits/vegetables, healthy grains/whole grains, unsaturated/healthy fats (liquid at room temperature, such as olive oil, sunflower seed oil, canola, vegetable, etc.). Exercise regularly - Develop an exercise routine. 30 minutes of moderate exercise (walking at a brisk pace) 5 times per week is recommended. You should work hard enough to cause a sweat but still be able to talk with others while exercising. Exercise improves overall health - improves blood pressure and blood sugar, helps control weight, reduces stress, and improves mood. Practice stress reduction techniques, such as guided imagery, journaling, aromatherapy, acupuncture/acupressure, deep breathing, etc. Practice healthy sleep hygiene - maintain regular routine, no caffeine after 1PM, no exercise 1-2 hours prior to bedtime, keep bedroom dark and cool, no TV or electronics while in bed. Consider melatonin as needed. Consider cognitive behavioral therapy for insomnia (CBT-I). Consider/Continue therapy. Consider substance cessation therapy as needed - contact office if desiring medication assisted therapy. Manage co-morbid conditions. Continue monitoring symptoms - report persistent or worsening/concerning symptoms to the office or go to the ER. For mental health CRISIS, please reach out to [phone] (National Suicide and Crisis Lifeline), 911, go to the emergency department, or contact the [facility] Crisis Unit/Team. Follow up as scheduled in 2 weeks or sooner if necessary. Follow up with PCP and/or other specialists as advised. NEXT STEP: Consider further medication adjustments as needed. Hypothyroidism Duration (acute/chronic), stability (controlled/uncontrolled): Recent labs indicated worsening thyroid function from previous measurements, patient also previously reportedly on levothyroxine for hypothyroidism, previously discontinued by a different provider - patient agreeable to restarting levothyroxine therapy Current medications/efficacy: N/A Previous medication trials: levothyroxine Current/previous therapies: N/A Examination as documented - see pertinent aspects of office visit documentation. Pertinent diagnostics: LITHIUM LEVEL, TSH AND FREE T4 COMPLETED IN 03/2024, LITHIUM WNL, THYROID FUNCTION TESTS MILDLY ABNORMAL BUT IMPROVED AT THAT TIME - RECENTLY REPEATED THYROID FUNCTION TESTS INDICATED WORSENING THYROID FUNCTION, RECENTLY STARTED ON LEVOTHYROXINE Differential diagnoses: Suspect likely related to chronic lithium administration RECOMMENDATIONS: CONTINUE levothyroxine as recently prescribed - educated patient/guardian on adverse effects, risks and benefits, as well as alternative treatments Continue/modify other medications as prescribed - educated patient/guardian on adverse effects, risks and benefits, as well as alternative treatments Consume well balanced diet, preferably low in saturated fats (solid at room temperature, such as butter, margarine, Crisco, etc) and low in sodium (<2,000mg per day). Consume plenty of fruits/vegetables, healthy grains/whole grains, unsaturated/healthy fats (liquid at room temperature, such as olive oil, sunflower seed oil, canola, vegetable, etc.). Exercise regularly - Develop an exercise routine. 30 minutes of moderate exercise (walking at a brisk pace) 5 times per week is recommended. You should work hard enough to cause a sweat but still be able to talk with others while exercising. Exercise improves overall health - improves blood pressure and blood sugar, helps control weight, reduces stress, and improves mood. Practice stress reduction techniques, such as guided imagery, journaling, aromatherapy, acupuncture/acupressure, deep breathing, etc. Practice healthy sleep hygiene - maintain regular routine, no caffeine after 1PM, no exercise 1-2 hours prior to bedtime, keep bedroom dark and cool, no TV or electronics while in bed. Consider melatonin as needed. Consider cognitive behavioral therapy for insomnia (CBT-I). Consider/Continue therapy. Consider/Continue substance cessation therapy as needed - contact office if desiring medication assisted therapy. Manage co-morbid conditions. Continue monitoring symptoms - report persistent or worsening/concerning symptoms to the office or go to the ER. For mental health CRISIS, please reach out to [phone] (National Suicide and Crisis Lifeline), 911, go to the emergency department, or contact the [facility] Crisis Unit/Team. Follow up as scheduled or sooner if necessary. Follow up with PCP and/or other specialists as advised. NEXT STEP: Will plan to repeat thyroid function testing in about 2 months Next Appt Details Follow Up: 2 Weeks - TELEPHO NE, Reason: 2 week psych follow up/med refill Provider Name:Moy Worrell, 07/10/2024 10:00:00 AM, [address] [facility] , [place], [address], Progress Notes * Qamar GARCIABrookeOB: (29 yo F)Acc No.[id number]:06/27/2024 Patient:?Qamar GARCIA te Provider:?Moy Worrell APN :1995???Age:29 Y???Sex:Female D ate:06/27/2024 Address:[address] [place], [place] [id number] Pcp:Jc Garcia Subjective: * Chief Complaints: * ???2 WK [phone] * HPI: ???Summary:?History of Presenting Illness: Patient is presenting for 3 week follow up. Has hearing for SSDI today, virtual Still having hallucinations daily BUT less frequent and less severe overall Still dealing with some anxiety/restlessness after taking evening paliperidone Still dealing with some irritability, wondering about increasing lithium Hasn't been able to increase Vyvanse to 30mg BID for binge eating due to insurance denial - wanting to try 60mg once daily Has taken lorazepam only twice since last appointment - reportedly helpful with panic/increased anxiety Other medications working well for patient Patient agreeable to increasing aripiprazole to assist with mood and hallucinations. Agreeable to decreasing paliperidone again to assist with anxiety/restlessness after administration. Agreeable to increasing lithium slightly to assist with mood/stability. Agreeable to increasing Vyvanse to 60mg once daily to assist with attention/binge eating. Agreeable to following up in 2 weeks, sooner if necessary. - - - - - - - - - - - - - - - - - - - - - - - - - - - - - - - - - - - - - - - - - - - - - - - - - - - - - - - - - - - - - - - - - - - - - - - - - - - - - - - PERTINENT HPI DETAILS FROM PREVIOUS APPOINTMENT: Patient is presenting for 2 week follow up. Propranolol was increased during previous appointment to assist with anxiety/panic/PTSD - prazosin increased to assist with PTSD and nightmares - reports both changes have been beneficial Reports she doesn't recal having any nightmares since increase, daytime symptoms of PTSD have also resolved with increase - mother reports that patient still seems restless in her sleep, sometimes swatting at things in her sleep or clenching her fist, seemingly fighting someone else Patient reports that she has paid close attention over the last few weeks to how each medication makes her feel - reports she believes paliperidone is causing some increasing anxiety and palpitations in the evening after taking medication - wondering about decreasing palpiperidone and increasing aripiprazole (as patient tolerates aripiprazole well without adverse effects) - this provider agreeable Mood and hallucinations are otherwise pretty well managed - patient still intermittently has breakthrough anxiety/panic (about 2-3 times weekly) - mother reports previously having to take patient to ER for this, ER would administer IM Ativan which has reportedly been helpful in the past Provider discussed adding an as needed prescription of lorazepam for breakthrough anxiety/panic - mother and patient agreeable Patient was also started on low dose topiramate to assist with binge eating - taking 25mg twice daily Reports medication has been helpful in managing binge eating - still room for improvement Vyvanse was also increased to 30mg twice daily during previous visit for this - hasn't picked up/had the opportunity to start increased dose yet CSA completed today - UDS to be collected at follow up (patient unable to urinate at this time). Patient agreeable to decreasing paliperidone to assist with anxiety in the evening after administration. Agreeable to increasing aripiprazole to continue helping with mood/hallucinations. Agreeable to increasing evening dose of prazosin to help with possible nightmares, see above. Agreeable to increasing topiramate to 50mg twice daily to assist further with binge eating. Agreeable to starting lorazepam NEEDED for breakthrough anxiety/panic. Agreeable to following up in 3 weeks IN PERSON, sooner if necessary - will collect UDS at this time. - - - - - - - - - - - - - - - - - - - - - - - - - - - - - - - - - - - - - - - - - - - - - - - - - - - - - - - - - - - - - - - - - - - - - - - - - - - - - - - -Medications Effectiveness: Somewhat, room for improvement -Medication Adherence: Yes -Side effects: Increased daytime sleepiness with recent medication adjustments -Previous Medication Trials:?Abilify, Haldol- caused disassociation, Seroquel- for hallucinations but increased hallucinations, Xanax- abused medication, trazodone- ineffective. Invega (caused fuzzy feeling), Risperidone (caused issues)? -Sleep: I've been sleeping like a rock - increased daytime sleepiness with recent medication adjustments -Nightmares/Night terrors: I have not been dreaming at all, which I'm okay with. - previously reported Nightmare prior to last appointment, not occurring often, generally well controlled with current therapy -Appetite: Well controlled with recent medication adjustment -Mood: I feel a little depression, but that is normal around this time of year, subjectively better than previous taylor - previously reported It's been okay. Easier to manage. -Anxiety Rating (10/10 being the worst): 1/10 since last appointment, previously reported?2-3/10 on average, manageable - living alone, being alone sometimes increases anxiety to increase? -Depression Rating (10/10 being the worst): 0-1/10 on average, manageable -Anger/Irritability Rating (10/10 being the worst): 3-5/10 on average, about the same as usual since most recent medication changes -Suicidal ideation: Denies current ideation - reports intermittent fleeting ideation, no plan or intent - attempted suicide in the past, 3 attempts previously, most recent attempt in 2019 or 2020, I feel grateful now that I am alive, that I survived the bullshit I was putting myself through, previous attempts include (strangulation with belt in response to a hallucination; took a bunch of Prozac another time; scariest attempt - took a bunch of Seroquel) - previous suicide attempts occurred in response to hallucinations (command hallucinations in the past, as well as psychological torture from hallucinations) -Thoughts of Self-Harm: Denies current ideation - reports previous cutting and burning behaviors -Homicidal ideation: Denies current or previous ideation or acts -Concentration/attention: Improved with recent medication adjustment -Psychotic Symptoms/Behaviors (hallucinations, delusions, paranoia, etc.): Reports previously seeing, hearing, and feelings things - seeing people with animal parts - reports still has some hallucinations (mostly tactile, sexual touching) but not nearly as frequently, couple times monthly, not distressing usually - reports she has intermittent periods where hallucinations are noticeably worse for a few days consistently, resulting from and causing increased anxiety/stress -Manic Behaviors: Continues to deny blatant manic symptoms - reports shopping addiction, blew $500 in the past few days after receiving from friend - previously arrested in 2016 for marijuana - no hypersexuality, no decreased need for sleep/increased energy, no physical altercations in the past - reports previous verbal altercations, previously described as a hot head, has previously punched wall when agitated -Obsessive/Compulsive Behaviors: Denies -Panic/PTSD: Panic attacks not often anymore -Coping strategies: Avoid stressors, breathing exercises, take a shower (cold), splash cold water on face, coloring Goals: I want to get to the point where I have my associates degree in IT. Social Activities: Spend time with family/goes to see parents Substance Use: -Caffeine - Monster, every couple days -Nicotine - Vapes daily -Alcohol - Previously, last drink months and months ago -Marijuana - Denies current use, previously smoked a lot, last use about 1 year ago -Other Substances - Denies previous or current other substance use Medical concerns or hospitalizations: RA Therapy: Not currently seeing therapy, interested Labs:?LITHIUM LEVEL, TSH AND FREE T4 COMPLETED IN 03/2024, LITHIUM WNL, THYROID FUNCTION TESTS MILDLY ABNORMAL BUT IMPROVED AT THAT TIME - RECENTLY REPEATED THYROID FUNCTION TESTS INDICATED WORSENING THYROID FUNCTION, RECENTLY STARTED ON LEVOTHYROXINE. ???PANCHITO-7 Screening:?1. Feeling nervous, anxious, or on edge?3.?2. Not being able to stop or control worrying?1.?3. Worrying too much about different things?1.?4. Trouble sleeping/relaxing?2.?5. Being so restless that it is hard to sit still?2.?6. Becoming easily annoyed or irritable?1.?7. Feeling afraid, as if something awful might happen?0.?PANCHITO-7 Score?Total score?10 : ???Depression Screening:?PHQ-9?Little interest or pleasure in doing things?Not at all ?Feeling down, depressed, or hopeless?Not at all ?Trouble falling or staying asleep, or sleeping too much?Not at all ?Feeling tired or having little energy?More than half the days ?Poor appetite or overeating?More than half the days ?Feeling bad about yourself or that you are a failure, or have let yourself or your family down?Not at all ?Trouble concentrating on things, such as reading the newspaper or watching television?More than half the days ?Moving or speaking so slowly that other people could have noticed; or the opposite, being so fidgety or restless that you have been moving around a lot more than usual?Several days ?Thoughts that you would be better off or of hurting yourself in some way?Not at all ?Total Score?7 ?Interpretation?Mild Depression ???Screening:?[place] Suicide Severity Rating Scale (LF)?Do you want to initiate with?Screener form ?1. Wish to be : Have you wished you were or wished you could go to sleep and not wake up??No ?2. Suicidal Thoughts: Have you actually had any thoughts of killing yourself??No ?6. Suicide Behaviour: Have you ever done anything,started to do anything, or prepared to end your life??No ?Interpretation:?Low Risk * ROS:?Psych ROS:?Constitutional?All systems negative unless indicated otherwise..?Psych?Denies AH/VH and delusions, Denies SI/HI - Reports continued intermittent hallucinations but overall improved with recent medication adjusments, see HPI.?*PSYCH ROS2:?mood swings?Denies mood lability.?Inattention?Denies - stable on current medication regimen.?Compulsive behavior?Denies compusive/impulsive behaviors.?Depression?Denies.?Catherine?Denies symptoms of catherine.?Appetite Binge eating behaviors - previously well controlled with lisdexamphetamine, recently started on topiramate which has reportedly been helpful, still some room for improvment.?Concentration?Denies - stable on current medication regimen.?Substance use?Denies.?Panic attacks?Denies.?Anxiety/Worry?Endorses, improving.?Irritability?Endorses, improving.?Self-Harm?Denies.?Sleep?Denies sleep difficulties.?Comments?See HPI for details.? * Medical History:? * Surgical History:?APPENDECTO MY CHOLECYSTECTOMY * Hospitalization/Major Diagno stic Procedure:?multple psychiatric hospitalizations for mood and SI most recent [place] * Family History:?Father: michael short, CHRONIC PAIN.?Mother: alive, HASIMOTOS DISORDERCHRONIC PAIN.?2 brother(s) , 2 sister(s) - healthy. .? Mother: Depression, anxiety Great uncle: Schizophrenia. * Social History:?Primary Social History:?Living Arrangement?Living Arrangement:?Independent Living ?Is this a supportive environment??Yes ?Alcohol Use?Alcohol Use Frequency:?Monthly or less ?Illicit Substance Usage?Illicit Substance Usage:?No ?Employment Status?Employment Status:?Unemployed ???Tobacco Use:?Tobacco Control (Standard)?Tobacco use:?Current smoker ?Additional Findings: Tobacco user?e-cigarette * Medications:?TakingCogentin 0.5 MG Tablet 1 tablet Orally twice a day Prazosin HCl 5 MG Capsule 1 tablet Orally twice daily Pace Carbonate ER 300 MG Tablet Extended Release 2 tablet in the morning and 3 at night Orally twice a day as directed Desvenlafaxine Succinate ER 50 mg Tablet Extended Release 24 Hour TAKE 1 TABLET BY MOUTH DAILY Abilify 15 MG Tablet 1 tablet Orally Once a day Paliperidone ER 6 MG Tablet Extended Release 24 Hour 1 tablet in the evening Orally once daily - TOTAL 7.5mg daily Paliperidone ER 1.5 MG Tablet Extended Release 24 Hour 1 tablet in the morning Orally once daily - TOTAL 10.5mg daily Propranolol HCl ER 80 MG Capsule Extended Release 24 Hour 1 capsule Orally once daily Symbicort 80-4.5 MCG/ACT Aerosol 1 puff as needed Inhalation Twice a day Ibuprofen 800 MG Tablet 1 tablet with food or milk as needed Orally twice a day Pregabalin 300 MG Capsule TAKE 1 CAPSULE BY MOUTH TWICE A DAY Albuterol Sulfate HFA 108 (90 Base) MCG/ACT Aerosol Solution 1 puff as needed Inhalation every 4 hrs Lidocaine 5 % Patch 1 patch remove after 12 hours Externally Once a day Lo Loestrin Fe 1 MG-10 MCG / 10 MCG Tablet TAKE 1 TABLET BY MOUTH DAILY Allergy Relief Cetirizine 10 mg Tablet TAKE 1 TABLET BY MOUTH DAILY Vitamin D (Cholecalciferol) 50 MCG (2000 UT) Capsule 1 capsule Orally Once a day Topiramate 50 MG Tablet 0.5 tablet twice daily for 14 days, THEN INCREASE to 1 tablet twice daily Orally Macrobid 100 MG Capsule 1 capsule with food Orally every 12 hrs Prazosin HCl 2 MG Capsule 1 capsule at bedtime - take with 5mg capsule for TOTAL of 7mg at bedtime Orally Once a day LORazepam 0.5 MG Tablet 1 tablet Orally Once a day As needed for SEVERE anxietyWegovy 0.25 MG/0.5ML Solution Auto-injector 0.5 mL Subcutaneous weekly Vyvanse 30 MG Capsule 1 capsule Orally once daily in the AM Vyvanse 20 MG Capsule 1 capsule Orally once daily in the afternoon Levothyroxine Sodium 50 MCG Tablet 1 tablet in the morning on an empty stomach Orally Once a day Doxycycline Hyclate 100 MG Capsule 1 capsule Orally Once a day Medication List reviewed and reconciled with the patientTaking Cogentin 0.5 MG Tablet 1 tablet Orally twice a day Taking Prazosin HCl 5 MG Capsule 1 tablet Orally twice daily Taking Pace Carbonate ER 300 MG Tablet Extended Release 2 tablet in the morning and 3 at night Orally twice a day as directed Taking Desvenlafaxine Succinate ER 50 mg Tablet Extended Release 24 Hour TAKE 1 TABLET BY MOUTH DAILY Taking Abilify 15 MG Tablet 1 tablet Orally Once a day Taking Paliperidone ER 6 MG Tablet Extended Release 24 Hour 1 tablet in the evening Orally once daily - TOTAL 7.5mg daily Taking Paliperidone ER 1.5 MG Tablet Extended Release 24 Hour 1 tablet in the morning Orally once daily - TOTAL 10.5mg daily Taking Propranolol HCl ER 80 MG Capsule Extended Release 24 Hour 1 capsule Orally once daily Taking Symbicort 80-4.5 MCG/ACT Aerosol 1 puff as needed Inhalation Twice a day Taking Ibuprofen 800 MG Tablet 1 tablet with food or milk as needed Orally twice a day Taking Pregabalin 300 MG Capsule TAKE 1 CAPSULE BY MOUTH TWICE A DAY Taking Albuterol Sulfate HFA 108 (90 Base) MCG/ACT Aerosol Solution 1 puff as needed Inhalation every 4 hrs Taking Lidocaine 5 % Patch 1 patch remove after 12 hours Externally Once a day Taking Lo Loestrin Fe 1 MG-10 MCG / 10 MCG Tablet TAKE 1 TABLET BY MOUTH DAILY Taking Allergy Relief Cetirizine 10 mg Tablet TAKE 1 TABLET BY MOUTH DAILY Taking Vitamin D (Cholecalciferol) 50 MCG (2000 UT) Capsule 1 capsule Orally Once a day Taking Topiramate 50 MG Tablet 0.5 tablet twice daily for 14 days, THEN INCREASE to 1 tablet twice daily Orally Taking Macrobid 100 MG Capsule 1 capsule with food Orally every 12 hrs Taking Prazosin HCl 2 MG Capsule 1 capsule at bedtime - take with 5mg capsule for TOTAL of 7mg at bedtime Orally Once a day Taking LORazepam 0.5 MG Tablet 1 tablet Orally Once a day As needed for SEVERE anxietyTaking Wegovy 0.25 MG/0.5ML Solution Auto-injector 0.5 mL Subcutaneous weekly Taking Vyvanse 30 MG Capsule 1 capsule Orally once daily in the AM Taking Vyvanse 20 MG Capsule 1 capsule Orally once daily in the afternoon Taking Levothyroxine Sodium 50 MCG Tablet 1 tablet in the morning on an empty stomach Orally Once a day Taking Doxycycline Hyclate 100 MG Capsule 1 capsule Orally Once a day Medication List reviewed and reconciled with the patient Objective: * Vitals:?Initials: CJP, Wt:34 0, Ht: 66, BMI:54.87, LMP: 05/2024, Pain scale:6. * Examination: ???Mental Status Exam: ?SENSORIUM AND COGNITION?Alert, Oriented to Person, Oriented to Place, Oriented to Time, Oriented to Situation.?ATTENTION AND CONCENTRATION?No deficits.?APPEARANCE?Unable to assess due to telephone communication - previously documented Appropriate.?ATTITUDE AND BEHAVIOR?Cooperative.?MEMORY?Grossly intact.?EYE CONTACT?Unable to assess due to telephone communication - previously documented Good.?AFFECT?Unable to assess due to telephone communication - inferred to be mildly anxious/dysthymic - previously documented Mildly dysthymic/anxious but improving.?MOOD?Unable to assess due to telephone communication - inferred to be mildly anxious/dysthymic - previously documented Mildly dysthymic/anxious but improving.?SPEECH QUANTITY?Appropriate.?SPEECH QUALITY?Spontaneous, Appropriate volume.?THOUGHT PROCESS?Coherent and goal directed, slight circumstantiality noted.?THOUGHT CONTENT?Continued hallucinations, reportedly improving, see HPI - patient didn't respond to internal stimuli during appointment.?LANGUAGE?Appropriate- WNL.?MOTOR ACTIVITY?Unable to assess due to telephone communication -? denies abnormal movements/gait - previously documented Normal gait, no abnormal movements/tics noted.?SUICIDAL IDEATION?Denies suicidal ideation.?HOMICIDAL IDEATION?Denies homicidal ideation.?HALLUCINATIONS?Continued hallucinations, reportedly improving, see HPI - patient didn't respond to internal stimuli during appointment.?INSIGHT?Good.?JUDGMENT?Good.?General Examination: ?GENERAL APPEARANCE:?Unable to perform physical examination - patient verbalizes no concerns during telephone communication.? Assessment: * Assessment: 1.?Schizoaffective disorder, bipolar type - F25.0 (Primary)???2.?Mood disorder - F39???3.?PANCHITO (generalized anxiety disorder) - F41.1???4.?PTSD (post-traumatic stress disorder) - F43.10???5.?Night terrors - F51.4 ??6.?Binge eating - R63.2???7.?Impaired concentration - R41.840???8.?Hypothyroidism - E03.9???9.?Nicotine dependence - F17.200??? Plan: * Treatment: 2.?Mood disorder? Increase Pace Carbonate ER Tablet Extended Release, 300 MG, 3 tablets, Orally, twice daily, 30 days, 180, Refills 1;?Refill Desvenlafaxine Succinate ER Tablet Extended Release 24 Hour, 50 mg, TAKE 1 TABLET BY MOUTH DAILY, 30 days, 30, Refills 1;?Continue LORazepam Tablet, 0.5 MG, 1 tablet, Orally, Once a day As needed for SEVERE anxiety, 14, Refills 0.?? Notes: See assessment and plan for schizoaffective disorder?? 3.?PANCHITO (generalized anxiety disorder)? Refill Propranolol HCl ER Capsule Extended Release 24 Hour, 80 MG, 1 capsule, Orally, once daily, 30 days, 30, Refills 1.?? Notes: See assessment and plan for schizoaffective disorder?? 4.?PTSD (post-traumatic stre ss disorder)? Refill Prazosin HCl Capsule, 5 MG, 1 tablet, Orally, twice daily, 30 days, 60, Refills 1;?Refill Prazosin HCl Capsule, 2 MG, 1 capsule at bedtime - take with 5mg capsule for TOTAL of 7mg at bedtime, Orally, Once a day, 30 days, 30 Capsule, Refills 0.?? Notes: Duration (acute/chronic), stability (controlled/uncontrolled): Chronic, improved with recent medication adjustments, see HPI Current medications/efficacy: Improved with recent medication adjustments Previous medication trials: Abilify, Haldol- caused disassociation, Seroquel- for hallucinations but increased hallucinations, Xanax- abused medication, trazodone- ineffective. Invega (caused fuzzy feeling), Risperidone (caused issues) Current/previous therapies: Not currently in therapy, interested Examination as documented - see pertinent aspects of office visit documentation. Pertinent diagnostics: LITHIUM LEVEL, TSH AND FREE T4 COMPLETED IN 03/2024, LITHIUM WNL, THYROID FUNCTION TESTS MILDLY ABNORMAL BUT IMPROVED AT THAT TIME - RECENTLY REPEATED THYROID FUNCTION TESTS INDICATED WORSENING THYROID FUNCTION, RECENTLY STARTED ON LEVOTHYROXINE CSA completed during previous appointment - UDS to be collected at follow up (patient unable to urinate during previous appointment). RECOMMENDATIONS: Continue/modify other medications as prescribed - educated patient/guardian on adverse effects, risks and benefits, as well as alternative treatments Consume well balanced diet, preferably low in saturated fats (solid at room temperature, such as butter, margarine, Crisco, etc) and low in sodium (<2,000mg per day). Consume plenty of fruits/vegetables, healthy grains/whole grains, unsaturated/healthy fats (liquid at room temperature, such as olive oil, sunflower seed oil, canola, vegetable, etc.). Exercise regularly - Develop an exercise routine. 30 minutes of moderate exercise (walking at a brisk pace) 5 times per week is recommended. You should work hard enough to cause a sweat but still be able to talk with others while exercising. Exercise improves overall health - improves blood pressure and blood sugar, helps control weight, reduces stress, and improves mood. Practice stress reduction techniques, such as guided imagery, journaling, aromatherapy, acupuncture/acupressure, deep breathing, etc. Practice healthy sleep hygiene - maintain regular routine, no caffeine after 1PM, no exercise 1-2 hours prior to bedtime, keep bedroom dark and cool, no TV or electronics while in bed. Consider melatonin as needed. Consider cognitive behavioral therapy for insomnia (CBT-I). Consider/Continue therapy. Consider substance cessation therapy as needed - contact office if desiring medication assisted therapy. Manage co-morbid conditions. Continue monitoring symptoms - report persistent or worsening/concerning symptoms to the office or go to the ER. For mental health CRISIS, please reach out to [phone] (National Suicide and Crisis Lifeline), 911, go to the emergency department, or contact the [facility] Crisis Unit/Team. Follow up as scheduled in 2 weeks or sooner if necessary. Follow up with PCP and/or other specialists as advised. NEXT STEP: Consider further medication adjustments as needed.?? 5.?Night terrors? Notes: See assessment and plan for PTSD?? 6.?Binge eating? Increase Vyvanse Capsule, 60 MG, 1 capsule, Orally, once daily in the morning, 30 days, 30, Refills 0;?Refill Topiramate Tablet, 50 MG, 1 tablet, Orally, twice daily, 30 days, 60, Refills 0.?? Notes: Duration (acute/chronic), stability (controlled/uncontrolled): Chronic, previously well controlled on lisdexamphetamine, slightly improved with recent addition of topiramate, hasn't had the chance to start increased dose of lisdexamphetamine, see HPI Current medications/efficacy: Somewhat, room for improvement Previous medication trials: Vyvanse, topiramate Current/previous therapies: Not currently in therapy, interested Examination as documented - see pertinent aspects of office visit documentation. Pertinent diagnostics: LITHIUM LEVEL, TSH AND FREE T4 COMPLETED IN 03/2024, LITHIUM WNL, THYROID FUNCTION TESTS MILDLY ABNORMAL BUT IMPROVED AT THAT TIME - RECENTLY REPEATED THYROID FUNCTION TESTS INDICATED WORSENING THYROID FUNCTION, RECENTLY STARTED ON LEVOTHYROXINE CSA completed during previous appointmjent - UDS to be collected at follow up (patient unable to urinate during previous appointment). RECOMMENDATIONS: INCREASE Vyvanse as prescribed (switching from twice daily dosing to once daily 60mg due to insurance denial of 30mg BID) - educated patient/guardian on adverse effects, risks and benefits, as well as alternative treatments CONTINUE topiramate as prescribed - educated patient/guardian on adverse effects, risks and benefits, as well as alternative treatments CONTINUE other medications as prescribed - educated patient/guardian on adverse effects, risks and benefits, as well as alternative treatments Consume well balanced diet, preferably low in saturated fats (solid at room temperature, such as butter, margarine, Crisco, etc) and low in sodium (<2,000mg per day). Consume plenty of fruits/vegetables, healthy grains/whole grains, unsaturated/healthy fats (liquid at room temperature, such as olive oil, sunflower seed oil, canola, vegetable, etc.). Exercise regularly - Develop an exercise routine. 30 minutes of moderate exercise (walking at a brisk pace) 5 times per week is recommended. You should work hard enough to cause a sweat but still be able to talk with others while exercising. Exercise improves overall health - improves blood pressure and blood sugar, helps control weight, reduces stress, and improves mood. Practice stress reduction techniques, such as guided imagery, journaling, aromatherapy, acupuncture/acupressure, deep breathing, etc. Practice healthy sleep hygiene - maintain regular routine, no caffeine after 1PM, no exercise 1-2 hours prior to bedtime, keep bedroom dark and cool, no TV or electronics while in bed. Consider melatonin as needed. Consider cognitive behavioral therapy for insomnia (CBT-I). Consider/Continue therapy. Consider substance cessation therapy as needed - contact office if desiring medication assisted therapy. Manage co-morbid conditions. Continue monitoring symptoms - report persistent or worsening/concerning symptoms to the office or go to the ER. For mental health CRISIS, please reach out to [phone] (National Suicide and Crisis Lifeline), 911, go to the emergency department, or contact the [facility] Crisis Unit/Team. Follow up as scheduled in 2 weeks or sooner if necessary. Follow up with PCP and/or other specialists as advised. NEXT STEP: Consider further medication adjustments as needed. ?? 7.?Impaired concentration? Notes: Duration (acute/chronic), stability (controlled/uncontrolled): Chronic, well controlled on current medication regimen Current medications/efficacy: Yes Previous medication trials: [place] Current/previous therapies: Not currently in therapy, interested Examination as documented - see pertinent aspects of office visit documentation. Pertinent diagnostics: LITHIUM LEVEL, TSH AND FREE T4 COMPLETED IN 03/2024, LITHIUM WNL, THYROID FUNCTION TESTS MILDLY ABNORMAL BUT IMPROVED AT THAT TIME - RECENTLY REPEATED THYROID FUNCTION TESTS INDICATED WORSENING THYROID FUNCTION, RECENTLY STARTED ON LEVOTHYROXINE RECOMMENDATIONS: CONTINUE medications as prescribed - educated patient/guardian on adverse effects, risks and benefits, as well as alternative treatments Consume well balanced diet, preferably low in saturated fats (solid at room temperature, such as butter, margarine, Crisco, etc) and low in sodium (<2,000mg per day). Consume plenty of fruits/vegetables, healthy grains/whole grains, unsaturated/healthy fats (liquid at room temperature, such as olive oil, sunflower seed oil, canola, vegetable, etc.). Exercise regularly - Develop an exercise routine. 30 minutes of moderate exercise (walking at a brisk pace) 5 times per week is recommended. You should work hard enough to cause a sweat but still be able to talk with others while exercising. Exercise improves overall health - improves blood pressure and blood sugar, helps control weight, reduces stress, and improves mood. Practice stress reduction techniques, such as guided imagery, journaling, aromatherapy, acupuncture/acupressure, deep breathing, etc. Practice healthy sleep hygiene - maintain regular routine, no caffeine after 1PM, no exercise 1-2 hours prior to bedtime, keep bedroom dark and cool, no TV or electronics while in bed. Consider melatonin as needed. Consider cognitive behavioral therapy for insomnia (CBT-I). Consider/Continue therapy. Consider substance cessation therapy as needed - contact office if desiring medication assisted therapy. Manage co-morbid conditions. Continue monitoring symptoms - report persistent or worsening/concerning symptoms to the office or go to the ER. For mental health CRISIS, please reach out to [phone] (National Suicide and Crisis Lifeline), 911, go to the emergency department, or contact the [facility] Crisis Unit/Team. Follow up as scheduled in 2 weeks or sooner if necessary. Follow up with PCP and/or other specialists as advised. NEXT STEP: Consider further medication adjustments as needed.?? 8.?Hypothyroidism? Notes: Duration (acute/chronic), stability (controlled/uncontrolled): Recent labs indicated worsening thyroid function from previous measurements, patient also previously reportedly on levothyroxine for hypothyroidism, previously discontinued by a different provider - patient agreeable to restarting levothyroxine therapy Current medications/efficacy: N/A Previous medication trials: levothyroxine Current/previous therapies: N/A Examination as documented - see pertinent aspects of office visit documentation. Pertinent diagnostics: LITHIUM LEVEL, TSH AND FREE T4 COMPLETED IN 03/2024, LITHIUM WNL, THYROID FUNCTION TESTS MILDLY ABNORMAL BUT IMPROVED AT THAT TIME - RECENTLY REPEATED THYROID FUNCTION TESTS INDICATED WORSENING THYROID FUNCTION, RECENTLY STARTED ON LEVOTHYROXINE Differential diagnoses: Suspect likely related to chronic lithium administration RECOMMENDATIONS: CONTINUE levothyroxine as recently prescribed - educated patient/guardian on adverse effects, risks and benefits, as well as alternative treatments Continue/modify other medications as prescribed - educated patient/guardian on adverse effects, risks and benefits, as well as alternative treatments Consume well balanced diet, preferably low in saturated fats (solid at room temperature, such as butter, margarine, Crisco, etc) and low in sodium (<2,000mg per day). Consume plenty of fruits/vegetables, healthy grains/whole grains, unsaturated/healthy fats (liquid at room temperature, such as olive oil, sunflower seed oil, canola, vegetable, etc.). Exercise regularly - Develop an exercise routine. 30 minutes of moderate exercise (walking at a brisk pace) 5 times per week is recommended. You should work hard enough to cause a sweat but still be able to talk with others while exercising. Exercise improves overall health - improves blood pressure and blood sugar, helps control weight, reduces stress, and improves mood. Practice stress reduction techniques, such as guided imagery, journaling, aromatherapy, acupuncture/acupressure, deep breathing, etc. Practice healthy sleep hygiene - maintain regular routine, no caffeine after 1PM, no exercise 1-2 hours prior to bedtime, keep bedroom dark and cool, no TV or electronics while in bed. Consider melatonin as needed. Consider cognitive behavioral therapy for insomnia (CBT-I). Consider/Continue therapy. Consider/Continue substance cessation therapy as needed - contact office if desiring medication assisted therapy. Manage co-morbid conditions. Continue monitoring symptoms - report persistent or worsening/concerning symptoms to the office or go to the ER. For mental health CRISIS, please reach out to 988 (National Suicide and Crisis Lifeline), 911, go to the emergency department, or contact the [facility] Crisis Unit/Team. Follow up as scheduled or sooner if necessary. Follow up with PCP and/or other specialists as advised. NEXT STEP: Will plan to repeat thyroid function testing in about 2 months?? * Procedure Codes:?3008F BODY MASS INDEX [id number] MEDICAL NUTRITION, INDIV, [id number] BEHAV CHNG SMOKING 3-10 MIN * Preventive Medicine:? ??Counseling:?Care goal follow-up plan:?BMI management provided?Yes ?Above Normal BMI Follow-up?Lifestyle education regarding diet ?SMOKING:?Patient counselled on the dangers of tobacco use and urged to quit.?. * Follow Up:?2 Weeks - TELEPHO NE (Reason: 2 week psych follow up/med refill) * * UCT RESPONSIBILITY LIAISON Sign off status: Completed true * Provider:?Moy Worrell APN Date:?06/27 Generated for Emily aguero/Heidi/Lashellsmitting on:?07/08/2024 04:36 AM PRODUCT RESPONSIBILITY LIAISON History and Physical Notes * HPI (History of Present Illness) Category Sub-Category Detail Notes Category Not es Depression Screening PHQ-9 Little inte rest or pleasure in doing things: Not at all Feeling down, depressed, or hopeless: No t at all Trouble falling or staying asleep, or sl eeping too much: Not at all Feeling tired or having little energy: M ore than half the days Poor appetite or overeating: More than h chacorta the days Feeling bad about yourself o r that you are a failure, or have let yourself or your family down: Not at all Trouble concentrating on thi ngs, such as reading the newspaper or watching television: More than half the days Moving or speaking so slowly that other people could have noticed; or the opposite, being so fidgety or restless that you have been moving around a lot more than usual: Several days Thoughts that you would be b hoda off or of hurting yourself in some way: Not at all Total Score: 7 Interpretation: Mild Depression PANCHITO-7 Screening 1. Feeling nervous, anxious, or on edg e 3 2. Not being able to stop or control wor rying 1 3. Worrying too much about different thi ngs 1 4. Trouble sleeping/relaxing 2 5. Being so restless that it is hard to sit still 2 6. Becoming easily annoyed or irritable 1 7. Feeling afraid, as if something awful might happen 0 PANCHITO-7 Score Total score: 10 : Screening [place] Suicide Sev erity Rating Scale (LF) Do you want to initiate with: Screener form ?1. Wish to be : Have yo u wished you were or wished you could go to sleep and not wake up?: No ?2. Suicidal Thoughts: Have you actually had any thoughts of killing yourself?: No ?6. Suicide Behaviour: Have you ever done anything,started to do anything, or prepared to end your life?: No ?Interpretation:: Low Risk Examination Category Sub-Category Detail Notes Category Not es General Examination GENERAL APPEARANCE: Unable t o perform physical examination - patient verbalizes no concerns during telephone communication Mental Status Exam SENSORIUM AND COGNITION Alert, Oriented to Person, Oriented to Place, Oriented to Time, Oriented to Situation ATTENTION AND CONCENTRATION No deficits APPEARANCE Unable to assess due to telephone communication - previously documented Appropriate ATTITUDE AND BEHAVIOR Cooperative MEMORY Grossly intact EYE CONTACT Unable to assess due to telephone communication - previously documented Good AFFECT Unable to assess due to telephone communication - inferred to be mildly anxious/dysthymic - previously documented Mildly dysthymic/anxious but improving MOOD Unable to assess due to telephone communication - inferred to be mildly anxious/dysthymic - previously documented Mildly dysthymic/anxious but improving SPEECH QUANTITY Appropriate SPEECH QUALITY Spontaneous, Appropr iate volume THOUGHT PROCESS Coherent and goal di rected, slight circumstantiality noted THOUGHT CONTENT Continued hallucinat ions, reportedly improving, see HPI - patient didn't respond to internal stimuli during appointment MOTOR ACTIVITY Unable to assess due to telephone communication - denies abnormal movements/gait - previously documented Normal gait, no abnormal movements/tics noted SUICIDAL IDEATION Denies suicidal idea tion HOMICIDAL IDEATION Denies homicidal fiona ation HALLUCINATIONS Continued hallucinat ions, reportedly improving, see HPI - patient didn't respond to internal stimuli during appointment INSIGHT Good JUDGMENT Good LANGUAGE Appropriate- WNL
--- OUTSIDE RECORDS SUMMARY | 2024-07-08 04:36 | XMS_ITS ---
Author Organization [facility] joe Address [address] [place] [address] Care Team Providers Care Airport Refueling Handler Name Role Phone Charlotte Donald Unavailable [phone] zzzzMigration, zzzzProvider Unavailable Unav ailable REASON FOR VISIT EMR-[facility] Encounters Encounter Location Date Provider Diagnosis [facility] [address] [place] [address] 04/08/2023 zzzzProvider zzzzMigration Plan Of Treatment No Information Progress Notes * Hali GARCIA ADOB:0 1995 (29 yo F)Acc No.[id number]:04/08/2023 Patient:?GARCIAQamar DUFFY keily Coronel :1995???Age:28 Y???Sex:Female Address:[address] [address] Subjective: * Chief Complaints: * ???EMR-[facility] * Medical History:? * Surgical History:? * Hospitalization/Major Diagno stic Procedure:? * Medications:? Objective: * Vitals:? * Physical Examination:? Assessment: Plan: * Treatment: * Procedure Codes:? * * Date:?
--- OUTSIDE RECORDS SUMMARY | 2024-07-08 04:36 | XMS_ITS ---
Author Organization [facility] Address [address] [place] [address] Care Team Providers Care Brusher Hand Name Role Phone GarciaMusaJc Primary Care Provider [phone] Moy Jacobsen [phone] Medications Medication SIG (Take, Route, Frequency, Duration) Notes Start Date End Date Status Levothyroxine Sodium 50 MCG 1 tablet in the morning on an empty stomach Orally Once a day for 30 days 06/20/2024 Active Social History Sex Assigned At : Social History Observation Description Sex Assigned At Female Problems Problem Type SNOMED Code ICD Code Onset Dates Problem Status W/U Status Risk Notes Problem Hypothyroidism (65927899) Hypothyroidism (E03.9) Active confirmed Encounters Encounter Location Date Provider Diagnosis [place] [address] [address] 06/20/2024 Moy Worrell Hypothyroidism E03.9 Assessments Encounter Date Diagnosis (ICD Code) Assessment Notes Treatment Notes Treatment Clinical Notes Section Notes 06/20/2024 Hypothyroidism (ICD-10 - E03.9) Plan Of Treatment Medication Medication Name Sig Start Date Stop Date Notes Levothyroxine Sodium 50 MCG 1 tablet in the morning on an empty stomach Orally Once a day for 30 days 06/20/2024 Next Appt Details Provider Name:Moy Worrell, 07/10/2024 10:00:00 AM, [address] [place], [address], Progress Notes * Annamaria GARCIAOB: (29 yo F)Acc No.[id number]:06/20/2024 Patient:?Qamar GARCIA :1995???Age:29 Y???Sex:Female Address:[address] [place] [address], [address] * Refills? Start Levothyroxine Sodium Tablet, 50 MCG, Orally, 30, 1 tablet in the morning on an empty stomach, Once a day, 30 days, Refills=1 Subjective: * Chief Complaints: * ??? * Medical History:? * Surgical History:? * Hospitalization/Major Diagno stic Procedure:? * Medications:? Objective: * Vitals:? * Physical Examination:? Assessment: * Assessment: 1.?Hypothyroidism - E03.9 (P rimary)??? Plan: * Treatment: * Procedure Codes:? * true * Date:? Generated for Emily aguero/Heidi/Lashellsmitting on:?07/08/2024 04:36 AM EXPORT FREIGHT CLERK
--- OUTSIDE RECORDS SUMMARY | 2024-07-08 04:36 | XMS_ITS ---
Author Organization [facility] Address [address] [place] [address] Care Team Providers Care Junior Project Manager Name Role Phone Jc Garcia Primary Care Provider REASON FOR VISIT requesting doxycycline or other antibiotic Medications Medication SIG (Take, Route, Frequency, Duration) Notes Start Date End Date Status Doxycycline Hyclate 100 MG 1 capsule Ora lly Once a day for 10 day(s) 06/25/2024 Active Social History Sex Assigned At : Social History Observation Description Sex Assigned At Female Encounters Encounter Location Date Provider Diagnosis [address] [place] [address] 06/24/2024 Jc Garcia Plan Of Treatment Medication Medication Name Sig Start Date Stop Date Notes Doxycycline Hyclate 100 MG 1 capsule Ora lly Once a day for 10 day(s) 06/25/2024 Next Appt Details Provider Name:Moy Worrell, 07/10/2024 10:00:00 AM, [address] [facility] , [place], [address], Progress Notes * Annamaria GARCIAOB: (29 yo F)Acc No.[id number]:06/24/2024 Patient:?GARCIAQamar DUFFY keily :1995???Age:29 Y???Sex:Female Address:[address] [place], [address] * Refills? Start Doxycycline Hyclate Capsule, 100 MG, Orally, 10, 1 capsule, Once a day, 10 day(s) * true * Date:? Generated for Emily aguero/Heidi/Jairoitting on:?07/08/2024 04:36 AM HOT BOX SPOTTER
--- OUTSIDE RECORDS SUMMARY | 2024-07-08 04:36 | XMS_ITS | Patient Health Record ---
Author Organization [facility] Address [address] [place] [address] Care Team Providers Care Blanket Inspector Name Role Phone Charlotte Donald Unavailable [phone] Reason For Referral No Information Plan Of Treatment No Information Insurance Providers Payer Name Payer Address Payer Phone Subscriber Number Group Number Insured Name Patient Relationship to Insured Coverage Start Date Coverage End Date DO NOT USE [id number] Hali Garcia Self - patient is the insured 8
--- OUTSIDE RECORDS SUMMARY | 2024-07-08 04:36 | XMS_ITS ---
Author Organization [facility] joe Address [address] [place] [address] Care Team Providers Care Solar Panel Technician Name Role Phone Charlotte Donald Unavailable [phone] zzzzMigration, zzzzProvider Unavailable Unav ailable REASON FOR VISIT [place] [place] Encounters Encounter Location Date Provider Diagnosis [facility] [address] [place] [address] 04/07/2023 zzzzProvider zzzzMigration Plan Of Treatment No Information Progress Notes * Hali GARCIA ADOB:0 1995 (29 yo F)Acc No.[id number]:04/07/2023 Patient:?GARCIA, Qamar keily Coronel :1995???Age:28 Y???Sex:Female Address:[address] [facility] [address] [facility] [address] Subjective: * Chief Complaints: * ???EM[place]-[facility] [place] * Medical History:? * Surgical History:? * Hospitalization/Major Diagno stic Procedure:? * Medications:? Objective: * Vitals:? * Physical Examination:? Assessment: Plan: * Treatment: * Procedure Codes:? * * Date:?
== END | disposition home or self-care (01) ==
PROVIDERS: Anesthesiology; PCP Nurse Practitioner; Visit Provider Anesthesiology Pain Medicine
DX: M47.817 Spondylosis without myelopathy or radiculopathy, lumbosacral region (principal); M54.9 Dorsalgia, unspecified; G89.4 Chronic pain syndrome; J45.909 Unspecified asthma, uncomplicated; F17.210 Nicotine dependence, cigarettes, uncomplicated; F12.90 Cannabis use, unspecified, uncomplicated; Z53.8 Procedure and treatment not carried out for other reasons; Z79.899 Other long term (current) drug therapy; Z79.1 Long term (current) use of non-steroidal anti-inflammatories (NSAID); Z98.890 Other specified postprocedural states; Z90.49 Acquired absence of other specified parts of digestive tract
CPT/HCPCS: 36415; 80178; 99211; G0463; J7120

== ENCOUNTER 2024-08-12 00:32 | Day surgery (SDC) | payer OTHER, SELFPAY ==
[2024-08-05 10:50] VITALS: BMI 54.9
--- NOTE | 2024-08-05 10:52 | PC.NURSE ---
Addendum entered by Byron Enamorado RN 08/05/24 15:43: Patient and mother were told she should not eat or drink after midnight except for some water with her medicines. Original Note: Report to the Outpatient Waiting Room, entrance under the green pavilion located off [facility], at time _0900_ on date _[id number]_. Planned Procedure Time: _1100_.? Time changes happen often and if your time is changed the preop area will call you the afternoon before. - You and your visitor will be asked to self-screen and do not enter if you have any COVID symptoms. Please call surgeon if you need to reschedule. - A mask is optional within the hospital at this time. Patients may have clear liquids (water, carbonated beverages, clear teas, apple juice) until 3 hours prior to surgery with a maximum of 20 ounces. - No food from midnight until time of surgery and no smoking, or chewing tobacco (or any form of nicotine). No chewing gum, candy or mints. Take only the following medications with a SIP of water on the morning of surgery: ____Pregabalin, Invega, [place], Desvenlafaxine, Benztropine and if needed Ativan. DO NOT STOP ANY OF YOUR OTHER PRESCRIPTION MEDICATIONS PRIOR TO SURGERY EXCEPT THE FOLLOWING Hold all vitamins and supplements for 3 days per anesthesiologist. Medications to discontinue per physician Please call Dr Lamar's office about the Ibuprofen if need to hold. Date to take last dose Please no make-up, nail armenian, hairspray, perfume, deodorant, or body powder the day of surgery.? No jewelry (including any body piercings) or valuables the day of surgery, leave them at home.? Please take a shower or bath the night before, or the morning of, surgery with an antibacterial soap.? Wear comfortable, loose fitting clothing.? - Jewelry must be removed prior to entering the operating room.? Rings and piercings that are not removed may be cut off. - The hospital will not accept responsibility for valuables.? - Please leave all valuables, including medications, at home the day of surgery. If you are going home after surgery, a licensed front load trash truck driver must drive you home.? - NO public transportation without another adult if you receive anesthesia. - We recommend that an adult stay with you for 24 hours following discharge. - We also recommend that you do not drive, make important decision, drink alcoholic beverages, or take any drugs that were not prescribed by your health care provider for at least 24 hours after your discharge time. Follow any additional instructions given to you from your surgeon. Telephone instructions given to __Qamarte and Aparna/mother.___and asked if any additional questions and then verbalized understanding. Patient advised to call surgeon office or pre surgery nurse liaison [phone] if any additional questions.
--- NOTE | ~2024-08-12 | XR_ITS ---
INTRAOPERATIVE FLUOROSCOPY: CLINICAL HISTORY: 29 years old Female; LUMBAR ABLATION PROCEDURE COMMENTS: Limited intraoperative fluoroscopy of the lumbar spine was performed. CUMULATIVE DOSE: 124 mGy FLUOROSCOPY TIME: 77 seconds FINDINGS/IMPRESSION: Please refer to operative note for further details. Reviewed, dictated and finalized at location A. DRIVER
--- OUTSIDE RECORDS SUMMARY | 2024-08-12 00:35 | XMS_ITS ---
Author Organization [facility] Address [address] [place] [address] Care Team Providers Care Wire Drawing Machine Operator Name Role Phone Jc Garcia Primary Care Provider [phone] Moy Worrell [phone] REASON FOR VISIT 1 week f/u Social History Sex Assigned At : Social History Observation Description Sex Assigned At Female Encounters Encounter Location Date Provider Diagnosis [facility] [address] [place] [address] 07/16/2024 Moy Worrell Plan Of Treatment Next Appt Details Provider Name:Moy Worrell, 08/15/2024 01:20:00 PM, [address] [facility], [place], [address], Progress Notes * Annamaria GARCIAOB: (29 yo F)Acc No.[id number]:07/16/2024 Patient: Yashira MARIEEHali HOOKER :1995 A ge:29 Y S ex:Female Address:[address] [place], [address] * true * Date: Generated for Printi ng/Faxing/eTransmitting on: 0 08/12/2024 12:35 AM REPAIRER ART OBJECTS
--- OUTSIDE RECORDS SUMMARY | 2024-08-12 00:35 | XMS_ITS | Clinical Summary ---
Author Organization [facility] [employer] Address [address] [place] [address] Care Team Providers Care Tobacco Curer Name Role Phone Unavailable Primary Care Provider Unavailabl e Source Comments [facility],non-owned Affiliates and Associated Physician Practices is amultiple site organization consisting of ambulatory clinics and hospital sitesin [place], [place] and [place]. This disclosure is being madepursuant to the Care Everywhere program and may not contain all information available regarding this patient. Last updated 18.[facility] [employer] Allergies Active Allergy Reactions Criticality Noted Date [...] 01/04/2022 Overview (01/04/2022): pt takes clondine 0.1mg [id number] stated she took all routine medications before [...] 91 01/12/2022 7:06 AM CDT Temperature 37 C (98.6 F) 01/12/2022 7:06 AM CDT Respiratory Rate 18 [...]
--- OUTSIDE RECORDS SUMMARY | 2024-08-12 00:36 | XMS_ITS | Clinical Summary ---
Author Organization [facility] Address [address] [place] [address] Phone Care Team Providers Care Plastic Frame Inserter Name Role Phone Eulalio Hillman MD Unavailable [phone] Jc Garcia APRN, HRIS ANALYST Primary Care Provid er Allergies Active Allergy [...] 95 03/17/2024 2:27 PM CDT Temperature 36.3 C (97.4 F) 03/17/2024 12:52 PM CDT Respiratory Rate 17 03/17/2024 2:27 PM CDT [...] (CCS) 2023 HPV/Cotest 2023 Influenza Immunization (#1) 02/17/2024/2 , 03/05/2018, 05/07/2017, Additional history exists SARS-COV-2 Immunization [...] Insurance MEDICAID [employer] Care Teams Plastic Frame Inserter Relationship Specialty Start Date End Date Jc Garcia APRN, HRIS ANALYST [address] [place] [address] PCP - General Advanced Practice Nurse 03/17/24 Eulalio Hillman MD [address] [place] [address] Psychiatrist Psychiatry 11/28/18
--- OUTSIDE RECORDS SUMMARY | 2024-08-12 00:36 | XMS_ITS ---
Author Organization [facility] joe Address [address] [place] [address] Care Team Providers Care Com Writer Name Role Phone Charlotte Donald Unavailable [phone] zzzzMigration, zzzzProvider Unavailable Unav ailable REASON FOR VISIT EMR-Lg Encounters Encounter Location Date Provider Diagnosis [facility] [address] [place] [address] 04/08/2023 zzzzProvider zzzzMigration Plan Of Treatment No Information Progress Notes * Hali GARCIA ADOB:0 1995 (29 yo F)Acc No.[id number]:04/08/2023 Patient: Hali SHAH :1995 A ge:28 Y S ex:Female Address[address] [address] Subjective: * Chief Complaints: * E MR-Lg * Medical History: * Surgical History: * Hospitalization/Major Diagno stic Procedure: * Medications: Objective: * Vitals: * Physical Examination: Assessment: Plan: * Treatment: * Procedure Codes: * * Date:
--- OUTSIDE RECORDS SUMMARY | 2024-08-12 00:36 | XMS_ITS | Patient Health Record ---
Author Organization [facility] Address [address] [place] [address] Care Team Providers Care Customer Solutions Supervisor Name Role Phone Charlotte Donald Unavailable [phone] Reason For Referral No Information Plan Of Treatment No Information Insurance Providers Payer Name Payer Address Payer Phone Subscriber Number Group Number Insured Name Patient Relationship to Insured Coverage Start Date Coverage End Date DO NOT USE [id number] Hali Garcia Self - patient is the insured 8
--- OUTSIDE RECORDS SUMMARY | 2024-08-12 00:36 | XMS_ITS | Continuity of Care Document ---
Author Organization [facility] Address [address] [place] [address] Phone Care Team Providers Care Assistant Associate Full Professor Name Role Phone Luisana Huerta CPSS Unavailable Unavaila ble Procedures Procedure Date Non-billable Service Non-billable Service Non-billable Service Non-billable Service Non-billable Service Advance Directives Directive Yes / No Effective Date File Name No Information Encounters Encounter Description Practice Location Reason(s) For Visit Diagnoses Date Provider Providers Copied on Encounter [facility], [address], [place], [place], [id number], tel:[phone] [facility] [place] [facility] [place] No Information Jose L Lieberman. [address] [facility], [place], [place], [id number], [place]. tel:[phone] [facility], [address] [place] [address], [id number], [place] tel:[phone] [facility] 23 Hour Mental disorder, not otherwise specified Ernesto Fahad Carter. [address] [place] [address], [id number], [place]. tel:[phone] [facility], [address], [place], [place], [id number], [place] tel:[phone] [facility] 23 Hour Mental disorder, not otherwise specified Diaz Aliya. [address] [place] [address], [id number], [place]. tel:[phone] [facility], [address], [place], [place], [id number], tel:[phone] [facility] 23 Hour Mental disorder, not otherwise specified Ernesto Fahad Carter. [address], [place], [place], [id number], [place]. tel:[phone] [facility], [address], [place], [place], [id number], tel:[phone] [facility] 23 Hour Mental disorder, not otherwise specified Tenzin [facility] Aubrey. [address] [facility], [place], [place], [id number], [place]. tel:[phone] Family History Family Member Type Diagnosis Age At Onset No Information Payers Payer name Insurance type Covered constitution party ID Authorjosh gilbert(s) [facility] [id number] Social History Type Description Quantity Date Captured Comments Sex Female Smoking Status No Information Chief Complaint And Reason For Visit No Information Reason For Referral Reason For Referral No Information History Of Present Illness Encounter Date Complaint History Of Prese nt Illness No Information Functional Status Date Functional Assessmen t No Information Instructions Date Instruction Additional Infor mation No Information Assessments Type Assessment Date No Information Patient Care Teams Name Effective Dates (start - stop) Status Members No Information
--- OUTSIDE RECORDS SUMMARY | 2024-08-12 00:36 | XMS_ITS | Referral Summary ---
Author Organization [facility] [employer] Address [address] [place] [address] Care Team Providers Care Farm Equipment Technician Name Role Phone Unavailable Primary Care Provider Unavailabl e Source Comments [facility],non-owned Affiliates and Associated Physician Practices is amultiple site organization consisting of ambulatory clinics and hospital sitesin [place], [place], [place] and [place]. This disclosure is being madepursuant to the Care Everywhere program and may not contain all information available regarding this patient. Last updated 18.[facility] [employer] Allergies Active Allergy Reactions Criticality Noted Date [...] 01/04/2022 Overview (01/04/2022): pt takes clondine 0.1mg [id number] stated she took all routine medications before [...]
--- OUTSIDE RECORDS SUMMARY | 2024-08-12 00:36 | XMS_ITS | Continuity of Care Document ---
Author Name [facility] Organization [facility] Care Team Providers Care Car Wiper Name Role Phone [facility] Unavailable Unavailable Social History Combined list of available smoking, tobacco, and other social history from Department of Defense and Veterans Affairs facilities. Social History Type Response Date Comment Sourc e This section is an empty social history section. [facility]
--- OUTSIDE RECORDS SUMMARY | 2024-08-12 00:36 | XMS_ITS ---
Author Organization [facility] Address [address] [place] [address] Care Team Providers Care Recenterer Name Role Phone Jc Garcia Primary Care Provider Moy Worrell Unavailable [phone] REASON FOR VISIT 1 week f/u Medications Medication SIG (Take, Route, Frequency, Duration) Notes Start Date End Date Status Lo Loestrin Fe 1 MG-10 MCG / 10 MCG TAKE 1 TABLET BY MOUTH DAILY for 28 Active Levothyroxine Sodium 50 MCG 1 tablet in the morning on an empty stomach Orally Once a day for 30 days 06/20/2024 Active Vitamin D (Cholecalciferol) 50 MCG (1999 UT) 1 capsule Orally Once a day Active Allergy Relief Cetirizine 10 mg TAKE 1 TABLET BY MOUTH DAILY for 28 Active Lidocaine 5 % 1 patch remove after 12 hours Externally Once a day for 30 days Active Albuterol Sulfate HFA 108 (90 Base) MCG/ACT 1 puff as needed Inhalation every 4 hrs for 30 days Active Pregabalin 300 MG TAKE 1 CAPSULE BY MO [facility] TWICE A DAY for 30 days 10/15/2023 Active Mirtazapine 7.5 MG 1 tablet Orally once daily at bedtime as needed for sleep for 30 days Active ARIPiprazole 5 MG 1 tablet Orally once daily in the evening - take WITH evening paliperidone for 30 days Active Symbicort 80-4.5 MCG/ACT 1 puff as neede d Inhalation Twice a day Active LORazepam 0.5 MG 1 tablet Orally Once a day As needed for SEVERE anxiety Active Prazosin HCl 2 MG 1 capsule at bedtime - take with 5mg capsule for TOTAL of 7mg at bedtime Orally Once a day for 30 days Active Paliperidone ER 1.5 MG 1 tablet in the m orning Orally once daily - TOTAL 4.5mg daily for 30 days Active Topiramate 100 MG 1 tablet Orally twic e daily for 30 days Active Propranolol HCl ER 80 MG 1 capsule Orall y once daily for 30 days Active Abilify 20 MG 1 tablet Orally once daily in the morning for 30 days Active Desvenlafaxine Succinate ER 50 mg TAKE 1 TABLET BY MOUTH DAILY for 30 days Active Aldie Carbonate ER 300 MG 3 tablets Orally twice daily for 30 days Active Prazosin HCl 5 MG 1 tablet Orally twic e daily for 30 days Active Paliperidone ER 3 MG 1 tablet in the awa fernando Orally once daily - TOTAL 4.5mg daily for 30 days Active Vyvanse 60 MG 1 capsule Orally onc e daily in the morning for 30 days 07/22/2024 Active Wegovy 0.25 MG/0.5ML 0.5 mL Subcutaneous weekly for 30 days 06/17/2024 Not-Taking Cogentin 0.5 MG 1 tablet Orally twic e a day for 30 days Active Ibuprofen 800 MG 1 tablet with food o r milk as needed Orally twice a day Active Social History Tobacco Use: Social History Observation Description Date Details (start date - stop date) Current Smoker NA - NA Sex Assigned At : Social History Observation Description Sex Assigned At Female Tobacco Control (Standard) Question Answer Notes Tobacco use: Current smoker Additional Findings: Tobacco user e-cigarette Vital Signs Weight 340 lbs 07/22/2024 Height 66 in 07/22/2024 BMI 54.87 kg/m2 07/22/2024 Encounters Encounter Location Date Provider Diagnosis [address] [place] [address] 07/22/2024 Moy Worrell Schizoaffective disorder, bipolar type F25.0 ; Mood disorder F39 ; PANCHITO (generalized anxiety disorder) F41.1 ; PTSD (post-traumatic stress disorder) F43.10 ; Night terrors F51.4 ; Binge eating R63.2 ; Impaired concentration R41.840 ; Hypothyroidism E03.9 and Nicotine dependence F17.200 Assessments Encounter Date Diagnosis (ICD Code) Assessment Notes Treatment Notes Treatment Clinical Notes Section Notes 07/22/2024 Schizoaffective disorder, bipolar type (ICD-10 - F25.0) Duration (acute/chronic), stability (controlled/uncont rolled): Chronic, subjective improvement with recent medication adjustments, see HPI Current medications/effica cy: Somewhat, room for improvement Previous medication trials: [...] unable to urinate during previous visit). RECOMMENDATIONS: Continue/modify medications as prescribed - educated patient/guardian on adverse effects, risks and benefits, as well as alternative treatments Consume well balanced diet, preferably low in saturated fats (solid at room temperature, such as butter, margarine, Crisco, etc) and low in sodium (<2,000mg per day). Consume plenty of fruits/vegetables, healthy grains/whole grains, unsaturated/health y fats (liquid at room temperature, such as [...] techniques, such as guided imagery, journaling, aromatherapy, acupuncture/acupre ssure, deep breathing, etc. Practice healthy sleep hygiene [...] Continue monitoring symptoms - report persistent or worsening/concerni ng symptoms to the office or go to the ER. For mental health CRISIS, please reach out to [phone] (National Suicide and Crisis Lifeline), 911, go to the emergency department, or contact the [facility] Crisis Unit/Team. Follow up as scheduled in 2 weeks IN PERSON or sooner if necessary. Follow up with PCP and/or other specialists as advised. NEXT STEP: Consider further medication adjustments as needed. 07/22/2024 Mood disorder (ICD-10 - F39) See assessment and plan for schizoaffective disorder 07/22/2024 PANCHITO (generalized anxiety disorder) (ICD-10 - F41.1) See assessment and plan for schizoaffective disorder 07/22/2024 PTSD (post-traumatic stress disorder) (ICD-10 - F43.10) Duration (acute/chronic), stability (controlled/uncont rolled): Chronic, improved with recent medication adjustments, see HPI Current medications/effica cy: Improved with recent medication adjustments Previous medication [...] Consume plenty of fruits/vegetables, healthy grains/whole grains, unsaturated/health y fats (liquid at room temperature, such as [...] techniques, such as guided imagery, journaling, aromatherapy, acupuncture/acupre ssure, deep breathing, etc. Practice healthy sleep hygiene [...] Continue monitoring symptoms - report persistent or worsening/concerni ng symptoms to the office or go to the ER. For mental health CRISIS, please reach out to [phone] ([employer] Suicide and Crisis Lifeline), 911, go to the emergency department, or contact the [facility] Crisis Unit/Team. Follow up as scheduled in 2 weeks IN PERSON or sooner if necessary. Follow up with PCP and/or other specialists as advised. NEXT STEP: Consider further medication adjustments as needed. 07/22/2024 Night terrors (ICD-10 - F51.4) See assessment and plan for PTSD 07/22/2024 Binge eating (ICD-10 - R63.2) Duration (acute/chronic), stability (controlled/uncont rolled): Chronic, mostly well controlled on on current medication regimen, still some room for improvement, see HPI Current medications/effica cy: Somewhat, room for improvement Previous medication trials: [...] unable to urinate during previous appointment). RECOMMENDATIONS: CONTINUE Vyvanse as prescribed (switching from twice daily dosing to once daily 60mg due to insurance denial of 30mg BID) - educated patient/guardian on adverse effects, risks and benefits, as well as alternative treatments INCREASE topiramate as prescribed - educated patient/guardian on [...] Consume plenty of fruits/vegetables, healthy grains/whole grains, unsaturated/health y fats (liquid at room temperature, such as [...] techniques, such as guided imagery, journaling, aromatherapy, acupuncture/acupre ssure, deep breathing, etc. Practice healthy sleep hygiene [...] Continue monitoring symptoms - report persistent or worsening/concerni ng symptoms to the office or go to the ER. For mental health CRISIS, please reach out to [phone] (National Suicide and Crisis Lifeline), 911, go to the emergency department, or contact the [facility] Crisis Unit/Team. Follow up as scheduled in 2 weeks IN PERSON or sooner if necessary. Follow up with PCP and/or other specialists as advised. NEXT STEP: Consider further medication adjustments as needed. 07/22/2024 Impaired concentration (ICD-10 - R41.840) Duration (acute/chronic), stability (controlled/uncont rolled): Chronic, well controlled on current medication regimen Current medications/effica cy: Yes Previous medication trials: [place] Current/previous therapies: [...] Consume plenty of fruits/vegetables, healthy grains/whole grains, unsaturated/health y fats (liquid at room temperature, such as [...] techniques, such as guided imagery, journaling, aromatherapy, acupuncture/acupre ssure, deep breathing, etc. Practice healthy sleep hygiene [...] Continue monitoring symptoms - report persistent or worsening/concerni ng symptoms to the office or go to the ER. For mental health CRISIS, please reach out to [phone] (National Suicide and Crisis Lifeline), 911, go to the emergency department, or contact the [facility] Crisis Unit/Team. Follow up as scheduled in 2 weeks IN PERSON or sooner if necessary. Follow up with PCP and/or other specialists as advised. NEXT STEP: Consider further medication adjustments as needed. 07/22/2024 Hypothyroidism (ICD-10 - E03.9) Duration (acute/chronic), stability (controlled/uncont rolled): Recent labs indicated worsening thyroid function from previous measurements, patient also previously reportedly on levothyroxine for hypothyroidism, previously discontinued by a different provider - patient recently restarted on levothyroxine therapy by this provider Current medications/effica cy: Unknown until repeat labs have been collected Previous medication trials: levothyroxine Current/previous therapies: N/A [...] Consume plenty of fruits/vegetables, healthy grains/whole grains, unsaturated/health y fats (liquid at room temperature, such as [...] techniques, such as guided imagery, journaling, aromatherapy, acupuncture/acupre ssure, deep breathing, etc. Practice healthy sleep hygiene [...] Continue monitoring symptoms - report persistent or worsening/concerni ng symptoms to the office or go to the ER. For mental health CRISIS, please reach out to [phone] (National Suicide and Crisis Lifeline), 911, go to the emergency department, or contact the [facility] Crisis Unit/Team. Follow up as scheduled or sooner if necessary. Follow up with PCP and/or other specialists as advised. NEXT STEP: Will plan to repeat thyroid function testing in about 2 months 07/22/2024 Nicotine dependence (ICD-10 - F17.200) Plan Of Treatment Medication Medication Name Sig Start Date Stop Date Notes Mirtazapine 7.5 MG 1 tablet Orally once daily at bedtime as needed for sleep for 30 days ARIPiprazole 5 MG 1 tablet Orally once daily in the evening - take WITH evening paliperidone for 30 days LORazepam 0.5 MG 1 tablet Orally Once a day Prazosin HCl 2 MG 1 capsule at bedtime - take with 5mg capsule for TOTAL of 7mg at bedtime Orally Once a day for 30 days Paliperidone ER 1.5 MG 1 tablet in the m orning Orally once daily - TOTAL 4.5mg daily for 30 days Topiramate 100 MG 1 tablet Orally twic e daily for 30 days Propranolol HCl ER 80 MG 1 capsule Orall y once daily for 30 days Abilify 20 MG 1 tablet Orally once daily in the morning for 30 days Desvenlafaxine Succinate ER 50 mg TAKE 1 TABLET BY MOUTH DAILY for 30 days Aldie Carbonate ER 300 MG 3 tablets Or ally twice daily for 30 days Prazosin HCl 5 MG 1 tablet Orally twic e daily for 30 days Paliperidone ER 3 MG 1 tablet in the awa fernando Orally once daily - TOTAL 4.5mg daily for 30 days Vyvanse 60 MG 1 capsule Orally onc e daily in the morning for 30 days 07/22/2024 Cogentin 0.5 MG 1 tablet Orally twic e a day for 30 days Treatment Notes Assessment Notes Schizoaffective disorder, bipolar type Duration (acute/chronic), stability (controlled/uncontrolled): Chronic, subjective improvement with recent medication adjustments, see HPI Current medications/efficacy: Somewhat, room for [...] unable to urinate during previous visit). RECOMMENDATIONS: Continue/modify medications as prescribed - educated patient/guardian [...] to the emergency department, or contact the [facility] Crisis Unit/Team. Follow up as scheduled in 2 weeks IN PERSON or sooner if necessary. Follow up with [...] to the emergency department, or contact the [facility] Crisis Unit/Team. Follow up as scheduled in 2 weeks IN PERSON or sooner if necessary. Follow up with PCP and/or other specialists as advised. NEXT STEP: Consider further medication adjustments as needed. Night terrors See assessment and p rudy for PTSD Binge eating Duration (acute/chronic), stability (controlled/uncontrolled): Chronic, mostly well controlled on on current medication regimen, still some room for improvement, see HPI [...] unable to urinate during previous appointment). RECOMMENDATIONS: CONTINUE Vyvanse as prescribed (switching from twice daily dosing to once daily 60mg due to insurance denial of 30mg BID) - educated patient/guardian on adverse effects, risks and benefits, as well as alternative treatments INCREASE topiramate as prescribed - educated patient/guardian on [...] health CRISIS, please reach out to [phone] ([employer] Suicide and Crisis Lifeline), 911, go to the emergency department, or contact the [facility] Crisis Unit/Team. Follow up as scheduled in 2 weeks IN PERSON or sooner if necessary. Follow up with [...] health CRISIS, please reach out to 988 ([employer] [facility]icide and Crisis [facility]), 911, go to the emergency department, or contact the [facility] Crisis Unit/Team. Follow up as scheduled in 2 weeks IN PERSON or sooner if necessary. Follow up with PCP and/or other specialists as advised. NEXT STEP: Consider further medication adjustments as needed. Hypothyroidism Duration (acute/chronic), stability (controlled/uncontrolled): Recent labs indicated worsening thyroid function from previous measurements, patient also previously reportedly on levothyroxine for hypothyroidism, previously discontinued by a different provider - patient recently restarted on levothyroxine therapy by this provider Current medications/efficacy: Unknown until repeat labs have been collected Previous medication trials: levothyroxine Current/previous therapies: N/A [...] to the emergency department, or contact the [facility] Crisis Unit/Team. Follow up as scheduled or sooner if necessary. Follow up with PCP and/or other specialists as advised. NEXT STEP: Will plan to repeat thyroid function testing in about 2 months Next Appt Details Follow Up: 2 Weeks - IN PERS ON, Reason: 2 week psych follow up/med refill Provider Name:Moy Worrell, 08/15/2024 01:20:00 PM, [address] [facility] , [place], [address], Progress Notes * Annamaria GARCIAOB: (29 yo F)Acc No.[id number]:07/22/2024 Patient: Hali SHAH Provider: Nabeel Worrell APN :1995 A ge:29 Y S ex:Female Date:07/22/2024 Address:[address] [place], [place] [id number] Pcp:Jc Garcia Subjective: * Chief Complaints: * 1 week f/u * HPI: S ummary: History of Presenting Illness: Patient is presenting for 2 week follow up. Daytime and nighttime hallucinations improved with recent medication adjustments Mood also improved with recent medication adjustments Still having some difficulties with binge eating Patient agreeable to increasing topiramate to 100mg twice daily to assist with binge eating/appetite suppression. Agreeable to continuing other medications as prescribed. Agreeable to following up in 2 weeks IN PERSON, sooner if necessary. - - - - [...] is presenting for 2 week follow up. Hali Garcia is a 29-year-old female who reports experiencing significant sleep disturbances and hallucinations. She describes waking up in the middle of the night to urinate, which is followed by vivid hallucinations that escalate quickly. Hali interacts with these hallucinations, which she finds distressing. She suspects that the recent reduction in her paliperidone dosage might be contributing to these symptoms. During the day, she continues to experience hallucinations, although they are not worse than before. Hali also reports physical pain, particularly in her hips and lower back, which worsens when standing or walking. She rates her pain as a 5 out of 10. In addition to her sleep and hallucination issues, Hali is dealing with anxiety and depression. She reports feeling anxious, irritable, and overeating. Her anxiety and depression screenings reveal that she often feels nervous, has trouble controlling worry, and experiences irritability. Despite these challenges, she notes some improvement in her mood stability, although she continues to experience emotional fluctuations. Having trouble staying asleep Experiencing increased hallucinations in the evening since decreasing paliperidone and increasing aripiprazole Open to medication adjustments Patient agreeable to increasing aripiprazole to assist with mood/psychotic symptoms - continue 20mg in the AM, start 5mg in the PM in addition to paliperidone. Agreeable to starting mirtazapine to assist with sleep. Agreeable to continuing other medications as prescribed. Agreeable to following up in 2 weeks, [...] with recent medication adjustments -Previous Medication Trials: A bilify, Haldol- caused disassociation, Seroquel- for hallucinations but [...] Well controlled with recent medication adjustment -Mood: Fine really - previously reported My mood has been kind of all over the place -Anxiety Rating (10/10 being the worst): I don't feel anxious at all. - previously reported 1/10 since last appointment, previously reported 2 -3/10 on average, manageable -Depression Rating (10/10 being the worst): 0/10 since last appointment - previously reported 0-1/10 on average, manageable -Anger/Irritability Rating (10/10 being the worst): 2/10 since last appointment, manageable, subjectively better - previously reported 3-5/10 on average, about the same as [...] Therapy: Not currently seeing therapy, interested Labs: L ITHIUM LEVEL, TSH AND FREE T4 COMPLETED IN 03/2024, LITHIUM WNL, THYROID FUNCTION TESTS MILDLY ABNORMAL BUT IMPROVED AT THAT TIME - RECENTLY REPEATED THYROID FUNCTION TESTS INDICATED WORSENING THYROID FUNCTION, RECENTLY STARTED ON LEVOTHYROXINE. G AD-7 Screenin. Feeling nervous, anxious, or on edge , Not at all-0.? 2. Not being able to stop or control worrying , Not at all-0. 3. Worrying too much about different things , Several days-1. 4. Trouble sleeping/relaxing , Not at all-0. 5. Being so restless that it is hard to sit still , Several days-1. 6. Becoming easily annoyed or irritable , Not at all-0.? 7. Feeling afraid, as if something awful might happen , Not at all-0. PANCHITO-7 Score T otal score 2 : D epression Screening: PHQ-9 L ittle interest or pleasure in doing things?Not at all F eeling down, depressed, or hopeless N ot at all T rouble falling or staying asleep, or sleeping too much N ot at all F eeling tired or having little energy N ot at all P oor appetite or overeating M ore than half the days F eeling bad about yourself or that you are a failure, or have let yourself or your family down N ot at all T rouble concentrating on things, such as reading the newspaper or watching television S ever M oving or speaking so slowly that other people could have noticed; or the opposite, being so fidgety or restless that you have been moving around a lot more than usual S T houghts that you would be better off or of hurting yourself in some way N ot at all T otal Score 4 I nterpretation M inimal Depression Intervention D epression Screening Findings P ositive F ollow-Up for Depression N o Referral necessary, patient involved in behavioral health treatment . S creening: [place] Suicide Severity Rating Scale (LF) D o you want to initiate with S creener form 1 . Wish to be : Have you wished you were or wished you could go to sleep and not wake up? N o 2 . Suicidal Thoughts: Have you actually had any thoughts of killing yourself? N o 6 . Suicide Behaviour: Have you ever done anything,started to do anything, or prepared to end your life? N o I nterpretation: L ow Risk C SSRS Interpretation and Follow Up Plan: CSSRS Interpretation and Follow Up Plan C SSRS Screen documented using SF Y es R isk Disposition from SF L ow - No Follow Up Plan Required * ROS: P sych ROS: Constitutional A ll systems negative unless indicated otherwise.. P sych D enies AH/VH and delusions, Denies SI/HI - Reports continued intermittent hallucinations but overall improved with recent medication adjusments, see HPI. * PSYCH ROS2: mood swings D enies mood lability. I nattention D enies - stable on current medication regimen. C ompulsive behavior D enies compusive/impulsive behaviors. D epression D enies. M mir D enies symptoms of catherine. A ppetite Binge eating behaviors. C oncentration D enies - stable on current medication regimen.?Substance use D enies. P anic attacks D enies. A nxiety/Worry E ndorses. I rritability E ndorses. S elf-Harm D enies. S leep D enies sleep difficulties.?Comments S ee HPI for details. * Medical History: * Surgical History: A PPENDECTOMY CHOLECYSTECTOMY * Hospitalization/Major Diagno stic Procedure: m [facility] psychiatric hospitalizations for mood and SI most recent wood * Family History: F ather: alive, CHRONIC PAIN. M other: alive, HASIMOTOS DISORDERCHRONIC PAIN. 2 brother(s) , 2 sister(s) - healthy. . Mother: Depression, anxiety Great uncle: Schizophrenia. * Social History: P rimary Social History: L iving Arrangement L iving Arrangement: I ndependent Living I s this a supportive environment? Y es Alcohol Use A lcohol Use Frequency: M onthly or less Illicit Substance Usage I llicit Substance Usage: N o Employment Status E mployment Status: U nemployed T obacco Use: T obacco Control (Standard) T obacco use: C urrent smoker A dditional Findings: Tobacco user e -cigarette * Medications: T akingSymbicort 80-4.5 MCG/ACT Aerosol 1 puff as needed Inhalation Twice a day Pregabalin 300 MG Capsule TAKE 1 CAPSULE BY MOUTH TWICE A DAY Albuterol Sulfate HFA 108 (90 Base) MCG/ACT Aerosol Solution 1 puff as needed Inhalation every 4 hrs Lidocaine 5 % Patch 1 patch remove after 12 hours Externally Once a day Allergy Relief Cetirizine 10 mg Tablet TAKE 1 TABLET BY MOUTH DAILY Levothyroxine Sodium 50 MCG Tablet 1 tablet in the morning on an empty stomach Orally Once a day Lo Loestrin Fe 1 MG-10 MCG / 10 MCG Tablet TAKE 1 TABLET BY MOUTH DAILY Vitamin D (Cholecalciferol) 50 MCG (2000 UT) Capsule 1 capsule Orally Once a day Vyvanse 60 MG Capsule 1 capsule Orally once daily in the morning Cogentin 0.5 MG Tablet 1 tablet Orally twice a day Prazosin HCl 5 MG Capsule 1 tablet Orally twice daily Aldie Carbonate ER 300 MG Tablet Extended Release 3 tablets Orally twice daily Desvenlafaxine Succinate ER 50 mg Tablet Extended Release 24 Hour TAKE 1 TABLET BY MOUTH DAILY Abilify 20 MG Tablet 1 tablet Orally once daily in the morning Paliperidone ER 3 MG Tablet Extended Release 24 Hour 1 tablet in the evening Orally once daily - TOTAL 4.5mg daily Paliperidone ER 1.5 MG Tablet Extended Release 24 Hour 1 tablet in the morning Orally once daily - TOTAL 4.5mg daily Propranolol HCl ER 80 MG Capsule Extended Release 24 Hour 1 capsule Orally once daily Topiramate 50 MG Tablet 1 tablet Orally twice daily Prazosin HCl 2 MG Capsule 1 capsule at bedtime - take with 5mg capsule for TOTAL of 7mg at bedtime Orally Once a day LORazepam 0.5 MG Tablet 1 tablet Orally Once a day As needed for SEVERE anxietyARIPiprazole 5 MG Tablet 1 tablet Orally once daily in the evening - take WITH evening paliperidone Mirtazapine 7.5 MG Tablet 1 tablet Orally once daily at bedtime as needed for sleep Ibuprofen 800 MG Tablet 1 tablet with food or milk as needed Orally twice a day Taking Symbicort 80-4.5 MCG/ACT Aerosol 1 puff as needed Inhalation Twice a day Taking Pregabalin 300 MG Capsule TAKE 1 CAPSULE BY MOUTH TWICE A DAY Taking Albuterol Sulfate HFA 108 (90 Base) MCG/ACT Aerosol Solution 1 puff as needed Inhalation every 4 hrs Taking Lidocaine 5 % Patch 1 patch remove after 12 hours Externally Once a day Taking Allergy Relief Cetirizine 10 mg Tablet TAKE 1 TABLET BY MOUTH DAILY Taking Levothyroxine Sodium 50 MCG Tablet 1 tablet in the morning on an empty stomach Orally Once a day Taking Lo Loestrin Fe 1 MG-10 MCG / 10 MCG Tablet TAKE 1 TABLET BY MOUTH DAILY Taking Vitamin D (Cholecalciferol) 50 MCG (1999 UT) Capsule 1 capsule Orally Once a day Taking Vyvanse 60 MG Capsule 1 capsule Orally once daily in the morning Taking Cogentin 0.5 MG Tablet 1 tablet Orally twice a day Taking Prazosin HCl 5 MG Capsule 1 tablet Orally twice daily Taking Aldie Carbonate ER 300 MG Tablet Extended Release 3 tablets Orally twice daily Taking Desvenlafaxine Succinate ER 50 mg Tablet Extended Release 24 Hour TAKE 1 TABLET BY MOUTH DAILY Taking Abilify 20 MG Tablet 1 tablet Orally once daily in the morning Taking Paliperidone ER 3 MG Tablet Extended Release 24 Hour 1 tablet in the evening Orally once daily - TOTAL 4.5mg daily Taking Paliperidone ER 1.5 MG Tablet Extended Release 24 Hour 1 tablet in the morning Orally once daily - TOTAL 4.5mg daily Taking Propranolol HCl ER 80 MG Capsule Extended Release 24 Hour 1 capsule Orally once daily Taking Topiramate 50 MG Tablet 1 tablet Orally twice daily Taking Prazosin HCl 2 MG Capsule 1 capsule at bedtime - take with 5mg capsule for TOTAL of 7mg at bedtime Orally Once a day Taking LORazepam 0.5 MG Tablet 1 tablet Orally Once a day As needed for SEVERE anxietyTaking ARIPiprazole 5 MG Tablet 1 tablet Orally once daily in the evening - take WITH evening paliperidone Taking Mirtazapine 7.5 MG Tablet 1 tablet Orally once daily at bedtime as needed for sleep Taking Ibuprofen 800 MG Tablet 1 tablet with food or milk as needed Orally twice a day Not-TakingWegovy 0.25 MG/0.5ML Solution Auto- injector 0.5 mL Subcutaneous weekly Medication List reviewed and reconciled with the patientNot-Taking Wegovy 0.25 MG/0.5ML Solution Auto-injector 0.5 mL Subcutaneous weekly Medication List reviewed and reconciled with the patient Objective: * Vitals: I nitials: CJP, Wt:340, Ht: 66, BMI:54.87, LMP: 06/2024, Pain scale:3. * Examination: M ental Status Exam: SENSORIUM AND COGNITION A lert, Oriented to Person, Oriented to Place, Oriented to Time, Oriented to Situation. ATTENTION AND CONCENTRATION N o deficits. APPEARANCE U nable to assess due to telephone communication - previously documented Appropriate. ATTITUDE AND BEHAVIOR C ooperative. MEMORY G rossly intact. EYE CONTACT U nable to assess due to telephone communication - previously documented Good. AFFECT U nable to assess due to telephone communication - inferred to be mildly anxious/dysthymic. MOOD U nable to assess due to telephone communication - inferred to be mildly anxious/dysthymic. SPEECH QUANTITY A ppropriate. SPEECH QUALITY S pontaneous, Appropriate volume. THOUGHT PROCESS C oherent and goal directed, slight circumstantiality noted. THOUGHT CONTENT C ontinued hallucinations, see HPI - patient didn't respond to internal stimuli during appointment. LANGUAGE A ppropriate- WNL. MOTOR ACTIVITY U nable to assess due to telephone communication - denies abnormal movements/gait - previously documented Normal gait, no abnormal movements/tics noted. SUICIDAL IDEATION D enies suicidal ideation. HOMICIDAL IDEATION D enies homicidal ideation. HALLUCINATIONS C ontinued hallucinations, reportedly improving, see HPI - patient didn't respond to internal stimuli during appointment. INSIGHT G ood. JUDGMENT G ood. G eneral Examination: GENERAL APPEARANCE: U fernando to perform physical examination - patient verbalizes no concerns during telephone communication. Assessment: * Assessment: 1. S chizoaffective disorder, bipolar type - F25.0 (Primary) 2 . M ood disorder - F39 3 . G AD (generalized anxiety disorder) - F41.1 4 .?PTSD (post-traumatic stress disorder) - F43.10 5 . N ight terrors - F51.4 6. B steffany eating - R63.2 7 . I mpaired concentration - R41.840 8 . H ypothyroidism - E03.9 9 . N icotine dependence - F17.200 Plan: * Treatment: 2. M ood disorder Refill Aldie Carbonate ER Tablet Extended Release, 300 MG, 3 tablets, Orally, twice daily, 30 days, 180, Refills 1; R efill Desvenlafaxine Succinate ER Tablet Extended Release 24 Hour, 50 mg, TAKE 1 TABLET BY MOUTH DAILY, 30 days, 30, Refills 1; C ontinue LORazepam Tablet, 0.5 MG, 1 tablet, Orally, Once a day As needed for SEVERE anxiety, 14, Refills 0. Notes: See assessment and plan for schizoaffective disorder 3. G AD (generalized anxiety disorder) Refill Propranolol HCl ER Capsule Extended Release 24 Hour, 80 MG, 1 capsule, Orally, once daily, 30 days, 30, Refills 1. Notes: See assessment and plan for schizoaffective disorder 4. P TSD (post-traumatic stress disorder) Refill Prazosin HCl Capsule, 5 MG, 1 tablet, Orally, twice daily, 30 days, 60, Refills 1; R efill Prazosin HCl Capsule, 2 MG, 1 capsule at bedtime - take with 5mg capsule for TOTAL of 7mg at bedtime, Orally, Once a day, 30 days, 30 Capsule, Refills 0. Notes: Duration (acute/chronic), stability (controlled/uncontrolled): Chronic, improved [...] health CRISIS, please reach out to [phone] ([facility] Crisis [facility]), 911, go to the emergency department, or contact the [facility] Crisis Unit/Team. Follow up as scheduled in 2 weeks IN PERSON or sooner if necessary. Follow up with PCP and/or other specialists as advised. NEXT STEP: Consider further medication adjustments as needed. 5. N johan faye Notes: See assessment and plan for PTSD 6. B steffany eating Refill Vyvanse Capsule, 60 MG, 1 capsule, Orally, once daily in the morning, 30 days, 30, Refills 0; I ncrease Topiramate Tablet, 100 MG, 1 tablet, Orally, twice daily, 30 days, 60, Refills 0.? Notes: Duration (acute/chronic), stability (controlled/uncontrolled): Chronic, mostly well controlled on on current medication regimen, still some room for improvement, see HPI [...] unable to urinate during previous appointment). RECOMMENDATIONS: CONTINUE Vyvanse as prescribed (switching from twice daily dosing to once daily 60mg due to insurance denial of 30mg BID) - educated patient/guardian on adverse effects, risks and benefits, as well as alternative treatments INCREASE topiramate as prescribed - educated patient/guardian on [...] to the emergency department, or contact the [facility] Crisis Unit/Team. Follow up as scheduled in 2 weeks IN PERSON or sooner if necessary. Follow up with PCP and/or other specialists as advised. NEXT STEP: Consider further medication adjustments as needed. 7. I mpaired concentration Notes: Duration (acute/chronic), stability (controlled/uncontrolled): Chronic, well [...] to the emergency department, or contact the [facility] Crisis Unit/Team. Follow up as scheduled in 2 weeks IN PERSON or sooner if necessary. Follow up with PCP and/or other specialists as advised. NEXT STEP: Consider further medication adjustments as needed. 8. H ypothyroidism Notes: Duration (acute/chronic), stability (controlled/uncontrolled): Recent labs indicated worsening thyroid function from previous measurements, patient also previously reportedly on levothyroxine for hypothyroidism, previously discontinued by a different provider - patient recently restarted on levothyroxine therapy by this provider Current medications/efficacy: Unknown until repeat labs have been collected Previous medication trials: levothyroxine Current/previous therapies: N/A [...] to the emergency department, or contact the [facility] Crisis Unit/Team. Follow up as scheduled or sooner if necessary. Follow up with PCP and/or other specialists as advised. NEXT STEP: Will plan to repeat thyroid function testing in about 2 months * Procedure Codes: 3 008F BODY MASS INDEX [id number] MEDICAL NUTRITION, INDIV, [id number] BEHAV CHNG SMOKING 3-10 MIN * Preventive Medicine: Counseling: C are goal follow-up plan: BMI management provided Y es Above Normal BMI Follow-up L ifestyle education regarding diet S MOKING: Patient counselled on the dangers of tobacco use and urged to quit. . 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 Sign off status: Completed true * Provider: Nabeel Worrell APN Date: 07/22/2024 Generated for Emily aguero/Heidi/Damien on: 08/12/2024 12:36 AM COMMERCIAL REAL ESTATE UNDERWRITER History and Physical Notes * HPI (History of Present Illness) Category Sub-Category Detail Notes Category Not es Depression Screening PHQ-9 Little inte rest or pleasure in doing things: Not at all Feeling down, depressed, or hopeless: No t at all Trouble falling or staying asleep, or sl eeping too much: Not at all Feeling tired or having little energy: N ot at all Poor appetite or overeating: More than h chacorta the days Feeling bad about yourself o r that you are a failure, or have let yourself or your family down: Not at all Trouble concentrating on thi ngs, such as reading the newspaper or watching television: Several days Moving or speaking so slowly that other people could have noticed; or the opposite, being so fidgety or restless that you have been moving around a lot more than usual: Several days Thoughts that you would be b hoda off or of hurting yourself in some way: Not at all Total Score: 4 Interpretation: Minimal Depression Intervention Depression Screening Findings: P ositive Follow-Up for Depression: No Referral necessary, patient involved in behavioral health treatment . PANCHITO-7 Screening 1. Feeling nervous, anxious, or on edg e , Not at all-0 2. Not being able to stop or control wor rying , Not at all-0 3. Worrying too much about different thi ngs , Several days-1 4. Trouble sleeping/relaxing , Not at al l-0 5. Being so restless that it is hard to sit still , Several days-1 6. Becoming easily annoyed or irritable , Not at all-0 7. Feeling afraid, as if something awful might happen , Not at all-0 PANCHITO-7 Score Total score: 2 : Screening Holden Suicide Sev erity Rating Scale (LF) Do you want to initiate with: Screener form 1. Wish to be : Have you wished you were or wished you could go to sleep and not wake up?: No 2. Suicidal Thoughts: Have you actually had any thoughts of killing yourself?: No 6. Suicide Behavior Question: Have you ever done anything,started to do anything, or prepared to end your life?: No Interpretation:: Low Risk CSSRS Interpretation and Follow Up Plan CSSRS Interpretation and Follow Up Plan CSSRS Screen documented using SF: Yes Risk Disposition from SF: Low - No Follo w Up Plan Required Examination Category Sub-Category Detail Notes Category Not [...] communication - inferred to be mildly anxious/dysthymic MOOD Unable to assess due to telephone communication - inferred to be mildly anxious/dysthymic SPEECH QUANTITY Appropriate SPEECH QUALITY Spontaneous, Appropr iate volume THOUGHT PROCESS Coherent and goal di rected, slight circumstantiality noted THOUGHT CONTENT Continued hallucinat ions, see HPI - patient didn't respond to [...]
--- OUTSIDE RECORDS SUMMARY | 2024-08-12 00:36 | XMS_ITS | Patient Health Summary ---
Author Organization [facility] [employer] Address [address] [place] [address] Care Team Providers Care Weigher Production Name Role Phone Unavailable Primary Care Provider Unavailabl e Note from [facility],non-owned Affiliates and Associated Physician Practices is amultiple site organization consisting of ambulatory clinics and hospital sitesin [place] and [place]. This disclosure is being madepursuant to the Care Everywhere program and may not contain all information available regarding this patient. Last updated 18.[facility] Allergies * Sulfamethoxazole W-Trimethoprim(Unknown) * Escitalopram(Unknown) * [...] - 5.6 % 01/06/2022 7:01 AM CDT [facility] Estimated Average Glucose 111 mg/dL 01/06/2022 7:01 AM CDT [facility] Blood BLOOD SPECIMEN / Unknown Lab Venipuncture / Unknown 01/06/2022 6:25 AM CDT 01/06/2022 6:32 AM CDT Narrative [facility] - 01/06/2022 7:01 AM CDT HbA1c [...] Type 1 diabetes, pediatric patients, or women. Falsely low HbA1c results may be observed in patients with clinical conditions that shorten erythrocyte life span or decrease mean erythrocyte age such as the presence of unstable hemoglobin variants, elevated hemoglobin F level or other causes of hemolytic anemia. HbA1c may not accurately reflect glycemic control when clinical conditions that affect erythrocyte survival are present. Severe Iron deficiency anemia may yield falsely high results. Hemoglobin A1c assay should not be used to diagnose or monitor diabetes in patients with malignancy, recent blood transfusion, chronic kidney or liver disease. This method may yield falsely low results when hemoglobin (HbF) exceeds 5% in the specimen. The [employer] assay for the measurement of HbA1c is a National Glycohemoglobin Standardization Program (NGSP) certified method. Bala Vazquez APRN-ASSISTANT MERCHANDISE MANAGER LAB - CHEMISTRY ORDERABLES Performing Organization Address City/State/[facility] Co de Phone Number [facility] [address] * TSH (01/06/2022 6:25 AM CDT) Pathologist [facility] TSH 1.270 0.35 - 4.94 uIU/mL 01/09/2022 6:42 AM CDT [facility] Blood BLOOD SPECIMEN / Unknown Lab Venipuncture / Unknown 01/06/2022 6:25 AM CDT 01/06/2022 6:32 AM CDT Eileen Carter BOND CLERK-ASSISTANT MERCHANDISE MANAGER LAB - CHEMISTRY ORDERABLES Performing Organization Address City/State/[facility] Co de Phone Number [facility] [address] [place], [place] [id number] [place] [address] * LIPID PROFILE (01/06/2022 6:25 AM CDT) Cholesterol 132 <200 mg/dL 01/06/2022 7:07 AM CDT [facility] Triglycerides 120 <150 mg/dL 01/06/2022 7:07 AM CDT [facility] HDL Cholesterol 41 >40 mg/dL 2 7:07 AM CDT [facility] Chol HDL Ratio 3.2 1.0 - 6.0 01/06/2022 7:07 AM CDT [facility] LDL Calculated 67 65 - 130 mg/dL 01/06/2022 7:07 AM CDT [facility] VLDL Calculated 24 <=30 mg/dL 2 7:07 AM CDT [facility] Blood BLOOD SPECIMEN / Unknown Lab Venipuncture / Unknown 01/06/2022 6:25 AM CDT 01/06/2022 6:32 AM CDT Narrative [facility] - 01/06/2022 7:07 AM CDT Lipid [...] AVERAGE.................. 9.5 ...................... 7.0 3X AVERAGE...................>23........................>11 Bala L Brashear BOND CLERK-ASSISTANT MERCHANDISE MANAGER LAB - CHEMISTRY ORDERABLES Performing Organization Address City/State/[facility] Co de Phone Number [facility] [address] [place] [id number]
--- OUTSIDE RECORDS SUMMARY | 2024-08-12 00:37 | XMS_ITS | Clinical Summary ---
Author Organization [facility] Address [address] [place] [address] Care Team Providers Care Pre Press Proofer Name Role Phone None, Provider MD Primary [...] 116 02/03/2022 3:14 PM CDT Temperature 37 C (98.6 F) 02/03/2022 3:14 PM CDT Respiratory Rate 18 [...] topic HPV Vaccines Completed 08/19/2009, 10/2008, 02/18/2009 Meningococcal B Vaccine Aged Out No l onger eligible based on patient's age to complete this topic Pneumococcal Vaccine: Pediatrics (0 to 5 Years) and At-Risk Patients (6 to 64 Years) Aged Out No longer eligible based on patient's age to complete this topic RSV Immunizations Under 20 Months Aged Out No longer eligible based on patient's age to complete this topic Insurance [employer] Care Teams Pre Press Proofer Relationship Specialty Start Date End Date None, Provider, PCP - General 02/01/22
--- OUTSIDE RECORDS SUMMARY | 2024-08-12 00:37 | XMS_ITS ---
Author Organization [facility] Address [address] [place] [address] Care Team Providers Care Development Disability Specialist Name Role Phone Charlotte Donald Unavailable [phone] zzzzMigration, zzzzProvider Unavailable Unav ailable REASON FOR VISIT EMR-Lg Encounters Encounter Location Date Provider Diagnosis [facility] [address] [place] [address] 04/07/2023 zzzzProvider zzzzMigration Plan Of Treatment No Information Progress Notes * Hali GARCIA ADOB:0 1995 (29 yo F)Acc No.[id number]:04/07/2023 Patient: Hali SHAH :1995 A ge:28 Y S ex:Female Address[address] [address] Subjective: * Chief Complaints: * E MR-Lg * Medical History: * Surgical History: * Hospitalization/Major Diagno stic Procedure: * Medications: Objective: * Vitals: * Physical Examination: Assessment: Plan: * Treatment: * Procedure Codes: * * Date:
[2024-08-12] MEDS: LACTATED RINGERS 1,000 ML 30 ML IV CONT (08:55)
[2024-08-12 09:29] VITALS: BP 139/64; PULSE 80; RESP 16; TEMP 36.4; O2SAT 100
[2024-08-12 09:36] LABS: BEDSIDEPREGUCG Negative (Negative)
--- NOTE | 2024-08-12 10:10 | WPDANESEPPF ---
Anes - Initial Pre Proc Eval Procedure: Operation Date: 08/12/24 11:00 Proposed Procedures p Thermal Radiofrequency Ablation Bilateral L3, L4, L5, Medial Branches / Dorsal Rami Supplying Bilateral L4-5, L5-S1, Facet Joints Under Fluoroscopic Guidance - Yobani Lamar MD Date/Time: 08/12/24 10:10 Surgeon: Yobani Lamar MD Pre Op Diagnosis: Lumbosacral Spondylosis Patient Data Age: 29 Gender: F Height: 1.68 m Weight: 159.8 kg Last Vital Signs Temp 36.4 C 08/12/24 09:29 Pulse 80 08/12/24 09:29 Resp 16 08/12/24 09:29 BP 139/64 08/12/24 09:29 Pulse Ox 100 08/12/24 09:29 O2 Del Method Room Air 08/12/24 09:29 Allergies Allergy/AdvReac Type Severity Reaction Status Date / Time Sulfa (Sulfonamide Allergy Mild Hives Verified 08/12/24 09:26 Antibiotics) lactose Allergy Unknown Diarrhea Verified 08/12/24 09:26 escitalopram (From Lexapro) AdvReac Mild Blurry Verified 08/12/24 09:26 Vision Home Medications ?Medication ?Instructions ?Recorded ?Confirmed ?Type benztropine 0.5 mg tablet 0.5 mg PO BID 01/11/24 08/12/24 History cetirizine 10 mg tablet (Zyrtec) 10 mg PO DAILY PRN Allergy Symptoms 01/11/24 08/05/24 History cholecalciferol (vitamin D3) 50 50 mcg PO DAILY 01/11/24 08/05/24 History mcg (2,000 unit) capsule (Vitamin D3) desvenlafaxine succinate 50 mg 50 mg PO DAILY 01/11/24 08/12/24 History tablet,extended release 24 hr ibuprofen 800 mg tablet 800 mg PO Q6H PRN Pain 01/11/24 08/05/24 History lidocaine 5 % topical patch 1 patch topical DAILY PRN Pain 01/11/24 08/05/24 History lithium carbonate 300 mg 600 mg PO BID 01/11/24 08/12/24 History tablet,extended release norethindrone 1 mg-ethinyl 1 tablet PO DAILY 01/11/24 08/05/24 History estradiol 10 mcg (24)-iron 10 mcg(2) tablet (Lo Loestrin Fe) prazosin 2 mg capsule 2 mg PO BID 01/11/24 08/05/24 History aripiprazole 10 mg tablet 10 mg PO DAILY 02/22/24 08/05/24 History paliperidone 9 mg tablet,extended 9 mg PO HS 02/22/24 08/12/24 History release 24 hr (Invega) lorazepam 0.5 mg tablet (Ativan) 0.5 mg PO BID PRN anxiety 06/23/24 08/05/24 History prazosin 5 mg capsule 5 mg PO Q12H 06/23/24 08/05/24 History pregabalin 300 mg capsule 300 mg PO BID 30 days #60 caps 07/29/24 08/12/24 Rx lisdexamfetamine 60 mg capsule 60 mg PO DAILY 08/05/24 08/05/24 History (Vadrian) Laboratory Tests 08/12/24 09:29 POC Urine HCG, Qual Negative (Negative) Patient hx anesthesia problems: none Family hx anesthesia problems: none Results Review: All pre-operative results and documents have been reviewed as part of the pre-operative evaluation. [facility] Past Medical History Medical History Asthma Surgical History Surgical History History of cholecystectomy History of tonsillectomy Social History Social History Smoking packs per day: 1 Smoking cigarettes per day: 20.0 Years smoked: 15 Smoking pack-years: 15.00 Smoking status: Current every day smoker Tobacco type: cigarettes and e-cigarettes/vaping Smoking end date: 12/16/23 Additional smoking assessment comments: Vaping now Alcohol intake: never Substance use: current Substance use type: marijuana Other substance usage details: Once a month Do You Feel Safe in your Home?: Yes Lack of Transportation: No Lack of Food: Sometimes True Current Housing: I Have Housing Concerned About Future Housing: No Difficulty Paying Gas/Electric Bills: YES Difficulty Paying for Meds: No Currently Unemployed: YES Education: High School Diploma/GED Difficulty w/ Childcare or Family Care: No Living arrangements: with family Spiritual care concerns: No Anes - Eval Final PreProcedure Day of Procedure 08/12/24 10:10 Patient weight: super morbidly obese Heart: regular rate and rhythm Lungs: clear to auscultation Airway: Mallampati scale class III Neurological: alert and oriented Last oral intake: >/= 8 hours ASA classification: III Emergent: no Anesthetic plan: proceed Anesthesia type and monitoring: general GIVS and standard monitoring Results Review: All pre-operative results and documents have been reviewed as part of the pre-operative evaluation. Informed Consent: The patient's anesthetic plan and its attendant risks and benefits were discussed with the patient/family/POA. Questions were solicited and answers provided to the satisfaction of the patient/family/POA.
--- NOTE | 2024-08-12 11:30 | PM.HPGS ---
History of Present Illness History of Present Illness Consent: Risks, benefits, and alternatives have been discussed and questions answered. Patient agrees to proceed with procedure. Chief complaint: Lumbosacral Spondylosis Narrative: Hali Garcia is a 29 year old female with chronic, recalcitrant and disabling bilateral lumbosacral back pain secondary to degenerative spondylosis with failure to respond to aggressive conservative measures including PT, oral and topical analgesics, opioid and nonopioid analgesics, rest, time and activity/behavioral modification over the past 1-2 years but with concordant in response to a series of 2 diagnostic/prognostic medial branch blocks and a prior RFA with 80% relief for 6 months or longer, who presents for thermal radiofrequency ablation of the bilateral L3, L4, L5 medial branches/dorsal ramus addressing the bilateral L4-5, L5-S1 facet joints under fluoroscopic guidance. Review of Systems Review of Systems: Patient denies any new infectious, allergic, cardiopulmonary, neurologic or constitutional symptoms or changes in activity tolerance or exercise capacity including new or progressive SOB/SALAS, peripheral edema, productive cough, dysuria, nausea/vomiting, diarrhea, weight change, fevers/chills/night sweats, new or progressive neurologic deficit, cognitive or mood changes since last seen, except as documented in the HPI. All systems reviewed & are unremarkable except as noted in HPI and below PMFSH Past Medical History Medical History Asthma Surgical History Surgical History History of cholecystectomy History of tonsillectomy Social History Social History Smoking packs per day: 1 Smoking cigarettes per day: 20.0 Years smoked: 15 Smoking pack-years: 15.00 Smoking status: Current every day smoker Tobacco type: cigarettes and e-cigarettes/vaping Smoking end date: 12/16/23 Additional smoking assessment comments: Vaping now Alcohol intake: never Substance use: current Substance use type: marijuana Other substance usage details: Once a month Do You Feel Safe in your Home?: Yes Lack of Transportation: No Lack of Food: Sometimes True Current Housing: I Have Housing Concerned About Future Housing: No Difficulty Paying Gas/Electric Bills: YES Difficulty Paying for Meds: No Currently Unemployed: YES Education: High School Diploma/GED Difficulty w/ Childcare or Family Care: No Living arrangements: with family Spiritual care concerns: No Meds Home Medications and Allergies Home Medications ?Medication ?Instructions ?Recorded ?Confirmed ?Type benztropine 0.5 mg tablet 0.5 mg PO BID 01/11/24 08/12/24 History cetirizine 10 mg tablet (Zyrtec) 10 mg PO DAILY PRN Allergy Symptoms 01/11/24 08/05/24 History cholecalciferol (vitamin D3) 50 50 mcg PO DAILY 01/11/24 08/05/24 History mcg (2,000 unit) capsule (Vitamin D3) desvenlafaxine succinate 50 mg 50 mg PO DAILY 01/11/24 08/12/24 History tablet,extended release 24 hr ibuprofen 800 mg tablet 800 mg PO Q6H PRN Pain 01/11/24 08/05/24 History lidocaine 5 % topical patch 1 patch topical DAILY PRN Pain 01/11/24 08/05/24 History lithium carbonate 300 mg 600 mg PO BID 01/11/24 08/12/24 History tablet,extended release norethindrone 1 mg-ethinyl 1 tablet PO DAILY 01/11/24 08/05/24 History estradiol 10 mcg (24)-iron 10 mcg(2) tablet (Lo Loestrin Fe) prazosin 2 mg capsule 2 mg PO BID 01/11/24 08/05/24 History aripiprazole 10 mg tablet 10 mg PO DAILY 02/22/24 08/05/24 History paliperidone 9 mg tablet,extended 9 mg PO HS 02/22/24 08/12/24 History release 24 hr (Invega) lorazepam 0.5 mg tablet (Ativan) 0.5 mg PO BID PRN anxiety 06/23/24 08/05/24 History prazosin 5 mg capsule 5 mg PO Q12H 06/23/24 08/05/24 History pregabalin 300 mg capsule 300 mg PO BID 30 days #60 caps 07/29/24 08/12/24 Rx lisdexamfetamine 60 mg capsule 60 mg PO DAILY 08/05/24 08/05/24 History (Vyvanse) Allergies Allergy/AdvReac Type Severity Reaction Status Date / Time Sulfa (Sulfonamide Allergy Mild Hives Verified 08/12/24 09:26 Antibiotics) lactose Allergy Unknown Diarrhea Verified 08/12/24 09:26 escitalopram (From Lexapro) AdvReac Mild Blurry Verified 08/12/24 09:26 Vision Vital Signs Vital Signs - 24 hr 08/12/24 09:29 Temperature 97.6 F Pulse Rate 80 Respiratory Rate 16 Blood Pressure 139/64 Pulse Oximetry 100 Oxygen Delivery Room Air Exam Narrative: The patient's physical exam is essentially unchanged from prior examination on 04/28/2024. Specifically, patient demonstrates normal lung capacity, tidal volume and respiratory rate without wheezes, crackles, rales or rubs. Heart rate and rhythm are regular without murmurs, gallops or rubs. No JVD. Pulses 2+ globally without increasing peripheral edema. AAOx3 with no evidence of confusion, intoxication or altered mental state, NC/AT without acute distress or altered consciousness. Speech, cognition, mood, insight and judgment at baseline and within normal limits. Assessment and Plan Assessment and plan (1) Lumbosacral spondylosis: Code(s): M47.817 - Spondylosis without myelopathy or radiculopathy, lumbosacral region Status: Acute (2) Chronic pain associated with significant psychosocial dysfunction: Code(s): G89.4 - Chronic pain syndrome Status: Acute (3) Dorsalgia: Code(s): M54.9 - Dorsalgia, unspecified Status: Acute Plan proceed as planned with thermal radiofrequency ablation of the bilateral L3, L4, L5 medial branch/ dorsal rami Addressing the bilateral L4-5, L5-S1 facet joints under fluoroscopic guidance.
--- NOTE | 2024-08-12 11:33 | P.OP_ITS ---
Procedure Note - Detailed Date of Procedure 08/12/24 Pre-op Diagnosis Lumbosacral Spondylosis Post-op Diagnosis Same Procedure Performed Thermal Radiofrequency Ablation of the bilateral Lumbar Medial Branches/Dorsal Ramus at the L3, L4, L5 Levels Treating the bilateral L4-5, L5-S1 Facet Joints Under Fluoroscopic Guidance (4 Levels Treated). Surgeon Yobani Lamar MD Program Director/Morning Show Host None. Anesthesia Local (w/ MAC) Description of Procedure INFORMED CONSENT: Risks, benefits and alternatives to the procedure were discussed in detail with the patient who expressed explicit understanding and consent to proceed. Patient was informed verbally and in written form regarding the risks associated with the procedure including the low risk of serious infection, bleeding/bruising, allergic reaction, nerve or organ injury, paralysis, procedural site pain or discomfort, worsening pain and/or mobility, failure to treat and/or disfigurement. The patient expressed explicit understanding and consent to proceed. All materials required for the procedure were available prior to procedure start. Site and side were marked prior to procedure and confirmed in the presence of the patient. PROCEDURE IN DETAIL: The patient was brought to the procedural suite and placed in the prone position. Patient was made comfortable with use of pillows under the head/chest, hips and ankles. ASA standard monitors were applied and used throughout the procedure. Skin overlying the injection site on the affected side(s) was prepared broadly with ChloraPrep applicator and draped in a sterile manner. Aseptic technique was used throughout. The endplates of the vertebral bodies at the site(s) of interest were aligned in the AP view. Ipsilateral oblique angulation was utilized to optimize visualization of the intersection between the superior articulating process and transverse process at each target site. Local anesthesia was established by infiltration with approximately 5 mL of 1% lidocaine via a 1-1/2 inch 27-gauge needle divided over each site treated. A 16-gauge 150 mm Ternian RF needle with curved 10mm active tip was advanced in the AP view until the needle tip contacted the periosteum at the target site, the right L3 medial branch. Lateral view was utilized to adjust and confirm the appropriate placement of the needle tip just anterior to the facet line, superior to the pedicle and posterior to the foramen. Grounding electrode was in place and functioning. The appropriately-sized RF cannula was inserted into the RF needle and motor stimulation was performed with no subjective or objective evidence of recruited muscle activity with stimulation up to 2.0 volts at a frequency of 2Hz. 1.5 mL of 2.0% PF lidocaine was injected after negative aspiration. After a 90s pause, lesioning was performed to 90 degrees centigrade for 90s ensuring lack of symptoms in the extremity throughout. Needle was rotated 180 degrees and lesioning repeated in a similar manner. Patient tolerated this well. No parasthesias were elicited. Needle was removed co mpletely intact without difficulty. The same procedure was repeated for all intended levels/ structures on the ipsilateral side, right L4, L5 medial branch/dorsal ramus with identical methodology, modified to compensate for new location, with similar results and no evidence of complication. The same exact procedure was repeated for all remaining levels on the contralateral side, left L3, L4, L5 medial branches/dorsal ramus, modified as necessary to accommodate for the new target location with identical findings/results and no evidence of complication. Images were saved and documented in the patient chart. Patient's skin was cleansed and sterile bandage applied. The patient tolerated the procedure well. The patient was transported to the recovery area in stable condition where they were observed for an appropriate amount of time prior to discharge, without evidence of complication. The patient was instructed to avoid excessive activity for the next 48 hours, including climbing and frequent use of stairs. Showers only for 48 hours. They were instructed not to drive or operate heavy machinery for 24 hours. They are to monitor for severe headaches, fevers, chills, night sweats, erythema/swelling at the site or any other signs of infection, bleeding/bruising, bowel or bladder changes as well as new pain, weakness or numbness in the upper or lower extremity. Should they notice these changes, they are instructed to call our office immediately or report directly to the nearest Emergency Department if no answer or if after posted office hours. COMPLICATIONS: None COMMENTS: None Complications No immediate complications Condition Stable Disposition PACU [facility] Billing Surgery - Charge Forward: Surgery Billing
--- NOTE | 2024-08-12 12:02 | WPDHPUPDATE1 ---
History and Physical Update Update Date/Time: 08/12/24 12:02 History and Physical has been reviewed, including an updated exam of the patient. There are NO changes in the patient's condition. Risks, benefits, and alternatives have been discussed and questions answered. Patient agrees to proceed with procedure.
[2024-08-12] MEDS: ceFAZolin 3 GM/D5W 100 ML 100 ML IVPB (12:05)
[2024-08-12] MEDS: BUPivacaine HCL 0.5% 10 ML AMP INFILTRATE (12:19)
[2024-08-12] MEDS: LIDOCAINE 2% PF LOCAL INJ 5 ML VIAL 10 ML INFILTRATE (12:19)
[2024-08-12 12:42] VITALS: BP 93/51; PULSE 77; RESP 16; O2SAT 98
[2024-08-12 13:10] VITALS: BP 124/73; PULSE 84
== END 2024-08-12 13:23 | disposition home or self-care (01) ==
PROVIDERS: Anesthesiology; PCP Nurse Practitioner; Visit Provider Anesthesiology Pain Medicine
PROC: (CPT 64635; principal; 2024-08-12 11:00)
DX: M47.817 Spondylosis without myelopathy or radiculopathy, lumbosacral region (principal); G89.4 Chronic pain syndrome; F17.210 Nicotine dependence, cigarettes, uncomplicated; F17.290 Nicotine dependence, other tobacco product, uncomplicated; F12.90 Cannabis use, unspecified, uncomplicated; E66.01 Morbid (severe) obesity due to excess calories; Z68.43 Body mass index [BMI] 50.0-59.9, adult
CPT/HCPCS: 64635; 64636 ×6; 99199; J0690; J2003; J2250; J2704; J3010; J7120